=== PATIENT | female | born 1955 | race Caucasian/White ===

== ENCOUNTER → 2022-12-07 23:59 | Outpatient (BNV) | payer OTHER, SELFPAY | PROVIDERS: PCP Physician Assistant Medical; Visit Provider Internal Medicine Cardiovascular Disease | DX: I21.11 ST elevation (STEMI) myocardial infarction involving right coronary artery (principal) | CPT/HCPCS: 92941; 92978; 93458; 99152 ==

== ENCOUNTER 2023-01-03 14:46 | Outpatient (AMB) | payer OTHER, SELFPAY ==
--- NOTE | 2023-01-03 14:58 | A.OFFVIS_ITS ---
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 12/07 Intake Note: New patient post cardiac cath feeling ok fatigued and having heart burn Respiratory Care Practitioner Required: No Emergency Medical Technician: Emergency Medical Technician Present Accompanied by: Daughter Allergies acetaminophen [From Percocet] Allergy (Mild, Verified 01/03/23 15:09) Nausea nitrofurantoin [From Macrobid] Allergy (Mild, Verified 01/03/23 15:09) fever oxycodone [From Percocet] Allergy (Mild, Verified 01/03/23 15:09) Nausea sulfamethoxazole [From Bactrim] Allergy (Mild, Verified 01/03/23 15:09) face swelling trimethoprim [From Bactrim] Allergy (Mild, Verified 01/03/23 15:09) face swelling penicillin G Allergy (Verified 01/03/23 15:09) hives Medication List - Last Reconciled 01/03/23 by Ruddy Sams MD aspirin (Adult Aspirin Regimen) 81 mg PO DAILY atorvastatin 80 mg PO BEDTIME carvedilol 6.25 mg PO BID lisinopril 40 mg PO DAILY omeprazole magnesium (Prilosec OTC) 20 mg PO DAILY ticagrelor (Brilinta) 90 mg PO BID HPI HPI Comments History of Present Illness Details 67 female with who had inferior STEMi in 11/2022 and underwent ostial RCA stent. She is here for f/u. Clinically stable. No throat discomfort or indigestion (anginal symptoms). Residual disease in proximal LCx 70-75%. No bleeding. some skin bruising. Review of Systems Const Denies chills, Denies daytime sleepiness, Denies fatigue, Denies fever(s), Denies frequent falls, Denies poor appetite, Denies snoring, Denies stops breathing during sleep, Denies weakness, Denies weight gain and Denies weight loss Eyes Denies loss of vision ENT Denies dizziness and Denies hearing loss Card Denies chest pain, Denies claudication, Denies leg edema, Denies lightheadedness, Denies palpitations, Denies dyspnea, Denies dyspnea on exertion and Denies orthopnea Resp Denies cough, Denies excessive phlegm production, Denies dyspnea, Denies dyspnea on exertion, Denies snoring and Denies wheezing GI Denies abdominal pain, Denies hematochezia, Denies change in bowel habits, Denies nausea and Denies vomiting Denies urinary frequency and Denies dysuria Musc Denies arthralgias, Denies muscle weakness, Denies numbness and Denies other (frequent falls) Skin/Breast Denies nail changes and Denies rash Neuro Denies Abnormal speech present, Denies dizziness, Denies frequent falls, Denies loss of vision, Denies memory loss, Denies numbness and Denies weakness Psych Denies depression and Denies memory loss Endo Denies fatigue and Denies palpitations Gulshan/Lymph Reports easy bruising and Reports other (anemia) Aller/Immun Denies wheezing Physical Exam Vital Signs: Last Vital Signs Pulse 78 01/03/23 15:04 BP 128/74 01/03/23 15:04 BMI result Body Mass Index 30.2 GENERAL APPEARANCE: in no acute distress, pleasant. NECK: no carotid bruit, no jugular venous distention. SKIN: no suspicious lesions, warm and dry. HEART: no murmurs, regular rate and rhythm. LUNGS: clear to auscultation bilaterally. ABDOMEN: soft, nontender. EXTREMITIES: no edema. PERIPHERAL PULSES: equal. NEUROLOGIC: No gross deficits, AAO X 3 Neuro Speech: No Abnormal speech present Assessment & Plan Assessment & Plan (1) ST elevation myocardial infarction (STEMI) of inferior wall: Code(s): I21.19 - ST elevation (STEMI) myocardial infarction involving other coronary artery of inferior wall (2) Stable angina: Code(s): I20.89 - Other forms of angina pectoris Plan [age] year female who is here for follow-up. She had inferior ST-elevation [place] and underwent ostial RCA PCI in November 2022. She has residual proximal circumflex stenosis of 75%. She has no symptoms currently. She will be starting cardiac rehabilitation next week. We discussed about treatment of her circumflex artery and after discussion we have decided to do cardiac rehab ilitation and see if she has any symptoms. Obviously if she starts having any symptoms the future we will repeat reassess her and consider PCI to circumflex. Continue aspirin and Brilinta. Brilinta will be for at least 1 year. Follow-up in 3 months. Thank you for allowing me to participate in the care of your patient. Please feel free to contact me if you have any questions. Coding Level of Care Code Est Pt Level 4 (77794) Diagnoses ST elevation myocardial infarction (STEMI) of inferior wall I21.19 Stable angina I20.89
[2023-01-03 15:04] VITALS: BP 128/74; PULSE 78; BMI 30.2
== END 2023-01-03 15:33 | disposition home or self-care (01) ==
PROVIDERS: PCP Physician Assistant Medical; Visit Provider Internal Medicine Cardiovascular Disease
DX: I21.19 ST elevation (STEMI) myocardial infarction involving other coronary artery of inferior wall (principal); I20.89 Other forms of angina pectoris
CPT/HCPCS: 99214

== ENCOUNTER → 2023-01-03 14:46 | Outpatient (BNVA) | payer OTHER, SELFPAY | PROVIDERS: PCP Physician Assistant Medical; Visit Provider Internal Medicine Cardiovascular Disease ==

== ENCOUNTER 2023-01-25 10:17 | Outpatient (AMB) | payer OTHER, SELFPAY ==
--- NOTE | 2023-01-25 10:37 | AM.OFFWIN_ITS ---
Intake Vital Signs 01/25/23 10:40 Height 4 ft 11.5 in Weight 150 lb BMI 29.8 BP 126/72 Blood Pressure Location Rt brachial Position Sitting Respiration 13 Pulse 78 Pulse Source Pulse Oximeter Temp 97.6 F Temp Source Temporal Artery Scan Pulse Oximetry (%) 99 Oxygen Delivery Method Room Air Intake Visit Reasons: ? UTI Patient Tobacco Use Status: Former Tobacco user Legal Document Assistant Required: No Accompanied by: Self / Same As Patient Allergies acetaminophen [From Percocet] Allergy (Mild, Verified 01/25/23 11:40) Nausea nitrofurantoin [From Macrobid] Allergy (Mild, Verified 01/25/23 11:40) fever oxycodone [From Percocet] Allergy (Mild, Verified 01/25/23 11:40) Nausea sulfamethoxazole [From Bactrim] Allergy (Mild, Verified 01/25/23 11:40) face swelling trimethoprim [From Bactrim] Allergy (Mild, Verified 01/25/23 11:40) face swelling penicillin G Allergy (Verified 01/25/23 11:40) hives Medication List - Last Reconciled 01/25/23 by Alvin Connor CNP ascorbic acid (vitamin C) 250 mg PO DAILY aspirin (Adult Aspirin Regimen) 81 mg PO DAILY atorvastatin 80 mg PO BEDTIME carvedilol 6.25 mg PO BID cranberry 2,000 mg PO DAILY insulin degludec (Tresiba FlexTouch U-100 insulin) 28 units subcut DAILY lisinopril 40 mg PO DAILY loperamide 2 mg PO Q4H PRN metformin ER 1,000 mg PO BID methenamine hippurate 1 g PO DAILY multivitamin (One Daily Multivitamin tablet) 1 tab PO DAILY omeprazole magnesium (Prilosec OTC) 20 mg PO DAILY oxybutynin chloride ER 10 mg PO DAILY ticagrelor (Brilinta) 90 mg PO BID Do you need a note to return to daycare/school/sports/work: No HPI HPI Comments History of Present Illness Details 67-year-old female presents with complai nts pressure in her suprapupic region and urinary urgency/frequency. She reports associated chills. She notes that her symptoms have been on and off for the past 4-5 days. She reports h/o c hronic UTI. She notes she has not had UTI in the past 1 year. No pain with urination. No blood in the urine. No fever, chills, body aches, fatigue or weakness. PFSH Social History Patient Tobacco Use Status: Former Tobacco user Review of Systems Const Details: Const Denies chills, Denies fatigue, Denies fever(s), Denies headache(s) and Denies weakness ENT Denies change in vision, Denies dizziness, Denies headache(s), Denies hearing loss, Denies nasal congestion, Denies sinus pain, Denies sinus pressure and Denies sore throat Resp Denies cough, Denies dyspnea, Denies wheezing and Denies other (shortness of breath) Cardio Denies chest pain, Denies lightheadedness, Denies dyspnea and Denies other (palpitations) GI Reports as per HPI Reports as per HPI Neuro Denies dizziness, Denies headache(s), Denies numbness, Denies tingling and Denies weakness Psych Denies anxiety, Denies depression, Denies memory?loss Endo Denies fatigue Aller/Immun Denies wheezing Physical Exam Vital Signs: Last Vital Signs Temp 97.6 F 01/25/23 10:40 Pulse 78 01/25/23 10:40 Resp 13 01/25/23 10:40 BP 126/72 01/25/23 10:40 Pulse Ox 99 01/25/23 10:40 Oxygen Delivery Method Room Air 01/25/23 10:40 BMI result Body Mass Index 29.8 Const Other: Const General: well developed; No acute distress Nutritional Appearance: well nourished Orientation/consciousness: patient oriented x3 HEENT Head: Yes normocephalic and Yes atraumatic Eyes General: appearance normal, both eyes and all related structures Pupils: Equal, round and reactive pupils present EOM: EOMs intact bilaterally Resp Effort & Inspection: normal respiratory effort Auscultation: clear to auscultation bilaterally Cardio Rate: regular rate Rhythm: regular rhythm Heart sounds: S1 normal heart sound present, S2 normal heart sound present, no gallops, no murmurs and no rubs Bruits: no abdominal aortic bruits and no carotid bruits GI Abdomen is soft, nontender, nondistended, active bowel sounds x4 No CVA tenderness Neuro General: patient oriented x3 and gait normal, no focal neuro deficit Cranial nerves: Yes Equal, round and reactive pupils present Psych Affect: normal affect Results AMB Urinalysis Dipstick UR Leukocytes Moderate Last Edit by Gabi Patterson MA on 01/25/23 10:36 UR Nitrite Negative Last Edit by Gabi Patterson MA on 01/25/23 10:36 UR Urobilinogen Normal Last Edit by Gabi Patterson MA on 01/25/23 10:36 UR Protein Negative Last Edit by Gabi Patterson MA on 01/25/23 10:36 UR Ph 6.0 Last Edit by Gabi Patterson MA on 01/25/23 10:36 UR Blood Trace Last Edit by Gabi Patterson MA on 01/25/23 10:36 UR Specific [place] 1.015 Last Edit by Gabi Patterson MA on 01/25/23 10:3 6 UR Ketone Negative Last Edit by Gabi Patterson MA on 01/25/23 10:36 UR Bilirubin Negative Last Edit by Gabi Patterson MA on 01/25/23 10:36 UR Glucose Negative Last Edit by Gabi Patterson MA on 01/25/23 10:36 Results Reviewed Results Reviewed: Laboratory Last Values Urine pH (Clinic) 6.0 01/25/23 10:30 Specific [place] (Clinic) 1.015 01/25/23 10:30 Ur Protein (Clinic) Negative 01/25/23 10:30 Ur Ketones (Clinic) Negative 01/25/23 10:30 Urine Blood (Clinic) Trace 01/25/23 10:30 Urine Nitrite Negative 01/25/23 10:30 Urine Bilirubin (Clinic) Negative 01/25/23 10:30 Urobilinogen (Clinic) Normal 01/25/23 10:30 Leukocyte Esterase (Clinic) Moderate 01/25/23 10:30 Urine Glucose (Clinic) Negative 01/25/23 10:30 Assessment & Plan Assessment & Plan (1) Lower urinary tract symptoms (LUTS): Code(s): R39.9 - Unspecified symptoms and signs involving the genitourinary system Plan: Reports on and off suprapubic tenderness, urinary frequency/urgency, and chills for the past for 5 days Suprapubic region nontender to palpation Urine dip is positive for leukocytes and red blood cells Likely UTI Will send urine for culture and sensitivity and will treat based on results, given the patient's allergy list to antibiotics Adequate hydration and rest encouraged May take Tylenol ibuprofen for pain, fever, or discomfort Return with worsening or new symptoms Verbalized understanding and agreed with the treatment plan. Orders: Orders AMB Urinalysis Dipstick Today Z13.9 - Encounter for screening, unspecified UA CC w/rflx Micro + Cult Today R39.9 - Unspecified symptoms and signs involving the genitourinary system Coding Level of Care Code New Pt Level 2 (11907) Diagnoses Lower urinary tract symptoms (LUTS) R39.9
[2023-01-25 10:40] VITALS: BP 126/72; PULSE 78; RESP 13; TEMP 36.4; O2SAT 99; BMI 29.8
== END 2023-01-25 11:51 | disposition home or self-care (01) ==
PROVIDERS: PCP Physician Assistant Medical; Visit Provider Nurse Practitioner Family
DX: R39.9 Unspecified symptoms and signs involving the genitourinary system (principal)
CPT/HCPCS: 99202

== ENCOUNTER 2023-01-25 11:54 | Outpatient (REF) | payer OTHER, SELFPAY ==
[2023-01-25 14:22] LABS: Appearance Urine Cloudy; Color Urine Yellow; Glucose Urine UA Negative (Negative); Leukocyte Esterase Urine Moderate (2+) (Negative); Nitrite Urine Negative (Negative); PH 5.5 (5.0-9.0); UMIC TRIGGER UACC YES; Urine Blood Trace (Negative); Urine Ketones Negative (Negative); Urine Protein Negative (Neg-Trace)
[2023-01-25 14:25] LABS: Bacteria Urine 4+ (None Seen); Hyaline Casts Urine 0-2 /LPF (0-2); RBC Urine 0-2 /HPF (0-2); UACC Culture Trigger YES; WBC Urine >50 /HPF (0-5)
== END 2023-01-25 11:55 | disposition home or self-care (01) ==
LOC: HO.LAB 11:54
PROVIDERS: Visit Provider Nurse Practitioner Family
DX: R39.9 Unspecified symptoms and signs involving the genitourinary system (principal)
CPT/HCPCS: 81001; 87086; 87088; 87186

== ENCOUNTER 2023-04-19 09:00 | Outpatient (AMB) | payer OTHER, SELFPAY ==
[2023-04-19 09:14] VITALS: BP 120/62; PULSE 80; BMI 28.5
--- NOTE | 2023-04-19 09:14 | MHC.OFFVIS ---
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: Yes Allergies acetaminophen [From Percocet] Allergy (Mild, Verified 04/19/23 09:18) Nausea nitrofurantoin [From Macrobid] Allergy (Mild, Verified 04/19/23 09:18) fever oxycodone [From Percocet] Allergy (Mild, Verified 04/19/23 09:18) Nausea sulfamethoxazole [From Bactrim] Allergy (Mild, Verified 04/19/23 09:18) face swelling trimethoprim [From Bactrim] Allergy (Mild, Verified 04/19/23 09:18) face swelling penicillin G Allergy (Verified 04/19/23 09:18) hives Medication List - Last Reconciled 04/19/23 by RICKEY Hurst ascorbic acid (vitamin C) 250 mg PO DAILY aspirin (Adult Aspirin Regimen) 81 mg PO DAILY atorvastatin 80 mg PO BEDTIME carvedilol 6.25 mg PO BID cranberry 2,000 mg PO DAILY insulin degludec (Tresiba FlexTouch U-100 insulin) 28 units subcut DAILY lisinopril 40 mg PO DAILY loperamide 2 mg PO Q4H PRN metformin ER 1,000 mg PO BID methenamine hippurate 1 g PO DAILY multivitamin (One Daily Multivitamin tablet) 1 tab PO DAILY omeprazole magnesium (Prilosec OTC) 20 mg PO DAILY oxybutynin chloride ER 10 mg PO DAILY ticagrelor (Brilinta) 90 mg PO BID HPI 3 mth f/up HPI Details Georgia is a 67-year-old female with past medical history of hyperlipidemia who presented to [facility] 11/2022 with chest discomfort determined to be inferior STEMI who was taken to cardiac laboratory mechanic helper and underwent stenting of the ostial RCA. Today she reports she is been doing well since her hospital discharge. She has not had any recurrent chest or throat discomfort. No shortness of breath, palpitation, presyncope, syncope, PND, orthopnea or edema. Reports only light physical activity. Taking all meds as directed. No bleeding issues reported. Daughter is present. [facility] Medical History (Updated 04/19/23 @ 11:24 by KITTY HurstC) Hyperlipidemia CAD (coronary artery disease) ST elevation myocardial infarction (STEMI) of inferior wall Surgical History (Updated 04/19/23 @ 15:39 by RICKEY Hurst) S/P cardiac catheterization Social History (Updated 04/19/23 @ 09:21 by Mica Crane) Patient Tobacco Use Status: Former Tobacco user Quit Date: 20 years ago Review of Systems Const All systems reviewed & are unremarkable except as noted in HPI and below ENT Denies dizziness Card Denies chest pain, Denies chest pain at rest, Denies chest pain with activity, Denies rapid heart rate, Denies pedal edema, Denies edema, Denies leg edema, Denies lightheadedness, Denies palpitations, Denies dyspnea, Reports dyspnea on exertion and Denies orthopnea Resp Denies cough, Denies dyspnea and Reports dyspnea on exertion GI Denies hematochezia and Denies change in stool character Musc Denies abnormal gait, Denies limited range of motion, Denies muscle cramps, Denies muscle weakness, Denies numbness, Denies radiating pain into limb, Denies stiffness and Denies tingling Neuro Denies abnormal gait, Denies dizziness, Denies numbness and Denies tingling Endo Denies palpitations Physical Exam Vital Signs: Last Vital Signs Pulse 80 04/19/23 09:14 BP 120/62 04/19/23 09:14 BMI result Body Mass Index 28.5 Const General: cooperative, healthy appearing, comfortable and no acute distress Orientation/consciousness: patient oriented x3 Neck Neck: Yes normal visual inspection and Yes no JVD Resp Effort & Inspection: normal respiratory effort Auscultation: clear to auscultation bilaterally, no crackles, no rales, no rhonchi and no wheezes Cardio Jugular venous distension: no JVD Rate: regular rate Rhythm: regular rhythm Heart sounds: S1 normal heart sound present, S2 normal heart sound present, no murmurs and no rubs Neuro General: patient oriented x3 Extrem General: Yes normal to inspection and No no pedal edema Psych Appearance: grossly normal Mental Status: mental status grossly normal Speech and movement: Normal speech and movement present Assessment & Plan Assessment & Plan (1) ST elevation myocardial infarction (STEMI) of inferior wall: Code(s): I21.19 - ST elevation (STEMI) myocardial infarction involving other coronary artery of inferior wall Plan: Presented to [facility] 12/07/2022 with chest and throat discomfort, EKG confirmed inferior STEMI. She underwent cardiac catheterization with Dr. Sams showing proximal RCA ostial 99% stenosis, culprit lesion. CANDELARIA was placed. She had residual left circumflex stenosis. Echocardiogram done on 12/08/2022 showed EF 55-60%, can not exclude hypokinesis of the inferior lateral wall, RV normal size and function, no significant valve abnormalities. She has been attending cardiac rehab. She has been on aspirin and will continue indefinitely. She is on Brilinta uninterrupted for at least 1 year. She is on high-dose atorvastatin with ideal LDL goal less than 70. No recent labs for review. She is also on carvedilol and lisinopril. Today she reports doing well with no concerning symptoms. She has only mild shortness of breath with exertion. She does have known residual left circumflex stenosis. Signs and symptoms of angina reviewed with her in detail. Instructed to notify us if her shortness of breath increases. Continue current medications without change. Will enter orders for fasting lipid profile. Continue cardiac rehab. Cardiology follow-up in 3 months, sooner if needed. Emergency care if ever needed for symptoms (2) CAD (coronary artery disease): Code(s): I25.10 - Atherosclerotic heart disease of [place] coronary artery without angina pectoris Plan: As above (3) S/P cardiac catheterization: Comment: 12/08/2022, left main normal, lad minimal luminal irregularities, left circumflex proximal 75% stenosis, RCA ostial proximal 99% stenosis, culprit lesion, CANDELARIA placed Code(s): Z98.890 - Other specified postprocedural states Plan: Right radial catheterization site well healed (4) Hyperlipidemia: Code(s): E78.5 - Hyperlipidemia, unspecified Plan: [place] LDL goal less than 70. Lab orders for fasting lipid entered, patient informed. Continue high-dose atorvastatin Plan Time spent on chart review, documentation, interview and assessment Orders: Orders Lipid Panel Today I21.19 - ST elevation (STEMI) myocardial infarction involving other coronary artery of inferior wall Coding Level of Care Code Est Pt Level 4 (34262) Diagnoses ST elevation myocardial infarction (STEMI) of inferior wall I21.19 CAD (coronary artery disease) I25.10 S/P cardiac catheterization Z98.890 Hyperlipidemia E78.5 Time Spent (min) 28
== END 2023-04-19 09:52 | disposition home or self-care (01) ==
PROVIDERS: PCP Physician Assistant Medical; Visit Provider Nurse Practitioner Family
DX: I21.19 ST elevation (STEMI) myocardial infarction involving other coronary artery of inferior wall (principal); I25.10 Atherosclerotic heart disease of native coronary artery without angina pectoris; Z98.890 Other specified postprocedural states; E78.5 Hyperlipidemia, unspecified
CPT/HCPCS: 99214

== ENCOUNTER → 2023-04-19 09:00 | Outpatient (BNVA) | payer OTHER, SELFPAY | PROVIDERS: PCP Physician Assistant Medical; Visit Provider Nurse Practitioner Family ==

== ENCOUNTER 2023-07-18 09:06 | Outpatient (AMB) | payer OTHER, SELFPAY ==
[2023-07-18 09:12] VITALS: BP 130/60; PULSE 62; BMI 29.2
--- NOTE | 2023-07-18 09:12 | A.OFFVIS_ITS ---
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: No Accompanied by: Self / Same As Patient Allergies acetaminophen [From Percocet] Allergy (Mild, Verified 04/19/23 09:18) Nausea nitrofurantoin [From Macrobid] Allergy (Mild, Verified 04/19/23 09:18) fever oxycodone [From Percocet] Allergy (Mild, Verified 04/19/23 09:18) Nausea sulfamethoxazole [From Bactrim] Allergy (Mild, Verified 04/19/23 09:18) face swelling trimethoprim [From Bactrim] Allergy (Mild, Verified 04/19/23 09:18) face swelling penicillin G Allergy (Verified 04/19/23 09:18) hives Medication List - Last Reconciled 07/18/23 by Ruddy Sams MD ascorbic acid (vitamin C) 250 mg PO DAILY aspirin (Adult Aspirin Regimen) 81 mg PO DAILY atorvastatin 80 mg PO BEDTIME carvedilol 6.25 mg PO BID cranberry 2,000 mg PO DAILY insulin degludec (Tresiba FlexTouch U-100 insulin) 28 units subcut DAILY lisinopril 40 mg PO DAILY loperamide 2 mg PO Q4H PRN metformin ER 1,000 mg PO BID methenamine hippurate 1 g PO DAILY multivitamin (One Daily Multivitamin tablet) 1 tab PO DAILY omeprazole magnesium (Prilosec OTC) 20 mg PO DAILY oxybutynin chloride ER 10 mg PO DAILY ticagrelor (Brilinta) 90 mg PO BID HPI Comments Details: 67 female with who had inferior STEMi in 11/2022 and underwent ostial RCA stent. She is here for f/u. Clinically stable. She had indigestion like feeling when she presented with inferior ST-elevation [place]. She has been experiencing indigestion off and on. She is saying that she is taking omeprazole. The symptoms are random but quite similar to her presentation with STEMI. She is doing cardiac rehabilitation. [facility] Medical History (Updated 04/19/23 @ 11:24 by Dora Hayes NP-C) Hyperlipidemia CAD (coronary artery disease) ST elevation myocardial infarction (STEMI) of inferior wall Surgical History S/P cardiac catheterization Social History Patient Tobacco Use Status: Former Tobacco user Quit Date: 20 years ago Review of Systems Const Denies chills, Denies fatigue, Denies fever(s), Denies frequent falls, Denies weakness, Denies weight gain and Denies weight loss ENT Denies dizziness Card Denies chest pain, Denies leg edema, Denies lightheadedness, Denies palpitations, Denies dyspnea and Denies dyspnea on exertion Resp Denies cough, Denies dyspnea and Denies dyspnea on exertion GI Denies hematochezia Musc Denies abnormal gait, Denies muscle weakness, Denies numbness, Denies radiating pain into limb and Denies tingling Neuro Denies abnormal gait, Denies dizziness, Denies frequent falls, Denies numbness, Denies tingling and Denies weakness Endo Denies fatigue and Denies palpitations Physical Exam Vital Signs: Last Vital Signs Pulse 62 07/18/23 09:12 BP 130/60 07/18/23 09:12 BMI result Body Mass Index 29.2 GENERAL APPEARANCE: in no acute distress, pleasant. NECK: no carotid bruit, no jugular venous distention. SKIN: no suspicious lesions, warm and dry. HEART: no murmurs, regular rate and rhythm. LUNGS: clear to auscultation bilaterally. ABDOMEN: soft, nontender. EXTREMITIES: no edema. PERIPHERAL PULSES: equal. NEUROLOGIC: No gross deficits, AAO X 3 Office Procedures EKG Details: Rhythm 62 beats per minute, normal axis, normal ECG, QTC 381 milliseconds. [id number], Complete Assessment & Plan Assessment & Plan (1) Stable angina: Code(s): I20.89 - Other forms of angina pectoris Category: Medical Plan Pleasant 67-year-old female who is presenting for follow-up. She had previous inferior ST-elevation [place] underwent ostial right coronary artery stent. She had 75% circumflex stenosis which was medically treated. On follow-up she is complaining of indigestion like feeling off and on. These symptoms are not clearly exertional but are similar to her presentation with STEMI. Hard to know whether this is truly indigestion or related to the 75% stenosis of the left circumflex artery. I have discussed with her in detail and we have decided do an exercise stress test. Same medications for now. Follow-up in 3 months. Thank you for allowing me to participate in the care of your patient. Please feel free to contact me if you have any questions. Orders: Orders CA stress test Today I20.89 - Other forms of angina pectoris Coding Level of Care Code Est Pt Level 4 (37132) Diagnoses Stable angina I20.89 CPT Codes EKG - CPT: [id number], Complete ([id number])
== END 2023-07-18 09:49 | disposition home or self-care (01) ==
PROVIDERS: PCP Physician Assistant Medical; Visit Provider Internal Medicine Cardiovascular Disease
DX: I20.89 Other forms of angina pectoris (principal)
CPT/HCPCS: 93010; 99214

== ENCOUNTER → 2023-07-18 09:06 | Outpatient (BNVA) | payer OTHER, SELFPAY | PROVIDERS: PCP Physician Assistant Medical; Visit Provider Internal Medicine Cardiovascular Disease | DX: I20.89 Other forms of angina pectoris (principal); I25.2 Old myocardial infarction | CPT/HCPCS: 93005 ==

== ENCOUNTER → 2023-07-31 09:05 | Outpatient (REF) | payer OTHER, SELFPAY ==
--- NOTE | 2023-07-31 09:09 | CA_ITS ---
Acquisition Time: 2023-07-31 09:13:31 Total Exercise Time: 00:05:15 Test Indications: Chest Pain Medications: SEE H Protocol: SEBAS Max HR: 153 BPM 99% of Pred: 154 BPM Max BP: 160/060 mmHG Max Work Load: 7.0 METS Exercise stress test exercise 5 min 15 sec of Sebas protocll achieivng 99% MPHR, with 1-2/10 left sided pressure, mild SOB, without arrhythmias, with normotensive response to exercise, without EKG changes. Chest pain resolved with rest. Test reviewed with Dr. Sams. Referred By: Ruddy Sams Overread By: Clare Wallace
== END ==
LOC: HO.CARD 09:05
PROVIDERS: Visit Provider Internal Medicine Cardiovascular Disease
DX: I20.89 Other forms of angina pectoris (principal)
CPT/HCPCS: 93017

== ENCOUNTER → 2023-07-31 09:09 | Outpatient (BNV) | payer OTHER, SELFPAY | PROVIDERS: Visit Provider Nurse Practitioner | DX: R07.9 Chest pain, unspecified (principal) | CPT/HCPCS: 93016; 93018 ==

== ENCOUNTER 2023-08-31 09:25 | Outpatient (AMB) | payer OTHER, SELFPAY ==
--- NOTE | 2023-08-31 09:33 | A.OFFPC_ITS ---
Vital Signs 08/31/23 09:39 Height 4 ft 11.06 in Weight 150 lb BMI 30.2 BP 132/64 Blood Pressure Location Lt brachial Position Sitting Respiration 16 Pulse 66 Pulse Source Pulse Oximeter Temp 98 F Temp Source Oral Pulse Oximetry (%) 99 Oxygen Delivery Method Room Air Intake Visit Reasons: Back pain Intake Note: New patient visit. Back pain and hip pain on left side. Allergies acetaminophen [From Percocet] Allergy (Mild, Verified 04/19/23 09:18) Nausea nitrofurantoin [From Macrobid] Allergy (Mild, Verified 04/19/23 09:18) fever oxycodone [From Percocet] Allergy (Mild, Verified 04/19/23 09:18) Nausea sulfamethoxazole [From Bactrim] Allergy (Mild, Verified 04/19/23 09:18) face swelling trimethoprim [From Bactrim] Allergy (Mild, Verified 04/19/23 09:18) face swelling penicillin G Allergy (Verified 04/19/23 09:18) hives Tobacco use date assessed: 08/31/23 Fall risk assessment: No Falls in past year Last assessed Fall Risk: 08/31/23 Dental Screening Dental Screen Date: 08/31/23 Did you have a dental visit in the last 12 months?: Yes Did you have a dental problem in the last 6 months where you did not have access to dental care?: No Was dental information given to patient?: Patient has dentist HPI HPI Comments History of Present Illness Details 67 yo with pmh diabetes, kidney cancer C AD presenting to [facility] Concerned about low back pain. Fell recently with increase in severity of chronic back pain, new left sciatica. OTC tylenol not helping. CAD precluding advil etc PFSH Medical History (Updated 08/31/23 @ 10:07 by Beverley Tello MD) Bone spur Vertigo Urinary incontinence Recurrent UTI Osteoarthritis Obesity, Class I, BMI 30-34.9 Migraine Left hand pain Hypertensive disorder Hypercholesteremia Diarrhea COVID-19 Clear cell renal cell carcinoma Chronic headache Hyperlipidemia CAD (coronary artery disease) ST elevation myocardial infarction (STEMI) of inferior wall Surgical History (Updated 08/31/23 @ 10:06 by Catalina Langford CMA) H/O partial nephrectomy H/O removal of cyst Finger joint replacement of right hand S/P cardiac catheterization Social History Patient Tobacco Use Status: Former Tobacco user Cigarettes Per Day: 0.25 Years Smoked: Unknown e-Cigarette/Vaping Use: Never Used Second Hand Smoke Exposure: Yes service: No Current occupational status: employed and retired Current occupation: [employer] at [employer] Current occupational exposures/hazards: No Questionnaire PHQ-9 Over the last 2 weeks, how often have you been bothered by any of the following problems? 1. Little interest or pleasure in doing things: not at all 2. Feeling down, depressed, or hopeless: not at all 3. Trouble falling or staying asleep, or sleeping too much: more than half the days 4. Feeling tired or having little energy: not at all 5. Poor appetite or overeating: not at all 6. Feeling bad about yourself - or that you are a failure or have let yourself or your family down: not at all 7. Trouble concentrating on things, such as reading the newspaper or watching television: not at all 8. Moving or speaking so slowly that other people could have noticed. Or the opposite - being so fidgety or restless that you have been moving around a lot more than usual: not at all 9. Thoughts that you would be better off or of hurting yourself in some way: not at all Total score: 2 36055 - PHQ-9 Billing: Yes Source: Developed by Drs. Maury Smith, Samantha Ray, Parmjit Martinez and colleagues, with an educational kristen from [employer]. Thrive Questionnaire Date Thrive assessed: 08/31/23 I am a: Patient What is your living situation today?: I have a steady place to live Within the past 12 months, did the food you bought not last and you didn't have the money to get more?: Never true Within the past 12 months, did you worry whether your food would run out before you got money to buy more?: Never true Do you have trouble paying for medicines?: No Do you have trouble getting transportation to medical appointments?: No Do you have trouble paying your heating and electricity bill?: No Do you have trouble taking care of your child, family member or friend?: No Do you have trouble with day-to-day activities such as bathing, preparing meals, shopping, managing finances, etc.?: No Are you currently unemployed and looking for a job?: No Are you interested in more education?: No Please select the resources that you would like help with: None THRIVE Score: 0 AUDIT C Alcohol Use Questionnaire (AUDIT-C) 1. How often do you have a drink containing alcohol?: Never 3. How often do you have six or more drinks on one occasion?: Never Total Score: 0 PIYUSH-7 AMB Questionnaire PIYUSH-7 Feeling nervous, anxious, or on edge: 0 = Not at all Not being able to stop or control worryin = Not at all Worrying too much about different things: 0 = Not at all Trouble relaxin = Not at all Being so restless that it is hard to sit still: 0 = Not at all Becoming easily annoyed or irritable: 1 = Several days Feeling afraid as if something awful might happen: 1 = Several days Total PIYUSH-7 score (0-4 normal; 5-9 mild; 10-14 moderate; 15-21 severe): 2 Source: Developed by Drs. Maury Smith, Samantha Ray, Parmjit Martinez and colleagues, with an educational kristen from [employer]. PIYUSH-7 Assessment Billing PIYUSH-7 Assessment Tool: PIYUSH-7 Assessment 97811 Review of Systems Const Details: se hpi Unobtainable due to mental condition Physical exam (Primary Care) Vital Signs: Last Vital Signs Temp 98 F 08/31/23 09:39 Pulse 66 08/31/23 09:39 Resp 16 08/31/23 09:39 BP 132/64 08/31/23 09:39 Pulse Ox 99 08/31/23 09:39 Oxygen Delivery Method Room Air 08/31/23 09:39 PHYSICAL EXAM: GENERAL: Alert and oriented x 3. NAD EYES: EOMI. Anicteric. HENT: Moist mucous membranes. No scleral icterus. No cervical lymphadenopathy. LUNGS: Clear to auscultation bilaterally. CARDIOVASCULAR: Regular rate and rhythm. No murmur. No JVD. ABDOMEN: Soft, non-tender +bs EXTREMITIES: No edema. Non-tender. SKIN: No rashes or lesions. Warm. NEUROLOGIC: No focal neurological deficits. CN II-XII grossly intact PSYCHIATRIC: Cooperative. Appropriate mood and affect BMI result Body Mass Index 30.2 Tobacco/Smoking Status: Tobacco use Status Tobacco use date assessed 08/31/23 08/31/23 09:41 Patient Tobacco Use Status Former Tobacco user 08/31/23 09:41 e-Cigarette/Vaping Use Never Used 08/31/23 09:41 PHQ-9: PHQ-9 Score PHQ-9: Total score 2 08/31/23 09:42 Thrive Assessment: Date of Thrive Assessment Date Thrive assessed 08/31/23 08/31/23 09:42 Assessment and Plan Assessment & Plan (1) ST elevation myocardial infarction (STEMI) of inferior wall: Code(s): I21.19 - ST elevation (STEMI) myocardial infarction involving other coronary artery of inferior wall (2) Hyperlipidemia: Code(s): E78.5 - Hyperlipidemia, unspecified (3) CAD (coronary artery disease): Code(s): I25.10 - Atherosclerotic heart disease of [place] coronary artery without angina pectoris (4) History of kidney cancer: Code(s): Z85.528 - Personal history of other malignant neoplasm of kidney Orders: Orders Comprehensive [place]. Panel Fast 08/31/23 E11.59 - Type 2 diabetes mellitus with other circulatory complications Hemoglobin A1c 08/31/23 E11.59 - Type 2 diabetes mellitus with other circulatory complications Microalbumin, Random (w Creat) 08/31/23 E11.59 - Type 2 diabetes mellitus with other circulatory complications Lipid Panel 08/31/23 E11.59 - Type 2 diabetes mellitus with other circulatory complications Complete Blood Count Man Dif 08/31/23 E11.59 - Type 2 diabetes mellitus with other circulatory complications, Z13.0 - Encounter for screening for diseases of the blood and blood-forming organs and certain disorders involving the immune mechanism XR lumbar spine 2-3V 08/31/23 M54.16 - Radiculopathy, lumbar region Referrals Physiatry Referral M54.16 - Radiculopathy, lumbar region Medications: New gabapentin 300 mg PO BID 90 days 180 caps 3RF tramadol 50 mg PO DAILY 7 days 21 tabs 0RF Coding Level of Care Code Est Pt Level 4 (67264) Diagnoses ST elevation myocardial infarction (STEMI) of inferior wall I21.19 Hyperlipidemia E78.5 CAD (coronary artery disease) I25.10 History of kidney cancer Z85.528 Additional Codes PIYUSH-7 Assessment Billing - PIYUSH-7 Assessment Tool: PIYUSH-7 Assessment 56458 ([id number])
[2023-08-31 09:39] VITALS: BP 132/64; PULSE 66; RESP 16; TEMP 36.6; O2SAT 99; BMI 30.2
== END 2023-08-31 10:11 | disposition home or self-care (01) ==
LOC: HO.HMGFM 09:25
PROVIDERS: PCP Internal Medicine; Visit Provider Internal Medicine
DX: E78.5 Hyperlipidemia, unspecified (principal); I25.10 Atherosclerotic heart disease of native coronary artery without angina pectoris; I25.2 Old myocardial infarction; Z85.528 Personal history of other malignant neoplasm of kidney
CPT/HCPCS: 99214

== ENCOUNTER 2023-08-31 10:41 | Outpatient (REF) | payer OTHER, SELFPAY ==
--- NOTE | ~2023-08-31 | XR_ITS ---
EXAMINATION: XR LUMBOSACRAL SPINE CLINICAL INFORMATION: Radiculopathy lumbar region left. COMPARISON: None available. TECHNIQUE: Three views of the lumbosacral spine. FINDINGS: Mild rightward curvature of the lumbar spine. Degenerative changes on limited views of the bilateral hips and sacroiliac joints. Facet arthritis in the lower lumbar spine. Atherosclerotic aortic calcifications. Moderate multilevel lumbar spondylosis with loss of disc space height and degenerative changes most notable at L5-S1. Minimal grade 1 anterolisthesis of L4 on L5 with loss of disc space height. XR/XR lumbar spine 2-3V IMPRESSION: Moderate multilevel lumbar spondylosis most notable at L5-S1.
== END 2023-08-31 10:42 | disposition home or self-care (01) ==
LOC: HO.XRAY 10:41
PROVIDERS: PCP Physician Assistant Medical; Visit Provider Internal Medicine
DX: M54.16 Radiculopathy, lumbar region (principal)
CPT/HCPCS: 72100

== ENCOUNTER 2023-09-18 08:57 | Outpatient (AMB) | payer OTHER, SELFPAY ==
--- NOTE | 2023-09-18 08:58 | MHC.PC.OV ---
Vital Signs 09/18/23 09:07 Weight 142 lb 8 oz BP 130/68 Blood Pressure Location Lt brachial Position Sitting Respiration 12 Pulse 68 Pulse Source Pulse Oximeter Temp 98.3 F Temp Source Oral Pulse Oximetry (%) 99 Oxygen Delivery Method Room Air Intake Visit Reasons: Severe back pIn Intake Note: patient c/o radiating pain on back and hip and its getting worse. Accompanied by: Daughter Is last menstrual period known: No Allergies acetaminophen [From Percocet] Allergy (Mild, Verified 09/18/23 09:05) Nausea nitrofurantoin [From Macrobid] Allergy (Mild, Verified 09/18/23 09:05) fever oxycodone [From Percocet] Allergy (Mild, Verified 09/18/23 09:05) Nausea sulfamethoxazole [From Bactrim] Allergy (Mild, Verified 09/18/23 09:05) face swelling trimethoprim [From Bactrim] Allergy (Mild, Verified 09/18/23 09:05) face swelling penicillin G Allergy (Verified 09/18/23 09:05) hives Tobacco use date assessed: 08/31/23 Dental Screening Dental Screen Date: 08/31/23 HPI HPI Comments History of Present Illness Details This is a 66-year-old female with a past medical history of type 2 diabetes, clear cell renal carcinoma of the right kidney, obesity, recurrent UTI, vertigo, chronic headaches, hypertension and hyperlipidemia presenting for evaluation of back pain. She is accompanied by her daughter, Pam. She has a long history of lower back pain x years with radiation down the right leg. She has been treated in the past with muscle relaxants and analgesics. She has done physical therapy. Approximately two months ago she developed worsening symptoms and increased pain now on both sides of the lower back and new pain which radiates down the left buttock, to the left hip and the left groin and upper thigh. The pain is 8/10 constantly. Exacerbating activities include sitting, trying to sleep in any position, standing and lifting her left leg. She was prescribed Tramadol by Dr. Tello, and results from her lumbar x-ray are pending from 08/31/23. She is only able to take the Tramadol at night mostly because it makes her groggy, and she needs to work. States she can't afford to take time off work. She has the same problem with Gabapentin. She can't take NSAIDs due to cardiac dz/med interactions. Tylenol has been ineffective. Heat worsened pain. Cold compresses offer a little bit of short-term relief. There was no inciting event or injury. Denies loss of bowel/bladder control, numbness or tingling except for chronic paresthesias radiating down the right leg. Type 2 diabetes-taking metformin and Tresiba. Last Hga1c was around 7.5% per patient after cortisone injections at the end of June. She has pending lab orders. Cardiovascular-She had an ST elevation [place] 12/08/2022. Status post cardiac catheterization with CANDELARIA placed to the RCA. There was 75% stenosis of the left circumflex. There were minimal luminal irregularities in the LAD. Medications include amlodipine, baby aspirin, atorvastatin, carvedilol, lisinopril and Brilinta. She has a follow up with cardiology on October 07. States residual angina improved after resuming Amlodipine. Right renal clear cell carcinoma-followed by Dr. Sutherland. Surgeon is Dr. Baldwin at [facility]. She underwent partial nephrectomy 12/16/2021. No known recurrence. [facility] Medical History (Updated 09/18/23 @ 13:53 by KELSIE Lundy) Colon polyp Pure hypercholesterolemia Essential hypertension History of kidney cancer Clear cell carcinoma of right kidney Abnormal mammogram Osteopenia Bone spur Vertigo Urinary incontinence Recurrent UTI Osteoarthritis Obesity, Class I, BMI 30-34.9 Migraine Left hand pain Hypertensive disorder Hypercholesteremia Diarrhea COVID-19 Clear cell renal cell carcinoma Chronic headache Hyperlipidemia CAD (coronary artery disease) ST elevation myocardial infarction (STEMI) of inferior wall Surgical History (Updated 09/18/23 @ 08:47 by KELSIE Lundy) History of shoulder surgery History of carpal tunnel surgery of right wrist S/P foot surgery, right H/O partial nephrectomy H/O removal of cyst Finger joint replacement of right hand S/P cardiac catheterization Family History (Updated 09/18/23 @ 08:50 by KELSIE Lundy) Brother Heart disease Alcohol abuse Cancer Mother Heart disease Hypercholesterolemia Hypertension Daughter Hypercholesterolemia Social History Patient Tobacco Use Status: Former Tobacco user Cigarettes Per Day: 0.25 Years Smoked: Unknown e-Cigarette/Vaping Use: Never Used Second Hand Smoke Exposure: Yes service: No Current occupational status: employed and retired 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 +fatigue (not sleeping due to pain) Gastrointestinal: No anorexia, nausea, vomiting or diarrhea. No abdominal pain or blood in stool. Genitourinary: No dysuria, hematuria, urinary frequency. Skin: No rash Physical exam (Primary Care) Vital Signs: Last Vital Signs Temp 98.3 F 09/18/23 09:07 Pulse 68 09/18/23 09:07 Resp 12 09/18/23 09:07 BP 130/68 09/18/23 09:07 Pulse Ox 99 09/18/23 09:07 Oxygen Delivery Method Room Air 09/18/23 09:07 Tobacco/Smoking Status: Tobacco use Status Tobacco use date assessed 08/31/23 09/18/23 08:58 Patient Tobacco Use Status Former Tobacco user 09/18/23 08:58 e-Cigarette/Vaping Use Never Used 09/18/23 08:58 Thrive Assessment: Date of Thrive Assessment Date Thrive assessed 08/31/23 09/18/23 08:58 Const Other: Constitutional: Alert, in no distress. Respiratory: Clear to auscultation. Cardiovascular: S1 S2 regular. No murmurs. Gastrointestinal: Abdomen soft, non-tender, non-distended. Musculoskeletal: Decreased lumbar extension, lateral bending and rotation due to severe pain. Patient winces and moves tentatively during the exam. No foot drop. Lower extremity reflexes intact bilaterally. Left leg strength 3/5, right leg strength 4/5. She has severe left hip and left back pain when she attempts left straight leg raise. The right straight leg raise is negative. The is no midline spinal tenderness. Extremities: Warm and well perfused. Assessment and Plan Assessment & Plan (1) Severe low back pain: Code(s): M54.50 - Low back pain, unspecified (2) Lumbar back pain with radiculopathy affecting left lower extremity: Code(s): M54.16 - Radiculopathy, lumbar region (3) Type 2 diabetes mellitus with cardiac complication: Code(s): E11.59 - Type 2 diabetes mellitus with other circulatory complications (4) CAD (coronary artery disease): Code(s): I25.10 - Atherosclerotic heart disease of [place] coronary artery without angina pectoris Qualifiers: Associated angina: with stable angina Coronary Disease-Associated Artery/Lesion type: [place]all artery [place] vs. transplanted heart: marshall heart Qualified Code(s): I25.118 - Atherosclerotic heart disease of [place] coronary artery with other forms of angina pectoris (5) Hyperlipidemia: Code(s): E78.5 - Hyperlipidemia, unspecified Qualifiers: Hyperlipidemia type: pure hypercholesterolemia Qualified Code(s): E78.00 - Pure hypercholesterolemia, unspecified (6) Essential hypertension: Code(s): I10 - Essential (primary) hypertension Plan Given the patient's continued symptoms for over 6 weeks , lack of inciting injury and history of cancer she needs an MRI of the lumbar spine to rule out Mets. Order placed. She had an x-ray completed of the lumbar spine, and results are pending. We will also obtain x-rays of her hips to evaluate for possible osteoarthritis. She can not take time off of work. Continue to apply cold compresses which offer some relief. Heat made her symptoms worse. Refilled tramadol. She can take it every 8 hours as needed, but she can not take it if she is going to work or drive. She has an upcoming appointment with [facility] in September. She will continue her current medications for cardiovascular disease and keep the follow up appointment scheduled with Cardiology. Orders: Orders MR lumbar spine wo con Today M54.16 - Radiculopathy, lumbar region, M54.50 - Low back pain, unspecified XR hip BI w PEL1V Today M25.551 - Pain in right hip, M25.552 - Pain in left hip Medications: New lorazepam 1 mg orally once 30-60 minutes prior to MRI.; 1 tab 0RF Changed From tramadol 50 mg PO DAILY 7 days 21 tabs 0RF To tramadol 50 mg PO Q8H 14 days PRN 42 tabs 0RF pain Coding Level of Care Code Est Pt Level 4 (98697) Complex EM visit Add On G2211 Diagnoses Severe low back pain M54.50 Lumbar back pain with radiculopathy affecting left lower extremity M54.16 Type 2 diabetes mellitus with cardiac complication E11.59 Coronary artery disease of [place] artery of [place]all heart with stable angina pectoris I25.118 Associated angina: with stable angina Coronary Disease-Associated Artery/Lesion type: [place] artery [place] vs. transplanted heart: [place]all heart Pure hypercholesterolemia E78.00 Hyperlipidemia type: pure hypercholesterolemia Essential hypertension I10
[2023-09-18 09:07] VITALS: BP 130/68; PULSE 68; RESP 12; TEMP 36.8; O2SAT 99
== END 2023-09-18 09:39 | disposition home or self-care (01) ==
PROVIDERS: PCP Physician Assistant Medical; Visit Provider Physician Assistant Medical
DX: M54.50 Low back pain, unspecified (principal); E11.59 Type 2 diabetes mellitus with other circulatory complications; I25.118 Atherosclerotic heart disease of native coronary artery with other forms of angina pectoris; M54.16 Radiculopathy, lumbar region; E78.00 Pure hypercholesterolemia, unspecified; I10 Essential (primary) hypertension
CPT/HCPCS: 99214

== ENCOUNTER 2023-09-18 10:32 | Outpatient (REF) | payer OTHER, SELFPAY ==
--- NOTE | ~2023-09-18 | XR_ITS ---
EXAMINATION: XR BILATERAL HIPS WITH AP PELVIS CLINICAL INFORMATION: Bilateral hip pain, left greater than right. COMPARISON: None available. TECHNIQUE: AP view of the pelvis as well as AP and frog-leg lateral views of the right and left hip. FINDINGS: No acute fracture or dislocation. Mild bilateral hip joint space narrowing with [id number] marginal osteophytes. No concerning lytic or blastic osseous lesion. No evidence of avascular necrosis. Degenerative spurring at the bilateral greater trochanters. Partially visualized facet arthropathy in the lower lumbar spine. Mild degenerative arthritis at the symphysis pubis. Phleboliths within the pelvis. XR/XR hip BI w PEL1V IMPRESSION: 1. Sxwn-[id number] bilateral hip osteoarthritis. 2. Partially visualized facet arthropathy in the lower lumbar spine.
== END 2023-09-18 10:33 | disposition home or self-care (01) ==
LOC: HO.XRAY 10:32
PROVIDERS: PCP Physician Assistant Medical; Visit Provider Physician Assistant Medical
DX: M25.551 Pain in right hip (principal); M25.552 Pain in left hip
CPT/HCPCS: 73521

== ENCOUNTER 2023-10-04 14:24 | Outpatient (AMB) | payer OTHER, SELFPAY ==
[2023-10-04 14:28] VITALS: BP 142/52; PULSE 58; BMI 28.9
--- NOTE | 2023-10-04 14:28 | MHC.OFFVIS ---
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 Accompanied by: Daughter Allergies acetaminophen [From Percocet] Allergy (Mild, Verified 09/18/23 09:05) Nausea nitrofurantoin [From Macrobid] Allergy (Mild, Verified 09/18/23 09:05) fever oxycodone [From Percocet] Allergy (Mild, Verified 09/18/23 09:05) Nausea sulfamethoxazole [From Bactrim] Allergy (Mild, Verified 09/18/23 09:05) face swelling trimethoprim [From Bactrim] Allergy (Mild, Verified 09/18/23 09:05) face swelling penicillin G Allergy (Verified 09/18/23 09:05) hives Medication List - Last Reconciled 10/04/23 by Ruddy Sams MD amlodipine 2.5 mg PO DAILY ascorbic acid (vitamin C) 250 mg PO DAILY aspirin (Adult Aspirin Regimen) 81 mg PO DAILY atorvastatin 80 mg PO BEDTIME carvedilol 6.25 mg PO BID cranberry 2,000 mg PO DAILY gabapentin 300 mg PO BID 90 days insulin degludec (Tresiba FlexTouch U-100 insulin) 26 units subcut DAILY lisinopril 40 mg PO DAILY loperamide 2 mg PO Q4H PRN metformin ER 1,000 mg PO BID methenamine hippurate 1 g PO DAILY multivitamin (One Daily Multivitamin tablet) 1 tab PO DAILY oxybutynin chloride ER 10 mg PO DAILY ticagrelor (Brilinta) 90 mg PO BID tramadol 50 mg PO Q8H PRN 14 days HPI Comments Details: 67 female with who had inferior STEMi in 11/2022 and underwent ostial RCA stent. She is here for f/u. Clinically stable. She had indigestion like feeling when she presented with inferior ST-elevation NM. She has been experiencing indigestion off and on. She is saying that she is taking omeprazole. The symptoms are random but quite similar to her presentation with STEMI. She is doing cardiac rehabilitation. 10/04/2023: On last visit she was complaining of chest discomfort with activities. She underwent stress testing where after exercising for 5 minutes 30 seconds on treadmill she developed chest discomfort. No dynamic EKG changes were noted but symptoms improved after she stopped exercising. She has been taking amlodipine 2.5 mg daily since then and her symptoms are somewhat better. She still gets some anginal episodes off and on and feels distressed by the symptoms. [facility] Medical History (Updated 09/18/23 @ 13:53 by KELSIE Lundy) Colon polyp Pure hypercholesterolemia Essential hypertension History of kidney cancer Clear cell carcinoma of right kidney Abnormal mammogram Osteopenia Bone spur Vertigo Urinary incontinence Recurrent UTI Osteoarthritis Obesity, Class I, BMI 30-34.9 Migraine Left hand pain Hypertensive disorder Hypercholesteremia Diarrhea COVID-19 Clear cell renal cell carcinoma Chronic headache Hyperlipidemia CAD (coronary artery disease) ST elevation myocardial infarction (STEMI) of inferior wall Surgical History History of shoulder surgery History of carpal tunnel surgery of right wrist S/P foot surgery, right H/O partial nephrectomy H/O removal of cyst Finger joint replacement of right hand S/P cardiac catheterization Family History Brother Heart disease Alcohol abuse Cancer Mother Heart disease Hypercholesterolemia Hypertension Daughter Hypercholesterolemia Social History Patient Tobacco Use Status: Former Tobacco user Cigarettes Per Day: 0.25 Years Smoked: Unknown e-Cigarette/Vaping Use: Never Used Second Hand Smoke Exposure: Yes service: No Current occupational status: employed and retired 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 [employer] Current occupational exposures/hazards: No Review of Systems Const Denies chills, Denies fatigue, Denies fever(s), Denies frequent falls, Denies weakness, Denies weight gain and Denies weight loss ENT Denies dizziness Card Denies chest pain, Denies leg edema, Denies lightheadedness, Denies palpitations, Denies dyspnea and Denies dyspnea on exertion Resp Denies cough, Denies dyspnea and Denies dyspnea on exertion GI Denies hematochezia Musc Denies abnormal gait, Denies muscle weakness, Denies numbness, Denies radiating pain into limb and Denies tingling Neuro Denies abnormal gait, Denies dizziness, Denies frequent falls, Denies numbness, Denies tingling and Denies weakness Endo Denies fatigue and Denies palpitations Physical Exam Vital Signs: Last Vital Signs Pulse 58 10/04/23 14:28 BP 142/52 H 10/04/23 14:28 BMI result Body Mass Index 28.9 GENERAL APPEARANCE: in no acute distress, pleasant. NECK: no carotid bruit, no jugular venous distention. SKIN: no suspicious lesions, warm and dry. HEART: no murmurs, regular rate and rhythm. LUNGS: clear to auscultation bilaterally. ABDOMEN: soft, nontender. EXTREMITIES: no edema. PERIPHERAL PULSES: equal. NEUROLOGIC: No gross deficits, AAO X 3 Assessment & Plan Assessment & Plan (1) Stable angina: Code(s): I20.89 - Other forms of angina pectoris Category: Medical (2) Hyperlipidemia: Code(s): E78.5 - Hyperlipidemia, unspecified Category: Medical Qualifiers: Hyperlipidemia type: pure hypercholesterolemia Qualified Code(s): E78.00 - Pure hypercholesterolemia, unspecified Plan Pleasant 67 year female who is here for follow-up. She has known history of coronary disease with previous RCA PCI in the setting of inferior ST-elevation NM. She had residual left circumflex stenosis which was medically treated in the past. Recently she has been experiencing chest discomfort with activities and during stress testing she also had chest discomfort while exercising. She did not have any dynamic EKG changes but only exercise for 5 minutes 30 seconds. She has been on amlodipine with some improvement in symptoms. Her blood pressure is elevated and I have advised her to increase the amlodipine to 5 mg daily. We discussed about treatment of coronary disease and that we have options of medical treatment versus PCI. Her symptoms are less frequent but quite distressing to her and she wishes to pursue PCI to left circumflex artery. We are going to arrange that for her. She is already on aspirin Brilinta and will continue both. Follow-up 2 weeks after cardiac catheterization. Thank you for allowing me to participate in the care of your patient. Please feel free to contact me if you have any questions. Medications: New amlodipine 5 mg PO DAILY 90 tabs 3RF Discontinued amlodipine Discontinued Reason: Doctor's Order 2.5 mg PO DAILY 60 tabs 3RF Coding Level of Care Code Est Pt Level 4 (62400) Diagnoses Stable angina I20.89 Pure hypercholesterolemia E78.00 Hyperlipidemia type: pure hypercholesterolemia
== END 2023-10-04 14:51 | disposition home or self-care (01) ==
PROVIDERS: PCP Physician Assistant Medical; Visit Provider Internal Medicine Cardiovascular Disease
DX: I20.89 Other forms of angina pectoris (principal); E78.00 Pure hypercholesterolemia, unspecified
CPT/HCPCS: 99214

== ENCOUNTER → 2023-10-04 14:24 | Outpatient (BNVA) | payer OTHER, SELFPAY | PROVIDERS: PCP Physician Assistant Medical; Visit Provider Internal Medicine Cardiovascular Disease ==

== ENCOUNTER 2023-10-05 08:13 | Outpatient (AMB) | payer OTHER, SELFPAY ==
--- NOTE | 2023-10-05 08:17 | MHC.OFFVIS ---
Intake Visit Reasons: New Pt - lower back pain Intake Note: Georgia is a 67 year old female who presents to the office today for a new patient visit referred by Beverley Tello for lower back pain radiating into her left hip and across her thigh. Lumbar spine x-ray done 08/31/23. Pt also had an MRI done 10/02/23 at [facility]. Pt denies any previous surgeries or injections in her back/hip. Accompanied by: Daughter Allergies acetaminophen [From Percocet] Allergy (Mild, Verified 10/05/23 08:18) Nausea nitrofurantoin [From Macrobid] Allergy (Mild, Verified 10/05/23 08:18) fever oxycodone [From Percocet] Allergy (Mild, Verified 10/05/23 08:18) Nausea sulfamethoxazole [From Bactrim] Allergy (Mild, Verified 10/05/23 08:18) face swelling trimethoprim [From Bactrim] Allergy (Mild, Verified 10/05/23 08:18) face swelling penicillin G Allergy (Verified 10/05/23 08:18) hives Medication List - Last Reconciled 10/05/23 by Gina Cook MD amlodipine 5 mg PO DAILY ascorbic acid (vitamin C) 250 mg PO DAILY aspirin (Adult Aspirin Regimen) 81 mg PO DAILY atorvastatin 80 mg PO BEDTIME carvedilol 6.25 mg PO BID cranberry 2,000 mg PO DAILY gabapentin 300 mg PO BID 90 days insulin degludec (Tresiba FlexTouch U-100 insulin) 26 units subcut DAILY lisinopril 40 mg PO DAILY loperamide 2 mg PO Q4H PRN metformin ER 1,000 mg PO BID methenamine hippurate 1 g PO DAILY multivitamin (One Daily Multivitamin tablet) 1 tab PO DAILY oxybutynin chloride ER 10 mg PO DAILY ticagrelor (Brilinta) 90 mg PO BID tramadol 50 mg PO Q8H PRN 14 days HPI Comments Details: Last June, patient started having left-sided lower back pain. Started as an ache. Progressively worse. It radiates down to area of SI joint, wraps around the hip, into anterior medial thigh. Denies inciting injuries. Denies radiation past the knee. Denies associated numbness in the feet. Around the same time, she has noted bilateral lateral hip pain rating down to lateral thighs. X-rays done at PCP office, showed arthritis. Chronic itchiness on right ankle, etiology unknown. History of diabetes, on insulin, H A1c 7 per patient. History of renal cancer. Unable to take NSAIDs. History of left knee replacement. History of finger joint replacements for arthritis. Has not had any PT. [facility] Medical History (Updated 10/05/23 @ 09:12 by Gina Cook MD) Colon polyp Pure hypercholesterolemia Essential hypertension History of kidney cancer Clear cell carcinoma of right kidney Abnormal mammogram Osteopenia Bone spur Vertigo Urinary incontinence Recurrent UTI Osteoarthritis Obesity, Class I, BMI 30-34.9 Migraine Left hand pain Hypertensive disorder Hypercholesteremia Diarrhea COVID-19 Clear cell renal cell carcinoma Chronic headache Hyperlipidemia CAD (coronary artery disease) ST elevation myocardial infarction (STEMI) of inferior wall Surgical History History of shoulder surgery History of carpal tunnel surgery of right wrist S/P foot surgery, right H/O partial nephrectomy H/O removal of cyst Finger joint replacement of right hand S/P cardiac catheterization Family History Brother Heart disease Alcohol abuse Cancer Mother Heart disease Hypercholesterolemia Hypertension Daughter Hypercholesterolemia Social History Patient Tobacco Use Status: Former Tobacco user Cigarettes Per Day: 0.25 Years Smoked: Unknown e-Cigarette/Vaping Use: Never Used Second Hand Smoke Exposure: Yes service: No Current occupational status: employed and retired 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 Current occupational exposures/hazards: No Review of Systems Const All systems reviewed & are unremarkable except as noted in HPI and below Physical Exam Constitutional: Patient appears to be in no acute distress, well nourished and well developed. Patient was appropriately conversant and oriented. Good historian. MSK: No specific abnormalities found on inspection of the spine and all extremities. Difficult for her to get up, pain forward or lay down the bed, due to this left-sided hip/groin pain. No tenderness in lumbar paraspinals, spinous processes or facets. She does have tenderness on and around left SI joint. She has tenderness on bilateral GT joint and down to the ITB. Bilateral hip, knee and ankle ROM WNL. No ligamentous laxity or crepitance. No increased effusion. Straight-leg raising test negative. FABERE test positive left. Strength is 5/5 in all muscle groups tested. No increased tone noted. Neurological: Neurologic examination of the upper and lower extremities was nonfocal with intact sensation, muscle stretch reflexes and without focal motor deficits . Meredith?s negative bilaterally. Babinski was down going bilaterally. Clonus was negative. Gait is antalgic without loss of balance. Results Reviewed Results Reviewed: I independently reviewed the results of the following: Lumbar MRI done at [facility] reviewed, no significant spinal stenosis or disc herniation seen. No nerve compression. Ordering Physician: Beverley Tello MD Date of Service: 08/31/23 Procedure(s): XR lumbar spine 2-3V Accession Number(s): [id number] cc: Gali Rodríguez; Beverley Tello MD~ EXAMINATION: XR LUMBOSACRAL SPINE CLINICAL INFORMATION: Radiculopathy lumbar region left. COMPARISON: None available. TECHNIQUE: Three views of the lumbosacral spine. FINDINGS: Mild rightward curvature of the lumbar spine. Degenerative changes on limited views of the bilateral hips and sacroiliac joints. Facet arthritis in the lower lumbar spine. Atherosclerotic aortic calcifications. Moderate multilevel lumbar spondylosis with loss of disc space height and degenerative changes most notable at L5-S1. Minimal grade 1 anterolisthesis of L4 on L5 with loss of disc space height. XR/XR lumbar spine 2-3V IMPRESSION: Moderate multilevel lumbar spondylosis most notable at L5-S1. EXAM: MR LUMBAR SPINE WITHOUT CONTRAST INDICATION: [Pain, lumbar radiculopathy TECHNIQUE: Standard protocol without contrast COMPARISON: None. FINDINGS: Vertebral bodies demonstrate normal height and signal intensity. There is mild dextroscoliosis of the upper lumbar curvature. Conus demonstrates normal contour and signal and terminates at L1 level. L1-L2 level shows right paracentral disc bulge. The canal and foramina are patent. L2-L3 level is unremarkable. At L3-L4 level, there is shallow central disc bulge and facet arthrosis. The canal and foramina are patent. At L4-L5 level, there is central disc bulge and moderate facet arthropathy with small facet effusions. The canal and recesses are patent. Mild foraminal narrowing is present. Disc height is preserved. L5-S1 level shows mild disc degeneration and facet arthropathy. The canal, recesses are patent. There is mild left-sided osseous foraminal stenosis, without neural impingement seen. No MRI evidence for spondylolysis is seen. Visualized upper SI joints are preserved. Small left-sided renal cyst is present, partially evaluated on this exam. IMPRESSION: Mild changes of multilevel lumbar spondylosis, pronounced at L4-L5 and L5-S1 levels, as detailed at individual levels above. No significant central canal or foraminal narrowing is present at any level. Note is made of mild scoliosis of the curvature. Electronically signed on 10/02/2023 11:13:00 AM by Wilina Staples M.D. I reviewed records from the following: PCP Assessment & Plan Assessment & Plan (1) Sacroiliac joint dysfunction of left side: Code(s): M53.3 - Sacrococcygeal disorders, not elsewhere classified Category: Medical (2) Greater trochanteric bursitis of both hips: Code(s): M70.61 - Trochanteric bursitis, right hip; M70.62 - Trochanteric bursitis, left hip Category: Medical (3) Hip arthritis: Code(s): M16.10 - Unilateral primary osteoarthritis, unspecified hip Category: Medical (4) Lumbar spondylosis: Code(s): M47.816 - Spondylosis without myelopathy or radiculopathy, lumbar region Category: Medical Plan Suspect her pain is mechanical, stemming from combination of left SI joint dysfunction, hip arthritis as the pain is radiating to the groin/medial thigh, and trochanteric bursitis. She has signs of trochanteric bursitis, actually bilateral, with tightness on ITB. MRI lumbar spine is not overly concerning. There is no nerve impingement on L3-4 level that would explain where her symptoms are. And she does not have signs of L5-S1 distribution pain/numbness. Discussed that we will try to treat this [id number]. Start with physical therapy, to work on SI joint symmetry and hip range of motion. We will plan on doing trochanteric bursitis injections 1st. If not improve with these 1st 2 steps, then I may have to refer her to pain management for SI joint injections or intra-articular hip injection. Since she has more diffuse history of arthritis, history finger joint replacement and knee replacement, we will rule out inflammatory etiology. We will check NADEEM and RF. She can use Lidoderm patches. Instructions given. Due to kidney history, she is unable to take NSAIDs. Assessment and plan discussed with patient, and patient was agreeable. All questions were answered thoroughly. Gina Cook MD, NIRU Board Certified, [place] Board [employer] and Rehabilitation (ABPMR) Board Certified, [place] Board of Electrodiagnostic Medicine (ABEM) Orders: Orders PT Evaluation and Treatment Today M16.10 - Unilateral primary osteoarthritis, unspecified hip, M47.816 - Spondylosis without myelopathy or radiculopathy, lumbar region, M53.3 - Sacrococcygeal disorders, not elsewhere classified, M70.61 - Trochanteric bursitis, right hip, M70.62 - Trochanteric bursitis, left hip NADEEM Reflex Titer and Pattern Today M16.10 - Unilateral primary osteoarthritis, unspecified hip, M47.816 - Spondylosis without myelopathy or radiculopathy, lumbar region, M53.3 - Sacrococcygeal disorders, not elsewhere classified, M70.61 - Trochanteric bursitis, right hip, M70.62 - Trochanteric bursitis, left hip Rheumatoid Factor Today M16.10 - Unilateral primary osteoarthritis, unspecified hip, M47.816 - Spondylosis without myelopathy or radiculopathy, lumbar region, M53.3 - Sacrococcygeal disorders, not elsewhere classified, M70.61 - Trochanteric bursitis, right hip, M70.62 - Trochanteric bursitis, left hip Medications: New lidocaine 5% (Lidoderm) Up to 3 patches at a time, 12 hours on 12 hours off 3 patches topical DAILY 90 ea 3RF Coding Level of Care Code New Pt Level 4 (43117) Diagnoses Sacroiliac joint dysfunction of left side M53.3 Greater trochanteric bursitis of both hips M70.61; M70.62 Hip arthritis M16.10 Lumbar spondylosis M47.816
== END 2023-10-05 09:22 | disposition home or self-care (01) ==
PROVIDERS: PCP Physician Assistant Medical; Visit Provider Physical Medicine & Rehabilitation
DX: M53.3 Sacrococcygeal disorders, not elsewhere classified (principal); M70.61 Trochanteric bursitis, right hip; M70.62 Trochanteric bursitis, left hip; M16.10 Unilateral primary osteoarthritis, unspecified hip; M47.816 Spondylosis without myelopathy or radiculopathy, lumbar region
CPT/HCPCS: 99203

== ENCOUNTER → 2023-10-05 08:13 | Outpatient (BNVA) | payer OTHER, SELFPAY | PROVIDERS: PCP Physician Assistant Medical; Visit Provider Physical Medicine & Rehabilitation ==

== ENCOUNTER 2023-10-05 09:28 | Outpatient (REF) | payer OTHER, SELFPAY ==
[2023-10-05 11:18] LABS: Rheumatoid Factor < 13.0 IU/mL (<15.0)
[2023-10-17 10:38] LABS: Anti Nuclear Antibody Pattern Nuclear, Homogeneous; Anti Nuclear Antibody Screen POSITIVE (NEGATIVE)
== END 2023-10-05 09:29 | disposition home or self-care (01) ==
LOC: HO.10HDL 09:28
PROVIDERS: Visit Provider Physical Medicine & Rehabilitation
DX: M53.3 Sacrococcygeal disorders, not elsewhere classified (principal); M70.61 Trochanteric bursitis, right hip; M70.62 Trochanteric bursitis, left hip; M47.816 Spondylosis without myelopathy or radiculopathy, lumbar region; M16.10 Unilateral primary osteoarthritis, unspecified hip
CPT/HCPCS: 36415; 86038; 86039; 86431

== ENCOUNTER 2023-10-11 11:37 | Outpatient (AMB) | payer OTHER, SELFPAY ==
--- NOTE | 2023-10-11 11:42 | A.OFFVIS_ITS ---
Intake Visit Reasons: Hip Injection Intake Note: Georgia is a 67 year old female who presnets today for Trochanteric Bursitis Hip injection, She is diabetic so we will only be injecting the left hip today. Allergies acetaminophen [From Percocet] Allergy (Mild, Verified 10/11/23 11:49) Nausea nitrofurantoin [From Macrobid] Allergy (Mild, Verified 10/11/23 11:49) fever oxycodone [From Percocet] Allergy (Mild, Verified 10/11/23 11:49) Nausea sulfamethoxazole [From Bactrim] Allergy (Mild, Verified 10/11/23 11:49) face swelling trimethoprim [From Bactrim] Allergy (Mild, Verified 10/11/23 11:49) face swelling penicillin G Allergy (Verified 10/11/23 11:49) hives HPI Comments Details: Here for left GT injection. [facility] Medical History (Updated 10/05/23 @ 09:12 by Gina Cook MD) Colon polyp Pure hypercholesterolemia Essential hypertension History of kidney cancer Clear cell carcinoma of right kidney Abnormal mammogram Osteopenia Bone spur Vertigo Urinary incontinence Recurrent UTI Osteoarthritis Obesity, Class I, BMI 30-34.9 Migraine Left hand pain Hypertensive disorder Hypercholesteremia Diarrhea COVID-19 Clear cell renal cell carcinoma Chronic headache Hyperlipidemia CAD (coronary artery disease) ST elevation myocardial infarction (STEMI) of inferior wall Surgical History History of shoulder surgery History of carpal tunnel surgery of right wrist S/P foot surgery, right H/O partial nephrectomy H/O removal of cyst Finger joint replacement of right hand S/P cardiac catheterization Family History Brother Heart disease Alcohol abuse Cancer Mother Heart disease Hypercholesterolemia Hypertension Daughter Hypercholesterolemia Social History Patient Tobacco Use Status: Former Tobacco user Cigarettes Per Day: 0.25 Years Smoked: Unknown e-Cigarette/Vaping Use: Never Used Second Hand Smoke Exposure: Yes service: No Current occupational status: employed and retired 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 Patient lies on unaffected right side with lower leg flexed and upper leg extended. Tender area over the left greater trochanter is identified and marked. Area is cleansed with betadine solution. Using a 27 gauge needle, [3 ml] of 2% lidocaine is injected, with the needle perpendicular to center of tender area. Then, using a gauge 22 spinal needle, [40 mg] Kenalog is injected perpendicularly at center of tender area and slightly touching bone of greater trochanter. Patient tolerated procedure well without complications. Post-injection instructions given. Injected: 40 mg of, Kenalog and with 3 mL of (2% lidocaine) Coding 35606 - Large joint Procedure code (CPT) selection complete Assessment & Plan Assessment & Plan (1) Greater trochanteric bursitis of both hips: Code(s): M70.61 - Trochanteric bursitis, right hip; M70.62 - Trochanteric bursitis, left hip Category: Medical Plan Tolerated procedure well. Post-injection instructions given. She will monitor her blood sugars. She will start physical therapy. Assessment and plan discussed with patient, and patient was agreeable. All questions were answered thoroughly. Follow up 4-6 weeks. Gina Cook MD, NIRU Board Certified, [place] Board of Physical Medicine and Rehabilitation (ABPMR) Board Certified, [place] Board of Electrodiagnostic Medicine (ABEM) Orders: Orders AMB Joint Injection/Aspiration Today M70.61 - Trochanteric bursitis, right hip, M70.62 - Trochanteric bursitis, left hip Coding Level of Care Code Procedure Only Diagnoses Greater trochanteric bursitis of both hips M70.61; M70.62 CPT Codes Coding - 95468 Large joint: 24849 - Large joint ([id number])
== END 2023-10-11 12:00 | disposition home or self-care (01) ==
PROVIDERS: PCP Physician Assistant Medical; Visit Provider Physical Medicine & Rehabilitation
DX: M70.61 Trochanteric bursitis, right hip (principal); M70.62 Trochanteric bursitis, left hip
CPT/HCPCS: 20610

== ENCOUNTER → 2023-10-11 11:37 | Outpatient (BNVA) | payer OTHER, SELFPAY | PROVIDERS: PCP Physician Assistant Medical; Visit Provider Physical Medicine & Rehabilitation | DX: M70.62 Trochanteric bursitis, left hip (principal); M70.61 Trochanteric bursitis, right hip | CPT/HCPCS: 20610; J3301 ==

== ENCOUNTER 2023-10-17 10:14 | Outpatient (REF) | payer OTHER, SELFPAY ==
[2023-10-17 12:03] LABS: Baso%MD 0.9 %; Eos%MD 0.9 %; Hematocrit 34.3 % (37.0-47.0); Hemoglobin 11.1 g/dl (12.0-16.0); IG%MD 0.4 %; Lymph%MD 18.6 %; Mean Corpuscular HGB Conc 32.4 g/dl (31.0-35.0); Mean Corpuscular Hemoglobin 29.5 pg (27.0-33.0); Mean Corpuscular Volume 91.2 fL (80.0-98.0); Mean Platelet Volume 10.8 fL (9.4-12.3); Mono%MD 8.4 %; Neut%MD 70.8 %; Platelet Count 329 X10*3/uL (160-400); Red Blood Count 3.76 X10*6/uL (4.20-5.50); Red Cell Distribution Width 14.6 % (11.0-16.0)
[2023-10-17 12:33] LABS: Estimated Average Glucose 140 mg/dL; Hemoglobin A1c % 6.5 % (<6.0)
[2023-10-17 13:18] LABS: Creatinine Urine 93.37 mg/dL; Microalbum/Creatinine Ratio Ur 7.4 ug/mg cr (<30)
[2023-10-17 13:20] LABS: Alanine Aminotransferase 19 U/L (0-31); Albumin Level 4.3 g/dL (3.5-5.0); Alkaline Phosphatase 73 U/L (39-117); Anion Gap 14 (12-20); Aspartate Amino Transferase 18 U/L (5-31); Bilirubin Total 0.4 mg/dL (0.0-1.0); Blood Urea Nitrogen 25 mg/dL (9-16); Calcium 9.6 mg/dL (8.4-10.2); Carbon Dioxide 25 mmol/L (22-29); Chloride 105 mmol/L (96-108); Cholesterol 119 mg/dL (<200); Estimated Glomerular Filt Rate > 60; Glucose Fasting 61 mg/dL (60-99); HDL Cholesterol 58 mg/dL (>40); LDL Cholesterol Calculated 52 mg/dL (<100); Potassium 4.4 mmol/L (3.3-5.1); Sodium 140 mmol/L (135-145); Total Protein 7.1 g/dL (6.5-8.0); Triglycerides 47 mg/dL (<150)
[2023-10-17 13:52] LABS: Band Neutrophils Percent 1 % (3-5); Basophils Abs Manual 0.1 X10*3/uL (0.0-0.2); Basophils Percent Manual 1 % (0-2); Eosinophils Absolute Manual 0.2 X10*3/uL (0.0-0.4); Eosinophils Percent Manual 2 % (0-4); Lymphocytes Absolute Manual 1.4 X10*3/uL (1.2-4.9); Lymphocytes Percent Manual 18 % (20-40); Monocytes Absolute Manual 0.4 X10*3/uL (0.1-1.2); Monocytes Percent Manual 5 % (2-11); Neutrophils Absolute Manual 5.9 X10*3/uL (2.0-8.3); Neutrophils Percent Manual 73 % (45-73); RBC Morphology NOTED
[2023-10-17 13:56] LABS: Acanthocytes 2+ (3-5) /OIF; Burr Cells 2+ (3-5) /OIF; Hypochromasia 1+ (5-14) /OIF; Platelet Estimate NORMAL (NORMAL); Platelet Morphology Comment NORMAL; Schistocytes 1+ (0-2) /OIF
== END 2023-10-17 10:15 | disposition home or self-care (01) ==
LOC: HO.WFDLDS 10:14
PROVIDERS: Nurse Practitioner Family; Visit Provider Internal Medicine
DX: E11.59 Type 2 diabetes mellitus with other circulatory complications (principal); I21.19 ST elevation (STEMI) myocardial infarction involving other coronary artery of inferior wall; Z13.0 Encounter for screening for diseases of the blood and blood-forming organs and certain disorders involving the immune mechanism
CPT/HCPCS: 36415; 80053; 80061; 82043; 82570; 83036; 85007; 85027

== ENCOUNTER 2023-10-18 09:19 | Outpatient (AMB) | payer OTHER, SELFPAY ==
[2023-10-18 09:24] VITALS: BP 110/58; PULSE 64; RESP 12; O2SAT 99; BMI 29.3
--- NOTE | 2023-10-18 09:24 | A.OFFPC_ITS ---
Vital Signs 10/18/23 09:24 Height 4 ft 11 in Weight 145 lb BMI 29.3 BP 110/58 L Blood Pressure Location Rt brachial Position Sitting Respiration 12 Pulse 64 Pulse Source Pulse Oximeter Pulse Oximetry (%) 99 Oxygen Delivery Method Room Air Intake Visit Reasons: Establish Care transfer from [facility] Intake Note: Patient is here for a transfer of care from [facility], although has been seen in the [facility] office twice prior to today. Patient reports she would like to discuss her concerns with her provider. Manager Advanced Required: No Accompanied by: Self / Same As Patient Allergies acetaminophen [From Percocet] Allergy (Mild, Verified 10/18/23 09:32) Nausea nitrofurantoin [From Macrobid] Allergy (Mild, Verified 10/18/23 09:32) fever oxycodone [From Percocet] Allergy (Mild, Verified 10/18/23 09:32) Nausea sulfamethoxazole [From Bactrim] Allergy (Mild, Verified 10/18/23 09:32) face swelling trimethoprim [From Bactrim] Allergy (Mild, Verified 10/18/23 09:32) face swelling penicillin G Allergy (Verified 10/18/23 09:32) hives Tobacco use date assessed: 08/31/23 Fall risk assessment: No Falls in past year Last assessed Fall Risk: 10/18/23 Dental Screening Dental Screen Date: 08/31/23 HPI HPI Comments History of Present Illness Details This is a 67-year-old female with a past medical history of type 2 diabetes, 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 Her pain is doing somewhat better. She had a cortisone injection for hip bursitis with physiatry. She is starting physical therapy for lumbar spondylosis. She is taking tramadol and gabapentin as needed. Rheumatoid factor negative, NADEEM mildly positive. Type 2 diabetes-taking metformin and Tresiba. Her hemoglobin A1c is 6.5%. Denies hypoglycemia within the last month. Cardiovascular-She had an ST elevation [place] 12/08/2022. Status post cardiac catheterization with CANDELARIA placed to the RCA. There was 75% stenosis of the left circumflex. There were minimal luminal irregularities in the LAD. Medications include amlodipine, baby aspirin, atorvastatin, carvedilol, lisinopril and Brilinta. States residual angina improved after resuming Amlodipine, but she is distressed by the symptoms so she is moving forward with PCI. Right renal clear cell carcinoma-followed by Dr. Sutherland. Surgeon is Dr. Baldwin at [facility]. She underwent partial nephrectomy 12/16/2021. No known recurrence. Mild anemia- Reviewed CBC 10/17/2023. RBC 3.76 Hemoglobin 11.1 Hematocrit 34.3 White blood cell count 8.0 Platelet count 329 09/23/2023: Red blood cell count 4.16 Hemoglobin 11.4 Hematocrit 37 MCV 88.9 White blood cell count 7.9 Platelet count 345 She does bruise easily, but she is on Brilinta and aspirin for cardiovascular disease. Denies increased fatigue, shortness of breath or dizziness. She had a colonoscopy 01/18/[address] Abelino cintron. There was 1 sessile polyp, diverticula and internal hemorrhoids. She was advised to repeat this in 5 years. She denies abdominal pain, change in stools, blood in stools. She has incorporating more iron rich foods in her diet. ROS: Constitutional: No unexplained weight loss, fever, chills, increased fatigue or night sweats. Eyes: No vision changes Gastrointestinal: No anorexia, nausea, vomiting or diarrhea. No abdominal pain or blood in stool. Genitourinary: No dysuria, hematuria, urinary frequency. Physical exam: Constitutional: Alert, in no distress. Head: Normocephalic. Eyes: Pupils are equal, round and reactive to light. Extraocular muscles intact. Neck: Supple, Full range of motion. No lymphadenopathy. Respiratory: Clear to auscultation. Cardiovascular: S1 S2 regular. No murmurs. Gastrointestinal: Abdomen soft, non-tender, non-distended. Normal bowel sounds. No palpable masses. Extremities: Warm and well perfused. No clubbing, cyanosis or edema. Psychiatric: Normal mood and affect [facility] Medical History (Updated 10/18/23 @ 10:20 by KELSIE Lundy) Positive NADEEM (antinuclear antibody) Mild anemia Colon polyp Pure hypercholesterolemia Essential hypertension History of kidney cancer Clear cell carcinoma of right kidney Abnormal mammogram Osteopenia Bone spur Vertigo Urinary incontinence Recurrent UTI Osteoarthritis Obesity, Class I, BMI 30-34.9 Migraine Left hand pain Hypertensive disorder Hypercholesteremia Diarrhea COVID-19 Clear cell renal cell carcinoma Chronic headache Hyperlipidemia CAD (coronary artery disease) ST elevation myocardial infarction (STEMI) of inferior wall Surgical History History of shoulder surgery History of carpal tunnel surgery of right wrist S/P foot surgery, right H/O partial nephrectomy H/O removal of cyst Finger joint replacement of right hand S/P cardiac catheterization Family History (Updated 10/18/23 @ 08:48 by Avelina Berry [facility]) Brother Heart disease Alcohol abuse Cancer Mother Heart disease Hypercholesterolemia Hypertension Daughter Hypercholesterolemia Social History Patient Tobacco Use Status: Former Tobacco user Cigarettes Per Day: 0.25 Years Smoked: Unknown e-Cigarette/Vaping Use: Never Used Second Hand Smoke Exposure: Yes service: No Current occupational status: employed and retired Current occupation: [employer] Current occupational exposures/hazards: No Questionnaire Thrive Questionnaire Date Thrive assessed: 08/31/23 Physical exam (Primary Care) Vital Signs: Last Vital Signs Pulse 64 10/18/23 09:24 Resp 12 10/18/23 09:24 BP 110/58 L 10/18/23 09:24 Pulse Ox 99 10/18/23 09:24 Oxygen Delivery Method Room Air 10/18/23 09:24 BMI result Body Mass Index 29.3 Tobacco/Smoking Status: Tobacco use Status Tobacco use date assessed 08/31/23 10/18/23 09:32 Patient Tobacco Use Status Former Tobacco user 10/18/23 09:32 e-Cigarette/Vaping Use Never Used 10/18/23 09:32 Thrive Assessment: Date of Thrive Assessment Date Thrive assessed 08/31/23 10/18/23 09:32 Assessment and Plan Assessment & Plan (1) Lumbar spondylosis: Code(s): M47.816 - Spondylosis without myelopathy or radiculopathy, lumbar region (2) Mild anemia: Code(s): D64.9 - Anemia, unspecified (3) Pure hypercholesterolemia: Code(s): E78.00 - Pure hypercholesterolemia, unspecified (4) Essential hypertension: Code(s): I10 - Essential (primary) hypertension (5) Clear cell carcinoma of right kidney: Code(s): C64.1 - Malignant neoplasm of right kidney, except renal pelvis (6) Positive NADEEM (antinuclear antibody): Code(s): R76.8 - Other specified abnormal immunological findings in serum (7) CAD (coronary artery disease): Code(s): I25.10 - Atherosclerotic heart disease of [place] coronary artery without angina pectoris Qualifiers: Coronary Disease-Associated Artery/Lesion type: [place] artery [place] vs. transplanted heart: [place] heart Associated angina: with stable angina Qualified Code(s): I25.118 - Atherosclerotic heart disease of [place] coronary artery with other forms of angina pectoris (8) Colon polyp: Comment: 01/18/21 colonoscopy w/ Dr. Ceballos. Single sessile polyps, diverticula, internal hemorrhoids. Repeat colonoscopy recommended in 5 years. Code(s): K63.5 - Polyp of colon (9) Type 2 diabetes mellitus with cardiac complication: Code(s): E11.59 - Type 2 diabetes mellitus with other circulatory complications Plan Lumbar spondylosis She is starting physical therapy. Reviewed MRI. Continue tramadol 50 mg every 8 hours as needed. Do not drive or operate heavy machinery with this medication. Mild anemia Normocytic. Possibly anemia of chronic disease. Patient has cardiovascular disease, history of renal cell cancer, type 2 diabetes. She is up-to-date with colonoscopy. If anemia progresses I will refer her back to GI. Check B12, folate, ferritin and iron studies with next labs. Repeat CBC. If she develops changes to other cell lines we will refer to Heme-Onc. Discussed signs and symptoms of worsening anemia. She will contact the office if she has any difficulty with this. Hyperlipidemia LDL at goal of less than 70. Continue current regimen. She is also eating a very high protein, high fiber and low carbohydrate diet to lose weight. Hypertension Well-controlled. Continue current regimen. History of right kidney cancer No known recurrence. She is contacting Dr. Sutherland to schedule her next follow- up. Positive NADEEM We discussed that there are some members of the population who have a low NADEEM titer but no autoimmune disease. She has an extensive history of osteoarthritis. We will refer to Rheumatology for further evaluation. Coronary artery disease With stable angina. Pursuing PCI. She is contacting Cardiology to discuss this further because she did not hear about scheduling it. Continue current medications. Type 2 diabetes Well-controlled. Continue current regimen. Follow up in 3 months for diabetes. Orders: Orders Complete Blood Count Man Dif 3 Months D64.9 - Anemia, unspecified IRON PROFILE Today D64.9 - Anemia, unspecified Ferritin Today D64.9 - Anemia, unspecified Vitamin B12 and Folate Today D64.9 - Anemia, unspecified Hemoglobin A1c 3 Months E11.59 - Type 2 diabetes mellitus with other circulatory complications, I10 - Essential (primary) hypertension Basic Metabolic Panel 3 Months E11.59 - Type 2 diabetes mellitus with other circulatory complications, I10 - Essential (primary) hypertension Medications: Refilled tramadol 50 mg PO Q8H 14 days PRN 42 tabs 0RF pain Coding Level of Care Code Est Pt Level 4 (03817) Complex EM visit Add On G2211 Diagnoses Lumbar spondylosis M47.816 Mild anemia D64.9 Pure hypercholesterolemia E78.00 Essential hypertension I10 Clear cell carcinoma of right kidney C64.1 Positive NADEEM (antinuclear antibody) R76.8 Coronary artery disease of [place] artery of [place] heart with stable angina pectoris I25.118 Coronary Disease-Associated Artery/Lesion type: [place] artery [place] vs. transplanted heart: [place] heart Associated angina: with stable angina Colon polyp K63.5 Type 2 diabetes mellitus with cardiac complication E11.59
== END 2023-10-18 10:04 | disposition home or self-care (01) ==
PROVIDERS: PCP Physician Assistant Medical; Visit Provider Physician Assistant Medical
DX: E11.59 Type 2 diabetes mellitus with other circulatory complications (principal); I25.118 Atherosclerotic heart disease of native coronary artery with other forms of angina pectoris; C64.1 Malignant neoplasm of right kidney, except renal pelvis; D64.9 Anemia, unspecified; M47.816 Spondylosis without myelopathy or radiculopathy, lumbar region; E78.00 Pure hypercholesterolemia, unspecified; I10 Essential (primary) hypertension; R76.8 Other specified abnormal immunological findings in serum; K63.5 Polyp of colon
CPT/HCPCS: 99214

== ENCOUNTER 2023-11-01 09:53 | Outpatient (AMB) | payer OTHER, SELFPAY ==
--- NOTE | 2023-11-01 10:01 | MHC.OFFVIS ---
Intake Visit Reasons: OV- Left Hip Pain radiating to back Intake Note: [place] is a 67 year old female who presents today for a follow up s/p Trochanteric Bursitis Hip injection on 10/11/23. Patient expresses she is having pain now on the right hipjust as much as her left and is radiating across her lower back and SI joints. Her left hip has hurts with movement and sitting, she woke up very sore on Sunday that continued into Sunday. Her pains have eased up a bit but she had PT this morning she she's feeling more sore today. She was prescribed gabapetin and tramadol by her PCP, she takes them together and says these make her tired and unbalanced but don't relieve the pain. She expresses the cortisone shot did ease some of the bursitis but every now and then when she moves a certain way or lifts her leg she feels a muscle in the left thigh was pulled. Denies numbness and tingling. Allergies acetaminophen [From Percocet] Allergy (Mild, Verified 11/01/23 10:13) Nausea nitrofurantoin [From Macrobid] Allergy (Mild, Verified 11/01/23 10:13) fever oxycodone [From Percocet] Allergy (Mild, Verified 11/01/23 10:13) Nausea sulfamethoxazole [From Bactrim] Allergy (Mild, Verified 11/01/23 10:13) face swelling trimethoprim [From Bactrim] Allergy (Mild, Verified 11/01/23 10:13) face swelling penicillin G Allergy (Verified 11/01/23 10:13) hives Medication List - Last Reconciled 11/01/23 by Gina Cook MD amlodipine 5 mg PO DAILY ascorbic acid (vitamin C) 250 mg PO DAILY aspirin (Adult Aspirin Regimen) 81 mg PO DAILY atorvastatin 80 mg PO BEDTIME carvedilol 6.25 mg PO BID cranberry 2,000 mg PO DAILY gabapentin 300 mg PO BID 90 days insulin degludec (Tresiba FlexTouch U-100 insulin) 26 units subcut DAILY lidocaine 5% (Lidoderm) 3 patches topical DAILY lisinopril 40 mg PO DAILY loperamide 2 mg PO Q4H PRN metformin ER 1,000 mg PO BID methenamine hippurate 1 g PO DAILY multivitamin (One Daily Multivitamin tablet) 1 tab PO DAILY oxybutynin chloride ER 10 mg PO DAILY ticagrelor (Brilinta) 90 mg PO BID tramadol 50 mg PO Q8H PRN 14 days HPI Comments Details: Started having pain last June, patient started having left-sided lower back pain. Started as an ache. Progressively worse. It radiates down to area of SI joint, wraps around the hip, into anterior medial thigh. Denies inciting injuries. Denies radiation past the knee. Denies associated numbness in the feet. Around the same time, she has noted bilateral lateral hip pain rating down to lateral thighs. X-rays done at PCP office, showed arthritis. Lumbar spine MRI did not show significant spinal stenosis or disc herniation. Working diagnosis was SI joint dysfunction and trochanteric bursitis. Chronic itchiness on right ankle, etiology unknown. History of diabetes, on insulin, H A1c 7 per patient. History of renal cancer. Unable to take NSAIDs. History of left knee replacement. History of finger joint replacements for arthritis. Trialed left GT injection 10/11/2023, with improvement of the left lateral hip pain. Two days ago, I received the portal message from patient that she was having severe lower back pain. She says she went to work and then to the mall. Woke up the next day with severe pain, across the back, going into the hips a little bit. With some tingling down his her legs. She has been on chronic gabapentin and tramadol, although probably not taking gabapentin consistently, she says these are not working for her. [facility] Medical History Positive NADEEM (antinuclear antibody) Mild anemia Colon polyp Pure hypercholesterolemia Essential hypertension History of kidney cancer Clear cell carcinoma of right kidney Abnormal mammogram Osteopenia Bone spur Vertigo Urinary incontinence Recurrent UTI Osteoarthritis Obesity, Class I, BMI 30-34.9 Migraine Left hand pain Hypertensive disorder Hypercholesteremia Diarrhea COVID-19 Clear cell renal cell carcinoma Chronic headache Hyperlipidemia CAD (coronary artery disease) ST elevation myocardial infarction (STEMI) of inferior wall Surgical History History of shoulder surgery History of carpal tunnel surgery of right wrist S/P foot surgery, right H/O partial nephrectomy H/O removal of cyst Finger joint replacement of right hand S/P cardiac catheterization Family History Brother Heart disease Alcohol abuse Cancer Mother Heart disease Hypercholesterolemia Hypertension Daughter Hypercholesterolemia Social History Patient Tobacco Use Status: Former Tobacco user Cigarettes Per Day: 0.25 Years Smoked: Unknown e-Cigarette/Vaping Use: Never Used Second Hand Smoke Exposure: Yes service: No Current occupational status: employed and retired Current occupation: [employer] at [employer] Current occupational exposures/hazards: No Physical Exam Constitutional: Patient appears to be in no acute distress, well nourished and well developed. Patient was appropriately conversant and oriented. Good historian. MSK: No specific abnormalities found on inspection of the spine and all extremities. Does not appear to be as comfortable as the 1st time I saw her. Tender right worse than left SI joint. No tenderness in lumbar paraspinals, spinous processes or facets. No significant tenderness over GT joints. Bilateral hip, knee and ankle ROM WNL. No ligamentous laxity or crepitance. No increased effusion. Straight-leg raising test negative. FABERE test positive left. Strength is 5/5 in all muscle groups tested. No increased tone noted. Neurological: Neurologic examination of the upper and lower extremities was nonfocal with intact sensation, muscle stretch reflexes and without focal motor deficits. Meredith?s negative bilaterally. Babinski was down going bilaterally. Clonus was negative. Gait is nonantalgic without loss of balance. Results Reviewed Results Reviewed: I independently reviewed the results of the following: Lumbar MRI done at [facility] reviewed, no significant spinal stenosis or disc herniation seen. No nerve compression. Ordering Physician: Beverley Tello MD Date of Service: 08/31/23 Procedure(s): XR lumbar spine 2-3V Accession Number(s): [id number] cc: Gali Rodríguez; Beverley Tello MD~ EXAMINATION: XR LUMBOSACRAL SPINE CLINICAL INFORMATION: Radiculopathy lumbar region left. COMPARISON: None available. TECHNIQUE: Three views of the lumbosacral spine. FINDINGS: Mild rightward curvature of the lumbar spine. Degenerative changes on limited views of the bilateral hips and sacroiliac joints. Facet arthritis in the lower lumbar spine. Atherosclerotic aortic calcifications. Moderate multilevel lumbar spondylosis with loss of disc space height and degenerative changes most notable at L5-S1. Minimal grade 1 anterolisthesis of L4 on L5 with loss of disc space height. XR/XR lumbar spine 2-3V IMPRESSION: Moderate multilevel lumbar spondylosis most notable at L5-S1. EXAM: MR LUMBAR SPINE WITHOUT CONTRAST INDICATION: [Pain, lumbar radiculopathy TECHNIQUE: Standard protocol without contrast COMPARISON: None. FINDINGS: Vertebral bodies demonstrate normal height and signal intensity. There is mild dextroscoliosis of the upper lumbar curvature. Conus demonstrates normal contour and signal and terminates at L1 level. L1-L2 level shows right paracentral disc bulge. The canal and foramina are patent. L2-L3 level is unremarkable. At L3-L4 level, there is shallow central disc bulge and facet arthrosis. The canal and foramina are patent. At L4-L5 level, there is central disc bulge and moderate facet arthropathy with small facet effusions. The canal and recesses are patent. Mild foraminal narrowing is present. Disc height is preserved. L5-S1 level shows mild disc degeneration and facet arthropathy. The canal, recesses are patent. There is mild left-sided osseous foraminal stenosis, without neural impingement seen. No MRI evidence for spondylolysis is seen. Visualized upper SI joints are preserved. Small left-sided renal cyst is present, partially evaluated on this exam. IMPRESSION: Mild changes of multilevel lumbar spondylosis, pronounced at L4-L5 and L5-S1 levels, as detailed at individual levels above. No significant central canal or foraminal narrowing is present at any level. Note is made of mild scoliosis of the curvature. Electronically signed on 10/02/2023 11:13:00 AM by Wilian Staples M.D. I reviewed records from the following: PCP Assessment & Plan Assessment & Plan (1) Sacroiliac joint dysfunction of both sides: Code(s): M53.3 - Sacrococcygeal disorders, not elsewhere classified Category: Medical (2) Arthritis of facet joint of lumbar spine: Code(s): M47.816 - Spondylosis without myelopathy or radiculopathy, lumbar region Category: Medical (3) Positive NADEEM (antinuclear antibody): Code(s): R76.8 - Other specified abnormal immunological findings in serum Category: Medical Plan Chronic recurrent axial back pain without signs of lumbar radiculitis. Suspect this is SI joint dysfunction. We discussed treatment options including referral to pain management for SI joint injections. Patient is eager to proceed and referral placed. MRI reviewed, did show some facet degenerative changes. May be we could consider MBB or facet joint injections in the future. I advised to take gabapentin more consistently but only at night as this makes her very drowsy. Just stick with dose of 300 mg q.h.s. and see if she will tolerate that better and if it will have better relief if taken more consistently. Positive NADEEM. Waiting to see Rheumatology, scheduled in January. Assessment and plan discussed with patient, and patient was agreeable. All questions were answered thoroughly. Gina Cook MD, NIRU Board Certified, [place] Board of Physical Medicine and Rehabilitation (ABPMR) Board Certified, [place] Board of Electrodiagnostic Medicine (ABEM) Orders: Referrals Pain Management Referral M53.3 - Sacrococcygeal disorders, not elsewhere classified Coding Level of Care Code Est Pt Level 4 (43135) Diagnoses Sacroiliac joint dysfunction of both sides M53.3 Arthritis of facet joint of lumbar spine M47.816 Positive NADEEM (antinuclear antibody) R76.8
== END 2023-11-01 11:19 | disposition home or self-care (01) ==
PROVIDERS: PCP Physician Assistant Medical; Visit Provider Physical Medicine & Rehabilitation
DX: M53.3 Sacrococcygeal disorders, not elsewhere classified (principal); M47.816 Spondylosis without myelopathy or radiculopathy, lumbar region; R76.0 Raised antibody titer
CPT/HCPCS: 99214

== ENCOUNTER → 2023-11-01 09:53 | Outpatient (BNVA) | payer OTHER, SELFPAY | PROVIDERS: PCP Physician Assistant Medical; Visit Provider Physical Medicine & Rehabilitation ==

== ENCOUNTER 2023-11-15 07:00 | Outpatient (RCR) | payer OTHER, SELFPAY ==
[2023-10-23 09:56] VITALS: BP 122/68; PULSE 72; O2SAT 98
--- NOTE | 2023-10-23 15:49 | MHC.PT.EP ---
[facility] [place] Office [place] [facility] [place] [facility] [address] Natalia Jon [address] [phone] F: [phone] F: [phone] F: [phone] F: [phone] Physical Therapy Plan of Care Date of Evaluation: 10/23/23 Date of Surgery: Diagnosis: M16.10 Unilateral primary OA, unspecified hip M53.3 Sacrococygeal disorders, not elsewhere classified M70.611 Trochanteric bursitis, right hip M70.62 Trochatneric bursitisi, left hip M47.816 Spondylosis without myelopathy or radiculopathy, lumbar region signed by Gina Alves MD Assessment: Pt is a RHD 67 y/o female with history of DMII, OR, cardiac stent in 2022 (awaiting secondary PCI procedure due to ongoing stable angina sx. Pt with history of R renal cell CA 2021 with hx partial nephrectomy). Pt with other medical history history of colon polyp Pure hypercholesterolemia Essential hypertension History of kidney cancer 2021 Clear cell carcinoma of right kidney Abnormal mammogram Osteopenia Bone spur Vertigo Urinary incontinence Recurrent UTI Osteoarthritis Obesity, Class I, BMI 30-34.9 Migraine Left hand pain Hypertensive disorder Hypercholesteremia Diarrhea COVID-19 Clear cell renal cell carcinoma Chronic headache Hyperlipidemia CAD (coronary artery disease) ST elevation myocardial infarction (STEMI) of inferior wall, stent 2022 History of shoulder surgery History of carpal tunnel surgery of right wrist S/P foot surgery, right H/O partial nephrectomy H/O removal of cyst Finger joint replacement of right hand S/P cardiac catheterization 2022 bladder lift 2011, left ear mastoidectomy 1983, 1988, left knee TKA 2014, right knee 2016, right shoulder 2018, right finger joint 2018, carpal tunnel, left pointr finger joint replacement 2019 Pt expressing onset of worsening L sided SI sx for the past few months (expresses known favoring R lumbar due to history of L knee pain). Onset L SI worsened in June 2023. Pt expressing L lateral hip>R lateral hip pain, with radiating sx L>R lateral hip radiating sx prn. Pt does not perform any form of regular consistent exercise, stating I go into work at 3:30 in the AM and I cant do anything until my is out of bed in the morning. Pt exhibits weakness of hip abductors, hip extensors, and core. Pt c/o multiple areas of irritation, some relief post L hip injection which was given a few weeks ago. Pt tentatively booked for R hip injection in a few months (hopes to not need per pt). Pt expressing intolerance for vacuuming, bending, sitting, and lifting tasks. Pt expressing sx worse with prolonged sitting. Pt reports sleep disturbance with intolerance for lying on L>R side. Pt mildly relief with ice/heat/tramadol/gabapentin but states does not like to use medication. Pt should benefit from PT 1-2x/weekly to address goals however some barriers to recovery may be compliance with HEP. 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 Attempt made to educated patient on body mechanics/functional hip hinge squat vs bending at waist, avoidance of shear twisting forces post initial evaluation. Pt offered icing post intiial evaluation however pt deferred, stated L lateral hip sx radiating to height of knee post session. Frequency and Duration: The patient will be seen 2x/week x 4 weeks Short Term Goals: 1. Centralize L hip pain to height of lumbar region. 2. Reduce back pain by 25%. 3. Demonstrate good eccentric control with functional transfers. 4. Strength L hip abd 4-/5. Domain Architect Goals: 1. Pt will complete functional squat with good mechanics 3:3 trials. 2. Pt will demonstrate strength hip abd L>R >4/5 B. 3. Pt will demonstrate hip strength ext L>R >4/5 B. 4. Pt will increase L hip ER ROM by five degrees. Treatment Plan: Modalities to reduce pain, spasms and effusion. Manual therapy to restore motion and function. Therapeutic exercise to improve strength and flexibility. Neuromuscular re-education for posture and balance. Therapeutic activities to return to functional activities of daily living. Electronically signed by: Micki Herrera, PT, DPT Please sign and return to therapist. Thank you for your referral.
== END 2024-04-18 09:31 | disposition home or self-care (01) ==
LOC: HO.PTWFD 07:00
PROVIDERS: PCP Physician Assistant Medical; Visit Provider Physical Medicine & Rehabilitation
DX: M16.10 Unilateral primary osteoarthritis, unspecified hip (principal); M53.3 Sacrococcygeal disorders, not elsewhere classified; M70.61 Trochanteric bursitis, right hip
CPT/HCPCS: 97110; 97140; 97162

== ENCOUNTER 2023-11-19 09:47 | Outpatient (AMB) | payer OTHER, SELFPAY ==
--- NOTE | 2023-11-19 10:20 | A.OFFPC_ITS ---
Vital Signs 11/19/23 10:21 Height 4 ft 11 in Weight 140 lb 4 oz BMI 28.3 BP 122/64 Blood Pressure Location Lt brachial Position Sitting Respiration 14 Pulse 79 Pulse Source Pulse Oximeter Pulse Oximetry (%) 98 Oxygen Delivery Method Room Air Intake Visit Reasons: back pain Intake Note: Back pain Scientific Research Associate Required: No Allergies acetaminophen [From Percocet] Allergy (Mild, Verified 11/19/23 10:21) Nausea nitrofurantoin [From Macrobid] Allergy (Mild, Verified 11/19/23 10:21) fever oxycodone [From Percocet] Allergy (Mild, Verified 11/19/23 10:21) Nausea sulfamethoxazole [From Bactrim] Allergy (Mild, Verified 11/19/23 10:21) face swelling trimethoprim [From Bactrim] Allergy (Mild, Verified 11/19/23 10:21) face swelling penicillin G Allergy (Verified 11/19/23 10:21) hives Tobacco use date assessed: 08/31/23 Dental Screening Dental Screen Date: 08/31/23 HPI HPI Comments History of Present Illness Details This is a 67-year-old female with a past medical history of type 2 diabetes, 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 She continues with back and hip pain. Patient says her insurance denied the SI joint injections.. She had a cortisone injection for hip bursitis with physiatry. She is completing physical therapy for lumbar spondylosis. She is taking tramadol and gabapentin as needed. Rheumatoid factor negative, ANDEEM mildly positive. She has an appointment with Rheumatology, Dr. Krause, in January. She has trouble sleeping at night due to her pain. Type 2 diabetes-taking metformin and Tresiba. Her hemoglobin A1c is 6.5%. Cardiovascular-She had an ST elevation [place] 12/08/2022. Status post cardiac catheterization with CANDELARIA placed to the RCA. There was 75% stenosis of the left circumflex. There were minimal luminal irregularities in the LAD. Medications include amlodipine, baby aspirin, atorvastatin, carvedilol, lisinopril and Brilinta. States residual angina improved after resuming Amlodipine, but she is distressed by the symptoms so she is having PCI this . Right renal clear cell carcinoma-followed by Dr. Sutherland. Surgeon is Dr. Baldwin at [facility]. She underwent partial nephrectomy 12/16/2021. No known recurrence. She had a colonoscopy 01/18/[address] Ceballos. There was 1 sessile polyp, diverticula and internal hemorrhoids. She was advised to repeat this in 5 years. She denies abdominal pain, change in stools, blood in stools. ROS: Constitutional: No unexplained weight loss, fever, chills, increased fatigue or night sweats. Eyes: No vision changes Gastrointestinal: No anorexia, nausea, vomiting or diarrhea. No abdominal pain or blood in stool. Genitourinary: No dysuria, hematuria, urinary frequency. Physical exam: Constitutional: Alert, in no distress. Head: Normocephalic. Eyes: Pupils are equal, round and reactive to light. Extraocular muscles intact. Neck: Supple, Full range of motion. No lymphadenopathy. Respiratory: Clear to auscultation. Cardiovascular: S1 S2 regular. No murmurs. Musculoskeletal: Pain with lateral flexion in both directions, changes positions frequently during the visit Extremities: Warm and well perfused. No clubbing, cyanosis or edema. Psychiatric: Normal mood and affect [facility] Medical History Positive NADEEM (antinuclear antibody) Mild anemia Colon polyp Pure hypercholesterolemia Essential hypertension History of kidney cancer Clear cell carcinoma of right kidney Abnormal mammogram Osteopenia Bone spur Vertigo Urinary incontinence Recurrent UTI Osteoarthritis Obesity, Class I, BMI 30-34.9 Migraine Left hand pain Hypertensive disorder Hypercholesteremia Diarrhea COVID-19 Clear cell renal cell carcinoma Chronic headache Hyperlipidemia CAD (coronary artery disease) ST elevation myocardial infarction (STEMI) of inferior wall Surgical History History of shoulder surgery History of carpal tunnel surgery of right wrist S/P foot surgery, right H/O partial nephrectomy H/O removal of cyst Finger joint replacement of right hand S/P cardiac catheterization Family History Brother Heart disease Alcohol abuse Cancer Mother Heart disease Hypercholesterolemia Hypertension Daughter Hypercholesterolemia Social History Patient Tobacco Use Status: Former Tobacco user Cigarettes Per Day: 0.25 Years Smoked: Unknown e-Cigarette/Vaping Use: Never Used Second Hand Smoke Exposure: Yes service: No Current occupational status: employed and retired 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 [employer] Current occupational exposures/hazards: No Questionnaire Thrive Questionnaire Date Thrive assessed: 08/31/23 Physical exam (Primary Care) Vital Signs: Last Vital Signs Pulse 79 11/19/23 10:21 Resp 14 11/19/23 10:21 BP 122/64 11/19/23 10:21 Pulse Ox 98 11/19/23 10:21 Oxygen Delivery Method Room Air 11/19/23 10:21 BMI result Body Mass Index 28.3 Tobacco/Smoking Status: Tobacco use Status Tobacco use date assessed 08/31/23 11/19/23 10:24 Patient Tobacco Use Status Former Tobacco user 11/19/23 10:24 e-Cigarette/Vaping Use Never Used 11/19/23 10:24 Thrive Assessment: Date of Thrive Assessment Date Thrive assessed 08/31/23 11/19/23 10:24 Assessment and Plan Assessment & Plan (1) Lumbar spondylosis: Code(s): M47.816 - Spondylosis without myelopathy or radiculopathy, lumbar region (2) Mild anemia: Code(s): D64.9 - Anemia, unspecified (3) Pure hypercholesterolemia: Code(s): E78.00 - Pure hypercholesterolemia, unspecified (4) Essential hypertension: Code(s): I10 - Essential (primary) hypertension (5) Clear cell carcinoma of right kidney: Code(s): C64.1 - Malignant neoplasm of right kidney, except renal pelvis (6) Positive NADEEM (antinuclear antibody): Code(s): R76.8 - Other specified abnormal immunological findings in serum (7) CAD (coronary artery disease): Code(s): I25.10 - Atherosclerotic heart disease of [place] coronary artery without angina pectoris Qualifiers: Coronary Disease-Associated Artery/Lesion type: [place] artery Three Affiliated vs. transplanted heart: [place] heart Associated angina: with stable angina Qualified Code(s): I25.118 - Atherosclerotic heart disease of [place] coronary artery with other forms of angina pectoris (8) Colon polyp: Comment: 01/18/21 colonoscopy w/ Dr. Ceballos. Single sessile polyps, diverticula, internal hemorrhoids. Repeat colonoscopy recommended in 5 years. Code(s): K63.5 - Polyp of colon (9) Type 2 diabetes mellitus with cardiac complication: Code(s): E11.59 - Type 2 diabetes mellitus with other circulatory complications Plan Lumbar spondylosis She is completing physical therapy. Continue tramadol 50 mg every 8 hours as needed. Do not drive or operate heavy machinery with this medication. SI joint injections were denied by insurance. She has an appointment scheduled with pain management. Patient not taking gabapentin consistently. She has taken 300 mg at night but still has trouble sleeping. Increase to 600 mg at night. Side effects reviewed. Do not drive or operate heavy machinery. Hyperlipidemia LDL at goal of less than 70. Continue current regimen. She is also eating a very high protein, high fiber and low carbohydrate diet to lose weight. Hypertension Well-controlled. Continue current regimen. History of right kidney cancer No known recurrence. She is contacting Dr. Sutherland to schedule her next follow- up. Positive NADEEM We discussed that there are some members of the population who have a low NADEEM titer but no autoimmune disease. She has an extensive history of osteoarthritis. She has an appointment scheduled with Rheumatology for a consult. Coronary artery disease With stable angina. PCI scheduled this . Type 2 diabetes Well-controlled. Continue current regimen. Medications: New ticagrelor (Brilinta) 90 mg PO BID 180 tabs 0RF flash glucose sensor (FreeStyle Alcides 2 Sensor kit) As directed 2 ea 11RF insulin degludec (Tresiba FlexTouch U-100 insulin) 26 units (0.26 mL) subcut DAILY 15 mL 5RF Coding Level of Care Code Est Pt Level 4 (92371) Complex EM visit Add On G2211 Diagnoses Lumbar spondylosis M47.816 Mild anemia D64.9 Pure hypercholesterolemia E78.00 Essential hypertension I10 Clear cell carcinoma of right kidney C64.1 Positive NADEEM (antinuclear antibody) R76.8 Coronary artery disease of [place] artery of [place] heart with stable angina pectoris I25.118 Coronary Disease-Associated Artery/Lesion type: [place] artery Three [place] vs. transplanted heart: [place] heart Associated angina: with stable angina Colon polyp K63.5 Type 2 diabetes mellitus with cardiac complication E11.59
[2023-11-19 10:21] VITALS: BP 122/64; PULSE 79; RESP 14; O2SAT 98; BMI 28.3
== END 2023-11-19 11:17 | disposition home or self-care (01) ==
PROVIDERS: PCP Physician Assistant Medical; Visit Provider Physician Assistant Medical
DX: E11.59 Type 2 diabetes mellitus with other circulatory complications (principal); C64.1 Malignant neoplasm of right kidney, except renal pelvis; I25.118 Atherosclerotic heart disease of native coronary artery with other forms of angina pectoris; D64.9 Anemia, unspecified; M47.816 Spondylosis without myelopathy or radiculopathy, lumbar region; E78.00 Pure hypercholesterolemia, unspecified; I10 Essential (primary) hypertension; R76.8 Other specified abnormal immunological findings in serum; K63.5 Polyp of colon
CPT/HCPCS: 99214

== ENCOUNTER 2023-11-19 09:57 | Outpatient (REF) | payer OTHER, SELFPAY ==
[2023-11-19 11:50] LABS: MANUAL DIFF FLAG NO
[2023-11-19 12:08] LABS: Basophils Absolute Auto 0.1 X10*3/uL (0.0-0.2); Basophils Percent Auto 0.8 % (0-2); Eosinophils Absolute Auto 0.1 X10*3/uL (0.0-0.4); Hematocrit 35.4 % (37.0-47.0); Hemoglobin 11.5 g/dl (12.0-16.0); Imm Gran Abs Auto 0.02 X10*3/uL (0.00-0.03); Imm Gran Pct Auto 0.3 % (0.0-0.4); Lymphocytes Absolute Auto 1.4 X10*3/uL (1.2-4.9); Lymphocytes Percent Auto 17.5 % (20-40); Mean Corpuscular HGB Conc 32.5 g/dl (31.0-35.0); Mean Corpuscular Hemoglobin 29.6 pg (27.0-33.0); Mean Platelet Volume 10.5 fL (9.4-12.3); Monocytes Absolute Auto 0.6 X10*3/uL (0.1-1.2); Monocytes Percent Auto 7.4 % (2-11); Neutrophils Absolute Auto 5.6 x10*3/uL (2.0-8.3); Platelet Count 346 X10*3/uL (160-400); Red Blood Count 3.89 X10*6/uL (4.20-5.50); Red Cell Distribution Width 13.9 % (11.0-16.0); White Blood Count 7.7 X10*3/uL (4.8-10.8)
[2023-11-19 12:21] LABS: Anion Gap 14 (12-20); Blood Urea Nitrogen 18 mg/dL (9-16); Calcium 9.5 mg/dL (8.4-10.2); Carbon Dioxide 26 mmol/L (22-29); Chloride 103 mmol/L (96-108); Estimated Glomerular Filt Rate > 60; Glucose Random 97 mg/dL (60-115); Potassium 4.1 mmol/L (3.3-5.1); Sodium 139 mmol/L (135-145)
[2023-11-19 13:23] LABS: INTERNATIONAL NORM RATIO 0.9 (0.9-1.1); Prothrombin Time 11.5 SEC (11.1-13.3)
== END 2023-11-19 09:58 | disposition home or self-care (01) ==
LOC: HO.WFDLDS 09:57
PROVIDERS: Visit Provider Nurse Practitioner
DX: I25.118 Atherosclerotic heart disease of native coronary artery with other forms of angina pectoris (principal)
CPT/HCPCS: 36415; 80048; 85025; 85610

== ENCOUNTER → 2023-11-22 23:59 | Outpatient (BNV) | payer OTHER, SELFPAY | PROVIDERS: PCP Physician Assistant Medical; Visit Provider Internal Medicine Cardiovascular Disease | DX: I20.89 Other forms of angina pectoris (principal) | CPT/HCPCS: 92920; 92978; 93458; 99152 ==

== ENCOUNTER 2023-12-10 11:07 | Outpatient (AMB) | payer OTHER, SELFPAY ==
[2023-12-10 11:27] VITALS: BP 110/68; PULSE 63; BMI 28.5
--- NOTE | 2023-12-10 11:27 | A.OFFVIS_ITS ---
Vital Signs 12/10/23 11:27 Height 4 ft 11 in Weight 141 lb 1.533 oz BMI 28.5 BP 110/68 Blood Pressure Location Lt brachial Position Sitting Pulse 63 Pulse Source Pulse Oximeter Intake Visit Reasons: Follow up Cardiac Cath Intake Note: f/up cath Building Architect Required: No Accompanied by: Self / Same As Patient Allergies acetaminophen [From Percocet] Allergy (Mild, Verified 11/19/23 10:21) Nausea nitrofurantoin [From Macrobid] Allergy (Mild, Verified 11/19/23 10:21) fever oxycodone [From Percocet] Allergy (Mild, Verified 11/19/23 10:21) Nausea sulfamethoxazole [From Bactrim] Allergy (Mild, Verified 11/19/23 10:21) face swelling trimethoprim [From Bactrim] Allergy (Mild, Verified 11/19/23 10:21) face swelling penicillin G Allergy (Verified 11/19/23 10:21) hives Medication List - Last Reconciled 12/10/23 by Ruddy Sams MD amlodipine 5 mg PO DAILY ascorbic acid (vitamin C) 250 mg PO DAILY aspirin (Adult Aspirin Regimen) 81 mg PO DAILY atorvastatin 80 mg PO BEDTIME carvedilol 6.25 mg PO BID cranberry 2,000 mg PO DAILY flash glucose sensor (FreeStyle Alcides 2 Sensor kit) As directed gabapentin 300 mg PO BID 90 days insulin degludec (Tresiba FlexTouch U-100 insulin) 26 units (0.26 mL) subcut DAILY lidocaine 5% (Lidoderm) 3 patches topical DAILY lisinopril 40 mg PO DAILY loperamide 2 mg PO Q4H PRN metformin ER 1,000 mg PO BID methenamine hippurate 1 g PO DAILY multivitamin (One Daily Multivitamin tablet) 1 tab PO DAILY oxybutynin chloride ER 10 mg PO DAILY ticagrelor (Brilinta) 90 mg PO BID tramadol 50 mg PO Q8H PRN 14 days HPI Comments Details: 68 female with who had inferior STEMi in 11/2022 and underwent ostial RCA stent. She is here for f/u. Clinically stable. She had indigestion like feeling when she presented with inferior ST-elevation [place]. She has been experiencing indigestion off and on. She is saying that she is taking omeprazole. The symptoms are random but quite similar to her presentation with STEMI. She is doing cardiac rehabilitation. 10/04/2023: On last visit she was complaining of chest discomfort with activities. She underwent stress testing where after exercising for 5 minutes 30 seconds on treadmill she developed chest discomfort. No dynamic EKG changes were noted but symptoms improved after she stopped exercising. She has been taking amlodipine 2.5 mg daily since then and her symptoms are somewhat better. She still gets some anginal episodes off and on and feels distressed by the symptoms. 12/10/23: She returns for follow-up. She was taken for cardiac catheterization because she was getting chest discomfort underwent stress testing during which she had exertional symptoms. One day before she presented to irrigation laborer for diagnostic angiography she had rest discomfort and throat discomfort. Her angiography interestingly showed severe InStent restenosis in the ostial right coronary artery stent. Circumflex stenosis was in the 70% range and was stable. We treated the RCA with balloon angioplasty only. Intravascular ultrasound before angioplasty showed that the stent was somewhat oval in shape in the ostium and we felt maybe it was somewhat underexpanded. We did high-pressure inflation with 4 mm noncompliant balloon with good result. She is back in clinic and has no symptoms. She is walking and doing activities without any complaints. [facility] Medical History (Updated 11/01/23 @ 10:31 by Gina Cook MD) Positive NADEEM (antinuclear antibody) Mild anemia Colon polyp Pure hypercholesterolemia Essential hypertension History of kidney cancer Clear cell carcinoma of right kidney Abnormal mammogram Osteopenia Bone spur Vertigo Urinary incontinence Recurrent UTI Osteoarthritis Obesity, Class I, BMI 30-34.9 Migraine Left hand pain Hypertensive disorder Hypercholesteremia Diarrhea COVID-19 Clear cell renal cell carcinoma Chronic headache Hyperlipidemia CAD (coronary artery disease) ST elevation myocardial infarction (STEMI) of inferior wall Surgical History Hx of cardiac cath History of shoulder surgery History of carpal tunnel surgery of right wrist S/P foot surgery, right H/O partial nephrectomy H/O removal of cyst Finger joint replacement of right hand S/P cardiac catheterization Family History Brother Heart disease Alcohol abuse Cancer Mother Heart disease Hypercholesterolemia Hypertension Daughter Hypercholesterolemia Social History Patient Tobacco Use Status: Former Tobacco user Cigarettes Per Day: 0.25 Years Smoked: Unknown e-Cigarette/Vaping Use: Never Used Second Hand Smoke Exposure: Yes service: No Current occupational status: employed and retired 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 [employer] Current occupational exposures/hazards: No Review of Systems Const Denies chills, Denies fatigue, Denies fever(s), Denies frequent falls, Denies weakness, Denies weight gain and Denies weight loss ENT Denies dizziness Card Denies chest pain, Denies leg edema, Denies lightheadedness, Denies palpitations, Denies dyspnea and Denies dyspnea on exertion Resp Denies cough, Denies dyspnea and Denies dyspnea on exertion GI Denies hematochezia Musc Denies abnormal gait, Denies muscle weakness, Denies numbness, Denies radiating pain into limb and Denies tingling Neuro Denies abnormal gait, Denies dizziness, Denies frequent falls, Denies numbness, Denies tingling and Denies weakness Endo Denies fatigue and Denies palpitations Physical Exam Vital Signs: Last Vital Signs Pulse 63 12/10/23 11:27 BP 110/68 12/10/23 11:27 BMI result Body Mass Index 28.5 GENERAL APPEARANCE: in no acute distress, pleasant. NECK: no carotid bruit, no jugular venous distention. SKIN: no suspicious lesions, warm and dry. HEART: no murmurs, regular rate and rhythm. LUNGS: clear to auscultation bilaterally. ABDOMEN: soft, nontender. EXTREMITIES: no edema. PERIPHERAL PULSES: equal. NEUROLOGIC: No gross deficits, AAO X 3 Assessment & Plan Assessment & Plan (1) Stable angina: Code(s): I20.89 - Other forms of angina pectoris Category: Medical (2) Essential hypertension: Code(s): I10 - Essential (primary) hypertension Category: Medical Plan Pleasant 68 year female who is here for follow-up. She has known history of coronary artery disease with previous inferior wall [place] and ostial right coronary artery PCI. She had residual disease in the circumflex artery which was in the 70% range. She was getting exertional symptoms and was taken back for cardiac catheterization and interestingly he noticed severe ISR in the right coronary artery ostial stent. This was treated with intravascular ultrasound-guided high-pressure noncompliant balloon angioplasty. She has no symptoms on follow-up. I have explained to her that in stent stenosis a challenging problem and next few months will be critical and we need to monitor closely. If she has any exertional symptoms again then we may have to repeat angiogram and if there is progressive ISR then consider putting a 2nd layer of drug-eluting stent. We used an on extent last time and we will use synergy in case we had to take her back for angiography. Left circumflex artery has 70% stenosis and is stable and is not giving any symptoms currently. Last LDL cholesterol was 52, total cholesterol 119, triglycerides 47 and HDL 58. She will see us back in 3 months. Thank you for allowing me to participate in the care of your patient. Please feel free to contact me if you have any questions. Coding Level of Care Code Est Pt Level 4 (20328) Diagnoses Stable angina I20.89 Essential hypertension I10
== END 2023-12-10 11:47 | disposition home or self-care (01) ==
PROVIDERS: PCP Physician Assistant Medical; Visit Provider Internal Medicine Cardiovascular Disease
DX: I20.89 Other forms of angina pectoris (principal); I10 Essential (primary) hypertension
CPT/HCPCS: 99214

== ENCOUNTER → 2023-12-10 11:07 | Outpatient (BNVA) | payer OTHER, SELFPAY | PROVIDERS: PCP Physician Assistant Medical; Visit Provider Internal Medicine Cardiovascular Disease ==

== ENCOUNTER 2023-12-20 08:44 | Outpatient (AMB) | payer OTHER, SELFPAY ==
[2023-12-20 08:49] VITALS: BMI 28.5
--- NOTE | 2023-12-20 08:49 | A.OFFVIS_ITS ---
Vital Signs 12/20/23 08:49 Height 4 ft 11 in Weight 141 lb 1 oz BMI 28.5 Intake Visit Reasons: OV - Hip injection Follow up Intake Note: Georgia is a 68 year old female who presents to the office today for a hip injection follow up, last injection done 10/11/23. Patient reports the injection provided relief but she does continue to have lumbar pain. Allergies acetaminophen [From Percocet] Allergy (Mild, Verified 12/20/23 08:50) Nausea nitrofurantoin [From Macrobid] Allergy (Mild, Verified 12/20/23 08:50) fever oxycodone [From Percocet] Allergy (Mild, Verified 12/20/23 08:50) Nausea sulfamethoxazole [From Bactrim] Allergy (Mild, Verified 12/20/23 08:50) face swelling trimethoprim [From Bactrim] Allergy (Mild, Verified 12/20/23 08:50) face swelling penicillin G Allergy (Verified 12/20/23 08:50) hives Medication List - Last Reconciled 12/20/23 by Gina Cook MD amlodipine 5 mg PO DAILY ascorbic acid (vitamin C) 250 mg PO DAILY aspirin (Adult Aspirin Regimen) 81 mg PO DAILY atorvastatin 80 mg PO BEDTIME carvedilol 6.25 mg PO BID cranberry 2,000 mg PO DAILY flash glucose sensor (FreeStyle Alcides 2 Sensor kit) As directed gabapentin 300 mg PO BID 90 days insulin degludec (Tresiba FlexTouch U-100 insulin) 26 units (0.26 mL) subcut DAILY lidocaine 5% (Lidoderm) 3 patches topical DAILY lisinopril 40 mg PO DAILY loperamide 2 mg PO Q4H PRN metformin ER 1,000 mg PO BID methenamine hippurate 1 g PO DAILY multivitamin (One Daily Multivitamin tablet) 1 tab PO DAILY oxybutynin chloride ER 10 mg PO DAILY ticagrelor (Brilinta) 90 mg PO BID tramadol 50 mg PO Q8H PRN 14 days HPI Comments Details: Started having pain last June, patient started having left-sided lower back pain. Started as an ache. Progressively worse. It radiates down to area of SI joint, wraps around the hip, into anterior medial thigh. Denies inciting injuries. Denies radiation past the knee. Denies associated numbness in the feet. Around the same time, she has noted bilateral lateral hip pain rating down to lateral thighs. X-rays done at PCP office, showed arthritis. Lumbar spine MRI did not show significant spinal stenosis or disc herniation. Working diagnosis was SI joint dysfunction and trochanteric bursitis. Chronic itchiness on right ankle, etiology unknown. History of diabetes, on insulin, H A1c 7 per patient. Denies history of neuropathy. History of renal cancer. Unable to take NSAIDs. History of left knee replacement. History of finger joint replacements for arthritis. Trialed left GT injection 10/11/2023, with improvement of the left lateral hip pain. Placed back on gabapentin 300mg qhs. Says that pain is only left SI region, not horrible, goes to buttocks, but not to legs, no new numbness. No bladder/bowel changes. Tolerating gabapentin. Seeing Pain Management for consult 12/28/23. Seeing Rheumatology Dr. Krause for January. [facility] Medical History (Updated 11/01/23 @ 10:31 by Gina Cook MD) Positive NADEEM (antinuclear antibody) Mild anemia Colon polyp Pure hypercholesterolemia Essential hypertension History of kidney cancer Clear cell carcinoma of right kidney Abnormal mammogram Osteopenia Bone spur Vertigo Urinary incontinence Recurrent UTI Osteoarthritis Obesity, Class I, BMI 30-34.9 Migraine Left hand pain Hypertensive disorder Hypercholesteremia Diarrhea COVID-19 Clear cell renal cell carcinoma Chronic headache Hyperlipidemia CAD (coronary artery disease) ST elevation myocardial infarction (STEMI) of inferior wall Surgical History Hx of cardiac cath History of shoulder surgery History of carpal tunnel surgery of right wrist S/P foot surgery, right H/O partial nephrectomy H/O removal of cyst Finger joint replacement of right hand S/P cardiac catheterization Family History Brother Heart disease Alcohol abuse Cancer Mother Heart disease Hypercholesterolemia Hypertension Daughter Hypercholesterolemia Social History Patient Tobacco Use Status: Former Tobacco user Cigarettes Per Day: 0.25 Years Smoked: Unknown e-Cigarette/Vaping Use: Never Used Second Hand Smoke Exposure: Yes service: No Current occupational status: employed and retired Current occupation: [employer] at [employer] Current occupational exposures/hazards: No Physical Exam Vital Signs: BMI result Body Mass Index 28.5 Constitutional: Patient appears to be in no acute distress, well nourished and well developed. Patient was appropriately conversant and oriented. Good historian. MSK: No specific abnormalities found on inspection of the spine and all extremities. Tenderness in left SI joint area. No tenderness in lumbar paraspinals, spinous processes or facets. No tenderness over GT joints. Bilateral hip, knee and ankle ROM WNL. No ligamentous laxity or crepitance. No increased effusion. Straight-leg raising test negative. FABERE test positive right causing left SI joint pain. Gillet test negative for stiffness. Strength is 5/5 in all muscle groups tested. No increased tone noted. Neurological: Neurologic examination of the upper and lower extremities was nonfocal with intact sensation, muscle stretch reflexes and without focal motor deficits. Meredith?s negative bilaterally. Babinski was down going bilaterally. Clonus was negative. Gait is nonantalgic without loss of balance. Results Reviewed Results Reviewed: I independently reviewed the results of the following: Lumbar MRI done at [facility] reviewed, no significant spinal stenosis or disc herniation seen. No nerve compression. Ordering Physician: Beverley Tello MD Date of Service: 08/31/23 Procedure(s): XR lumbar spine 2-3V Accession Number(s): [id number] cc: Gali Rodríguez; Beverley Tello MD~ EXAMINATION: XR LUMBOSACRAL SPINE CLINICAL INFORMATION: Radiculopathy lumbar region left. COMPARISON: None available. TECHNIQUE: Three views of the lumbosacral spine. FINDINGS: Mild rightward curvature of the lumbar spine. Degenerative changes on limited views of the bilateral hips and sacroiliac joints. Facet arthritis in the lower lumbar spine. Atherosclerotic aortic calcifications. Moderate multilevel lumbar spondylosis with loss of disc space height and degenerative changes most notable at L5-S1. Minimal grade 1 anterolisthesis of L4 on L5 with loss of disc space height. XR/XR lumbar spine 2-3V IMPRESSION: Moderate multilevel lumbar spondylosis most notable at L5-S1. EXAM: MR LUMBAR SPINE WITHOUT CONTRAST INDICATION: [Pain, lumbar radiculopathy TECHNIQUE: Standard protocol without contrast COMPARISON: None. FINDINGS: Vertebral bodies demonstrate normal height and signal intensity. There is mild dextroscoliosis of the upper lumbar curvature. Conus demonstrates normal contour and signal and terminates at L1 level. L1-L2 level shows right paracentral disc bulge. The canal and foramina are patent. L2-L3 level is unremarkable. At L3-L4 level, there is shallow central disc bulge and facet arthrosis. The canal and foramina are patent. At L4-L5 level, there is central disc bulge and moderate facet arthropathy with small facet effusions. The canal and recesses are patent. Mild foraminal narrowing is present. Disc height is preserved. L5-S1 level shows mild disc degeneration and facet arthropathy. The canal, recesses are patent. There is mild left-sided osseous foraminal stenosis, without neural impingement seen. No MRI evidence for spondylolysis is seen. Visualized upper SI joints are preserved. Small left-sided renal cyst is present, partially evaluated on this exam. IMPRESSION: Mild changes of multilevel lumbar spondylosis, pronounced at L4-L5 and L5-S1 levels, as detailed at individual levels above. No significant central canal or foraminal narrowing is present at any level. Note is made of mild scoliosis of the curvature. Electronically signed on 10/02/2023 11:13:00 AM by iWlian Staples M.D. I reviewed records from the following: PCP Assessment & Plan Assessment & Plan (1) Sacroiliac joint dysfunction of both sides: Code(s): M53.3 - Sacrococcygeal disorders, not elsewhere classified Category: Medical (2) Arthritis of facet joint of lumbar spine: Code(s): M47.816 - Spondylosis without myelopathy or radiculopathy, lumbar region Category: Medical (3) Positive NADEEM (antinuclear antibody): Code(s): R76.8 - Other specified abnormal immunological findings in serum Category: Medical Plan A few months of pain particularly on SI region, today more left side. Left GT bursitis improved with injection. MRI lumbar reviewed, did show some facet degenerative changes. She will see pain management for consult next week. Consideration of SI joint injection. Seeing plasticator in January, positive NADEEM. Taking gabapentin 300 mg q.h.s. without side effects. Wonder if she can transfer this prescription to PCP so that she does not have to return to this office just for prescription refills. Assessment and plan discussed with patient, and patient was agreeable. All questions were answered thoroughly. Gina Cook MD, NIRU Board Certified, [place] Board [employer] and Rehabilitation (ABPMR) Board Certified, [place] Board of Electrodiagnostic Medicine (ABEM) Coding Level of Care Code Est Pt Level 3 (23000) Diagnoses Sacroiliac joint dysfunction of both sides M53.3 Arthritis of facet joint of lumbar spine M47.816 Positive NADEEM (antinuclear antibody) R76.8
== END 2023-12-20 09:07 | disposition home or self-care (01) ==
PROVIDERS: PCP Physician Assistant Medical; Visit Provider Physical Medicine & Rehabilitation
DX: M53.3 Sacrococcygeal disorders, not elsewhere classified (principal); M47.816 Spondylosis without myelopathy or radiculopathy, lumbar region; R76.8 Other specified abnormal immunological findings in serum
CPT/HCPCS: 99213

== ENCOUNTER → 2023-12-20 08:44 | Outpatient (BNVA) | payer OTHER, SELFPAY | PROVIDERS: PCP Physician Assistant Medical; Visit Provider Physical Medicine & Rehabilitation ==

== ENCOUNTER 2023-12-28 08:57 | Outpatient (AMB) | payer OTHER, SELFPAY ==
--- NOTE | 2023-12-28 09:03 | MHC.OFFVIS ---
Vital Signs 12/28/23 09:04 Height 4 ft 11 in Weight 140 lb BMI 28.3 BP 153/65 H Blood Pressure Location Rt brachial Position Sitting Respiration 14 Pulse 75 Pulse Source Pulse Oximeter Pulse Oximetry (%) 99 Oxygen Delivery Method Room Air Intake Visit Reasons: Sacrococcygeal Disorders Allergies nitrofurantoin [From Macrobid] Allergy (Mild, Verified 12/28/23 09:06) fever oxycodone [From Percocet] Allergy (Mild, Verified 12/28/23 09:06) Nausea sulfamethoxazole [From Bactrim] Allergy (Mild, Verified 12/28/23 09:06) face swelling trimethoprim [From Bactrim] Allergy (Mild, Verified 12/28/23 09:06) face swelling penicillin G Allergy (Verified 12/28/23 09:06) hives Medication List - Last Reconciled 12/28/23 by Andria Quiroga LPN amlodipine 5 mg PO DAILY aspirin (Adult Aspirin Regimen) 81 mg PO DAILY atorvastatin 80 mg PO BEDTIME carvedilol 6.25 mg PO BID cranberry 2,000 mg PO DAILY flash glucose sensor (FreeStyle Alcides 2 Sensor kit) As directed gabapentin 300 mg PO BID 90 days insulin degludec (Tresiba FlexTouch U-100 insulin) 26 units (0.26 mL) subcut DAILY lidocaine 5% (Lidoderm) 3 patches topical DAILY lisinopril 40 mg PO DAILY loperamide 2 mg PO Q4H PRN metformin ER 1,000 mg PO BID methenamine hippurate 1 g PO DAILY multivitamin (One Daily Multivitamin tablet) 1 tab PO DAILY oxybutynin chloride ER 10 mg PO DAILY ticagrelor (Brilinta) 90 mg PO BID tramadol 50 mg PO Q8H PRN 14 days HPI HPI Sacrococcygeal Disorders: Details: 68-year-old female who presents today to the office for evaluation of sacrococcygeal disorder. She started experiencing pain since June 2023. She reports low back and hip pain. The pain is described in the axial lower back radiating towards your buttocks and bilateral lateral hips. The pain is rated at 4-5/10 in intensity. It started as spasms a few months ago and in a few weeks progresses to severe pain associated with inability to lift left leg. The pain is described as an ache. Weather changes and movements make it worse. She had an MRI at [facility]. Lumbar spine MRI did not show significant spinal stenosis or disc herniation. She has done physical therapy at [facility]. 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 She trialed left GT injection 10/11/[address] Roberts, with improvement of the left lateral hip pain. She was placed back on gabapentin 300 mg qhs. History of left knee replacement. History of finger joint replacements for arthritis. She is currently taking Tramadol 50 milligrams Q8H as needed. She is also taking gabapentin at night. She uses lidocaine patches as needed. She has children and had natural delivery. [facility] Medical History (Updated 11/01/23 @ 10:31 by Gina Cook MD) Positive NADEEM (antinuclear antibody) Mild anemia Colon polyp Pure hypercholesterolemia Essential hypertension History of kidney cancer Clear cell carcinoma of right kidney Abnormal mammogram Osteopenia Bone spur Vertigo Urinary incontinence Recurrent UTI Osteoarthritis Obesity, Class I, BMI 30-34.9 Migraine Left hand pain Hypertensive disorder Hypercholesteremia Diarrhea COVID-19 Clear cell renal cell carcinoma Chronic headache Hyperlipidemia CAD (coronary artery disease) ST elevation myocardial infarction (STEMI) of inferior wall Surgical History Hx of cardiac cath History of shoulder surgery History of carpal tunnel surgery of right wrist S/P foot surgery, right H/O partial nephrectomy H/O removal of cyst Finger joint replacement of right hand S/P cardiac catheterization Family History Brother Heart disease Alcohol abuse Cancer Mother Heart disease Hypercholesterolemia Hypertension Daughter Hypercholesterolemia Social History Patient Tobacco Use Status: Former Tobacco user Cigarettes Per Day: 0.25 Years Smoked: Unknown e-Cigarette/Vaping Use: Never Used Second Hand Smoke Exposure: Yes service: No Current occupational status: employed and retired Current occupation: [employer] at [employer] Current occupational exposures/hazards: No Review of Systems Const All systems reviewed & are unremarkable except as noted in HPI and below Physical Exam Vital Signs: Last Vital Signs Pulse 75 12/28/23 09:04 Resp 14 12/28/23 09:04 BP 153/65 H 12/28/23 09:04 Pulse Ox 99 10/04/24 09:04 Oxygen Delivery Method Room Air 12/28/23 09:04 BMI result Body Mass Index 28.3 General: Appears afebrile. Alert and oriented. Mood and affect appropriate. Follows and participates in conversation appropriately. Respiratory effort is unlabored. Able to transition from sit to stand unassisted. Ambulates with bilaterally normal heel strike and toe off. Lumbar?extension?reproduces?pain?on right side. Sacroiliac joint compression,?thrust,?and?abhinav is positive. Results Reviewed Results Reviewed: No imaging is available for review. Assessment & Plan Assessment & Plan (1) Sacroiliac joint dysfunction of both sides: Code(s): M53.3 - Sacrococcygeal disorders, not elsewhere classified Category: Medical Plan Discussed starting with diagnostic injections prior to proceeding with therapeutic injections. We will schedule her for a left diagnostic sacroiliac joint injection. If it is not positive, we will consider bilateral diagnostic lumbar medial branch blocks. There is no evidence of infection, tumor, fracture on her MRI to indicate a different source of her pain. Discussed the risks and benefits of the procedure with the patient in detail. All questions were answered. The patient is on board with the plan. Informed the patient that insurance approval is required. We will file a PA for approval and keep her updated. Justification for interventional therapy: ? Patient with average pain > 6/10 ? Patient has exhausted conservative therapy ? Patient trialed formal physical therapy; continuing HEP . Patient has a good understanding of their pain condition and has appropriate mental and social support Scribed for Dr. Wei by Angel Arcos, senior medical technologist, on 12/28/2023. I, Dr. Wei, have personally reviewed and agree with the information entered by the scribe. Coding Level of Care Code New Pt Level 4 (16478) Procedure Only Diagnoses Sacroiliac joint dysfunction of both sides M53.3
[2023-12-28 09:04] VITALS: BP 153/65; PULSE 75; RESP 14; O2SAT 99; BMI 28.3
== END 2023-12-28 09:36 | disposition home or self-care (01) ==
PROVIDERS: PCP Physician Assistant Medical; Visit Provider Internal Medicine
DX: M53.3 Sacrococcygeal disorders, not elsewhere classified (principal)
CPT/HCPCS: 99204

== ENCOUNTER → 2023-12-28 08:57 | Outpatient (BNVA) | payer OTHER, SELFPAY | PROVIDERS: PCP Physician Assistant Medical; Visit Provider Internal Medicine ==

== ENCOUNTER 2024-01-17 15:36 | Outpatient (REF) | payer OTHER, SELFPAY ==
[2024-01-17 17:52] LABS: Estimated Average Glucose 131 mg/dL; Hemoglobin A1c % 6.2 % (<6.0); Total Hemoglobin (HGBA1C) 2987.2536 umol/L
[2024-01-17 17:57] LABS: Anion Gap 12 (12-20); Blood Urea Nitrogen 18 mg/dL (9-16); Calcium 9.5 mg/dL (8.4-10.2); Carbon Dioxide 28 mmol/L (22-29); Chloride 102 mmol/L (96-108); Estimated Glomerular Filt Rate > 60; Glucose Random 200 mg/dL (60-115); Potassium 4.3 mmol/L (3.3-5.1); Sodium 138 mmol/L (135-145)
[2024-01-17 18:03] LABS: Baso%MD 0.7 %; Eos%MD 1.8 %; Hematocrit 35.1 % (37.0-47.0); Hemoglobin 11.6 g/dl (12.0-16.0); IG%MD 0.6 %; Lymph%MD 21.4 %; Mean Corpuscular Hemoglobin 29.1 pg (27.0-33.0); Mono%MD 7.2 %; Neut%MD 68.3 %; Platelet Count 339 X10*3/uL (160-400); Red Blood Count 3.99 X10*6/uL (4.20-5.50); Red Cell Distribution Width 14.4 % (11.0-16.0); White Blood Count 8.5 X10*3/uL (4.8-10.8)
[2024-01-17 18:55] LABS: Band Neutrophils Percent 2 % (3-5); Basophils Abs Manual 0.1 X10*3/uL (0.0-0.2); Basophils Percent Manual 1 % (0-2); Eosinophils Absolute Manual 0.1 X10*3/uL (0.0-0.4); Eosinophils Percent Manual 1 % (0-4); Lymphocytes Percent Manual 23 % (20-40); Metamyelocytes Absolute 0.1 X10*3/uL; Metamyelocytes Percent 1 %; Monocytes Absolute Manual 0.3 X10*3/uL (0.1-1.2); Monocytes Percent Manual 3 % (2-11); Neutrophils Percent Manual 69 % (45-73); RBC Morphology NOTED
[2024-01-17 18:58] LABS: Burr Cells 3+ (>5) /OIF
[2024-01-17 18:59] LABS: Platelet Estimate NORMAL (NORMAL)
[2024-01-17 19:00] LABS: Platelet Morphology Comment NORMAL
== END 2024-01-17 15:37 | disposition home or self-care (01) ==
LOC: HO.WFDLDS 15:36
PROVIDERS: Visit Provider Physician Assistant Medical
DX: D64.9 Anemia, unspecified (principal); E11.59 Type 2 diabetes mellitus with other circulatory complications; I10 Essential (primary) hypertension
CPT/HCPCS: 36415; 80048; 83036; 85007; 85027

== ENCOUNTER 2024-01-22 10:49 | Outpatient (AMB) | payer OTHER, SELFPAY ==
[2024-01-22 10:57] VITALS: BP 122/60; PULSE 68; O2SAT 98; BMI 28.7
--- NOTE | 2024-01-22 10:57 | A.OFFVIS_ITS ---
Vital Signs 01/22/24 10:57 Height 4 ft 11 in Weight 142 lb 3.17 oz BMI 28.7 BP 122/60 Blood Pressure Location Lt brachial Position Sitting Pulse 68 Pulse Source Pulse Oximeter Pulse Oximetry (%) 98 Oxygen Delivery Method Room Air Intake Visit Reasons: Abnormal Lab/cm Intake Note: Patient presents as a new patient internally referred by promotional representative for +NADEEM. Allergies nitrofurantoin [From Macrobid] Allergy (Mild, Verified 01/22/24 10:59) fever oxycodone [From Percocet] Allergy (Mild, Verified 01/22/24 10:59) Nausea sulfamethoxazole [From Bactrim] Allergy (Mild, Verified 01/22/24 10:59) face swelling trimethoprim [From Bactrim] Allergy (Mild, Verified 01/22/24 10:59) face swelling penicillin G Allergy (Verified 01/22/24 10:59) hives HPI Comments Details: Patient is a 68-year-old female with history of renal cell carcinoma status partial nephrectomy, hypertension, hyperlipidemia and diabetes who presents for evaluation of positive NADEEM. Patient was diagnosed with osteoarthritis several years ago after presenting with joint pain involving the DIPs of bilateral hands. Since then she has continued to have joint pain involving several joints including her shoulders, elbows, hips and knees. She has had several surgeries including shoulder surgery for bone spurs, foot surgery for bone spurs, finger joint replacement. Denies rashes, photosensitivity, alopecia, oral/nasal ulcers, sicca symptoms, lymphadenopathy, chest pain/shortness of breath, foamy urine, lower extremity edema, muscle weakness, Raynaud's Also denies history of seizure, CVA, psychosis, history of kidney problems, history of cytopenias, history of VTE with no history of miscarriages. No history of preeclampsia. No known family history of autoimmune disease. Of note she was recently hospitalized and treated for cellulitis involving the right hand. [facility] Medical History (Updated 01/22/24 @ 13:24 by Melissa Limon MD) Osteoarthritis involving multiple joints on both sides of body Positive NADEEM (antinuclear antibody) Mild anemia Colon polyp Pure hypercholesterolemia Essential hypertension History of kidney cancer Clear cell carcinoma of right kidney Abnormal mammogram Osteopenia Bone spur Vertigo Urinary incontinence Recurrent UTI Osteoarthritis Obesity, Class I, BMI 30-34.9 Migraine Left hand pain Hypertensive disorder Hypercholesteremia Diarrhea COVID-19 Clear cell renal cell carcinoma Chronic headache Hyperlipidemia CAD (coronary artery disease) ST elevation myocardial infarction (STEMI) of inferior wall Surgical History Hx of cardiac cath History of shoulder surgery History of carpal tunnel surgery of right wrist S/P foot surgery, right H/O partial nephrectomy H/O removal of cyst Finger joint replacement of right hand S/P cardiac catheterization Family History Brother Heart disease Alcohol abuse Cancer Mother Heart disease Hypercholesterolemia Hypertension Daughter Hypercholesterolemia Social History Patient Tobacco Use Status: Former Tobacco user Cigarettes Per Day: 0.25 Years Smoked: Unknown e-Cigarette/Vaping Use: Never Used Second Hand Smoke Exposure: Yes service: No Current occupational status: employed and retired 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 [employer] Current occupational exposures/hazards: No Review of Systems Const Details: Review of Systems Constitutional: Denies fever, chills, weight loss ENT: Denies vision changes, eye pain or eye redness, dental caries, dry mouth GI: Denies nausea, vomiting, diarrhea, abdominal pain, change in BM Pulm: Denies SOB, RIVER, hemoptysis, wheezing Cards: Denies chest pain, palpitations Skin: Denies Raynaud's, rash, nail changes, photosensitivity, [employer]: Denies headaches, weakness, paresthesias, recurrent falls MSK: as per HPI All other systems reviewed and are unremarkable except noted above Physical Exam Vital Signs: Last Vital Signs Pulse 68 01/22/24 10:57 BP 122/60 01/22/24 10:57 Pulse Ox 98 01/22/24 10:57 Oxygen Delivery Method Room Air 01/22/24 10:57 BMI result Body Mass Index 28.7 Physical Examination Patient well appearing and in no apparent painful distress Constitutional Mucous membranes pink and moist patient alert and cooperative HEENT Conjunctiva and sclera clear. ?Pupils equal round and reactive to light. ?No lymphadenopathy. ?Normal dentition. Normal Sam's test Respiratory System Normal respiratory effort and able to speak in complete sentences. ?Clear to auscultation bilaterally. ?No crackles, rales, rhonchi, wheezes heard. Cardiac System Regular rate and rhythm. ?S1 and S2 heard no murmurs. ?Radial pulses intact bilaterally MSK Hands:.??Heberden's nodes noted to bilateral 2nd to 5th DIPs. Squaring of the 1st CMC bilaterally. There is mild swelling of the left hand consistent with her current diagnosis and treatment of cellulitis. Wrists: Full range of motion at the wrists. No obvious swelling. No tenderness to palpation of the wrist joint. Elbows: Full range of motion without pain. No tenderness, weakness, swelling, increased warmth or erythema. Shoulders: Full range of motion without pain. No tenderness, weakness, swelling, increased warmth or erythema. Knees:.???Normal pain-free range of motion without tenderness, swelling, increased warmth or erythema.?No effusion or crepitations Ankles:.??Normal pain-free range of motion without tenderness, swelling, increased warmth or erythema. Feet:.??Normal pain-free range of motion without tenderness, swelling, increased warmth or erythema. Tender points:??No tenderness to digital palpation at the occiput, trapezius, second rib, lateral epicondyle, knees, greater trochanter bilaterally, and left gluteal. Results Reviewed Results Reviewed: Laboratory Tests 01/17/24 15:37 WBC 8.5 RBC 3.99 L Hgb 11.6 L Hct 35.1 L Plt Count 339 Sodium 138 Potassium 4.3 Chloride 102 Carbon Dioxide 28 BUN 18 H Creatinine 0.84 X-ray of the hand and wrist reviewed documents brought by patient Severe joint space narrowing involving the DIPs throughout bilateral hands. There was also joint space narrowing noted to the PIPs and MCPs. Carpal bones were intact without erosions and no joint space narrowing. Assessment & Plan Assessment & Plan (1) Osteoarthritis involving multiple joints on both sides of body: Code(s): M15.9 - Polyosteoarthritis, unspecified Category: Medical Plan: #Osteoarthritis Patient with osteoarthritis involving multiple joints. Patient has a long history of osteoarthritis and has trialed physical therapy, topical diclofenac and other nonsteroidal anti-inflammatory medications. At this time I have a low suspicion for an autoimmune disease. Discussed case with patient and daughter. All questions answered. No further workup (2) Positive NADEEM (antinuclear antibody): Code(s): R76.8 - Other specified abnormal immunological findings in serum Category: Medical Plan: #Positive NADEEM The presence of antinuclear antibodies (NADEEM) is mainly associated with connective tissue diseases (CTD). ?However, their presence is found in healthy people especially in women and patients >65. ?In healthy individuals, the frequency of NADEEM has been shown to be 31.7% of individuals at 1:40 serum dilution, 13.3% at 1:80, 5.0% at 1:160, and 3.3% at 1:320 (2). Some drugs and xenobiotics are also important for the development of NADEEM (hydralazine, hydrochlorothiazide, minocycline, terbinafine, ciprofloxacin, furosemide, omeprazole). Moreover, the deficiency of vitamin D in the body of patients correlates with occurrence of these antibodies (1). At this time there is low suspicion for a connective tissue disease. ? 1. Randi?gómez Yung, Valerio Keenan, Gio Newell. Antinuclear antibodies in healthy people and non-rheumatic diseases - diagnostic and clinical implications. Reumatologia. 2018;56(4):243-248. doi: 10.5114/reum.[email or web address]. Epub 2017Nov 23. PMID: 76741376; PMCID: [id number]. 2. Noe EM, Joaquin TE, Mary Jo JS, Janeen B, José R, Zain MJ, Alexis T, Eber JA, Sarah JR, Maximus RG, Mitul RN, Brennen JS, Isabel NF, Macarena RJ, Wally Y, Judy A, Julian SHAH, James OSORIO. Range of antinuclear antibodies in healthy individuals. Arthritis Rheum. 1996;40(9):1601-11. doi: 10.1002/art.3055979530. PMID: 8705882. Plan I spent 30 minutes reviewing the record and labs, seeing the patient, discussing the treatment plan and documenting in the medical record Coding Level of Care Code New Pt Level 3 (99810) Diagnoses Osteoarthritis involving multiple joints on both sides of body M15.9 Positive NADEEM (antinuclear antibody) R76.8
== END 2024-01-22 11:39 | disposition home or self-care (01) ==
LOC: HO.RHE 10:50
PROVIDERS: PCP Physician Assistant Medical; Visit Provider Student in an Organized Health Care Education/Training Program
DX: M15.9 Polyosteoarthritis, unspecified (principal); R76.8 Other specified abnormal immunological findings in serum
CPT/HCPCS: 99203

== ENCOUNTER → 2024-01-22 10:49 | Outpatient (BNVA) | payer OTHER, SELFPAY | PROVIDERS: PCP Physician Assistant Medical; Visit Provider Student in an Organized Health Care Education/Training Program ==

== ENCOUNTER 2024-01-24 08:50 | Outpatient (AMB) | payer OTHER, SELFPAY ==
--- NOTE | 2024-01-24 09:05 | A.OFFPC_ITS ---
Vital Signs 01/24/24 09:08 Height 4 ft 11 in Weight 140 lb 2 oz BMI 28.3 BP 126/60 Blood Pressure Location Rt brachial Position Sitting Pulse 74 Pulse Source Pulse Oximeter Temp 98.4 F Temp Source Oral Pulse Oximetry (%) 98 Oxygen Delivery Method Room Air Intake Visit Reasons: 3 month follow up a1c Intake Note: Three month follow up. Was at [facility] Sunday for cellulits in the left hand and arm. Allergies nitrofurantoin [From Macrobid] Allergy (Mild, Verified 01/24/24 09:06) fever oxycodone [From Percocet] Allergy (Mild, Verified 01/24/24 09:06) Nausea sulfamethoxazole [From Bactrim] Allergy (Mild, Verified 01/24/24 09:06) face swelling trimethoprim [From Bactrim] Allergy (Mild, Verified 01/24/24 09:06) face swelling penicillin G Allergy (Verified 01/24/24 09:06) hives Tobacco use date assessed: 08/31/23 Dental Screening Dental Screen Date: 08/31/23 HPI HPI Comments History of Present Illness Details This is a 67-year-old female with a past medical history of type 2 diabetes, 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 She went to the ER on 01/20/24 for left hand cellulitis and admitted [facility] IV anibiotics. She is on Doxycycline 100 mg twice daily for 7 days. This is improving. It's only tender today. Erythema and swelling are better. No fevers or chills. She continues with back and hip pain. She's had injections and PT. She is taking tramadol and gabapentin as needed. Rheumatoid factor negative, NADEEM mildly positive, and she saw Rheumatology, and no further workup was indicated as they did not suspect she has underlying autoimmune process. Type 2 diabetes-taking metformin ER 1000 mg twice daily and Tresiba 26 units. Her hemoglobin A1c is 6.2%. Target 60%, 4% hypoglycemia. Usually has low BG events mid morning. Cardiovascular-She had an ST elevation MS 12/08/2022. Status post cardiac catheterization with CANDELARIA placed to the RCA. There was 75% stenosis of the left circumflex. There were minimal luminal irregularities in the LAD. Medications include amlodipine, baby aspirin, atorvastatin, carvedilol, lisinopril and Brilinta. She had residual anginal symptoms. She had a cath on 11/19/23 which showed RCA stent wasn't working properly, and patient says it was fixed. Denies shortness of breath or chest pain. Right renal clear cell carcinoma-followed by Dr. Sutherland. Surgeon is Dr. Baldwni at [facility]. She underwent partial nephrectomy 12/16/2021. No known recurrence. She had a colonoscopy 01/18/[address] Ceballos. There was 1 sessile polyp, diverticula and internal hemorrhoids. She was advised to repeat this in 5 years. She denies abdominal pain, change in stools, blood in stools. ROS: Constitutional: No unexplained weight loss, fever, chills, increased fatigue or night sweats. Eyes: No vision changes Gastrointestinal: No anorexia, nausea, vomiting or diarrhea. No abdominal pain or blood in stool. Genitourinary: No dysuria, hematuria, urinary frequency. Physical exam: Constitutional: Alert, in no distress. Head: Normocephalic. Eyes: Pupils are equal, round and reactive to light. Extraocular muscles intact. Neck: Supple, Full range of motion. No lymphadenopathy. Respiratory: Clear to auscultation. Cardiovascular: S1 S2 regular. No murmurs. Hand: Mild erthema on the center of the left palm and slight streak on the ante rior left wrist. There is mild swelling of the thenar eminence, palm and 1st digit. Hands are neurovascularly intact. Extremities: Warm and well perfused. No clubbing, cyanosis or edema. Psychiatric: Normal mood and affect [facility] Medical History (Updated 01/22/24 @ 13:24 by Melissa Limon MD) Osteoarthritis involving multiple joints on both sides of body Positive NADEEM (antinuclear antibody) Mild anemia Colon polyp Pure hypercholesterolemia Essential hypertension History of kidney cancer Clear cell carcinoma of right kidney Abnormal mammogram Osteopenia Bone spur Vertigo Urinary incontinence Recurrent UTI Osteoarthritis Obesity, Class I, BMI 30-34.9 Migraine Left hand pain Hypertensive disorder Hypercholesteremia Diarrhea COVID-19 Clear cell renal cell carcinoma Chronic headache Hyperlipidemia CAD (coronary artery disease) ST elevation myocardial infarction (STEMI) of inferior wall Surgical History Hx of cardiac cath History of shoulder surgery History of carpal tunnel surgery of right wrist S/P foot surgery, right H/O partial nephrectomy H/O removal of cyst Finger joint replacement of right hand S/P cardiac catheterization Family History Brother Heart disease Alcohol abuse Cancer Mother Heart disease Hypercholesterolemia Hypertension Daughter Hypercholesterolemia Social History Patient Tobacco Use Status: Former Tobacco user Cigarettes Per Day: 0.25 Years Smoked: Unknown e-Cigarette/Vaping Use: Never Used Second Hand Smoke Exposure: Yes service: No Current occupational status: employed and retired Current occupation: [employer] Current occupational exposures/hazards: No Questionnaire PHQ-9 Over the last 2 weeks, how often have you been bothered by any of the following problems? 1. Little interest or pleasure in doing things: not at all 2. Feeling down, depressed, or hopeless: not at all 3. Trouble falling or staying asleep, or sleeping too much: several days 4. Feeling tired or having little energy: several days 5. Poor appetite or overeating: not at all 6. Feeling bad about yourself - or that you are a failure or have let yourself or your family down: not at all 7. Trouble concentrating on things, such as reading the newspaper or watching television: not at all 8. Moving or speaking so slowly that other people could have noticed. Or the opposite - being so fidgety or restless that you have been moving around a lot m ore than usual: not at all 9. Thoughts that you would be better off or of hurting yourself in some way: not at all Total score: 2 Source: Developed by Drs. Maury Smith, Smaantha Ray, Parmjit Martinez and colleagues, with an educational kristen from [employer]. Thrive Questionnaire Date Thrive assessed: 08/31/23 I am a: Patient What is your living situation today?: I have a steady place to live Within the past 12 months, did the food you bought not last and you didn't have the money to get more?: Never true Within the past 12 months, did you worry whether your food would run out before you got money to buy more?: Never true Do you have trouble paying for medicines?: No Do you have trouble getting transportation to medical appointments?: No Do you have trouble paying your heating and electricity bill?: No Do you have trouble taking care of your child, family member or friend?: No Do you have trouble with day-to-day activities such as bathing, preparing meals, shopping, managing finances, etc.?: No Are you currently unemployed and looking for a job?: No Are you interested in more education?: No Please select the resources that you would like help with: None Currently or been in a relationship where the following occur: No concerns reported THRIVE Score: 0 AUDIT C Alcohol Use Questionnaire (AUDIT-C) 1. How often do you have a drink containing alcohol?: Never Total Score: 0 PIYUSH-7 AMB Questionnaire PIYUSH-7 Feeling nervous, anxious, or on edge: 0 = Not at all Not being able to stop or control worryin = Not at all Worrying too much about different things: 0 = Not at all Trouble relaxin = Not at all Being so restless that it is hard to sit still: 0 = Not at all Becoming easily annoyed or irritable: 0 = Not at all Feeling afraid as if something awful might happen: 0 = Not at all Total PIYUSH-7 score (0-4 normal; 5-9 mild; 10-14 moderate; 15-21 severe): 0 Source: Developed by Drs. Maury Smith, Samantha Ray, Parmjit Martinez and colleagues, with an educational kristen from [employer]. Physical exam (Primary Care) Vital Signs: Last Vital Signs Temp 98.4 F 01/24/24 09:08 Pulse 74 01/24/24 09:08 BP 126/60 01/24/24 09:08 Pulse Ox 98 01/24/24 09:08 Oxygen Delivery Method Room Air 01/24/24 09:08 BMI result Body Mass Index 28.3 Tobacco/Smoking Status: Tobacco use Status Tobacco use date assessed 08/31/23 01/24/24 09:11 Patient Tobacco Use Status Former Tobacco user 01/24/24 09:11 e-Cigarette/Vaping Use Never Used 01/24/24 09:11 PHQ-9: PHQ-9 Score PHQ-9: Total score 2 01/24/24 13:36 Thrive Assessment: Date of Thrive Assessment Date Thrive assessed 08/31/23 01/24/24 09:11 Currently or been in a relationship where the following occur: No concerns reported Office Procedures Flu Questionnaire Does the patient have a severe egg allergy?: No Does the patient have severe life threatening allergies?: No Does the patient have a fever or illness today?: No Immunizations Fluarix Triv (PF) 45 mcg (15 mcg x 3)/0.5 mL IM syringe Performing Provider: KELSIE Lundy Performing Location: [facility] Administered by: Catalina Langford CMA on 01/24/24 13:43 Dose Route Admin Location Dispensed Lot Number Expiration Date NDC Hot Plate [employer] Press Feeder 0.5 mL IM Left Deltoid 0.5 mL [id number] 12/21/24 [id number] [employer] VIS Given Date VIS Provided VIS Publication Date 01/24/24 Single Vaccine 20 Eligibility Eligibility Date Funding Source Not [facility] Eligible 01/24/24 Private Coding Level of Care Code Est Pt Level 4 (16462) Complex EM visit Add On G2211 Diagnoses Osteoarthritis involving multiple joints on both sides of body M15.9 Sacroiliac joint dysfunction of both sides M53.3 Colon polyp K63.5 Pure hypercholesterolemia E78.00 Clear cell carcinoma of right kidney C64.1 Essential hypertension I10 Type 2 diabetes mellitus with cardiac complication E11.59 Coronary artery disease of [place] artery of [place] heart with stable angina pectoris I25.118 Associated angina: with stable angina Coronary Disease-Associated Artery/Lesion type: [place] artery [place] vs. transplanted heart: [place] heart Cellulitis of left hand L03.114 Assessment & Plan Assessment & Plan (1) Osteoarthritis involving multiple joints on both sides of body: Code(s): M15.9 - Polyosteoarthritis, unspecified Category: Medical (2) Sacroiliac joint dysfunction of both sides: Code(s): M53.3 - Sacrococcygeal disorders, not elsewhere classified Category: Medical (3) Colon polyp: Comment: 01/18/21 colonoscopy w/ Dr. Ceballos. Single sessile polyps, diverticula, internal hemorrhoids. Repeat colonoscopy recommended in 5 years. Code(s): K63.5 - Polyp of colon Category: Medical (4) Pure hypercholesterolemia: Code(s): E78.00 - Pure hypercholesterolemia, unspecified Category: Medical (5) Clear cell carcinoma of right kidney: Code(s): C64.1 - Malignant neoplasm of right kidney, except renal pelvis Category: Medical (6) Essential hypertension: Code(s): I10 - Essential (primary) hypertension Category: Medical (7) Type 2 diabetes mellitus with cardiac complication: Code(s): E11.59 - Type 2 diabetes mellitus with other circulatory complications Category: Medical (8) CAD (coronary artery disease): Code(s): I25.10 - Atherosclerotic heart disease of [place] coronary artery without angina pectoris Category: Medical Qualifiers: Associated angina: with stable angina Coronary Disease-Associated Artery/Lesion type: [place] artery [place] vs. transplanted heart: [place] heart Qualified Code(s): I25.118 - Atherosclerotic heart disease of [place] coronary artery with other forms of angina pectoris (9) Cellulitis of left hand: Code(s): L03.114 - Cellulitis of left upper limb Plan Left hand cellulitis Finish entire course of antibiotics. Warning signs warranting re-evaluation at ED reviewed. Lumbar spondylosis Patient seen by physiatry and Orthopedics. Continue gabapentin and tramadol as needed. Hyperlipidemia LDL at goal of less than 70. Continue current regimen. She is also eating a very high protein, high fiber and low carbohydrate diet to lose weight. Hypertension Well-controlled. Continue current regimen. History of right kidney cancer No known recurrence. She is contacting Dr. Sutherland to schedule her next follow- up. Positive NADEEM No need for further evaluation per Rheumatology. Coronary artery disease Continue current management per Cardiology. Type 2 diabetes Continue metformin extended release 1000 mg twice daily. Reduce Tresiba from 26-20 units nightly due to hypoglycemia. We discussed GLP 1 for cardiovascular risk reduction. She denies contraindications to this medication. Reviewed potential side effects. Submitted Ozempic 0.25 mg once weekly to the pharmacy. Discussed need for titration based on patient's response and tolerability. Follow up in 6 weeks for diabetes med check. Orders: Orders Influenza [id number] Immunization 01/24/24 Z23 - Encounter for immunization Medications: New semaglutide (Ozempic) for 4 weeks 0.25 mg (0.368 mL) subcut QWEEK 3 mL 0RF glucose (Dex4 Glucose Quick Dissolve) until symptoms of low blood sugar are controlled 16 grams (4 x 4 gram) PO Q15M PRN 30 tabs 3RF hypoglycemia loperamide 2 mg PO Q4H PRN 90 caps 3RF loose stool aspirin (Adult Aspirin Regimen) 81 mg PO DAILY 90 tabs 3RF methenamine hippurate 1 g PO DAILY 90 tabs 3RF oxybutynin chloride ER 10 mg PO DAILY 90 tabs 3RF atorvastatin 80 mg PO BEDTIME 90 tabs 3RF Changed From insulin degludec (Tresiba FlexTouch U-100 insulin) 26 units (0.26 mL) subcut DAILY 15 mL 5RF To insulin degludec (Tresiba FlexTouch U-100 insulin) 20 units (0.2 mL) subcut DAILY 15 mL 5RF
[2024-01-24 09:08] VITALS: BP 126/60; PULSE 74; TEMP 36.9; O2SAT 98; BMI 28.3
== END 2024-01-24 09:44 | disposition home or self-care (01) ==
LOC: HO.HMCFM 08:51
PROVIDERS: PCP Physician Assistant Medical; Visit Provider Physician Assistant Medical
DX: M15.9 Polyosteoarthritis, unspecified (principal); C64.1 Malignant neoplasm of right kidney, except renal pelvis; E11.59 Type 2 diabetes mellitus with other circulatory complications; I25.118 Atherosclerotic heart disease of native coronary artery with other forms of angina pectoris; M53.3 Sacrococcygeal disorders, not elsewhere classified; K63.5 Polyp of colon; E78.00 Pure hypercholesterolemia, unspecified; I10 Essential (primary) hypertension; L03.114 Cellulitis of left upper limb

== ENCOUNTER → 2024-01-24 08:50 | Outpatient (BNVA) | payer OTHER, SELFPAY | PROVIDERS: PCP Physician Assistant Medical; Visit Provider Physician Assistant Medical | DX: M15.9 Polyosteoarthritis, unspecified (principal); M53.3 Sacrococcygeal disorders, not elsewhere classified; K63.5 Polyp of colon; Z23 Encounter for immunization; E78.00 Pure hypercholesterolemia, unspecified; C64.1 Malignant neoplasm of right kidney, except renal pelvis; I10 Essential (primary) hypertension; E11.59 Type 2 diabetes mellitus with other circulatory complications; I25.118 Atherosclerotic heart disease of native coronary artery with other forms of angina pectoris; L03.114 Cellulitis of left upper limb | CPT/HCPCS: 90471; 90656; 96127 ==

== ENCOUNTER 2024-03-06 09:49 | Outpatient (AMB) | payer OTHER, SELFPAY ==
--- NOTE | 2024-03-06 09:58 | A.OFFPC_ITS ---
Vital Signs 03/06/24 10:01 Height 4 ft 11 in Weight 135 lb 8 oz BMI 27.4 BP 126/62 Blood Pressure Location Rt brachial Position Sitting Pulse 84 Pulse Source Pulse Oximeter Pulse Oximetry (%) 99 Oxygen Delivery Method Room Air Intake Visit Reasons: diabetes med check Intake Note: Diabetes follow up Service Assistant Required: No Allergies nitrofurantoin [From Macrobid] Allergy (Mild, Verified 03/06/24 09:58) fever oxycodone [From Percocet] Allergy (Mild, Verified 03/06/24 09:58) Nausea sulfamethoxazole [From Bactrim] Allergy (Mild, Verified 03/06/24 09:58) face swelling trimethoprim [From Bactrim] Allergy (Mild, Verified 03/06/24 09:58) face swelling penicillin G Allergy (Verified 03/06/24 09:58) hives Tobacco use date assessed: 08/31/23 Dental Screening Dental Screen Date: 08/31/23 HPI HPI Comments History of Present Illness Details This is a 68-year-old female with a past medical history of type 2 diabetes, 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 She continues with back and hip pain. She's had injections and PT. She is taking tramadol and gabapentin as needed. Rheumatoid factor negative, NADEEM mildly positive, and she saw Rheumatology, and no further workup was indicated as they did not suspect she has underlying autoimmune process. Left 3rd and 4th digits were injected yesterday. She reports she will need surgery in 3 months. Type 2 diabetes-taking metformin ER 1000 mg twice daily and Tresiba 20 units daily and Ozempic 0.25 mg weekly. Her recent hemoglobin A1c was 6.2%. CGM shows 12 day ranges with target 74% and 3% hypoglycemia. Her diabetes management was adjusted six weeks ago with the addition of Ozempic 0.25 mg weekly. Initially, the patient experienced significant nausea for the first four weeks but it resolved. She reported a weight loss of approximately 5 pounds since starting the medication. Despite improvements, blood glucose levels occasionally drop, notably mid-morning before lunch. Cardiovascular-She had an ST elevation DC 12/08/2022. Status post cardiac catheterization with CANDELARIA placed to the RCA. There was 75% stenosis of the left circumflex. There were minimal luminal irregularities in the LAD. Medications include amlodipine, baby aspirin, atorvastatin, carvedilol, lisinopril and Brilinta. She had residual anginal symptoms. She had a cath on 11/19/23 which showed RCA stent wasn't working properly. She denies CP and SOB since it was fixed. Right renal clear cell carcinoma-followed by Dr. Suthelrand. Surgeon is Dr. Baldwin at [facility]. She underwent partial nephrectomy 12/16/2021. No known recurrence. Patient has been under the weather for the past week. She developed a sore throat last which resolved. She initially had a productive cough which is now dry and keeps her awake at night. She is taking [id number] Robitussin and using Vicks. No fevers or chills. She had a colonoscopy 01/18/[address] Ceballos. There was 1 sessile polyp, diverticula and internal hemorrhoids. She was advised to repeat this in 5 years. She denies abdominal pain, change in stools, blood in stools. ROS: Constitutional: No fevers, chills, night sweats or unexplained weight loss. ENT: No sore throat currently, ear pain, nasal congestion or sinus pain. Respiratory: No shortness of breath, wheezing, sputum production or hemoptysis. See HPI. Cardiovascular: No chest pain, chest pressure or chest discomfort. No palpitations. Gastrointestinal: No anorexia, nausea, vomiting or diarrhea. No abdominal pain Neurologic: No headache, dizziness, syncope Physical exam: Constitutional: Alert, in no distress. Ear, Nose and Throat: Canals clear. TMs normal. Normal nasal mucosa. No nasal discharge. No oral lesions. Neck: Supple, Full range of motion. No lymphadenopathy. No palpable thyroid masses. Respiratory: Clear to auscultation. Dry cough observed. Cardiovascular: S1 S2 regular. No murmurs. Extremities: Warm and well perfused. No clubbing, cyanosis or edema. Psychiatric: Normal mood and affect [facility] Medical History (Updated 01/22/24 @ 13:24 by Melissa Limon MD) Osteoarthritis involving multiple joints on both sides of body Positive NADEEM (antinuclear antibody) Mild anemia Colon polyp Pure hypercholesterolemia Essential hypertension History of kidney cancer Clear cell carcinoma of right kidney Abnormal mammogram Osteopenia Bone spur Vertigo Urinary incontinence Recurrent UTI Osteoarthritis Obesity, Class I, BMI 30-34.9 Migraine Left hand pain Hypertensive disorder Hypercholesteremia Diarrhea COVID-19 Clear cell renal cell carcinoma Chronic headache Hyperlipidemia CAD (coronary artery disease) ST elevation myocardial infarction (STEMI) of inferior wall Surgical History Hx of cardiac cath History of shoulder surgery History of carpal tunnel surgery of right wrist S/P foot surgery, right H/O partial nephrectomy H/O removal of cyst Finger joint replacement of right hand S/P cardiac catheterization Family History Brother Heart disease Alcohol abuse Cancer Mother Heart disease Hypercholesterolemia Hypertension Daughter Hypercholesterolemia Social History (Updated 03/06/24 @ 10:04 by Catalina Langford CMA) Patient Tobacco Use Status: Former Tobacco user Cigarettes Per Day: 0.25 Years Smoked: Unknown e-Cigarette/Vaping Use: Never Used Second Hand Smoke Exposure: Yes service: No Current occupational status: employed and retired 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 [employer] Current occupational exposures/hazards: No Questionnaire Thrive Questionnaire Date Thrive assessed: 01/17/24 I am a: Patient What is your living situation today?: I have a steady place to live Within the past 12 months, did the food you bought not last and you didn't have the money to get more?: Never true Within the past 12 months, did you worry whether your food would run out before you got money to buy more?: Never true Do you have trouble paying for medicines?: No Do you have trouble getting transportation to medical appointments?: No Do you have trouble paying your heating and electricity bill?: No Do you have trouble taking care of your child, family member or friend?: No Do you have trouble with day-to-day activities such as bathing, preparing meals, shopping, managing finances, etc.?: No Are you currently unemployed and looking for a job?: No Are you interested in more education?: No Please select the resources that you would like help with: None Currently or been in a relationship where the following occur: No concerns reported THRIVE Score: 0 AUDIT C Alcohol Use Questionnaire (AUDIT-C) 3. How often do you have six or more drinks on one occasion?: Never Total Score: 0 Physical exam (Primary Care) Vital Signs: Last Vital Signs Pulse 84 03/06/24 10:01 BP 126/62 03/06/24 10:01 Pulse Ox 99 03/06/24 10:01 Oxygen Delivery Method Room Air 03/06/24 10:01 BMI result Body Mass Index 27.4 Tobacco/Smoking Status: Tobacco use Status Tobacco use date assessed 08/31/23 03/06/24 10:04 Patient Tobacco Use Status Former Tobacco user 03/06/24 10:04 e-Cigarette/Vaping Use Never Used 03/06/24 10:04 Thrive Assessment: Date of Thrive Assessment Date Thrive assessed 01/17/24 03/06/24 10:04 Currently or been in a relationship where the following occur: No concerns reported Coding Level of Care Code Est Pt Level 4 (65132) Complex EM visit Add On G2211 Diagnoses Osteoarthritis involving multiple joints on both sides of body M15.9 Sacroiliac joint dysfunction of both sides M53.3 Colon polyp K63.5 Pure hypercholesterolemia E78.00 Clear cell carcinoma of right kidney C64.1 Essential hypertension I10 Type 2 diabetes mellitus with cardiac complication E11.59 Coronary artery disease of [place] artery of [place] heart with stable angina pectoris I25.118 Coronary Disease-Associated Artery/Lesion type: [place] artery [place] vs. transplanted heart: [place] heart Associated angina: with stable angina Acute cough R05.1 Cough type: acute Assessment & Plan Assessment & Plan (1) Osteoarthritis involving multiple joints on both sides of body: Code(s): M15.9 - Polyosteoarthritis, unspecified Category: Medical (2) Sacroiliac joint dysfunction of both sides: Code(s): M53.3 - Sacrococcygeal disorders, not elsewhere classified Category: Medical (3) Colon polyp: Comment: 01/18/21 colonoscopy w/ Dr. Ceballos. Single sessile polyps, diverticula, internal hemorrhoids. Repeat colonoscopy recommended in 5 years. Code(s): K63.5 - Polyp of colon Category: Medical (4) Pure hypercholesterolemia: Code(s): E78.00 - Pure hypercholesterolemia, unspecified Category: Medical (5) Clear cell carcinoma of right kidney: Code(s): C64.1 - Malignant neoplasm of right kidney, except renal pelvis Category: Medical (6) Essential hypertension: Code(s): I10 - Essential (primary) hypertension Category: Medical (7) Type 2 diabetes mellitus with cardiac complication: Code(s): E11.59 - Type 2 diabetes mellitus with other circulatory complications Category: Medical (8) CAD (coronary artery disease): Code(s): I25.10 - Atherosclerotic heart disease of [place] coronary artery without angina pectoris Category: Medical Qualifiers: Coronary Disease-Associated Artery/Lesion type: [place] artery [place] vs. transplanted heart: [place] heart Associated angina: with stable angina Qualified Code(s): I25.118 - Atherosclerotic heart disease of [place] coronary artery with other forms of angina pectoris (9) Cough: Code(s): R05.9 - Cough, unspecified Qualifiers: Cough type: acute Qualified Code(s): R05.1 - Acute cough Plan Cough Likely viral. She declined swab for flu/COVID/RSV as it would not ticket dispenser changer at this time. Send prescription for cough medication with codeine. Advised it could cause drowsiness and not to drive or operate heavy machinery when she takes it. Continue supportive measures at home. Warning signs for follow up reviewed with the patient. Lumbar spondylosis Patient seen by physiatry and Orthopedics. Continue gabapentin and tramadol as needed. Hyperlipidemia LDL at goal of less than 70. Continue current regimen. She is also eating a very high protein, high fiber and low carbohydrate diet to lose weight. Hypertension Well-controlled. Continue current regimen. History of right kidney cancer No known recurrence. She is contacting Dr. Sutherland to schedule her next follow- up. Positive NADEEM No need for further evaluation per Rheumatology. Coronary artery disease Continue current management per Cardiology. Type 2 diabetes Continue metformin extended release 1000 mg twice daily. Reduce Tresiba from 20 to 15 units nightly due to hypoglycemia. Discuss trial increase dose of Ozempic 0.5 mg weekly, but she would like to stay on 0.25 mg and re-evaluate at her next appointment. Follow up in 3 months for diabetes and med check. Medications: New codeine-guaifenesin 10-100 mg/5 mL 5 mL PO Q4-6H PRN 118 mL 1RF cough Refilled semaglutide (Ozempic) for 4 weeks 0.25 mg (0.368 mL) subcut QWEEK 3 mL 2RF
[2024-03-06 10:01] VITALS: BP 126/62; PULSE 84; O2SAT 99; BMI 27.4
== END 2024-03-06 10:37 | disposition home or self-care (01) ==
PROVIDERS: PCP Physician Assistant Medical; Visit Provider Physician Assistant Medical
DX: M15.9 Polyosteoarthritis, unspecified (principal); C64.1 Malignant neoplasm of right kidney, except renal pelvis; E11.59 Type 2 diabetes mellitus with other circulatory complications; I25.118 Atherosclerotic heart disease of native coronary artery with other forms of angina pectoris; M53.3 Sacrococcygeal disorders, not elsewhere classified; K63.5 Polyp of colon; E78.00 Pure hypercholesterolemia, unspecified; I10 Essential (primary) hypertension; R05.1 Acute cough

== ENCOUNTER → 2024-03-06 09:49 | Outpatient (BNVA) | payer OTHER, SELFPAY | PROVIDERS: PCP Physician Assistant Medical; Visit Provider Physician Assistant Medical ==

== ENCOUNTER 2024-03-12 15:39 | Outpatient (AMB) | payer OTHER, SELFPAY ==
[2024-03-12 15:46] VITALS: BP 130/60; PULSE 75; BMI 27.5
--- NOTE | 2024-03-12 15:46 | MHC.OFFVIS ---
Vital Signs 03/12/24 15:46 Height 4 ft 11 in Weight 136 lb 3.931 oz BMI 27.5 BP 130/60 Blood Pressure Location Rt brachial Position Sitting Pulse 75 Pulse Source Pulse Oximeter Intake Visit Reasons: 3 mth f/up Intake Note: 3 mth f/up Clinical Biostatistics Director Required: No Accompanied by: Daughter Allergies nitrofurantoin [From Macrobid] Allergy (Mild, Verified 03/06/24 09:58) fever oxycodone [From Percocet] Allergy (Mild, Verified 03/06/24 09:58) Nausea sulfamethoxazole [From Bactrim] Allergy (Mild, Verified 03/06/24 09:58) face swelling trimethoprim [From Bactrim] Allergy (Mild, Verified 03/06/24 09:58) face swelling penicillin G Allergy (Verified 03/06/24 09:58) hives Medication List - Last Reconciled 03/12/24 by Ruddy Sams MD amlodipine 5 mg PO DAILY aspirin (Adult Aspirin Regimen) 81 mg PO DAILY atorvastatin 80 mg PO BEDTIME azithromycin For 250 mg dose pack: take 500 mg today (day 1), then 250 mg for 4 days (days 2-5) PO carvedilol 6.25 mg PO BID codeine-guaifenesin 10-100 mg/5 mL 5 mL PO Q4-6H PRN cranberry 2,000 mg PO DAILY flash glucose sensor (FreeStyle Alcides 2 Sensor kit) As directed gabapentin 300 mg PO BID 90 days glucose (Dex4 Glucose Quick Dissolve) 16 grams (4 x 4 gram) PO Q15M PRN insulin degludec (Tresiba FlexTouch U-100 insulin) 15 units subcut DAILY lidocaine 5% (Lidoderm) 3 patches topical DAILY lisinopril 40 mg PO DAILY loperamide 2 mg PO Q4H PRN metformin ER 1,000 mg PO BID methenamine hippurate 1 g PO DAILY oxybutynin chloride ER 10 mg PO DAILY semaglutide (Ozempic) 0.25 mg (0.368 mL) subcut QWEEK ticagrelor (Brilinta) 90 mg PO BID tramadol 50 mg PO Q8H PRN 14 days vitamins A,C,F-naep-mdhzbb 4,296 mcg-226 mg-90 mg (PreserVision AREDS) 1 cap PO BID HPI Comments Details: 68 female with who had inferior STEMi in 11/2022 and underwent ostial RCA stent. She is here for f/u. Clinically stable. She had indigestion like feeling when she presented with inferior ST-elevation MD. She has been experiencing indigestion off and on. She is saying that she is taking omeprazole. The symptoms are random but quite similar to her presentation with STEMI. She is doing cardiac rehabilitation. 10/04/2023: On last visit she was complaining of chest discomfort with activities. She underwent stress testing where after exercising for 5 minutes 30 seconds on treadmill she developed chest discomfort. No dynamic EKG changes were noted but symptoms improved after she stopped exercising. She has been taking amlodipine 2.5 mg daily since then and her symptoms are somewhat better. She still gets some anginal episodes off and on and feels distressed by the symptoms. 12/10/23: She returns for follow-up. She was taken for cardiac catheterization because she was getting chest discomfort underwent stress testing during which she had exertional symptoms. One day before she presented to director geophysical laboratory for diagnostic angiography she had rest discomfort and throat discomfort. Her angiography interestingly showed severe InStent restenosis in the ostial right coronary artery stent. Circumflex stenosis was in the 70% range and was stable. We treated the RCA with balloon angioplasty only. Intravascular ultrasound before angioplasty showed that the stent was somewhat oval in shape in the ostium and we felt maybe it was somewhat underexpanded. We did high-pressure inflation with 4 mm noncompliant balloon with good result. She is back in clinic and has no symptoms. She is walking and doing activities without any complaints. 03/12/2024: She is here for follow-up. She has no anginal symptoms. She is recovering from a viral illness currently. Taking medications regularly. She is on aspirin and Brilinta and has some bruising on her arms and legs. We discussed about change Plavix but she feels that she is okay continuing Brilinta. [facility] Medical History (Updated 01/22/24 @ 13:24 by Melissa Limon MD) Osteoarthritis involving multiple joints on both sides of body Positive NADEEM (antinuclear antibody) Mild anemia Colon polyp Pure hypercholesterolemia Essential hypertension History of kidney cancer Clear cell carcinoma of right kidney Abnormal mammogram Osteopenia Bone spur Vertigo Urinary incontinence Recurrent UTI Osteoarthritis Obesity, Class I, BMI 30-34.9 Migraine Left hand pain Hypertensive disorder Hypercholesteremia Diarrhea COVID-19 Clear cell renal cell carcinoma Chronic headache Hyperlipidemia CAD (coronary artery disease) ST elevation myocardial infarction (STEMI) of inferior wall Surgical History (Reviewed 03/12/24 @ 15:49 by Cynthia Avelar [facility]) Hx of cardiac cath History of shoulder surgery History of carpal tunnel surgery of right wrist S/P foot surgery, right H/O partial nephrectomy H/O removal of cyst Finger joint replacement of right hand S/P cardiac catheterization Family History (Reviewed 03/12/24 @ 15:49 by Cynthia Avelar [facility]) Brother Heart disease Alcohol abuse Cancer Mother Heart disease Hypercholesterolemia Hypertension Daughter Hypercholesterolemia Social History (Reviewed 03/12/24 @ 15:50 by Cynthia Avelar [facility]) Patient Tobacco Use Status: Former Tobacco user Cigarettes Per Day: 0.25 Years Smoked: Unknown e-Cigarette/Vaping Use: Never Used Second Hand Smoke Exposure: Yes service: No Current occupational status: employed and retired 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 [employer] Current occupational exposures/hazards: No Review of Systems Const Denies chills, Denies fatigue, Denies fever(s), Denies frequent falls, Denies weakness, Denies weight gain and Denies weight loss ENT Denies dizziness Card Denies chest pain, Denies leg edema, Denies lightheadedness, Denies palpitations, Denies dyspnea and Denies dyspnea on exertion Resp Denies cough, Denies dyspnea and Denies dyspnea on exertion GI Denies hematochezia Musc Denies abnormal gait, Denies muscle weakness, Denies numbness, Denies radiating pain into limb and Denies tingling Neuro Denies abnormal gait, Denies dizziness, Denies frequent falls, Denies numbness, Denies tingling and Denies weakness Endo Denies fatigue and Denies palpitations Physical Exam Vital Signs: Last Vital Signs Pulse 75 03/12/24 15:46 BP 130/60 03/12/24 15:46 BMI result Body Mass Index 27.5 GENERAL APPEARANCE: in no acute distress, pleasant. NECK: no carotid bruit, no jugular venous distention. SKIN: no suspicious lesions, warm and dry. HEART: no murmurs, regular rate and rhythm. LUNGS: clear to auscultation bilaterally. ABDOMEN: soft, nontender. EXTREMITIES: no edema. PERIPHERAL PULSES: equal. NEUROLOGIC: No gross deficits, AAO X 3 Assessment & Plan Assessment & Plan (1) Essential hypertension: Code(s): I10 - Essential (primary) hypertension Category: Medical (2) Stable angina: Code(s): I20.89 - Other forms of angina pectoris Category: Medical Plan Pleasant 68 year female who is here for follow-up. She has known history of coronary artery disease with previous inferior wall MD and ostial right coronary artery PCI. She had residual disease in the circumflex artery which was in the 70% range. She was getting exertional symptoms and was taken back for cardiac catheterization and interestingly he noticed severe ISR in the right coronary artery ostial stent. This was treated with intravascular ultrasound-guided high-pressure noncompliant balloon angioplasty. She is approximately 4 months out from balloon angioplasty of the ostial right coronary artery stent. She is been doing well without any anginal symptoms. I have explained to her that if she has any recurrent symptoms she should report to us and in that situation she will need repeat angiography to reassess the ostium of the right coronary artery stent. If there is recurrence then she will need 2nd layer of drug-eluting stent. Last LDL cholesterol was 52, total cholesterol 119, triglycerides 47 and HDL 58. She will see us back in 3 months. Thank you for allowing me to participate in the care of your patient. Please feel free to contact me if you have any questions. Medications: Changed From insulin degludec (Tresiba FlexTouch U-100 insulin) 20 units (0.2 mL) subcut DAILY 15 mL 5RF To insulin degludec (Tresiba FlexTouch U-100 insulin) 15 units subcut DAILY Coding Level of Care Code Est Pt Level 4 (41863) Diagnoses Essential hypertension I10 Stable angina I20.89
== END 2024-03-12 16:12 | disposition home or self-care (01) ==
PROVIDERS: PCP Physician Assistant Medical; Visit Provider Internal Medicine Cardiovascular Disease
DX: I10 Essential (primary) hypertension (principal); I20.89 Other forms of angina pectoris
CPT/HCPCS: 99214

== ENCOUNTER → 2024-03-12 15:39 | Outpatient (BNVA) | payer OTHER, SELFPAY | PROVIDERS: PCP Physician Assistant Medical; Visit Provider Internal Medicine Cardiovascular Disease ==

== ENCOUNTER 2024-04-28 08:50 | Outpatient (AMB) | payer OTHER, SELFPAY ==
--- NOTE | 2024-04-28 08:56 | A.OFFPC_ITS ---
Vital Signs 04/28/24 08:59 Height 4 ft 11 in Weight 129 lb 6 oz BMI 26.1 BP 128/52 L Blood Pressure Location Lt brachial Position Sitting Pulse 77 Pulse Source Pulse Oximeter Pulse Oximetry (%) 99 Oxygen Delivery Method Room Air Intake Visit Reasons: 3 month follow up a1c Intake Note: Three month follow up diabetes Shearer Operator Required: No Allergies nitrofurantoin [From Macrobid] Allergy (Mild, Verified 04/28/24 08:56) fever oxycodone [From Percocet] Allergy (Mild, Verified 04/28/24 08:56) Nausea sulfamethoxazole [From Bactrim] Allergy (Mild, Verified 04/28/24 08:56) face swelling trimethoprim [From Bactrim] Allergy (Mild, Verified 04/28/24 08:56) face swelling penicillin G Allergy (Verified 04/28/24 08:56) hives Tobacco use date assessed: 08/31/23 Dental Screening Dental Screen Date: 08/31/23 HPI HPI Comments History of Present Illness Details This is a 68-year-old female with a past medical history of type 2 diabetes, 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 Chronic hip pain, back pain and osteoarthritis of the hands- She's had injections and PT. She is taking tramadol and gabapentin as needed. Rheumatoid factor negative, NADEEM mildly positive, and she saw Rheumatology, and no further workup was indicated as they did not suspect she has underlying autoimmune process. Left 3rd and 4th digits were injected couple of months ago, and she is going to need surgery on these fingers. Type 2 diabetes-taking metformin ER 1000 mg twice daily and Tresiba 15 units daily and Ozempic 0.25 mg weekly. Her hemoglobin A1c is 5.9%. She is having less episodes of hypoglycemia, but she is still having episodes overnight and had 1 during the day in the last couple of weeks. She denies further side effects on Ozempic. Cardiovascular-She had an ST elevation GA 12/08/2022. Status post cardiac catheterization with CANDELARIA placed to the RCA. There was 75% stenosis of the left circumflex. There were minimal luminal irregularities in the LAD. Medications include amlodipine, baby aspirin, atorvastatin, carvedilol, lisinopril and Brilinta. She had residual anginal symptoms. She had a cath on 11/19/23 which showed RCA stent wasn't working properly. She denies CP and SOB since it was revised. Right renal clear cell carcinoma-followed by Dr. Sutherland. Surgeon is Dr. Baldwin at [facility]. She underwent partial nephrectomy 12/16/2021. No known recurrence. She had a colonoscopy 01/18/[address] Ceballos. There was 1 sessile polyp, diverticula and internal hemorrhoids. She was advised to repeat this in 5 years. She denies abdominal pain, change in stools, blood in stools. Patient says that her medical editor recommended the influenza vaccine, and I have also recommended high-dose influenza vaccine to her. We do not carry at the office so she will get it at the pharmacy today. ROS: Constitutional: No fevers, chills, night sweats or unexplained weight loss. Respiratory: No shortness of breath, cough, wheezing or sputum production. Cardiovascular: No chest pain, chest pressure or chest discomfort. No palpitations. Gastrointestinal: No anorexia, nausea, vomiting or diarrhea. No abdominal pain Neurologic: No headache, dizziness, syncope Physical exam: Constitutional: Alert, in no distress. Neck: Supple, Full range of motion. No lymphadenopathy. No palpable thyroid masses. Respiratory: Clear to auscultation. Cardiovascular: S1 S2 regular. No murmurs. Extremities: Warm and well perfused. No clubbing, cyanosis or edema. Psychiatric: Normal mood and affect [facility] Medical History (Updated 01/22/24 @ 13:24 by Melissa Limon MD) Osteoarthritis involving multiple joints on both sides of body Positive NADEEM (antinuclear antibody) Mild anemia Colon polyp Pure hypercholesterolemia Essential hypertension History of kidney cancer Clear cell carcinoma of right kidney Abnormal mammogram Osteopenia Bone spur Vertigo Urinary incontinence Recurrent UTI Osteoarthritis Obesity, Class I, BMI 30-34.9 Migraine Left hand pain Hypertensive disorder Hypercholesteremia Diarrhea COVID-19 Clear cell renal cell carcinoma Chronic headache Hyperlipidemia CAD (coronary artery disease) ST elevation myocardial infarction (STEMI) of inferior wall Surgical History (Reviewed 03/12/24 @ 15:49 by Cynthia [facility]) Hx of cardiac cath History of shoulder surgery History of carpal tunnel surgery of right wrist S/P foot surgery, right H/O partial nephrectomy H/O removal of cyst Finger joint replacement of right hand S/P cardiac catheterization Family History (Reviewed 03/12/24 @ 15:49 by Cynthia [facility]) Brother Heart disease Alcohol abuse Cancer Mother Heart disease Hypercholesterolemia Hypertension Daughter Hypercholesterolemia Social History (Reviewed 03/12/24 @ 15:50 by Cynthia [facility]) Patient Tobacco Use Status: Former Tobacco user Cigarettes Per Day: 0.25 Years Smoked: Unknown e-Cigarette/Vaping Use: Never Used Second Hand Smoke Exposure: Yes service: No Current occupational status: employed and retired Current occupation: [employer] Current occupational exposures/hazards: No Questionnaire PHQ-9 Over the last 2 weeks, how often have you been bothered by any of the following problems? 1. Little interest or pleasure in doing things: not at all 2. Feeling down, depressed, or hopeless: not at all 3. Trouble falling or staying asleep, or sleeping too much: several days 4. Feeling tired or having little energy: several days 5. Poor appetite or overeating: not at all 6. Feeling bad about yourself - or that you are a failure or have let yourself or your family down: not at all 7. Trouble concentrating on things, such as reading the newspaper or watching television: not at all 8. Moving or speaking so slowly that other people could have noticed. Or the opposite - being so fidgety or restless that you have been moving around a lot more than usual: not at all 9. Thoughts that you would be better off or of hurting yourself in some way: not at all Total score: 2 Depression Screening Interpretation: Negative Depression Screening Done: Yes 74592 - PHQ-9 Billing: Yes Source: Developed by Drs. Maury Smith, Samantha Ray, Parmjit Martinez and colleagues, with an educational kristen from [email or web address]. Thrive Questionnaire Date Thrive assessed: 04/28/24 I am a: Patient What is your living situation today?: I have a steady place to live Within the past 12 months, did the food you bought not last and you didn't have the money to get more?: Never true Within the past 12 months, did you worry whether your food would run out before you got money to buy more?: Never true Do you have trouble paying for medicines?: No Do you have trouble getting transportation to medical appointments?: No Do you have trouble paying your heating and electricity bill?: No Do you have trouble taking care of your child, family member or friend?: No Do you have trouble with day-to-day activities such as bathing, preparing meals, shopping, managing finances, etc.?: No Are you currently unemployed and looking for a job?: No Are you interested in more education?: No Please select the resources that you would like help with: None Currently or been in a relationship where the following occur: No concerns reported THRIVE Score: 0 AUDIT C Alcohol Use Questionnaire (AUDIT-C) 1. How often do you have a drink containing alcohol?: Never Total Score: 0 PIYUSH-7 AMB Questionnaire PIYUSH-7 Date PIYUSH - 7 assessed: 04/28/24 Feeling nervous, anxious, or on edge: 0 = Not at all Not being able to stop or control worryin = Not at all Worrying too much about different things: 0 = Not at all Trouble relaxin = Not at all Being so restless that it is hard to sit still: 0 = Not at all Becoming easily annoyed or irritable: 0 = Not at all Feeling afraid as if something awful might happen: 0 = Not at all Total PIYUSH-7 score (0-4 normal; 5-9 mild; 10-14 moderate; 15-21 severe): 0 Source: Developed by Drs. Maury Smith, Samantha Ray, Parmjit Martinez and colleagues, with an educational kristen from [email or web address]. PIYUSH-7 Assessment Billing PIYUSH-7 Assessment Tool: PIYUSH-7 Assessment 31225 Physical exam (Primary Care) Vital Signs: Last Vital Signs Pulse 77 04/28/24 08:59 BP 128/52 L 04/28/24 08:59 Pulse Ox 99 04/28/24 08:59 Oxygen Delivery Method Room Air 04/28/24 08:59 BMI result Body Mass Index 26.1 Tobacco/Smoking Status: Tobacco use Status Tobacco use date assessed 08/31/23 04/28/24 09:02 Patient Tobacco Use Status Former Tobacco user 04/28/24 09:02 e-Cigarette/Vaping Use Never Used 04/28/24 09:02 PHQ-9: PHQ-9 Score PHQ-9: Total score 2 04/28/24 09:17 Depression Screening Interpretation: Negative Thrive Assessment: Date of Thrive Assessment Date Thrive assessed 04/28/24 04/28/24 09:15 Currently or been in a relationship where the following occur: No concerns reported Results AMB Hemoglobin A1c AMB Hemoglobin A1c 5.9 % Last Edit by Catalina Langford CMA on 04/28/24 09:17 Results Reviewed Results Reviewed: Laboratory Last Values Hgb A1c (Clinic) 5.9 % (4.0-6.0) 04/28/24 09:16 Coding Level of Care Code Est Pt Level 4 (56105) Complex EM visit Add On G2211 Diagnoses Osteoarthritis involving multiple joints on both sides of body M15.9 Sacroiliac joint dysfunction of both sides M53.3 Colon polyp K63.5 Pure hypercholesterolemia E78.00 Clear cell carcinoma of right kidney C64.1 Essential hypertension I10 Type 2 diabetes mellitus with cardiac complication E11.59 Coronary artery disease of [place] artery of [place] heart with stable angina pectoris I25.118 Associated angina: with stable angina Coronary Disease-Associated Artery/Lesion type: [place] artery [place] vs. transplanted heart: [place] heart Additional Codes PIYUSH-7 Assessment Billing - PIYUSH-7 Assessment Tool: PIYUSH-7 Assessment 91788 ([id number]) PHQ-9 - 34293 - PHQ-9 Billing: Yes ([id number]) Assessment & Plan Assessment & Plan (1) Osteoarthritis involving multiple joints on both sides of body: Code(s): M15.9 - Polyosteoarthritis, unspecified Category: Medical (2) Sacroiliac joint dysfunction of both sides: Code(s): M53.3 - Sacrococcygeal disorders, not elsewhere classified Category: Medical (3) Colon polyp: Comment: 01/18/21 colonoscopy w/ Dr. Ceballos. Single sessile polyps, diverticula, internal hemorrhoids. Repeat colonoscopy recommended in 5 years. Code(s): K63.5 - Polyp of colon Category: Medical (4) Pure hypercholesterolemia: Code(s): E78.00 - Pure hypercholesterolemia, unspecified Category: Medical (5) Clear cell carcinoma of right kidney: Code(s): C64.1 - Malignant neoplasm of right kidney, except renal pelvis Category: Medical (6) Essential hypertension: Code(s): I10 - Essential (primary) hypertension Category: Medical (7) Type 2 diabetes mellitus with cardiac complication: Code(s): E11.59 - Type 2 diabetes mellitus with other circulatory complications Category: Medical (8) CAD (coronary artery disease): Code(s): I25.10 - Atherosclerotic heart disease of [place] coronary artery without angina pectoris Category: Medical Qualifiers: Associated angina: with stable angina Coronary Disease-Associated Artery/Lesion type: [place] artery [place] vs. transplanted heart: [place] heart Qualified Code(s): I25.118 - Atherosclerotic heart disease of [place] coronary artery with other forms of angina pectoris Plan Lumbar spondylosis Patient seen by physiatry and Orthopedics. Continue gabapentin and tramadol as needed. Reminded not to drive, operate heavy machinery or drink alcohol with these medications. Reminded they can cause sedation and dizziness. Hyperlipidemia LDL at goal of less than 70. Continue current regimen. She is also eating a very high protein, high fiber and low carbohydrate diet to lose weight. Hypertension Diastolic reading today is a little low, but she denies dizziness or fatigue. Monitor. Continue current regimen. History of right kidney cancer No known recurrence. Followed by Dr. Sutherland. Positive NADEEM No need for further evaluation per Rheumatology. Coronary artery disease Continue current management per Cardiology. Type 2 diabetes Continue metformin extended release 1000 mg twice daily. Reduce Tresiba from 15 to 10 units daily due to hypoglycemia. Continue 0.25 mg. She will send me a screen shot of her CGM data after 2 weeks for further recommendations. Follow up in 3 months for diabetes and med check. Orders: Orders AMB Hemoglobin A1c Today E11.59 - Type 2 diabetes mellitus with other circulatory complications Complete Blood Count Auto Diff Today E11.59 - Type 2 diabetes mellitus with other circulatory complications Basic Metabolic Panel Today E11.59 - Type 2 diabetes mellitus with other circulatory complications
[2024-04-28 08:59] VITALS: BP 128/52; PULSE 77; O2SAT 99; BMI 26.1
--- OUTSIDE RECORDS SUMMARY | 2024-04-28 09:08 | XMS_ITS | Encounter Summary ---
[facility] Address [address] [place] [address] Care Team Providers Care Secondary Special Education Teacher Name Role Phone Teena Stevens MD Primary Care Provider [phone] [facility], Pcp Primary Care Provider Unavailabl e Reason for Visit * Reason Comments E-prescribe Rx Request Encounter Details Date Type Department Care Team Description 10/29/2020 Refill Medicine/Pediatrics - [address] [phone] Dory Rosado PA-C E-prescribe Rx Request Social History Tobacco Use Types Packs/Day Years Used Date Smoking Tobacco: Former Cigarettes Q uit: 04/23/2000 Smokeless Tobacco: Never Alcohol Use Standard Drinks/Week Comments No 0 (1 standard drink = 0.6 oz pur e alcohol) Sex Assigned at Date Recorded Not on file Job Start Date Occupation Industry Not on file Not on file Not on file COVID-19 Exposure Response Date Recorded In the last month, have you been in contact with someone who was confirmed or suspected to have Coronavirus / COVID-19? No / Unsure 10/05/2020 8:21 AM EDT documented as of this encounter Miscellaneous Notes * Telephone Encounter - Jaycee Ryees M.A. - 11/02/2020 1:22 PM EDT Lab Results Component Value Date NA 135 08/06/2020 K 4.3 08/06/2020 CO2 26 08/06/2020 CL 100 08/06/2020 BUN 16 08/06/2020 CREAT 0.78 08/06/2020 GLU 116 10/05/2020 CA 9.7 08/06/2020 GFR > 60 08/06/2020 Last appt with pcp 10/05/20 Pending appt with JC Montes 02/07/21 * Telephone Encounter - Dory Francis - 11/01/2020 11:29 AM EDT Patient would like script to be: E-PRESCRIBED/FAXED TO PHARMACY WHEN WAS THE PATIENT'S LAST APPOINTMENT IN ADULT MEDICINE? 10/05/20 WHEN WAS THE LAST TIME THE PATIENT SAW THEIR PCP? Same as above Does patient have an upcoming appointment? Yes 01/05/21 (THE MEDICATION REQUESTED IS ON THE MED LIST ABOVE) All of the medications requested were on the CURRENT MEDS list Did you check the Pharmacy information above?: YES Patient wants: 90 -day supply Is this a mail order prescription request ? NO If the refill is from a FAXED refill request what is the RX # listed on the fax? N/A Patients current insurance carrier is: Payor: [employer] / Plan: PPO $0 ELDER [id number] / Product Type: PPO [id number] documented in this encounter Plan of Treatment Not on file documented as of this encounter Visit Diagnoses Not on filedocumented in this encounter Care Teams Secondary Special Education Teacher Relationship Specialty Start Date End Date Teena Stevens MD [address] [place] [id number] PCP - General Internal Medicine 05/28/20 09/06/[address] [place] [address] PCP - General Internal Medicine 09/07/22 documented as of this encounter
--- OUTSIDE RECORDS SUMMARY | 2024-04-28 09:08 | XMS_ITS | Encounter Summary ---
[facility] Address [address] [place] [address] Care Team Providers Care Public Health Social Worker Name Role Phone Beverley Dillard MD Primary Care Provider Teena Dumont MD Primary Care Provider [phone] [facility], Pcp Primary Care Provider Unavailmulticare health e Encounter Details Date Type Department Care Team Description 10/29/2018 Gm Video Report Medical Records [address] [place] [address] Malena Sutherland MD Social History Tobacco Use Types Packs/Day Years Used Date Smoking Tobacco: Former Cigarettes Q uit: 04/23/2000 Smokeless Tobacco: Never Alcohol Use Standard Drinks/Week Comments No 0 (1 standard drink = 0.6 oz pur e alcohol) Sex Assigned at Date Recorded Not on file Job Start Date Occupation Industry Not on file Not on file Not on file documented as of this encounter Plan of Treatment Not on file documented as of this encounter Visit Diagnoses Not on filedocumented in this encounter Care Teams Public Health Social Worker Relationship Specialty Start Date End Date Beverley Dillard MD PCP - General Internal Medicine 04/16/15 05/27/20 Teena Stevens MD [address] [place], [place] [id number] PCP - General Internal Medicine 05/28/20 09/06/22 [facility], Pcp [address] [place] [address] PCP - General Internal Medicine 09/07/22 documented as of this encounter
--- OUTSIDE RECORDS SUMMARY | 2024-04-28 09:08 | XMS_ITS | Encounter Summary ---
[facility] Address [address] [place] [address] Care Team Providers Care Stitcher Set Up Operator Automatic Name Role Phone Beverley Dillard MD Primary Care Provider Teena Dumont MD Primary Care Provider [phone] [facility], Pcp Primary Care Provider Unavailabl e Encounter Details Date Type Department Care Team Description 08/19/2015 Advertising Inserter Report Medical Records [address] [place] [address] Rehab, [facility] [address] [place] [address] Social History Tobacco Use Types Packs/Day Years [...] on filedocumented in this encounter Care Teams Stitcher Set Up Operator Automatic Relationship Specialty Start Date End Date Beverley Dillard MD PCP - General Internal Medicine 04/16/15 05/27/20 Teena Stevens MD [address] [place] [address] PCP - General Internal Medicine 05/28/20 09/06/22 [facility], Pcp [address] [place] [phone] PCP - General Internal Medicine 09/07/22 documented as of this encounter
--- OUTSIDE RECORDS SUMMARY | 2024-04-28 09:08 | XMS_ITS | Encounter Summary ---
Author Organization [facility] Address [address] [place] [address] Care Team Providers Care Abstract Checker Name Role Phone Beverley Dillard MD Primary Care Provider Teena Dumont MD Primary Care Provider [phone] [facility], Pcp Primary Care Provider Unavailabl e Reason for Visit * Reason Onset Date Comments medication problems 04/18/2019 Encounter Details Date Type Department Care Team Description 04/18/2019 Telephone Medicine/Pediatrics - [address] [phone] Beverley Dillard MD medication problems Social History Tobacco Use Types Packs/Day Years Used Date Smoking Tobacco: Former Cigarettes Q uit: 04/23/2000 Smokeless Tobacco: Never Alcohol Use Standard Drinks/Week Comments No 0 (1 standard drink = 0.6 oz pur e alcohol) Sex Assigned at Date Recorded Not on file Job Start Date Occupation Industry Not on file Not on file Not on file documented as of this encounter Miscellaneous Notes * Telephone Encounter - Beverley Dillard MD - 04/18/2019 4:23 PM EST Yes that is fine, signed * Telephone Encounter - Micki Kowalski M.A. - 04/18/2019 4:05 PM EST See below rx pended if change appropriate * Telephone Encounter - Nini Adorno - 04/18/2019 3:54 PM EST Who is calling? A pharmacist: Pharmacy: [facility] Pharmacist Name: Pharmacy Phone # Name of the medication Insulin Glargine (LANTUS SOLOSTAR) 100 UNIT/ML Solution Pen-injector What is the specific problem or interaction? Insulin Glargine (LANTUS SOLOSTAR) 100 UNIT/ML Solution Pen-injector not covered. Looking for basaglar If the patient is having a problem with taking the med - how long has the problem been going on? N/A documented in this encounter Plan of Treatment Not on file documented as of this encounter Visit Diagnoses Not on filedocumented in this encounter Care Teams Abstract Checker Relationship Specialty Start Date End Date Beverley Dillard MD PCP - General Internal Medicine 04/16/15 05/27/20 Teena Stevens MD [address] [place] [phone] PCP - General Internal Medicine 05/28/20 09/06/22 [facility], [address] [address] PCP - General Internal Medicine 09/07/22 documented as of this encounter
--- OUTSIDE RECORDS SUMMARY | 2024-04-28 09:08 | XMS_ITS | Encounter Summary ---
Author Organization [facility] Address [address] [place] [address] Care Team Providers Care Caddie Name Role Phone Teena Stevens MD Primary Care Provider [phone] [facility], Pcp Primary Care Provider Unavailabl e Reason for Visit * Reason Onset Date Comments Faxed Order 08/29/2021 select physical therapy plan of care Encounter Details Date Type Department Care Team Description 08/29/2021 Telephone Adult Medicine [address] [address] Teena Stevens MD [address] [place] [address] [phone] Faxed Order (select physical therapy plan of care ) Social History Tobacco Use Types Packs/Day Years [...] on filedocumented in this encounter Care Teams Caddie Relationship Specialty Start Date End Date Teena Stevens MD [address] [place] [phone] PCP - General Internal Medicine 05/28/20 09/06/22 [facility], [address] [address] PCP - General Internal Medicine 09/07/22 documented as of this encounter
--- OUTSIDE RECORDS SUMMARY | 2024-04-28 09:08 | XMS_ITS | Encounter Summary ---
[facility] Address [address] [place] [address] Care Team Providers Care Pharmacy Informaticist Name Role Phone Beverley Dillard MD Primary Care Provider Teena Dumont MD Primary Care Provider [phone] [facility], Pcp Primary Care Provider Unavailabl e Encounter Details Date Type Department Care Team Description 07/19/2015 Gas Turbine Powerplant Mechanic Report Medical Records [address] [place] [address] Rehab, [facility] [address] [place] [address] Social History Tobacco Use Types Packs/Day Years [...] on filedocumented in this encounter Care Teams Pharmacy Informaticist Relationship Specialty Start Date End Date Beverley Dillard MD PCP - General Internal Medicine 04/16/15 05/27/20 Teena Stevens MD [address] [place] [address] PCP - General Internal Medicine 05/28/20 09/06/22 [facility], Pcp [address] [place] [address] PCP - General Internal Medicine 09/07/22 documented as of this encounter
--- OUTSIDE RECORDS SUMMARY | 2024-04-28 09:08 | XMS_ITS | Encounter Summary ---
Author Organization [facility] Address [address] [place] [address] Care Team Providers Care Blending Machine Feeder Name Role Phone Beverley Dillard MD Primary Care Provider Teena Dumont MD Primary Care Provider [phone] [facility], Pcp Primary Care Provider Unavailabl e Reason for Visit * Reason Onset Date Comments Prior Authorization 12/01/2017 Encounter Details Date Type Department Care Team Description 12/01/2017 Telephone Radiology - [address] [address] Beverley Dillard MD Prior Authorization Social History Tobacco Use Types Packs/Day Years [...] encounter Miscellaneous Notes * Telephone Encounter - Marty Raymundo - 12/01/2017 10:12 AM EDT BC/BS - No auth required * Telephone Encounter - Maki Reed - 12/01/2017 9:26 AM EDT Requesting prior auth for echocardiogram. Thank you documented in this encounter Plan of Treatment Not on file documented as of this encounter Visit Diagnoses Not on filedocumented in this encounter Care Teams Blending Machine Feeder Relationship Specialty Start Date End Date Beverley Dillard MD PCP - General Internal Medicine 04/16/15 05/27/20 Teena Stevens MD [address] [place] [address] PCP - General Internal Medicine 05/28/20 09/06/22 [facility], [address] [address] PCP - General Internal Medicine 09/07/22 documented as of this encounter
--- OUTSIDE RECORDS SUMMARY | 2024-04-28 09:08 | XMS_ITS | Encounter Summary ---
Author Organization [facility] Address [address] [place] [address] Care Team Providers Care Welding Machine Operator Electro Gas Name Role Phone Beverley Dillard MD Primary Care Provider Teena Dumont MD Primary Care Provider [phone] [facility], Pcp Primary Care Provider [facility]ail[facility] e Encounter Details Date Type Department Care Team Description 05/30/2017 Window Shade Cloth Sewer Report Medical Records [address] [place] [address] Yvon Kowalski MD Social History Tobacco Use Types Packs/Day [...] on filedocumented in this encounter Care Teams Welding Machine Operator Electro Gas Relationship Specialty Start Date End Date Beverley Dillard MD PCP - General Internal Medicine 04/16/15 05/27/20 Teena Stevens MD [address] [place], [place] [phone] PCP - General Internal Medicine 05/28/20 09/06/22 [facility], Pcp [address] [place] [address] PCP - General Internal Medicine 09/07/22 documented as of this encounter
--- OUTSIDE RECORDS SUMMARY | 2024-04-28 09:08 | XMS_ITS | Encounter Summary ---
Author Organization [facility] Address [address] [place] [address] Care Team Providers Care Masseur/Masseuse Name Role Phone Teena Stevens MD Primary Care Provider [phone] [facility], Pcp Primary Care Provider Unavailabl e Reason for Visit * Reason Comments E-prescribe Rx Request Encounter Details Date Type Department Care Team Description 12/30/2021 Refill Adult Medicine [facility] [address] [place] [address] Mary Urban PA-C [address] [place] [address] E-prescribe Rx Request Social History Tobacco Use [...] Miscellaneous Notes * Telephone Encounter - Jaycee Reyes M.A. - 01/10/2022 4:25 PM EDT Lab Results Component Value Date HGBA1C 7.0 12/24/2020 MALBUR 7.4 08/06/2020 MALBCR < 17.6 08/06/2020 CHOL 174 12/24/2020 LDL 89 12/24/2020 HDL 64 12/24/2020 TRIG 106 12/24/2020 GLU 116 10/05/2020 CREAT 0.78 08/06/2020 Refused pt needs appt, message to schedulers * Telephone Encounter - Abby Che Fiore - 01/10/2022 3:45 PM EDT Patient would like script to be: E-PRESCRIBED/FAXED TO PHARMACY WHEN WAS THE PATIENT'S LAST APPOINTMENT IN ADULT MEDICINE? 03/17/21 WHEN WAS THE LAST TIME THE PATIENT SAW THEIR PCP? 10/05/20 Does patient have an upcoming appointment? (THE MEDICATION REQUESTED IS ON THE MED [...] Payor: DARWIN / Plan: PPO $0 ELDER [id number] / Product Type: PPO [id number] documented in this encounter Plan of Treatment Not on file documented as of this encounter Visit Diagnoses Diagnosis Type 2 diabetes mellitus without complication, without long-term current use of insulin (HCC)- Primary documented in this encounter Care Teams Masseur/Masseuse Relationship Specialty Start Date End Date Teena Stevens MD [address] [place] [address] PCP - General Internal Medicine 05/28/20 09/06/[address] [address] PCP - General Internal Medicine 09/07/22 documented as of this encounter
--- OUTSIDE RECORDS SUMMARY | 2024-04-28 09:08 | XMS_ITS | Encounter Summary ---
Author Organization [facility] Address [address] [place] [address] Care Team Providers Care Traveling Plant Operator Name Role Phone Teena Stevens MD Primary Care Provider [phone] [facility], Pcp Primary Care Provider Unavailabl e Encounter Details Date Type Department Care Team Description 10/06/2020 Customer Assistance Associate Report Medical Records [address] [place] [address] Suzi Stone MD Social History Tobacco Use Types Packs/Day [...] AM EDT documented as of this encounter Plan of Treatment Not on file documented as of this encounter Visit Diagnoses Not on filedocumented in this encounter Care Teams Traveling Plant Operator Relationship Specialty Start Date End Date Teena Stevens MD [address] [place] [phone] PCP - General Internal Medicine 05/28/20 09/06/22 [facility], Pcp [address] [place] [address] PCP - General Internal Medicine 09/07/22 documented as of this encounter
--- OUTSIDE RECORDS SUMMARY | 2024-04-28 09:08 | XMS_ITS | Encounter Summary ---
Author Organization [facility] Address [address] [place] [address] Care Team Providers Care Sack Sorter Name Role Phone Teena Stevens MD Primary Care Provider [phone] [facility], Pcp Primary Care Provider Unavailabl e Reason for Visit * Reason Onset Date Comments APPOINTMENT 01/10/2022 Pt needs med rev iew appt to refill [facility] Encounter Details Date Type Department Care Team Description 01/10/2022 Telephone Adult Medicine [address] [address] Teena Stevens MD [address] [place] [phone] APPOINTMENT (Pt needs med review appt to refill [facility]) Social History Tobacco Use Types Packs/Day Years [...] on filedocumented in this encounter Care Teams Sack Sorter Relationship Specialty Start Date End Date Teena Stevens MD [address] [place] [address] PCP - General Internal Medicine 05/28/20 09/06/22 [facility], Pcp [address] [place] [address] PCP - General Internal Medicine 09/07/22 documented as of this encounter
--- OUTSIDE RECORDS SUMMARY | 2024-04-28 09:08 | XMS_ITS | Encounter Summary ---
Author Organization [facility] Address [address] [place] [address] Care Team Providers Care County Commissioner Name Role Phone Beverley Dillard MD Primary Care Provider Teena Dumotn MD Primary Care Provider [phone] [facility], Pcp Primary Care Provider Unavailabl e Encounter Details Date Type Department Care Team Description 2018 Orders Only Medical Records [address] [place] [address] Beverley Dillard MD Social History Tobacco Use Types Packs/Day [...] on file documented as of this encounter Procedures Procedure Name Priority Date/Time Associated Diagnosis Comments OUTSIDE STRESS ECHO Routine 11/26/2018 documented in this encounter Results * OUTSIDE STRESS ECHO (11/26/2018) Beverley Dillard MD CARDIOLOGY documented in this encounter Visit Diagnoses Not on filedocumented in this encounter Care Teams County Commissioner Relationship Specialty Start Date End Date Beverley Dillard MD PCP - General Internal Medicine 04/16/15 05/27/20 Teena Stevens MD [address] [place] [address] PCP - General Internal Medicine 05/28/20 09/06/22 [facility], Pcp [address] [place] [address] PCP - General Internal Medicine 09/07/22 documented as of this encounter
--- OUTSIDE RECORDS SUMMARY | 2024-04-28 09:08 | XMS_ITS | Encounter Summary ---
Author Organization [facility] Address [address] [place] [address] Care Team Providers Care Community Associate Name Role Phone Beverley Dillard MD Primary Care Provider Teena Dumont MD Primary Care Provider [phone] [facility], Pcp Primary Care Provider Unavailabl e Encounter Details Date Type Department Care Team Description 09/11/2017 Application Systems Engineer Report Medical Records [address] [place] [address] [facility], [facility] [address] [place] [address] Social History Tobacco Use Types Packs/Day Years [...] on filedocumented in this encounter Care Teams Community Associate Relationship Specialty Start Date End Date Beverley Dillard MD PCP - General Internal Medicine 04/16/15 05/27/20 Teena Stevens MD [address] [place] [address] PCP - General Internal Medicine 05/28/20 09/06/22 [facility], Pcp [address] [place] [address] PCP - General Internal Medicine 09/07/22 documented as of this encounter
--- OUTSIDE RECORDS SUMMARY | 2024-04-28 09:08 | XMS_ITS | Encounter Summary ---
Author Organization [facility] Address [address] [place] [address] Care Team Providers Care Re Examiner Name Role Phone Teena Stevens MD Primary Care Provider [phone] [facility], Pcp Primary Care Provider Unavailabl e Encounter Details Date Type Department Care Team Description 01/20/2021 Orders Only Medical Records [address] [place] [address] Cyndi Ceballos MD [address] [place] [address] Social History Tobacco Use Types Packs/Day Years [...] have Coronavirus / COVID-19? No / Unsure 01/05/2021 8:50 AM EDT documented as of this encounter Progress Notes * Nati Ceballos MD - 01/31/2021 8:45 AM EST Dear Shanice Josep,The polyp(s) that were removed during your colonoscopy were precancerous, but benign. Fortunately, we removed them and therefore, they will not cause any more problems in the future. Based on the number, the size, and the features of the polyp(s) removed, I recommend a follow-up colonoscopy in 5 years. Before, the 5 years are due, we will send you a reminder in the mail asking you to contact our office to have the colonoscopy scheduled. I would like to personally thank you forallowing us to take care of you. Please don't hesitate to call us for any questions or concerns. Regards, Magan Ceballos MD Board Certified Gastroenterology and Internal Medicine Transplant Hepatology [facility] documented in this encounter Plan of Treatment Not on file documented as of this encounter Procedures Procedure Name Priority Date/Time Associated Diagnosis Comments OUTSIDE PATHOLOGY Routine 01/18/2021 documented in this encounter Results * OUTSIDE PATHOLOGY (01/18/2021) Cyndi Ceballos MD OUTSIDE LAB documented in this encounter Visit Diagnoses Not on filedocumented in this encounter Care Teams Re Examiner Relationship Specialty Start Date End Date Teena Stevens MD [address] [place] [address] PCP - General Internal Medicine 05/28/20 09/06/22 [facility], [address] [address] PCP - General Internal Medicine 09/07/22 documented as of this encounter
--- OUTSIDE RECORDS SUMMARY | 2024-04-28 09:08 | XMS_ITS | Encounter Summary ---
Author Organization [facility] Address [address] [place] [address] Care Team Providers Care Worm Grower Name Role Phone Teena Stevens MD Primary Care Provider [phone] [facility], Pcp Primary Care Provider Unavailabl e Reason for Visit * Reason Onset Date Comments Medication 01/04/2021 Encounter Details Date Type Department Care Team Description 01/04/2021 Refill Gastroenterology [facility] [address] [facility] [address] [place] [address] Cyndi Ceballos MD [address] [place] [phone] Medication Social History Tobacco Use Types Packs/Day Years [...] on filedocumented in this encounter Care Teams Worm Grower Relationship Specialty Start Date End Date Teena Stevens MD [address] [place] [address] PCP - General Internal Medicine 05/28/20 09/06/22 [facility], Pcp [address] [place] [address] PCP - General Internal Medicine 09/07/22 documented as of this encounter
--- OUTSIDE RECORDS SUMMARY | 2024-04-28 09:08 | XMS_ITS | Encounter Summary ---
Author Organization [facility] Address [address] [place] [address] Care Team Providers Care Claims Support Specialist Name Role Phone [facility], Pcp Primary Care Provider Unavailabl e Encounter Details Date Type Department Care Team Description 01/03/2023 Ripsaw Matcher Report Medical Records [address] [place] [address] Ruddy Sams Social History Tobacco Use Types Packs/Day Years [...] on filedocumented in this encounter Care Teams Claims Support Specialist Relationship Specialty Start Date End Date [facility], Pcp PCP - General Internal Medicine 09/07/22 documented as of this encounter
--- OUTSIDE RECORDS SUMMARY | 2024-04-28 09:08 | XMS_ITS | Encounter Summary ---
Author Organization [facility] Address [address] [place] [address] Care Team Providers Care Storage Architect Name Role Phone Beverley Dillard MD Primary Care Provider Teena Dumont MD Primary Care Provider [phone] [facility], Pcp Primary Care Provider Unavailabl e Encounter Details Date Type Department Care Team Description 04/26/2017 [place] Biometrics Professor Report Medical Records [address] [place] [address] Jane Haro PA-C Social History Tobacco Use Types Packs/Day Years [...] on filedocumented in this encounter Care Teams Storage Architect Relationship Specialty Start Date End Date Beverley Dillard MD PCP - General Internal Medicine 04/16/15 05/27/20 Teena Stevens MD [address] [place] [phone] PCP - General Internal Medicine 05/28/20 09/06/22 [facility], Pcp [address] [place] [address] PCP - General Internal Medicine 09/07/22 documented as of this encounter
--- OUTSIDE RECORDS SUMMARY | 2024-04-28 09:08 | XMS_ITS | Encounter Summary ---
Author Organization [facility] Address [address] [place] [address] Care Team Providers Care Deck Engine Operator Name Role Phone Teena Stevens MD Primary Care Provider [phone] [facility], Pcp Primary Care Provider Unavailabl e Encounter Details Date Type Department Care Team Description 01/17/2021 Orders Only Medical Records [address] [place] [address] Cyndi Ceballos MD [address] [place] [address] Social History Tobacco Use Types Packs/Day Years [...] Name Priority Date/Time Associated Diagnosis Comments OUTSIDE LAB Routine 01/15/2021 documented in this encounter Results * OUTSIDE LAB (01/15/2021) Cyndi Ceballos MD LAB documented in this encounter Visit Diagnoses Not on filedocumented in this encounter Care Teams Deck Engine Operator Relationship Specialty Start Date End Date Teena Stevens MD [address] [place] [address] PCP - General Internal Medicine 05/28/20 09/06/22 [facility], Pcp [address] [place] [address] PCP - General Internal Medicine 09/07/22 documented as of this encounter
--- OUTSIDE RECORDS SUMMARY | 2024-04-28 09:08 | XMS_ITS | Encounter Summary ---
Author Organization [facility] Address [address] [place] [address] Care Team Providers Care Tensioning Machine Operator Name Role Phone Beverley Dillard MD Primary Care Provider Teena Dumont MD Primary Care Provider [phone] [facility], Pcp Primary Care Provider Unavailabl e Encounter Details Date Type Department Care Team Description 08/12/2019 Diversity Specialist Report Medical Records [address] [place] [address] Suzi Stone MD Social History Tobacco Use [...] on filedocumented in this encounter Care Teams Tensioning Machine Operator Relationship Specialty Start Date End Date Beverley Dillard MD PCP - General Internal Medicine 04/16/15 05/27/20 Teena Stevens MD [address] [place], [place] [phone] PCP - General Internal Medicine 05/28/20 09/06/22 [facility], Pcp [address] [place] [address] PCP - General Internal Medicine 09/07/22 documented as of this encounter
--- OUTSIDE RECORDS SUMMARY | 2024-04-28 09:08 | XMS_ITS | Encounter Summary ---
Author Organization [facility] Address [address] [place] [address] Care Team Providers Care Civil Estimator Name Role Phone Teena Stevens MD Primary Care Provider [phone] [facility], Pcp Primary Care Provider Unavailabl e Encounter Details Date Type Department Care Team Description 09/16/2021 Worker'S Compensation Claims Examiner Report Medical Records [address] [place] [address] [address] Social History Tobacco Use Types Packs/Day Years [...] on filedocumented in this encounter Care Teams Civil Estimator Relationship Specialty Start Date End Date Teena Stevens MD [address] [place] [address] PCP - General Internal Medicine 05/28/20 09/06/22 [address], Pcp [address] [place] [address] PCP - General Internal Medicine 09/07/22 documented as of this encounter
--- OUTSIDE RECORDS SUMMARY | 2024-04-28 09:08 | XMS_ITS | Encounter Summary ---
Author Organization [facility] Address [address] [place] [address] Care Team Providers Care Sales Support Associate Name Role Phone Beverley Dillard MD Primary Care Provider Teena Dumont MD Primary Care Provider [facility], Pcp Primary Care Provider [facility] e Encounter Details Date Type Department Care Team Description 02/08/2016 Transfer Records Medical Records [address] [place], [place] [phone] [facility] Social History Tobacco Use Types Packs/Day Years [...] on filedocumented in this encounter Care Teams Sales Support Associate Relationship Specialty Start Date End Date Beverley Dillard MD PCP - General Internal Medicine 04/16/15 05/27/20 Teena Stevens MD [address] [place] [address] PCP - General Internal Medicine 05/28/20 09/06/22 [facility], [address] [address] PCP - General Internal Medicine 09/07/22 documented as of this encounter
--- OUTSIDE RECORDS SUMMARY | 2024-04-28 09:09 | XMS_ITS | Encounter Summary ---
Author Organization [email or web address] Address [address] [place] [address] Care Team Providers Care Eap Consultant Name Role Phone Beverley Dillard MD Primary Care Provider Teena Dumont MD Primary Care Provider [phone] [facility], Pcp Primary Care Provider [facility] e Encounter Details Date Type Department Care Team Description 01/03/2018 Release of Information Medical Records [address] [place] [address] Abstract, Provider Social History Tobacco Use Types Packs/Day Years [...] on filedocumented in this encounter Care Teams Eap Consultant Relationship Specialty Start Date End Date Beverley Dillard MD PCP - General Internal Medicine 04/16/15 05/27/20 Teena Stevens MD [address] [place] [address] PCP - General Internal Medicine 05/28/20 09/06/22 [facility], Pcp [address] [place] [address] PCP - General Internal Medicine 09/07/22 documented as of this encounter
--- OUTSIDE RECORDS SUMMARY | 2024-04-28 09:09 | XMS_ITS | Encounter Summary ---
Author [facility] Address [address] [place] [address] Care Team Providers Care Child Daycare Worker Name Role Phone Beverley Dillard MD Primary Care Provider Teena Dumont MD Primary Care Provider [phone] [facility], Pcp Primary Care Provider Unavailabl e Encounter Details Date Type Department Care Team Description 11/02/2016 Dyslexia Teacher Report Medical Records [address] [place] [address] Re[facility], [facility] [address] [place] [address] Social History Tobacco Use Types Packs/Day Years [...] on filedocumented in this encounter Care Teams Child Daycare Worker Relationship Specialty Start Date End Date Beverley Dillard MD PCP - General Internal Medicine 04/16/15 05/27/20 Teena Stevens MD [address] [place] [address] PCP - General Internal Medicine 05/28/20 09/06/22 [facility], Pcp [address] [place] [address] PCP - General Internal Medicine 09/07/22 documented as of this encounter
--- OUTSIDE RECORDS SUMMARY | 2024-04-28 09:09 | XMS_ITS | Encounter Summary ---
Author Organization [facility] Address [address] [place] [address] Care Team Providers Care Hospital Manager Name Role Phone Beverley Dillard MD Primary Care Provider Teena Dumont MD Primary Care Provider [phone] [facility], Pcp Primary Care Provider [facility] e Encounter Details Date Type Department Care Team Description 10/16/2016 Family Assistant Report Medical Records [address] [place] [address] Betzy Redmond Social History Tobacco Use Types Packs/Day Years [...] on filedocumented in this encounter Care Teams Hospital Manager Relationship Specialty Start Date End Date Beverley Dillard MD PCP - General Internal Medicine 04/16/15 05/27/20 Teena Stevens MD [address] [place] [address] PCP - General Internal Medicine 05/28/20 09/06/22 [facility], Pcp [address] [place] [address] PCP - General Internal Medicine 09/07/22 documented as of this encounter
--- OUTSIDE RECORDS SUMMARY | 2024-04-28 09:09 | XMS_ITS | Encounter Summary ---
Author Organization [facility] Address [address] [place] [address] Care Team Providers Care Intermediate Card Tender Name Role Phone Beverley Dillard MD Primary Care Provider Teena Dumont MD Primary Care Provider [phone] [facility], Pcp Primary Care Provider Unavailabl e Reason for Visit * Reason Onset Date Comments Note, Other 03/04/2018 Encounter Details Date Type Department Care Team Description 03/04/2018 Telephone [employer] [facility] [address] [address] Delvin Hernandez MD Note, Other Social History Tobacco Use Types Packs/Day Years [...] encounter Miscellaneous Notes * Telephone Encounter - Argenis Murphy M.A. - 03/04/2018 10:40 AM EST Viviane from surgical booking call in reference to patient Georgia Car (Notes) to be faxed to surgical booking. On 03/04/2018 note was faxed to Viviane/lisa. documented in this encounter Plan of Treatment Not on file documented as of this encounter Visit Diagnoses Not on filedocumented in this encounter Care Teams Intermediate Card Tender Relationship Specialty Start Date End Date Beverley Dillard MD PCP - General Internal Medicine 04/16/15 05/27/20 Teena Stevens MD [address] [place] [address] PCP - General Internal Medicine 05/28/20 09/06/22 [facility], Pcp [address] [place] [address] PCP - General Internal Medicine 09/07/22 documented as of this encounter
--- OUTSIDE RECORDS SUMMARY | 2024-04-28 09:09 | XMS_ITS | Encounter Summary ---
Author Organization [facility] Address [address] [place] [address] Care Team Providers Care Buckle Assembler Name Role Phone Beverley Dillard MD Primary Care Provider Teena Dumont MD Primary Care Provider [phone] [facility]ly [facility], Pcp Primary Care Provider Unavailmult[facility]are health e Encounter Details Date Type Department Care Team Description 01/11/2017 Pt. Non Urgent Medical Question Medicine/Pediatrics - [address] [phone] Beverley Dillard MD Social History Tobacco Use [...] on file documented as of this encounter Progress Notes * Niya Cash L.P.N. - 01/11/2017 11:18 AM EDTFrom: [place] Car To: Beverley Dillard MD Sent: 01/11/2017 11:16 AM EDT Subject: Bentyl Morning Dr. Dillard Was wondering if you had called in a perscription for the Bentyl medication you had mentioned. I haven't received a call back from [facility] about having a prescription ready for pickup. Thanks, Ania documented in this encounter Plan of Treatment Not on file documented as of this encounter Visit Diagnoses Not on filedocumented in this encounter Care Teams Buckle Assembler Relationship Specialty Start Date End Date Beverley Dillard MD PCP - General Internal Medicine 04/16/15 05/27/20 Teena Stevens MD [address] [place] [id number] PCP - General Internal Medicine 05/28/20 09/06/[address] [id number] PCP - General Internal Medicine 09/07/22 documented as of this encounter
--- OUTSIDE RECORDS SUMMARY | 2024-04-28 09:09 | XMS_ITS | Clinical Summary ---
Author Organization [facility] Address [address] [place] [address] Care Team Providers Care Toe Sewer Name Role Phone Community, Pcp Primary Care Provider Unavailabl e Allergies Active Allergy Reactions Severity Noted Date Comments Macrobid 04/23/2015 High fever, chills, flu like symptoms on both exposures. The first exposure - symptoms in 2 days The second exposure - was within 2 doses. Oxycodone 04/23/2015 Persistent vomiting Penicillin G Hives/Urticaria 04/23/2015 Positive IgE mediated challenge in allergy office 01/01/18. Medications Medication Sig Dispensed Refills Start Date End Date Status CRANBERRY OR Take by mouth daily. 500mg 0 Active Ascorbic Acid (VITAMIN C OR) Take 250 mg by mouth. 0 Active CINNAMON OR Take 1,000 mg by mouth. 0 Active ONETOUCH VERIO stripIndications: Type 2 diabetes mellitus without complication, with long-term current use of insulin (HCC) CHECK BLOOD SUGAR TWICE A DAY 200 Each 3 08/25/2019 Active conjugated estrogens (PREMARIN) vaginal cream Place 0.5 g vaginally at bedtime. Use nightly for 2 weeks for loading phase then move to maintenance phase which is two nights a wekk. 1 Tube 3 03/04/2020 Active methenamine (HIPREX) 1 g tablet Take 1 tablet by mouth daily. 0 06/22/2020 Active Continuous Blood Gluc Sensor (FreeStyle Alcides 2 Sensor) Misc 1 Each by Does not apply route every 14 days. 2 Each 11 01/05/2021 Active oxybutynin (DITROPAN-XL) 10 MG 24 hr tablet Take 10 mg by mouth daily. 0 01/20/2021 Active Insulin Glargine 100 UNIT/ML Solution Pen-injector INJECT 35 UNITS SUBCUTANEOUSLY IN THE EVENING 30 mL 5 03/04/2021 Active Cholecalciferol (Vitamin D3) 25 MCG (1000 UT) Cap Take 1 capsule by mouth daily. 0 Active Calcium Carbonate (CALCIUM 600 OR) Take by mouth. 0 Acti ve lisinopril (PRINIVIL,ZESTRIL ) 20 MG tablet Take 1 tablet by mouth daily. 90 tablet 1 03/17/2021 Active metformin (GLUCOPHAGE) 1000 MG tablet Take 1 tablet by mouth 2 times daily (with meals). 180 tablet 1 03/17/2021 Active atorvastatin (LIPITOR) 40 MG tablet Take 1 tablet by mouth daily. 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/14 right clear cell carcinoma Urgency incontinence 10/15/2018 Vertigo 06/29/2015 Diabetes mellitus type 2, uncomplicated Hypertension Hypercholesteremia Osteoarthritis Overview: severe left knee Recurrent UTI Migraine Diarrhea Fecal urgency Resolved Problems Problem Noted Date Resolved Date Drug allergy 01/01/2018 08/09/2020 Other adverse food reactions , not elsewhere classified, initial encounter 01/01/2018 08/09/2020 Heart murmur 01/01/2018 08/09/2020 Immunizations Name Administration Dates Next Due COVID-19 (Pfizer) Pt Reported 07/13/2020, 021 Influenza (> 6 Months) 01/07/2016 Influenza Vaccine-preservati ve Free-quadrivalent 4 Years 01/05/2021 Pneumoccoccal(Adult) Polysaccharide PPSV23 12/23 Shingrix (Patient reported) 10/14/2019, 0 TD (STATE SUPPLIED FOR ADULTS AND CHILDREN) 10/26 Tdap 08/23/2011 Family History Medical History Relation Name Comments COPD Brother 1 CHF, alcohol ab use CT Brother 2 kawasakis disea se Alcohol and Other Drug Abuse Brother 3 CABG Brother 4 Cholesterol Level Brother 5 Glaucoma Brother 6 MVA Father CABG Mother cholesterol, gl aucoma, CHF Arthritis Paternal Grandmother CA Breast Negative Hx CA Colon Negative Hx CA Ovarian Negative Hx Uterine Cancer Negative Hx Relation Name Status Comments Brother 1 Brother 2 (Age 63) Brother 3 Brother 4 Brother 5 Brother 6 Father (Age 42) Maternal Grandfather Maternal Grandmother Mother (Age 70) Paternal Grandfather Paternal Grandmother Social History Tobacco Use Types Packs/Day Years Used Date Smoking Tobacco: Former Cigarettes Q uit: 04/23/2000 Smokeless Tobacco: Never Alcohol Use Standard Drinks/Week Comments No 0 (1 standard drink = 0.6 oz pur e alcohol) Sex Assigned at Date Recorded Not on file Job Start Date Occupation Industry Not on file Not on file Not on file Last Filed Vital Signs Vital Sign Reading Time Taken Comments Blood Pressure 118/60 03/17/2021 2:17 PM EST C Pulse 86 03/17/2021 2:17 PM EST Temperature 37.1 ??C (98.7 ??F) 03/17/2021 2:17 PM ES T Respiratory Rate 18 01/05/2021 9:07 AM EDT Oxygen Saturation 97% 09/18/2019 1:12 PM EDT Inhaled Oxygen Concentration - - Weight 67.1 kg (148 lb) 03/17/2021 2:17 PM EST Height 149.9 cm (4' 11 ) 03/17/2021 2:17 PM EST Body Mass Index 29.89 03/17/2021 2:17 PM EST Plan of Treatment Health Maintenance Due Date Last Done Comments DIABETES: BLOOD SUGAR CONTRO L TEST (HGBA1C) 03/26/2021 12/24/2020, 08/06/2020, 11/13/2019, Additional history exists DIABETES: ANNUAL EYE EXAM 05/28/20212020, 09/22/2019 (External Completion of test per patient (Patient reports normal results)), 05/27/2018, Additional history exists DIABETES: ANNUAL FOOT EXAM 08/06/202108/06, 03/06/2019, 11/19/2017, Additional history exists DIABETES: ANNUAL URINE PROTE IN TEST (MICROALBUMIN) 08/06/2021 08/06/2020, 11/13/2019, 05/21/2018, Additional history exists BONE DENSITY SCREENING 2021 PNEUMOCOCCAL VACCINE (2 - PCV) 2021 12/23/2012 DIABETES/HEART DISEASE: GABY RAVI CHOLESTEROL (LDL) 12/24/2021 12/24/2020, 01/30/2019, 05/21/2018, Additional history exists MAMMOGRAM 03/21/2022 03/21/2021, 10/25, 07/17/2018, Additional history exists Covid-19 Vaccine (3 - 2022-2 4 season) 2023 07/13/2020, 06/21/2020 INFLUENZA (#1) 2023 01/05/2021, 01/07/2016 BMI CHECK/ADVISE 03/26/2024 03/17/2021, , 01/05/2021, Additional history exists COLON CANCER SCREENING 01/18/2026 01/18/2021, 2007 DTAP/TDAP/TD (3 - Td or Tdap) 11/23/2026 11/23/2016, 08/23/2011 HEPATITIS C SCREENING Completed 06/28/2016 SHINGLES VACCINE Completed 10/14/2019, 05/20/2019 Care Teams Toe Sewer Relationship Specialty Start Date End Date Community, Pcp PCP - General Internal Medicine 09/07/22
--- OUTSIDE RECORDS SUMMARY | 2024-04-28 09:09 | XMS_ITS | Encounter Summary ---
Author Organization [facility] Address [address] [place] [address] Care Team Providers Care Title Supervisor Name Role Phone Beverley Dillard MD Primary Care Provider Teena Dumont MD Primary Care Provider [facility], Pcp Primary Care Provider [facility] Encounter Details Date Type Department Care Team Description 07/12/2015 Transfer Records Medical Records [address] [place] [id number] Abstract, Provider Social History Tobacco Use Types [...] on filedocumented in this encounter Care Teams Title Supervisor Relationship Specialty Start Date End Date Beverley Dillard MD PCP - General Internal Medicine 04/16/15 05/27/20 Teena Stevens MD [address] [place] [id number] PCP - General Internal Medicine 05/28/20 09/06/22 [facility], Pcp [address] [place] [id number] PCP - General Internal Medicine 09/07/22 documented as of this encounter
--- OUTSIDE RECORDS SUMMARY | 2024-04-28 09:09 | XMS_ITS | Encounter Summary ---
[facility] Address [address] [place] [address] Care Team Providers Care Supervisor Net Making Name Role Phone Beverley Dillard MD Primary Care Provider Teena Dumont MD Primary Care Provider [facility], Pcp [facility] Encounter Details Date Type Department Care Team Description 12/13/2017 Events Manager Report Medical Records [address] [place] [id number] Dennis Garcia Social History Tobacco Use Types Packs/Day Years [...] on filedocumented in this encounter Care Teams Supervisor Net Making Relationship Specialty Start Date End Date Beverley Dillard MD PCP - General Internal Medicine 04/16/15 05/27/20 Teena Stevens MD [address] [place] [id number] PCP - General Internal Medicine 05/28/20 09/06/22 [facility], Pcp [address] [place] [id number] PCP - General Internal Medicine 09/07/22 documented as of this encounter
--- OUTSIDE RECORDS SUMMARY | 2024-04-28 09:09 | XMS_ITS | Encounter Summary ---
Author Organization [facility] Address [address] [place] [address] Care Team Providers Care Activities Volunteer Name Role Phone Beverley Dillard MD Primary Care Provider Teena Dumont MD Primary Care Provider [phone] [facility], Pcp [facility] Encounter Details Date Type Department Care Team Description 01/02/2018 Professional Driver Report Medical Records [address] [place] [id number] Dennis Garcia Social History Tobacco Use Types [...] on filedocumented in this encounter Care Teams Activities Volunteer Relationship Specialty Start Date End Date Beverley Dillard MD PCP - General Internal Medicine 04/16/15 05/27/20 Teena Stevens MD [address] [place] [id number] PCP - General Internal Medicine 05/28/20 09/06/22 [facility], Pcp [address] [place] [id number] PCP - General Internal Medicine 09/07/22 documented as of this encounter
== END 2024-04-28 09:34 | disposition home or self-care (01) ==
PROVIDERS: PCP Physician Assistant Medical; Visit Provider Physician Assistant Medical
DX: M15.9 Polyosteoarthritis, unspecified (principal); C64.1 Malignant neoplasm of right kidney, except renal pelvis; E11.59 Type 2 diabetes mellitus with other circulatory complications; I25.118 Atherosclerotic heart disease of native coronary artery with other forms of angina pectoris; M53.3 Sacrococcygeal disorders, not elsewhere classified; K63.5 Polyp of colon; E78.00 Pure hypercholesterolemia, unspecified; I10 Essential (primary) hypertension

== ENCOUNTER → 2024-04-28 08:50 | Outpatient (BNVA) | payer OTHER, SELFPAY | PROVIDERS: PCP Physician Assistant Medical; Visit Provider Physician Assistant Medical | DX: I10 Essential (primary) hypertension (principal); M15.9 Polyosteoarthritis, unspecified; E78.5 Hyperlipidemia, unspecified; M53.3 Sacrococcygeal disorders, not elsewhere classified; K63.5 Polyp of colon; E78.00 Pure hypercholesterolemia, unspecified; C64.1 Malignant neoplasm of right kidney, except renal pelvis; E11.59 Type 2 diabetes mellitus with other circulatory complications; I25.118 Atherosclerotic heart disease of native coronary artery with other forms of angina pectoris | CPT/HCPCS: 83036; 96127 ==

== ENCOUNTER 2024-04-28 09:41 | Outpatient (REF) | payer OTHER, SELFPAY ==
--- OUTSIDE RECORDS SUMMARY | 2024-04-28 10:05 | XMS_ITS | Data Portability ---
Author Organization [place] - [facility], Allergy Address [address] [address] Care Team Providers Care Superintendent Of Schools Name Role Phone HOMA MARTINEZ Primary Care Provider [phone] Assessment No assessment recorded. Plan of Treatment Reminders Order Date Submit Date Provider Last Modified By Organization Details Last Modified Time Details Appointments Establish ed 15 2024 08:45A M RICHARDSON SAAB MD Not available Not available Not available Lab None recorded. Referral None recorded. Procedures None recorded. Surgeries None recorded. Imaging None recorded. Medication Orders None recorded. Patient TargetsNo targets recorded. Patient InstructionsNo instructions recorded. Reason for Referral None Reported. Problems Name Problem SNOMED Code Status Onset Date Resolution Date Notes Provider Name and Address Organization Details Recorded Time Postmast oidectom y complica tion 64747498 Active 2017 Other disorder s followin g mastoide ctomy, left ear; Note: Date Diagnose d: 8 4:59 PM (H95.192 ) Not Available [facility] 4 03:16:23 Conducti ve hearing loss 08235018 Active 2017 Conducti ve hearing loss, unilater al, left ear, with unrestri cted hearing on the contrala teral side; Note: Changed from H90.A12 to H90.12 ( 018 12:09 PM) , Date Diagnose d: 01/11/20 18 11:57 AM (H90.42) Not Available [facility] 4 03:16:24 Benign paroxysm al position al vertigo 671888318 Active 2022 Benign paroxysm al vertigo, left ear; Note: Date Diagnose d: 1/24/202 3 9:55 AM (H81.12) Not Available [facility] 4 03:16:23 Otorrhea of left ear [id number] 68373 Completed 201710/26/2023 Otorrhea , left ear; Note: Date Diagnose d: 8 5:00 PM (H92.12) Not Available [facility] 4 03:16:24 Bleeding from nose 702379357 Active 2021 Epistaxi s; Note: Date Diagnose d: 05/04/2021 10:53 AM (R04.0) Not Available [facility] 4 03:16:23 Bilatera l disorder of Eustachi an tubes [id number] 48847 Active 2021 Other specifie d disorder s of Eustachi an tube, bilatera l; Note: Date Diagnose d: 05/04/2021 10:53 AM (H69.83) Not Available [facility] 4 03:16:23 Problem Notes None recorded. Procedures Surgical History Date Name Laterality Status Provider Name and Address Organization Details Recorded Time 4 Debridement of Mastoid Cavity left completed RICHARDSON SAAB MD [address] [place] [address], [phone], [facility] 01/06/2024 20:17:46 Imaging Results None recorded. Procedure Notes None recorded. Medical Equipment None Reported. Allergies Allergen ID Allergen Name Allergen Category Reaction Reaction Severity Criticality Documentation Date Start Date Code Code System Note Provider Name and Address Organization Details Recorded Time 796615 erythromy elizabeth ethylsucc inate medicatio n nausea Not available Not available 08/07/2023 4056 RxNorm React ion: nause a;; Not Available [facility] 4 01:08:21 825715 oxycodone medicatio n nausea Not available Not available 08/07/2023 7804 RxNorm React ion: nause a;; Not Available [facility] 4 01:08:21 848510 penicilli n V potassium medicatio n other Not available Not available 08/07/202349144 5 RxNorm React ion: unkno wn, unspe cifie d;; Not Available [facility] 4 01:08:22 924778 egg yolk (chicken) allergeni c extract food,medi cation diarrhea Not available Not available 08/07/2023 72863 0 RxNorm React ion: other react ion, Diarr hea; Not Available [facility] 4 01:08:23 780505 Macrobid medicatio n Not available Not available Not available 08/07/2023 92144 1 RxNorm React ion: other react ion, fluli ke sympt oms; Not Available [facility] 4 01:08:24 Medications Name Sig Start Date Stop Date Status Note LastModified by Organization Details LastModified Time atorvasta tin 40 mg tablet 01/07 completed Medicati on ID: [id number] B rand Name: atorvast atin Sen d Method: E-Prescr ibed Sub s Allowed: subs OK Speci al Instruct ion: TAKE 1 TABLET BY MOUTH ONCE DAILY Me dication GenericN summer: atorvast atin Not Available Not Available Not Available atorvasta tin 80 mg tablet TAKE 1 TABLET BY MOUTH ONCE DAILY AT BEDTIME active Not Available Not Available No t Available carvedilo l 6.25 mg tablet TAKE 1 TABLET BY MOUTH TWICE DAILY active Not Available Not Available No t Available tizanidin e 2 mg tablet TAKE 1 TO 2 TABLETS BY MOUTH EVERY 8 HOURS NEEDED FOR PAIN/MUS FIDEL SPASM. MAY CAUSE DROWSINE SS. DO NOT DRIVE 01/07 completed Not Available Not Available Not Available clindamyc in HCl 300 mg capsule TAKE 2 CAPSULES BY MOUTH 30 MINUTES BEFORE DENTIST APPOINTM ENT 01/07 completed Not Available Not Available Not Available loperamid e 2 mg capsule 2023 active Medicati on ID: [id number] B rand Name: loperami de Send Method: E-Prescr ibed Sub s Allowed: subs OK Speci al Instruct ion: TAKE 1 CAPSULE BY MOUTH 4 TIMES DAILY NEEDED FOR DIARRHEA Medicat ionGener icName: loperami de Not Available Not Available Not Available cefpodoxi me 200 mg tablet TAKE 1 TABLET BY MOUTH EVERY 12 HOURS FOR 10 DAYS 01/07 completed Not Available Not Available Not Available oxybutyni n chloride ER 10 mg tablet,ex tended release 24 hr TAKE 1 TABLET BY MOUTH ONCE DAILY active Not Available Not Available No t Available cefpodoxi me 100 mg tablet TAKE 1 TABLET BY MOUTH EVERY 12 HOURS FOR 7 DAYS 01/07 completed Not Available Not Available Not Available prednison e 20 mg tablet TAKE 2 TABLETS BY MOUTH ONCE DAILY FOR 5 DAYS 01/07 completed Not Available Not Available Not Available amlodipin e 2.5 mg tablet TAKE 1 TABLET BY MOUTH ONCE DAILY 01/07 completed Not Available Not Available Not Available amlodipin e 5 mg tablet TAKE 1 TABLET BY MOUTH ONCE DAILY active Not Available Not Available No t Available ciproflox acin 500 mg tablet TAKE 1 TABLET BY MOUTH EVERY 12 HOURS FOR 7 DAYS 01/07 completed Not Available Not Available Not Available sulfameth oxazole 800 mg-trimet hoprim 160 mg tablet 05/14 completed Medicati on ID: [id number] D uration Value: 3 Reason: () Brand Name: sulfamet hoxazole -trimeth oprim Se nd Method: E-Prescr ibed Sub s Allowed: subs OK Medic ationGen ericName : sulfamet hoxazole -trimeth oprim Not Available Not Available Not Available aspirin 81 mg tablet,de layed release TAKE 1 TABLET BY MOUTH ONCE DAILY active Not Available Not Available No t Available tramadol 50 mg tablet TAKE 1 TABLET BY MOUTH EVERY 8 HOURS NEEDED FOR PAIN FOR 14 DAYS active Not Available Not Available No t Available butalbita l-acetami nophen-ca ffeine 50 mg-325 mg-40 mg tablet TAKE 1 TABLET BY MOUTH EVERY 4 HOURS NEEDED FOR HEADACHE 01/07 completed Not Available Not Available Not Available ofloxacin 0.3 % ear drops 5 drop into left ear 01/07 completed Medicati on ID: [id number] D uration Value: 10 Prescri bed By Name: GABRIEL Conn nd Name: ofloxaci n Send Method: E-Prescr ibed Sub s Allowed: subs OK Medic ationGen ericName : ofloxaci n Not Available Not Available Not Available methenami ne hippurate 1 gram tablet TAKE 1 TABLET BY MOUTH TWICE DAILY active Not Available Not Available No t Available dicyclomi ne 20 mg tablet 01/24 /2023 completed Medicati on ID: [id number] B rand Name: dicyclom ine Send Method: E-Prescr ibed Sub s Allowed: subs OK Speci al Instruct ion: TAKE 1 TABLET BY MOUTH EVERY 6 HOURS Me dication GenericN summer: dicyclom ine Not Available Not Available Not Available metformin 1,000 mg tablet 04/18 completed Medicati on ID: [id number] B rand Name: metformi n Send Method: E-Prescr ibed Sub s Allowed: subs OK Speci al Instruct ion: TAKE 1 TABLET BY MOUTH TWICE DAILY WITH MEALS Me dication GenericN summer: metformi n Not Available Not Available Not Available lisinopri l 10 mg tablet 04/18 completed Medicati on ID: [id number] B rand Name: lisinopr il Send Method: E-Prescr ibed Sub s Allowed: subs OK Speci al Instruct ion: TAKE 1 TABLET BY MOUTH ONCE DAILY Me dication GenericN summer: lisinopr il Not Available Not Available Not Available lidocaine 5 % topical patch APPLY UP TO THREE PATCHES TOPICALL Y TO CLEAN, DRY SKIN. LEAVE ON FOR 12 HOURS THEN REMOVE. MUST WAIT AT LEAST 12 HOURS BEFORE APPLYING PATCH(ES ) AGAIN. active Not Available Not Available No t Available oxybutyni n chloride ER 5 mg tablet,ex tended release 24 hr 09/15 completed Medicati on ID: [id number] D uration Value: 30 Brand Name: oxybutyn in chloride Send Method: E-Prescr ibed Sub s Allowed: subs OK Medic ationGen ericName : oxybutyn in chloride Not Available Not Available Not Available gabapenti n 300 mg capsule TAKE 1 CAPSULE BY MOUTH TWICE DAILY active Not Available Not Available No t Available lisinopri l 5 mg tablet 09/15 completed Medicati on ID: [id number] D uration Value: 90 Brand Name: lisinopr il Send Method: E-Prescr ibed Sub s Allowed: subs OK Medic ationGen ericName : lisinopr il Not Available Not Available Not Available lorazepam 1 mg tablet TAKE ONE TABLET BY MOUTH ONCE 30 TO 60 MINUTES PRIOR TO MRI active Not Available Not Available No t Available levofloxa elizabeth 500 mg tablet 05/14 completed Medicati on ID: [id number] D uration Value: 6 Reason: () Brand Name: levoflox acin Sen d Method: E-Prescr ibed Sub s Allowed: subs OK Medic ationGen ericName : levoflox acin Not Available Not Available Not Available levofloxa elizabeth 750 mg tablet TAKE 1 TABLET BY MOUTH ONCE DAILY FOR 5 DAYS 01/07 completed Not Available Not Available Not Available ketoconaz ole 2 % topical cream APPLY CREAM TOPICALL Y TWICE DAILY FOR 14 DAYS 01/07 completed Not Available Not Available Not Available lisinopri l 40 mg tablet TAKE 1 TABLET BY MOUTH ONCE DAILY active Not Available Not Available No t Available ondansetr on 4 mg disintegr ating tablet 09/15 completed Medicati on ID: [id number] D uration Value: 7 Brand Name: dalton neves Send Method: E-Prescr ibed Sub s Allowed: subs OK Medic ationGen ericName : ondakatheryn neves Not Available Not Available Not Available metformin ER 500 mg tablet,ex tended release 24 hr TAKE 2 TABLETS BY MOUTH TWICE DAILY active Not Available Not Available No t Available TobraDex 0.3 %-0.1 % eye drops,kan pension 4 drop 01/07 completed Medicati on ID: [id number] D uration Value: 14 Prescri bed By Name: Darby Irizarry nd Name: TobraDex Send Method: E-Prescr ibed Sub s Allowed: subs OK Specshauna al Instruct ion: apply to affected ear(s) Osiris Anderson Name: TobraDex Not Available Not Available Not Available Premarin 0.625 mg/gram vaginal cream 09/15 completed Medicati on ID: [id number] D uration Value: 30 Brand Name: Premarin Send Method: E-Prescr ibed Sub s Allowed: subs OK Medic ationGen ericName : Premarin Not Available Not Available Not Available BD Ultra-Fin e Mini Pen Needle 31 gauge x 3/16 04/18 completed Medicati on ID: [id number] B rand Name: BD Ultra-Fi ne Mini Pen Needle S end Method: E-Prescr ibed Sub s Allowed: subs OK Speci al Instruct ion: USE 1 PEN NEEDLE TO ADMINIST ER LANTUS TWICE DAILY Me dication GenericN summer: BD Ultra-Fi ne Mini Pen Needle Not Available Not Available Not Available BD Ultra-Fin e Short Pen Needle 31 gauge x 5/16 USE 1 PEN NEEDLE SUBCUTAN EOUSLY TWICE DAILY DIRECTED active Not Available Not Available No t Available Brilinta 90 mg tablet TAKE 1 TABLET BY MOUTH TWICE DAILY active Not Available Not Available No t Available OneTouch Verio test strips USE 1 STRIP TO CHECK GLUCOSE UP TO SIX TIMES DAILY DIRECTED 01/07 completed Not Available Not Available Not Available Tresiba FlexTouch U-100 insulin 100 unit/mL (3 mL) subcutane ous pen INJECT 26 UNITS SUBCUTAN EOUSLY ONCE DAILY active Not Available Not Available No t Available Basaglar KwikPen U-100 Insulin 100 unit/mL (3 mL) subcutane ous 04/18 completed Medicati on ID: [id number] B rand Name: Basaglar KwikPen U-100 Insulin Send Method: E-Prescr ibed Sub s Allowed: subs OK Speci al Instruct ion: INJECT 35 UNITS SUBCUTAN EOUSLY IN THE EVENING Medicati onGeneri cName: Basaglar KwikPen U-100 Insulin Not Available Not Available Not Available FreeStyle Alcides 2 Sensor kit USE DIRECTED TO CHECK GLUCOSE DAILY CHANGE EVERY 14 DAYS active Not Available Not Available No t Available Vitals Date Recorded Body height Body weight Provider Name and Address Organization Details Last Updated DateTime 01/08/2024 151.13 cm 63864.75 g Desiree Loredo [place] - [facility] 01/08/2024 08:36:15 Social History None recorded. Functional Status None recorded. Mental Status None recorded. Family History Nothing Reported. Medical History Condition Response Migraines Y Diabetes Y High Cholesterol Y Hypertension Y Gynecological HistoryNo gynecological history recorded. Obstetrics History GPAL:G 0 P 0 0 0 0 Past Encounters Encounter ID Performer Location Encounter Start Date Encounter Closed Date Diagnosis/Indication Diagnosis SNOMED-CT Code Diagnosis ICD10 Code Diagnosis Note [id number] RICHARDSON SAAB MD [facility] [address] [address] 01/08/2024 08:23:43 01/08/2024 08:45:28 Postmastoidectomy complication 35510500 H95.192 The left canal wall down mastoidect karen cavity was cleaned of accumulate d squamous debris. No signs of acute or chronic inflammati on. Recommend continuing yearly debridemen t. Conductive hearing loss 60413656 H90.12 Patient will continue to follow-up with the audiology group for hearing aid maintenanc e. Benign par oxysmal positional vertigo 848567155 H81.12 Currently asymptomat ic with regards to BPPV. We discussed that this can be a recurrent issue and that if she does have significan t recurrence , she can contact the office to get referral to [facility] for Guillermo maneuvers. Health Concerns Section Related Observation LastModified by Organization Detai ls LastModified Time None Recorded Concern Status LastModified by Organization Details LastModified Time None Recorded Advance Directives Directive None Recorded Payers Encounter Date Sequence Insurance Name Policy Number Policy Chilel Covered Member ID Chilel Member ID Guarantor Name 01/08/2024 1 [facility] [id number] D Guillermo Car [id number] 2 Cody Car Notes Date Note Type Note Provider Name and Address Organization Details Recorded Time 01/08/2024 text/html Patient who underwent left-sided canal wall down mastoidectomy with Dr. Rosa in 1988. She comes in for routine mastoid debridement. No recent pain or discharge.She is using a left-sided hearing aid which is adjusted through our office. Positionally induced vertigo.She has history of BPPV and have given her referrals to [facility] in the past. Currently asymptomatic with regards to positionally induced vertigo. RICHARDSON SAAB MD [address] [place] [address], [phone], [facility] - [facility] 01/08/2024 08:45:14 OBGyn Episode No OBEpisode recorded.
[2024-04-28 11:30] LABS: MANUAL DIFF FLAG NO
[2024-04-28 11:41] LABS: Basophils Absolute Auto 0.1 X10*3/uL (0.0-0.2); Eosinophils Absolute Auto 0.1 X10*3/uL (0.0-0.4); Eosinophils Percent Auto 1.2 % (0-4); Hematocrit 36.2 % (37.0-47.0); Hemoglobin 11.6 g/dl (12.0-16.0); Imm Gran Abs Auto 0.02 X10*3/uL (0.00-0.03); Imm Gran Pct Auto 0.3 % (0.0-0.4); Lymphocytes Absolute Auto 1.5 X10*3/uL (1.2-4.9); Lymphocytes Percent Auto 18.9 % (20-40); Mean Corpuscular Hemoglobin 28.4 pg (27.0-33.0); Mean Corpuscular Volume 88.5 fL (80.0-98.0); Mean Platelet Volume 10.6 fL (9.4-12.3); Monocytes Absolute Auto 0.5 X10*3/uL (0.1-1.2); Monocytes Percent Auto 6.7 % (2-11); Neutrophils Absolute Auto 5.6 x10*3/uL (2.0-8.3); Neutrophils Percent Auto 71.9 % (45-73); Platelet Count 339 X10*3/uL (160-400); Red Blood Count 4.09 X10*6/uL (4.20-5.50); Red Cell Distribution Width 14.7 % (11.0-16.0); White Blood Count 7.8 X10*3/uL (4.8-10.8)
[2024-04-28 12:09] LABS: Anion Gap 14 (12-20); Blood Urea Nitrogen 18 mg/dL (9-16); Calcium 9.7 mg/dL (8.4-10.2); Carbon Dioxide 24 mmol/L (22-29); Chloride 104 mmol/L (96-108); Estimated Glomerular Filt Rate > 60; Glucose Random 105 mg/dL (60-115); Sodium 138 mmol/L (135-145)
== END 2024-04-28 09:42 | disposition home or self-care (01) ==
LOC: HO.WFDLDS 09:41
PROVIDERS: Visit Provider Physician Assistant Medical
DX: E11.59 Type 2 diabetes mellitus with other circulatory complications (principal)
CPT/HCPCS: 36415; 80048; 85025

== ENCOUNTER 2024-06-13 08:51 | Outpatient (AMB) | payer OTHER, SELFPAY ==
--- NOTE | 2024-06-13 09:03 | MHC.OFFVIS ---
Vital Signs 06/13/24 09:04 Height 4 ft 11 in Weight 129 lb BMI 26.1 Intake Visit Reasons: OV f/u LT hip pain Intake Note: Georgia is a 68 year old female who presents to the office today for her follow up visit for her Sacroiliac joint dysfunction of both sides. States she was seen with pain management who wanted to move forward with injections, however it was denied by her insurance. Currently states as of 2-3 weeks ago her pain has increase. Allergies nitrofurantoin [From Macrobid] Allergy (Mild, Verified 06/13/24 09:07) fever oxycodone [From Percocet] Allergy (Mild, Verified 06/13/24 09:07) Nausea sulfamethoxazole [From Bactrim] Allergy (Mild, Verified 06/13/24 09:07) face swelling trimethoprim [From Bactrim] Allergy (Mild, Verified 06/13/24 09:07) face swelling penicillin G Allergy (Verified 06/13/24 09:07) hives Medication List - Last Reconciled 06/13/24 by Gina Cook MD amlodipine 5 mg PO DAILY aspirin (Adult Aspirin Regimen) 81 mg PO DAILY atorvastatin 80 mg PO BEDTIME yxbsoulcbp-mezqseenfmqbk-mhfv 50-325-40 mg 1 tab PO Q4H PRN carvedilol 6.25 mg PO BID cranberry fruit 2,000 mg PO DAILY flash glucose sensor (FreeStyle Alcides 2 Sensor kit) As directed gabapentin 300 mg PO BID 90 days glucose (Dex4 Glucose Quick Dissolve) 16 grams (4 x 4 gram) PO Q15M PRN insulin degludec (Tresiba FlexTouch U-100 insulin) 15 units subcut DAILY lidocaine 5% (Lidoderm) 3 patches topical DAILY lisinopril 40 mg PO DAILY loperamide 2 mg PO Q4H PRN metformin ER 1,000 mg PO BID methenamine hippurate 1 g PO DAILY oxybutynin chloride ER 10 mg PO DAILY semaglutide (Ozempic) 0.5 mg (0.736 mL) subcut QWEEK ticagrelor (Brilinta) 90 mg PO BID tramadol 50 mg PO Q8H PRN 14 days vitamins A,C,V-npqq-spuywi 4,296 mcg-226 mg-90 mg (PreserVision AREDS) 1 cap PO BID HPI Comments Details: Started having pain last June 2023, patient started having left-sided lower back pain. Started as an ache. Progressively worse. It radiates down to area of SI joint, wraps around the hip, into anterior medial thigh. Denies inciting injuries. Denies radiation past the knee. Denies associated numbness in the feet. Around the same time, she has noted bilateral lateral hip pain rating down to lateral thighs. X-rays done at PCP office, showed arthritis. Lumbar spine MRI did not show significant spinal stenosis or disc herniation. Working diagnosis was SI joint dysfunction and trochanteric bursitis. Chronic itchiness on right ankle, etiology unknown. History of diabetes, on insulin, HbA1c 7 per patient. Denies history of neuropathy. History of renal cancer. Unable to take NSAIDs. History of left knee replacement. History of finger joint replacements for arthritis. Trialed left GT injection 10/11/2023, with improvement of the left lateral hip pain. This has not returned since. Placed back on gabapentin 300mg qhs. She saw Dr. Wei last January, however SI joint diagnostic injection was denied by insurance. She also saw Dr. Limon who thought she has mostly OA, NADEEM positive non specific only. Not inflammatory arthritis. [facility] Medical History (Updated 01/22/24 @ 13:24 by Melissa Limon MD) Osteoarthritis involving multiple joints on both sides of body Positive NADEEM (antinuclear antibody) Mild anemia Colon polyp Pure hypercholesterolemia Essential hypertension History of kidney cancer Clear cell carcinoma of right kidney Abnormal mammogram Osteopenia Bone spur Vertigo Urinary incontinence Recurrent UTI Osteoarthritis Obesity, Class I, BMI 30-34.9 Migraine Left hand pain Hypertensive disorder Hypercholesteremia Diarrhea COVID-19 Clear cell renal cell carcinoma Chronic headache Hyperlipidemia CAD (coronary artery disease) ST elevation myocardial infarction (STEMI) of inferior wall Surgical History Hx of cardiac cath History of shoulder surgery History of carpal tunnel surgery of right wrist S/P foot surgery, right H/O partial nephrectomy H/O removal of cyst Finger joint replacement of right hand S/P cardiac catheterization Family History Brother Heart disease Alcohol abuse Cancer Mother Heart disease Hypercholesterolemia Hypertension Daughter Hypercholesterolemia Social History Patient Tobacco Use Status: Former Tobacco user Cigarettes Per Day: 0.25 Years Smoked: Unknown e-Cigarette/Vaping Use: Never Used Second Hand Smoke Exposure: Yes service: No Current occupational status: employed and retired 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 Patient was appropriately conversant and oriented. Good historian. MSK: No specific abnormalities found on inspection of the spine and all extremities. Tenderness in left SI joint area. No tenderness in lumbar paraspinals, spinous processes or facets. No tenderness over GT joints. Neurological: Nonfocal. Meredith?s negative bilaterally. Babinski was down going bilaterally. Clonus was negative. Gait is nonantalgic without loss of balance. Results Reviewed Results Reviewed: I independently reviewed the results of the following: Lumbar MRI done at [facility] reviewed, no significant spinal stenosis or disc herniation seen. No nerve compression. Ordering Physician: Beverley Tello MD Date of Service: 08/31/23 Procedure(s): XR lumbar spine 2-3V Accession Number(s): [id number] cc: Gali Rodríguez; Beverley Tello MD~ EXAMINATION: XR LUMBOSACRAL SPINE CLINICAL INFORMATION: Radiculopathy lumbar region left. COMPARISON: None available. TECHNIQUE: Three views of the lumbosacral spine. FINDINGS: Mild rightward curvature of the lumbar spine. Degenerative changes on limited views of the bilateral hips and sacroiliac joints. Facet arthritis in the lower lumbar spine. Atherosclerotic aortic calcifications. Moderate multilevel lumbar spondylosis with loss of disc space height and degenerative changes most notable at L5-S1. Minimal grade 1 anterolisthesis of L4 on L5 with loss of disc space height. XR/XR lumbar spine 2-3V IMPRESSION: Moderate multilevel lumbar spondylosis most notable at L5-S1. EXAM: MR LUMBAR SPINE WITHOUT CONTRAST INDICATION: [Pain, lumbar radiculopathy TECHNIQUE: Standard protocol without contrast COMPARISON: None. FINDINGS: Vertebral bodies demonstrate normal height and signal intensity. There is mild dextroscoliosis of the upper lumbar curvature. Conus demonstrates normal contour and signal and terminates at L1 level. L1-L2 level shows right paracentral disc bulge. The canal and foramina are patent. L2-L3 level is unremarkable. At L3-L4 level, there is shallow central disc bulge and facet arthrosis. The canal and foramina are patent. At L4-L5 level, there is central disc bulge and moderate facet arthropathy with small facet effusions. The canal and recesses are patent. Mild foraminal narrowing is present. Disc height is preserved. L5-S1 level shows mild disc degeneration and facet arthropathy. The canal, recesses are patent. There is mild left-sided osseous foraminal stenosis, without neural impingement seen. No MRI evidence for spondylolysis is seen. Visualized upper SI joints are preserved. Small left-sided renal cyst is present, partially evaluated on this exam. IMPRESSION: Mild changes of multilevel lumbar spondylosis, pronounced at L4-L5 and L5-S1 levels, as detailed at individual levels above. No significant central canal or foraminal narrowing is present at any level. Note is made of mild scoliosis of the curvature. Electronically signed on 10/02/2023 11:13:00 AM by Wilian Staples M.D. I reviewed records from the following: PCP Assessment & Plan Assessment & Plan (1) Sacroiliac joint dysfunction of both sides: Code(s): M53.3 - Sacrococcygeal disorders, not elsewhere classified Category: Medical (2) Arthritis of facet joint of lumbar spine: Code(s): M47.816 - Spondylosis without myelopathy or radiculopathy, lumbar region Category: Medical Plan Left SI joint pain has returned for the last month at least. It did improve for awhile after PT. MRI lumbar reviewed, did show some facet degenerative changes. We will see if SI joint injection can be approved this time. Message sent to Pain Management to inquire. If not SI joint injection, could facet injections help her? Taking gabapentin 300 mg q.h.s. without side effects. Higher doses make her sleepy. Assessment and plan discussed with patient, and patient was agreeable. All questions were answered thoroughly. Gina Cook MD, NIRU Board Certified, [place] [employer] and Rehabilitation (ABPMR) Board Certified, [place] Board [employer] Electrodiagn[employer] (ABEM) Coding Level of Care Code Est Pt Level 4 (50006) Diagnoses Sacroiliac joint dysfunction of both sides M53.3 Arthritis of facet joint of lumbar spine M47.816
[2024-06-13 09:04] VITALS: BMI 26.1
== END 2024-06-13 09:20 | disposition home or self-care (01) ==
LOC: HO.HOS 08:52
PROVIDERS: PCP Physician Assistant Medical; Visit Provider Physical Medicine & Rehabilitation
DX: M53.3 Sacrococcygeal disorders, not elsewhere classified (principal); M47.816 Spondylosis without myelopathy or radiculopathy, lumbar region
CPT/HCPCS: 99214

== ENCOUNTER → 2024-06-13 08:51 | Outpatient (BNVA) | payer OTHER, SELFPAY | PROVIDERS: PCP Physician Assistant Medical; Visit Provider Physical Medicine & Rehabilitation ==

== ENCOUNTER 2024-06-19 10:06 | Outpatient (AMB) | payer OTHER, SELFPAY ==
--- NOTE | 2024-06-19 10:15 | MHC.PC.OV ---
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 Allergies nitrofurantoin [From Macrobid] Allergy (Mild, Verified 06/19/24 10:15) fever oxycodone [From Percocet] Allergy (Mild, Verified 06/19/24 10:15) Nausea sulfamethoxazole [From Bactrim] Allergy (Mild, Verified 06/19/24 10:15) face swelling trimethoprim [From Bactrim] Allergy (Mild, Verified 06/19/24 10:15) face swelling penicillin G Allergy (Verified 06/19/24 10:15) hives Medication List - Last Reconciled 06/19/24 by KELSIE Lundy amlodipine 5 mg PO DAILY aspirin (Adult Aspirin Regimen) 81 mg PO DAILY atorvastatin 80 mg PO BEDTIME pveeorlaxl-cfhlwrkjmekbg-eugx 50-325-40 mg 1 tab PO Q4H PRN carvedilol 6.25 mg PO BID cranberry fruit 2,000 mg PO DAILY flash glucose sensor (FreeStyle Alcides 2 Sensor kit) As directed gabapentin 300 mg PO BID 90 days glucose (Dex4 Glucose Quick Dissolve) 16 grams (4 x 4 gram) PO Q15M PRN insulin degludec (Tresiba FlexTouch U-100 insulin) 8 units subcut DAILY lidocaine 5% (Lidoderm) 3 patches topical DAILY lisinopril 40 mg PO DAILY loperamide 2 mg PO Q4H PRN metformin ER 1,000 mg PO BID methenamine hippurate 1 g PO DAILY oxybutynin chloride ER 10 mg PO DAILY ticagrelor (Brilinta) 90 mg PO BID tirzepatide (Mounjaro) 2.5 mg (0.5 mL) subcut QWEEK tramadol 50 mg PO Q8H PRN 14 days vitamins A,C,H-lkjo-pnacys 4,296 mcg-226 mg-90 mg (PreserVision AREDS) 1 cap PO BID Tobacco use date assessed: 06/19/24 Fall risk assessment: 1 Fall in past year (March in driveway) Last assessed Fall Risk: 06/19/24 Dental Screening Dental Screen Date: 06/19/24 Did you have a dental visit in the last 12 months?: Yes Did you have a dental problem in the last 6 months where you did not have access to dental care?: No Was dental information given to patient?: Patient has dentist HPI HPI Comments History of Present Illness Details This is a 68-year-old female with a past medical history of type 2 diabetes, 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 Her daughter is undergoing a hysterectomy on June 30. She has a large cyst and a mass. Chronic hip pain, back pain and osteoarthritis of the hands- She's had injections and PT. She is taking tramadol and gabapentin as needed. Rheumatoid factor negative, NADEEM mildly positive, and she saw Rheumatology, and no further workup was indicated as they did not suspect she has underlying autoimmune process. Left 3rd and 4th digits were injected couple of months ago, and she is going to need surgery on these fingers. Type 2 diabetes-taking metformin ER 1000 mg twice daily and Tresiba 8 units daily and Ozempic 0.5 mg weekly. Her hemoglobin last A1c is 5.9%. Hypoglycemia resolved since last visit. Endorses nausea, fatigue and occasional vomiting since increasing dose of Ozempic. She had some nausea on the lower dosage as well. Trulicity caused acid reflux. Reviewed sensor data on phone: 54% target, no hypoglycemia, 46% 180-239. Cardiovascular-She had an ST elevation NM 12/08/2022. Status post cardiac catheterization with CANDELRAIA placed to the RCA. There was 75% stenosis of the left circumflex. There were minimal luminal irregularities in the LAD. Medications include amlodipine, baby aspirin, atorvastatin, carvedilol, lisinopril and Brilinta. She had residual anginal symptoms. She had a cath on 11/19/23 which showed RCA stent wasn't working properly. She denies CP and SOB since it was revised. Right renal clear cell carcinoma-followed by Dr. Sutherland. Surgeon is Dr. Baldwin at [facility]. She underwent partial nephrectomy 12/16/2021. No known recurrence. She had a colonoscopy 01/18/[address] Ceballos. There was 1 sessile polyp, diverticula and internal hemorrhoids. She was advised to repeat this in 5 years. She denies abdominal pain, change in stools, blood in stools. She would also like me to check her left ear today. She scratched it and thinks there is a small cut, but she wants to make sure it is not infected. ROS: Constitutional: No fevers, chills, night sweats or unexplained weight loss. Respiratory: No shortness of breath, cough, wheezing or sputum production. Cardiovascular: No chest pain, chest pressure or chest discomfort. No palpitations. Gastrointestinal: No hematemesis, no blood in stools, see HPI Neurologic: No headache, dizziness, syncope Physical exam: Constitutional: Alert, in no distress. Neck: Supple, Full range of motion. No lymphadenopathy. No palpable thyroid masses. Ears: TMs normal without erythema or effusion. Right canal clear. There is a small hemorrhagic scab in the external auditory canal. No surrounding erythema, discharge or swelling. Abdomen: Soft, nontender, no rebound or guarding, no masses. Respiratory: Clear to auscultation. Cardiovascular: S1 S2 regular. No murmurs. Extremities: Warm and well perfused. No clubbing, cyanosis or edema. Psychiatric: Normal mood and affect [facility] Medical History (Updated 01/22/24 @ 13:24 by Melissa Limon MD) Osteoarthritis involving multiple joints on both sides of body Positive NADEEM (antinuclear antibody) Mild anemia Colon polyp Pure hypercholesterolemia Essential hypertension History of kidney cancer Clear cell carcinoma of right kidney Abnormal mammogram Osteopenia Bone spur Vertigo Urinary incontinence Recurrent UTI Osteoarthritis Obesity, Class I, BMI 30-34.9 Migraine Left hand pain Hypertensive disorder Hypercholesteremia Diarrhea COVID-19 Clear cell renal cell carcinoma Chronic headache Hyperlipidemia CAD (coronary artery disease) ST elevation myocardial infarction (STEMI) of inferior wall Surgical History Hx of cardiac cath History of shoulder surgery History of carpal tunnel surgery of right wrist S/P foot surgery, right H/O partial nephrectomy H/O removal of cyst Finger joint replacement of right hand S/P cardiac catheterization Family History Brother Heart disease Alcohol abuse Cancer Mother Heart disease Hypercholesterolemia Hypertension Daughter Hypercholesterolemia Social History Patient Tobacco Use Status: Former Tobacco user Cigarettes Per Day: 0.25 Years Smoked: Unknown e-Cigarette/Vaping Use: Never Used Second Hand Smoke Exposure: Yes service: No Current occupational status: employed and retired Current occupation: [employer] at [employer] Current occupational exposures/hazards: No Questionnaire Thrive Questionnaire Date Thrive assessed: 06/19/24 I am a: Patient What is your living situation today?: I have a steady place to live Within the past 12 months, did the food you bought not last and you didn't have the money to get more?: Never true Within the past 12 months, did you worry whether your food would run out before you got money to buy more?: Never true Do you have trouble paying for medicines?: No Do you have trouble getting transportation to medical appointments?: No Do you have trouble paying your heating and electricity bill?: No Do you have trouble taking care of your child, family member or friend?: No Do you have trouble with day-to-day activities such as bathing, preparing meals, shopping, managing finances, etc.?: No Are you currently unemployed and looking for a job?: No Are you interested in more education?: No Please select the resources that you would like help with: None Currently or been in a relationship where the following occur: No concerns reported THRIVE Score: 0 AUDIT C Alcohol Use Questionnaire (AUDIT-C) 3. How often do you have six or more drinks on one occasion?: Never Total Score: 0 PIYUSH-7 AMB Questionnaire PIYUSH-7 Date PIYUSH - 7 assessed: 04/28/24 Source: Developed by Drs. Maury Smith, Samantha Ray, Parmjit Martinez and colleagues, with an educational kristen from [employer]. Physical exam (Primary Care) Vital Signs: Last Vital Signs Temp 97.1 F 06/19/24 10:19 Pulse 85 06/19/24 10:19 Resp 12 06/19/24 10:19 BP 132/66 06/19/24 10:19 Pulse Ox 98 06/19/24 10:19 Oxygen Delivery Method Room Air 06/19/24 10:19 BMI result Body Mass Index 23.9 Tobacco/Smoking Status: Tobacco use Status Tobacco use date assessed 06/19/24 06/19/24 10:18 Patient Tobacco Use Status Former Tobacco user 06/19/24 10:18 e-Cigarette/Vaping Use Never Used 06/19/24 10:18 Thrive Assessment: Date of Thrive Assessment Date Thrive assessed 06/19/24 06/19/24 10:18 Currently or been in a relationship where the following occur: No concerns reported Coding Level of Care Code Est Pt Level 4 (78543) Complex EM visit Add On G2211 Diagnoses Osteoarthritis involving multiple joints on both sides of body M15.9 Sacroiliac joint dysfunction of both sides M53.3 Colon polyp K63.5 Pure hypercholesterolemia E78.00 Clear cell carcinoma of right kidney C64.1 Essential hypertension I10 Type 2 diabetes mellitus with cardiac complication E11.59 Coronary artery disease of [place] artery of [place] heart with stable angina pectoris I25.118 Coronary Disease-Associated Artery/Lesion type: [place] artery [place] vs. transplanted heart: [place] and sioux heart Associated angina: with stable angina Assessment & Plan Assessment & Plan (1) Osteoarthritis involving multiple joints on both sides of body: Code(s): M15.9 - Polyosteoarthritis, unspecified Category: Medical (2) Sacroiliac joint dysfunction of both sides: Code(s): M53.3 - Sacrococcygeal disorders, not elsewhere classified Category: Medical (3) Colon polyp: Comment: 01/18/21 colonoscopy w/ Dr. Ceballos. Single sessile polyps, diverticula, internal hemorrhoids. Repeat colonoscopy recommended in 5 years. Code(s): K63.5 - Polyp of colon Category: Medical (4) Pure hypercholesterolemia: Code(s): E78.00 - Pure hypercholesterolemia, unspecified Category: Medical (5) Clear cell carcinoma of right kidney: Code(s): C64.1 - Malignant neoplasm of right kidney, except renal pelvis Category: Medical (6) Essential hypertension: Code(s): I10 - Essential (primary) hypertension Category: Medical (7) Type 2 diabetes mellitus with cardiac complication: Code(s): E11.59 - Type 2 diabetes mellitus with other circulatory complications Category: Medical (8) CAD (coronary artery disease): Code(s): I25.10 - Atherosclerotic heart disease of [place] coronary artery without angina pectoris Category: Medical Qualifiers: Coronary Disease-Associated Artery/Lesion type: [place] artery [place] vs. transplanted heart: [place] and si[place] heart Associated angina: with stable angina Qualified Code(s): I25.118 - Atherosclerotic heart disease of [place] coronary artery with other forms of angina pectoris Plan Lumbar spondylosis Patient seen by physiatry and Orthopedics. Continue gabapentin and tramadol as needed. Reminded not to drive, operate heavy machinery or drink alcohol with these medications. Reminded they can cause sedation and dizziness. Hyperlipidemia LDL at goal of less than 70. Continue current regimen. She is also eating a very high protein, high fiber and low carbohydrate diet and lost weight. Hypertension Controlled. Continue current regimen. History of right kidney cancer No known recurrence. Followed by Dr. Sutherland. Positive NADEEM No need for further evaluation per Rheumatology. Coronary artery disease Continue current management per Cardiology. Type 2 diabetes Continue metformin extended release 1000 mg twice daily. Continue Tresiba 8 units daily. Stop Ozempic. Trial of Mounjaro 2.5 mg daily. She wants to stay on a GLP 1 if she can tolerate it due to the cardiovascular benefit. Follow up in four weeks for diabetes med check. Medications: New tizanidine 2 mg PO Q8H PRN 60 caps 0RF muscle spasticity tirzepatide (Mounjaro) for 4 weeks 2.5 mg (0.5 mL) subcut QWEEK 2 mL 0RF Refilled tramadol 50 mg PO Q8H PRN 42 tabs 0RF pain 14 days Discontinued semaglutide (Ozempic) Discontinued Reason: Doctor's Order 0.5 mg (0.736 mL) subcut QWEEK 3 mL 3RF
[2024-06-19 10:19] VITALS: BP 132/66; PULSE 85; RESP 12; TEMP 36.2; O2SAT 98; BMI 23.9
== END 2024-06-19 10:52 | disposition home or self-care (01) ==
LOC: HO.HMCFM 10:07
PROVIDERS: PCP Physician Assistant Medical; Visit Provider Physician Assistant Medical
DX: M15.9 Polyosteoarthritis, unspecified (principal); C64.1 Malignant neoplasm of right kidney, except renal pelvis; E11.59 Type 2 diabetes mellitus with other circulatory complications; I25.118 Atherosclerotic heart disease of native coronary artery with other forms of angina pectoris; M53.3 Sacrococcygeal disorders, not elsewhere classified; K63.5 Polyp of colon; E78.00 Pure hypercholesterolemia, unspecified; I10 Essential (primary) hypertension

== ENCOUNTER 2024-06-23 09:34 | Outpatient (AMB) | payer OTHER, SELFPAY ==
--- NOTE | 2024-06-23 09:38 | MHC.OFFVIS ---
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 Required: No Allergies nitrofurantoin [From Macrobid] Allergy (Mild, Verified 06/23/24 09:41) fever oxycodone [From Percocet] Allergy (Mild, Verified 06/23/24 09:41) Nausea sulfamethoxazole [From Bactrim] Allergy (Mild, Verified 06/23/24 09:41) face swelling trimethoprim [From Bactrim] Allergy (Mild, Verified 06/23/24 09:41) face swelling penicillin G Allergy (Verified 06/23/24 09:41) hives Medication List - Last Reconciled 06/23/24 by Dora Hayes, PAPER CUP MACHINE TENDER-C amlodipine 5 mg PO DAILY aspirin (Adult Aspirin Regimen) 81 mg PO DAILY atorvastatin 80 mg PO BEDTIME xyviqldetz-fijbnjgbzsuqs-utup 50-325-40 mg 1 tab PO Q4H PRN carvedilol 6.25 mg PO BID cranberry fruit 2,000 mg PO DAILY flash glucose sensor (FreeStyle Alcides 2 Sensor kit) As directed gabapentin 300 mg PO BID 90 days glucose (Dex4 Glucose Quick Dissolve) 16 grams (4 x 4 gram) PO Q15M PRN insulin degludec (Tresiba FlexTouch U-100 insulin) 8 units subcut DAILY lidocaine 5% (Lidoderm) 3 patches topical DAILY lisinopril 40 mg PO DAILY loperamide 2 mg PO Q4H PRN metformin ER 1,000 mg PO BID methenamine hippurate 1 g PO DAILY oxybutynin chloride ER 10 mg PO DAILY ticagrelor (Brilinta) 90 mg PO BID tirzepatide (Mounjaro) 2.5 mg (0.5 mL) subcut QWEEK tizanidine 2 mg PO Q8H PRN tramadol 50 mg PO Q8H PRN 14 days vitamins A,C,V-okck-zijrfs 4,296 mcg-226 mg-90 mg (PreserVision AREDS) 1 cap PO BID HPI HPI 3 mth f/up (KM): Details: [place] is a 68-year-old female with past medical history of hypertension, hyperlipidemia, diabetes, STEMI 11/2022 with stent placed to the ostial RCA. She had recurrent angina and underwent cardiac catheterization 11/22/2023 which showed severe in stent restenosis and angioplasty was done. She now presents for follow-up. Today she reports that she has been doing well since her last visit in February. She has not had any chest discomfort at rest or with activity. She has no shortness of breath, PND, orthopnea or edema. No lightheadedness, presyncope, syncope. She works part-time at [employer] in the [place] department. She is compliant with her meds. She has issues with significant bruising on her antiplatelet agents. No blood in the urine or stool. [facility] Medical History Osteoarthritis involving multiple joints on both sides of body Positive NADEEM (antinuclear antibody) Mild anemia Colon polyp Pure hypercholesterolemia Essential hypertension History of kidney cancer Clear cell carcinoma of right kidney Abnormal mammogram Osteopenia Bone spur Vertigo Urinary incontinence Recurrent UTI Osteoarthritis Obesity, Class I, BMI 30-34.9 Migraine Left hand pain Hypertensive disorder Hypercholesteremia Diarrhea COVID-19 Clear cell renal cell carcinoma Chronic headache Hyperlipidemia CAD (coronary artery disease) ST elevation myocardial infarction (STEMI) of inferior wall Surgical History Hx of cardiac cath History of shoulder surgery History of carpal tunnel surgery of right wrist S/P foot surgery, right H/O partial nephrectomy H/O removal of cyst Finger joint replacement of right hand S/P cardiac catheterization Family History Brother Heart disease Alcohol abuse Cancer Mother Heart disease Hypercholesterolemia Hypertension Daughter Hypercholesterolemia Social History Patient Tobacco Use Status: Former Tobacco user Cigarettes Per Day: 0.25 Years Smoked: Unknown e-Cigarette/Vaping Use: Never Used Second Hand Smoke Exposure: Yes service: No Current occupational status: employed and retired Current occupation: [employer] at [employer] Current occupational exposures/hazards: No Review of Systems Const All systems reviewed & are unremarkable except as noted in HPI and below ENT Denies dizziness Card Denies chest pain, Denies chest pain at rest, Denies chest pain with activity, Denies rapid heart rate, Denies pedal edema, Denies edema, Denies leg edema, Denies lightheadedness, Denies palpitations, Denies dyspnea, Denies dyspnea on exertion and Denies orthopnea Resp Denies cough, Denies dyspnea and Denies dyspnea on exertion GI Denies hematochezia and Denies change in stool character Musc Denies abnormal gait, Denies limited range of motion, Denies muscle cramps, Denies muscle weakness, Denies numbness, Denies radiating pain into limb, Denies stiffness and Denies tingling Skin/Breast Details: Very easy bruising - she shows me several large bruises on legs Neuro Denies abnormal gait, Denies dizziness, Denies numbness and Denies tingling Endo Denies palpitations Physical Exam Vital Signs: Last Vital Signs Pulse 78 06/23/24 09:39 BP 122/52 L 06/23/24 09:39 BMI result Body Mass Index 23.9 Const General: cooperative, healthy appearing, comfortable and no acute distress Orientation/consciousness: patient oriented x3 Neck Neck: Yes normal visual inspection Resp Effort & Inspection: normal respiratory effort Auscultation: clear to auscultation bilaterally, no rales, no rhonchi and no wheezes Cardio Rate: regular rate Rhythm: regular rhythm Heart sounds: S1 normal heart sound present, S2 normal heart sound present, no gallops, no murmurs and no rubs Skin Other: ecchimotic areas, some large on legs, also abdomen ( site of injections) and arms/ hands Neuro General: patient oriented x3 Extrem General: No no pedal edema Psych Appearance: grossly normal Mental Status: mental status grossly normal Speech and movement: Normal speech and movement present Office Procedures EKG Details: Today, read by me, normal sinus rhythm, rate 78, QTC 419 millisecond [id number], Complete Assessment & Plan Assessment & Plan (1) CAD (coronary artery disease): Code(s): I25.10 - Atherosclerotic heart disease of [place] coronary artery without angina pectoris Category: Medical Qualifiers: Associated angina: with stable angina Coronary Disease-Associated Artery/Lesion type: [place] artery [place] vs. transplanted heart: [place] heart Qualified Code(s): I25.118 - Atherosclerotic heart disease of [place] coronary artery with other forms of angina pectoris Plan: History of CAD with STEMI 11/2022, stent placed to the ostial RCA. Current angina and catheterization showed severe ISR and angioplasty performed. She also had residual left circumflex stenosis, 70%. Doing well with no anginal symptoms. EKG done today showing normal sinus rhythm, rate 78. Continue aspirin indefinitely. Continue Brilinta however I will recheck with her primary animal ride manager regarding Brilinta dose. Continue high-dose atorvastatin with ideal LDL goal less than 70. Continue carvedilol, amlodipine and lisinopril. Signs and symptoms of angina reviewed with her. Cardiology follow-up 6 months, sooner if needed. (2) S/P cardiac catheterization: Comment: 12/08/2022, left main normal, lad minimal luminal irregularities, left circumflex proximal 75% stenosis, RCA ostial proximal 99% stenosis, culprit lesion, CANDELARIA placed 11/22/23, LM normal, LAD minimal irregularities, left circumflex ostial 70% stenosis, RCA proximal ostial 95% stenosis treated with angioplasty for InStent stenosis. Code(s): Z98.890 - Other specified postprocedural states Category: Surgical (3) Essential hypertension: Code(s): I10 - Essential (primary) hypertension Category: Medical Plan: Well controlled at this time. No medication changes made (4) Pure hypercholesterolemia: Code(s): E78.00 - Pure hypercholesterolemia, unspecified Category: Medical Plan: ideal LDL goal less than 70. Labs done 10/17/2023 showed LDL 52. Continue atorvastatin 80 mg daily. Plan Time spent on chart review, documentation, interview and assessment Coding Level of Care Code Est Pt Level 4 (86225) Complex EM visit Add On G2211 Diagnoses Coronary artery disease of [place] artery of [place] heart with stable angina pectoris I25.118 Associated angina: with stable angina Coronary Disease-Associated Artery/Lesion type: [place] artery [place] vs. transplanted heart: [place] heart S/P cardiac catheterization Z98.890 Essential hypertension I10 Pure hypercholesterolemia E78.00 CPT Codes EKG - CPT: 05174-[id number], Complete ([id number]) Time Spent (min) 28
[2024-06-23 09:39] VITALS: BP 122/52; PULSE 78; BMI 23.9
== END 2024-06-23 10:18 | disposition home or self-care (01) ==
PROVIDERS: PCP Physician Assistant Medical; Visit Provider Nurse Practitioner Family
DX: I25.118 Atherosclerotic heart disease of native coronary artery with other forms of angina pectoris (principal); Z98.890 Other specified postprocedural states; I10 Essential (primary) hypertension; E78.00 Pure hypercholesterolemia, unspecified
CPT/HCPCS: 93010; 99214

== ENCOUNTER → 2024-06-23 09:34 | Outpatient (BNVA) | payer OTHER, SELFPAY | PROVIDERS: PCP Physician Assistant Medical; Visit Provider Nurse Practitioner Family | DX: I10 Essential (primary) hypertension (principal); I25.2 Old myocardial infarction; I25.118 Atherosclerotic heart disease of native coronary artery with other forms of angina pectoris; E78.00 Pure hypercholesterolemia, unspecified; E11.9 Type 2 diabetes mellitus without complications; Z87.891 Personal history of nicotine dependence; Z98.890 Other specified postprocedural states | CPT/HCPCS: 93005 ==

== ENCOUNTER 2024-07-29 10:10 | Outpatient (REF) | payer OTHER, SELFPAY ==
--- OUTSIDE RECORDS SUMMARY | 2024-07-29 11:38 | XMS_ITS | Encounter Summary ---
Author Organization [facility] Address [address] [place] [address] Care Team Providers Care Physician Credentialing Specialist Name Role Phone Teena Stevens MD Primary Care Provider [phone] [facility], Pcp Primary Care Provider Unavailabl e Reason for Visit * Reason Comments E-prescribe Rx Request Encounter Details Date Type Department Care Team Description 04/04/2022 Refill Gastroenterology - [place] [address] [id number] Sathish Pierce PA-C [address] [address] E-prescribe Rx Request Social History Tobacco Use [...] Miscellaneous Notes * Telephone Encounter - Jaycee Matos - 04/04/2022 1:55 PM EST Pt. Seen once 03/09/21 no f/u scheduled documented in this encounter Plan of Treatment Not on file documented as of this encounter Visit Diagnoses Not on filedocumented in this encounter Care Teams Physician Credentialing Specialist Relationship Specialty Start Date End Date Teena Stevens MD [address] [place] [address], [place] [address] PCP - General Internal Medicine 05/28/20 09/06/22 [facility], Pcp [address] [place] [id number] PCP - General Internal Medicine 09/07/22 documented as of this encounter
--- OUTSIDE RECORDS SUMMARY | 2024-07-29 11:38 | XMS_ITS | Encounter Summary ---
Author Organization [facility] Address [address] [place] [address] Care Team Providers Care Health Data Analyst Name Role Phone Beverley Dillard MD Primary Care Provider Teena Dumont MD Primary Care Provider [phone] [facility], Pcp Primary Care Provider Unavailabl e Encounter Details Date Type Department Care Team Description 09/03/2015 Floating Labor Gang Supervisor Report Medical Records [address] [place] [id number] Suzi Stone MD Social History Tobacco Use [...] on filedocumented in this encounter Care Teams Health Data Analyst Relationship Specialty Start Date End Date Beverley Dillard MD PCP - General Internal Medicine 04/16/15 05/27/20 Teena Stevens MD [address] [place], [place] [id number] PCP - General Internal Medicine 05/28/20 09/06/22 [facility], Pcp [address] [place] [id number] PCP - General Internal Medicine 09/07/22 documented as of this encounter
--- OUTSIDE RECORDS SUMMARY | 2024-07-29 11:38 | XMS_ITS | Encounter Summary ---
Author Organization [employer] [facility] Address [address] [place] [address] Care Team Providers Care Specialty Cook Name Role Phone Teena Stevens MD Primary Care Provider [phone] [facility], Pcp Primary Care Provider Unavailabl e Encounter Details Date Type Department Care Team Description 01/17/2021 Orders Only Medical Records [address] [place] [id number] Cyndi Ceballos MD [address] [place] [id number] Social History Tobacco Use Types Packs/Day Years [...] on filedocumented in this encounter Care Teams Specialty Cook Relationship Specialty Start Date End Date Teena Stevens MD [address] [place] [address] PCP - General Internal Medicine 05/28/20 09/06/22 [facility], Pcp [address] [place] [id number] PCP - General Internal Medicine 09/07/22 documented as of this encounter
--- OUTSIDE RECORDS SUMMARY | 2024-07-29 11:38 | XMS_ITS | Encounter Summary ---
Author Organization [employer] [facility] Address [address] [place] [address] Care Team Providers Care Self Pay Specialist Name Role Phone Beverley Dillard MD Primary Care Provider Kan Teena Naik MD Primary Care Provider [phone] Pending Sale To [facility], Pcp Primary Care Provider Unavailabl e Encounter Details Date Type Department Care Team Description 12/06/2017 Orders Only Medicine/Pediatrics - [address] [address] Beverley Dillard MD Social History Tobacco Use [...] on filedocumented in this encounter Care Teams Self Pay Specialist Relationship Specialty Start Date End Date Beverley Dillard MD PCP - General Internal Medicine 04/16/15 05/27/20 Teena Stevens MD [address] [place] [address] PCP - General Internal Medicine 05/28/20 09/06/22 Pending Sale To [facility], Pcp [address] [place] [address] PCP - General Internal Medicine 09/07/22 documented as of this encounter
--- OUTSIDE RECORDS SUMMARY | 2024-07-29 11:38 | XMS_ITS | Encounter Summary ---
Author Organization [facility] Address [address] [place] [address] Care Team Providers Care Lever Operator Name Role Phone Beverley Dillard MD Primary Care Provider Teena Dumont MD Primary Care Provider [phone] Formerly [facility], [facility], Pcp Primary Care Provider Unavailabl e Encounter Details Date Type Department Care Team Description 04/26/2017 Plumbing And Heating Contractor Report Medical Records [address] [place] [address] Jane Haro PA-C Social History Tobacco Use [...] on filedocumented in this encounter Care Teams Lever Operator Relationship Specialty Start Date End Date Beverley Dillard MD PCP - General Internal Medicine 04/16/15 05/27/20 Teena Stevens MD [address] [address] [phone] PCP - General Internal Medicine 05/28/20 09/06/22 [facility], [facility], Pcp [address] [place] [address] PCP - General Internal Medicine 09/07/22 documented as of this encounter
--- OUTSIDE RECORDS SUMMARY | 2024-07-29 11:38 | XMS_ITS | Encounter Summary ---
Author Organization [facility] Address [address] [place] [address] Care Team Providers Care White Lead Grinder Name Role Phone Beverley Dillard MD Primary Care Provider Teena Dumont MD Primary Care Provider [phone] [facility], Pcp Primary Care Provider Unavailabl e Reason for Visit * Reason Onset Date Comments medication problems 04/18/2019 Encounter Details Date Type Department Care Team Description 04/18/2019 Telephone Medicine/Pediatrics - [address] [address] Beverley Dillard MD medication problems Social History [...] on filedocumented in this encounter Care Teams White Lead Grinder Relationship Specialty Start Date End Date Beverley Dillard MD PCP - General Internal Medicine 04/16/15 05/27/20 Teena Stevens MD [address] [place] [address] PCP - General Internal Medicine 05/28/20 09/06/22 [facility], [address] [address] PCP - General Internal Medicine 09/07/22 documented as of this encounter
--- OUTSIDE RECORDS SUMMARY | 2024-07-29 11:38 | XMS_ITS | Encounter Summary ---
Author Organization [employer] [facility] Address [address] [place] [address] Care Team Providers Care Police Matron Name Role Phone Teena Stevens MD Primary Care Provider [phone] [facility], Pcp Primary Care Provider Unavailabl e Encounter Details Date Type Department Care Team Description 09/16/2021 Data Governance Consultant Report Medical Records [address] [place] [address] [address] Social History Tobacco Use Types Packs/Day Years [...] on filedocumented in this encounter Care Teams Police Matron Relationship Specialty Start Date End Date Teena Stevens MD [address] [place] [address] PCP - General Internal Medicine 05/28/20 09/06/22 [address], Pcp [address] [place] [address] PCP - General Internal Medicine 09/07/22 documented as of this encounter
--- OUTSIDE RECORDS SUMMARY | 2024-07-29 11:38 | XMS_ITS | Encounter Summary ---
Author Organization [employer] [facility] Address [address] [place] [address] Care Team Providers Care Batch Heat Treat Operator Name Role Phone Teena Stevens MD Primary Care Provider [phone] [facility], Pcp Primary Care Provider Unavailabl e Reason for Visit * Reason Onset Date Comments Faxed Order 08/29/2021 [facility] plan of care Encounter Details Date Type Department Care Team Description 08/29/2021 Telephone Adult Medicine [address] [address] Teena Stevens MD [address] [place] [address] [phone] Faxed Order ([facility] of [...] on filedocumented in this encounter Care Teams Batch Heat Treat Operator Relationship Specialty Start Date End Date Teena Stevens MD [address] [place] [address] [phone] PCP - General Internal Medicine 05/28/20 09/06/22 [facility], [address] [address] PCP - General Internal Medicine 09/07/22 documented as of this encounter
--- OUTSIDE RECORDS SUMMARY | 2024-07-29 11:38 | XMS_ITS | Encounter Summary ---
Author Organization [employer] [facility] Address [address] [place] [address] Care Team Providers Care Prison Classification Counselor Name Role Phone Teena Stevens MD Primary Care Provider [phone] [facility], Pcp Primary Care Provider Unavailabl e Encounter Details Date Type Department Care Team Description 10/06/2020 Seasoner Report Medical Records [address] [place] [address] Suzi Stone MD Social History Tobacco Use [...] on filedocumented in this encounter Care Teams Prison Classification Counselor Relationship Specialty Start Date End Date Teena Stevens MD [address] [place] [address] [phone] PCP - General Internal Medicine 05/28/20 09/06/22 [facility], Pcp [address] [place] [address] PCP - General Internal Medicine 09/07/22 documented as of this encounter
--- OUTSIDE RECORDS SUMMARY | 2024-07-29 11:38 | XMS_ITS | Encounter Summary ---
Author Organization [employer] [facility] Address [address] [place] [address] Care Team Providers Care Administrative Assistant Name Role Phone Teena Stevens MD Primary Care Provider [phone] Formerly [facility], Pcp Primary Care Provider Unavailabl e Encounter Details Date Type Department Care Team Description 10/22/2020 Life Sciences Teacher Report Medical Records [address] [place] [address] Princess Rincon PA-C Social History Tobacco Use Types Packs/Day [...] on filedocumented in this encounter Care Teams Administrative Assistant Relationship Specialty Start Date End Date Teena Stevens MD [address] [place] [address] [phone] PCP - General Internal Medicine 05/28/20 09/06/22 [facility], Pcp [address] [place] [address] PCP - General Internal Medicine 09/07/22 documented as of this encounter
--- OUTSIDE RECORDS SUMMARY | 2024-07-29 11:38 | XMS_ITS | Encounter Summary ---
Author Organization [facility] Address [address] [place] [address] Care Team Providers Care Retirement Manager Name Role Phone Beverley Dillard MD Primary Care Provider Teena Dumont MD Primary Care Provider [phone] [facility], Pcp Primary Care Provider [facility] e Encounter Details Date Type Department Care Team Description 09/22/2015 Autocad Designer Report Medical Records [address] [place] [address] Joyce Anderson Social History Tobacco Use Types Packs/Day Years [...] on filedocumented in this encounter Care Teams Retirement Manager Relationship Specialty Start Date End Date Beverley Dillard MD PCP - General Internal Medicine 04/16/15 05/27/20 Teena Stevens MD [address] [place] [address] PCP - General Internal Medicine 05/28/20 09/06/22 [facility], Pcp [address] [place] [address] PCP - General Internal Medicine 09/07/22 documented as of this encounter
--- OUTSIDE RECORDS SUMMARY | 2024-07-29 11:38 | XMS_ITS | Encounter Summary ---
Author Organization [facility] Address [address] [place] [address] Care Team Providers Care Surveillance Investigator Name Role Phone Beverley Dillard MD Primary Care Provider Teena Dumont MD Primary Care Provider [phone] [facility], Pcp Primary Care Provider [facility] e Encounter Details Date Type Department Care Team Description 02/08/2016 Transfer Records Medical Records [address] [place], [place] [phone] [facility] Social History Tobacco Use Types [...] on filedocumented in this encounter Care Teams Surveillance Investigator Relationship Specialty Start Date End Date Beverley Dillard MD PCP - General Internal Medicine 04/16/15 05/27/20 Teena Stevens MD [address] [place] [address] PCP - General Internal Medicine 05/28/20 09/06/22 [facility], [address] [address] PCP - General Internal Medicine 09/07/22 documented as of this encounter
--- OUTSIDE RECORDS SUMMARY | 2024-07-29 11:38 | XMS_ITS | Encounter Summary ---
Author Organization [employer] [employer] [facility] Address [address] [place] [address] Care Team Providers Care Acquisition Marketing Coordinator Name Role Phone Beverley Dillard MD Primary Care Provider Teena Dumont MD Primary Care Provider [phone] [facility], Pcp Primary Care Provider Unavailabl e Encounter Details Date Type Department Care Team Description 08/12/2019 Hooker On Report Medical Records [address] [place] [address] Suzi Stone MD Social History Tobacco Use [...] on filedocumented in this encounter Care Teams Acquisition Marketing Coordinator Relationship Specialty Start Date End Date Beverley Dillard MD PCP - General Internal Medicine 04/16/15 05/27/20 Teena Stevens MD [address] [place], [place] [phone] PCP - General Internal Medicine 05/28/20 09/06/22 [facility], Pcp [address] [place] [address] PCP - General Internal Medicine 09/07/22 documented as of this encounter
--- OUTSIDE RECORDS SUMMARY | 2024-07-29 11:38 | XMS_ITS | Encounter Summary ---
Author Organization [facility] Address [address] [place] [address] Care Team Providers Care Splitter Hand Name Role Phone Teena Stevens MD Primary Care Provider [phone] [facility], Pcp Primary Care Provider Unavailabl e Reason for Visit * Reason Onset Date Comments Faxed Refill 11/01/2020 Encounter Details Date Type Department Care Team Description 11/01/2020 Refill Adult Medicine [address] [phone] Teena Stevens MD [address] [place] [address] [phone] Faxed Refill Social History Tobacco Use Types Packs/Day Years [...] encounter Miscellaneous Notes * Telephone Encounter - Marly Cooper M.A. - 11/02/2020 3:13 PM EDT Date of last office visit was 10/05/20. Pended appt for 01/05/21 Lab Results Component Value Date NA 135 08/06/2020 K 4.3 08/06/2020 CO2 26 08/06/2020 CL 100 08/06/2020 BUN 16 08/06/2020 CREAT 0.78 08/06/2020 GLU 116 10/05/2020 CA 9.7 08/06/2020 GFR > 60 08/06/2020 * Telephone Encounter - Melody Vani - 11/01/2020 10:00 AM EDT Patient would like script to [...] Payor: DARWIN / Plan: PPO $0 [id number] / Product Type: PPO [id number] documented in this encounter Plan of Treatment Not on file documented as of this encounter Visit Diagnoses Not on filedocumented in this encounter Care Teams Splitter Hand Relationship Specialty Start Date End Date Teena Stevens MD [address] [place] [address] PCP - General Internal Medicine 05/28/20 09/06/22 [facility], Pcp [address] [place] [address] PCP - General Internal Medicine 09/07/22 documented as of this encounter
--- OUTSIDE RECORDS SUMMARY | 2024-07-29 11:38 | XMS_ITS | Encounter Summary ---
Author Organization [employer] [facility] Address [address] [place] [address] Care Team Providers Care Ropeman Name Role Phone Teena Stevens MD Primary Care Provider [phone] [facility], Pcp Primary Care Provider Unavailabl e Encounter Details Date Type Department Care Team Description 09/21/2021 Research Environmental Scientist Report Medical Records [address] [place] [address] [address] Social History Tobacco Use Types Packs/Day Years [...] on filedocumented in this encounter Care Teams Ropeman Relationship Specialty Start Date End Date Teena Stevens MD [address] [place] [address] PCP - General Internal Medicine 05/28/20 09/06/22 [address], Pcp [address] [place] [address] PCP - General Internal Medicine 09/07/22 documented as of this encounter
--- OUTSIDE RECORDS SUMMARY | 2024-07-29 11:39 | XMS_ITS | Encounter Summary ---
Author [facility] Address [address] [place] [address] Care Team Providers Care Technical Delivery Manager Name Role Phone Beverley Dillard MD Primary Care Provider Teena Dumont MD Primary Care Provider [phone] [facility], Pcp Primary Care Provider [facility] e Encounter Details Date Type Department Care Team Description 08/29/2017 Desk Pen Set Assembler Report Medical Records [address] [place] [address] Angella Bush Social History Tobacco Use Types Packs/Day Years [...] on filedocumented in this encounter Care Teams Technical Delivery Manager Relationship Specialty Start Date End Date Beverley Dillard MD PCP - General Internal Medicine 04/16/15 05/27/20 Teena Stevens MD [address] [place] [address] PCP - General Internal Medicine 05/28/20 09/06/22 [facility], Pcp [address] [place] [address] PCP - General Internal Medicine 09/07/22 documented as of this encounter
--- OUTSIDE RECORDS SUMMARY | 2024-07-29 11:39 | XMS_ITS | Encounter Summary ---
Author [facility] Address [address] [place] [address] Care Team Providers Care Ophthalmic Assistant Name Role Phone Beverley Dillard MD Primary Care Provider Teena Dumont MD Primary Care Provider [phone] [facility], Pcp Primary Care Provider [facility] e Encounter Details Date Type Department Care Team Description 10/16/2016 Dean Of Men Report Medical Records [address] [place] [address] Betzy Redmond Social History Tobacco Use Types [...] on filedocumented in this encounter Care Teams Ophthalmic Assistant Relationship Specialty Start Date End Date Beverley Dillard MD PCP - General Internal Medicine 04/16/15 05/27/20 Teena Stevens MD [address] [place] [address] PCP - General Internal Medicine 05/28/20 09/06/22 [facility], Pcp [address] [place] [address] PCP - General Internal Medicine 09/07/22 documented as of this encounter
--- OUTSIDE RECORDS SUMMARY | 2024-07-29 11:39 | XMS_ITS | Encounter Summary ---
Author Organization [facility] Address [address] [place] [address] Care Team Providers Care Acetylene Cylinder Packing Mixer Name Role Phone Beverley Dillard MD Primary Care Provider Teena Dumont MD Primary Care Provider [phone] [facility], Pcp Primary Care Provider [facility] e Encounter Details Date Type Department Care Team Description 10/29/2018 Registered Nurse Cardiac Telemetry Report Medical Records [address] [place] [address] Malena Sutherland MD Social History Tobacco Use [...] on filedocumented in this encounter Care Teams Acetylene Cylinder Packing Mixer Relationship Specialty Start Date End Date Beverley Dillard MD PCP - General Internal Medicine 04/16/15 05/27/20 Teena Stevens MD [address] [place], [place] [phone] PCP - General Internal Medicine 05/28/20 09/06/22 [facility], Pcp [address] [place] [address] PCP - General Internal Medicine 09/07/22 documented as of this encounter
--- OUTSIDE RECORDS SUMMARY | 2024-07-29 11:39 | XMS_ITS | Encounter Summary ---
Author Organization [facility] Address [address] [place] [address] Care Team Providers Care Demolitionist Name Role Phone Beverley Dillard MD Primary Care Provider Teena Dumont MD Primary Care Provider [phone] [facility], Pcp Primary Care Provider Unavailabl e Reason for Referral * EXTERNAL (Urgent) - Authorized/Booked Specialty Diagnoses / Procedures Referred By Marcia gonzalez Referred To Contact Physical Therapy Procedures REFERRAL TO PHYSICAL THERAPY Beverley Dillard MD [address] [place] [address] External Phys Thrpy Referral ID Status Reason Start Date Expiration Date V isits Requested Visits Authorized SEE NOTE Authorized/B ooked 09/11/2017 12/12/2017 1 1 Reason for Visit * Reason Onset Date Comments Advertising Sales Executive Feedback 09/11/2017 [facility]- [id number] Encounter Details Date Type Department Care Team Description 09/11/2017 Telephone Medicine/Pediatrics - [address] [address] Beverley Dillard MD Advertising Sales Executive Feedback ([facility]- [id number]) Social History Tobacco Use Types Packs/Day Years [...] encounter Miscellaneous Notes * Telephone Encounter - Kamilah Calvert - 09/11/2017 12:06 PM EDT [facility] Outpatient Status [ Save Response to Batch ] Request: [id number] [facility] Trace #: [id number] Patient: TRAVON EPSTEIN Subscriber Submitter : BEVERLEY DILLARD Submitter Type: Provider Provider Role: Primary Care Physician : [id number] Provider Specialty: [id number] Health Care Event (#[id number]) Health Services Review Type: Initial Certification Status : Certified in total Emde Trace # : [id number] Service Type : Physical Medicine [facility] Visits : 16 Service Date : 09/11/2017-09/11/2018 Service Providers Provider Name ID Provider Type Specialty [facility] NPI : [id number] Performing Physical Therapist Diagnosis Code Description M79.671 PAIN IN RIGHT FOOT * Telephone Encounter - Anusha Geiger - 09/11/2017 10:58 AM EDT What insurance does the patient have today? Payor: [facility]/O FFS / Plan: HMO $25 [id number] / Product Type: HMO [id number] Effective 12/24/08: [facility] will not retro referral requests over 90 days. If request is for this please instruct patient to call the 800# on their insurance card to appeal. Do not submit a request. Referrals cannot be processed if the insurance is not accurate. If the insurance listed above in red is NO BILLING INFORMATION FOUND FOR THIS ENCOUTNER The patients correct insurance must be obtained and registered in [facility] or their referral can not be processed. Is this a retro request? NO. If yes for what date of service do you need the retro referral? N/A Who is calling to request this referral? Office If the caller is not the patient, what is their name? deann Ask the patient WHO referred them to this specialty: Patient self referred FIRST and LAST NAME of SPECIALIST PATIENT is seeing: [facility]- [id number] What specialty is this? PT DIAGNOSIS Patient is being seen for (Not a body part or a procedure): rt foot Have you seen this SPECIALIST for this PROBLEM/DX before?NO If YES, when: Have you checked REVIEW or the APPT DESK to see if this referral has already been done or has visits left? YES Is this visit:Initial Visit Address of Specialist: [address] [place] [address] Phone # of Specialist:[phone] Fax #: (if applicable):[phone] Does patient have an appointment scheduled?: YES Date of appointment- (including a retro-request): [id number] requesting 16 visits Is this appointment related to: Not MVA, WC or Surgery related documented in this encounter Plan of Treatment Not on file documented as of this encounter Visit Diagnoses Not on filedocumented in this encounter Care Teams Demolitionist Relationship Specialty Start Date End Date Beverley Dillard MD PCP - General Internal Medicine 04/16/15 05/27/20 Teena Stevens MD [address] [place] [address] PCP - General Internal Medicine 05/28/20 09/06/[address] [address] PCP - General Internal Medicine 09/07/22 documented as of this encounter
--- OUTSIDE RECORDS SUMMARY | 2024-07-29 11:39 | XMS_ITS | Encounter Summary ---
Author Organization [employer] [facility] Address [address] [place] [address] Care Team Providers Care Dental Intern Name Role Phone Beverley Dillard MD Primary Care Provider Teena Dumont MD Primary Care Provider [phone] [facility], Pcp Primary Care Provider Unavailpeacehealth [facility] e Encounter Details Date Type Department Care Team Description 01/03/2018 Release of Information Medical Records [address] [place] [address] Abstract, Provider Social History Tobacco Use Types [...] on filedocumented in this encounter Care Teams Dental Intern Relationship Specialty Start Date End Date Beverley Dillard MD PCP - General Internal Medicine 04/16/15 05/27/20 Teena Stevens MD [address] [place] [address] PCP - General Internal Medicine 05/28/20 09/06/22 [facility], Pcp [address] [place] [address] PCP - General Internal Medicine 09/07/22 documented as of this encounter
--- OUTSIDE RECORDS SUMMARY | 2024-07-29 11:39 | XMS_ITS | Encounter Summary ---
Author Organization [facility] Address [address] [place] [address] Care Team Providers Care Per Diem Rn Name Role Phone Beverley Dillard MD Primary Care Provider Teena Dumont MD Primary Care Provider [phone] [facility], Pcp Primary Care Provider Unavailabl e Encounter Details Date Type Department Care Team Description 2018 Orders Only Medical Records [address] [place] [address] Beverley Dillard MD Social History Tobacco Use [...] on filedocumented in this encounter Care Teams Per Diem Rn Relationship Specialty Start Date End Date Beverley Dillard MD PCP - General Internal Medicine 04/16/15 05/27/20 Teena Stevens MD [address] [place] [address] PCP - General Internal Medicine 05/28/20 09/06/22 [facility], Pcp [address] [place] [address] PCP - General Internal Medicine 09/07/22 documented as of this encounter
--- OUTSIDE RECORDS SUMMARY | 2024-07-29 11:39 | XMS_ITS | Encounter Summary ---
Author Organization [facility] Address [address] [place] [address] Care Team Providers Care Return Clerk Name Role Phone Beverley Dillard MD Primary Care Provider Teena Dumont MD Primary Care Provider [phone] [facility], Pcp Primary Care Provider Unavailabl e Encounter Details Date Type Department Care Team Description 07/19/2015 Stable Attendant Report Medical Records [address] [place] [address] Rehab, [facility] [address] [place] [address] Social History Tobacco Use Types Packs/Day Years [...] on filedocumented in this encounter Care Teams Return Clerk Relationship Specialty Start Date End Date Beverley Dillard MD PCP - General Internal Medicine 04/16/15 05/27/20 Teena Stevens MD [address] [place] [address] PCP - General Internal Medicine 05/28/20 09/06/22 [facility], Pcp [address] [place] [address] PCP - General Internal Medicine 09/07/22 documented as of this encounter
--- OUTSIDE RECORDS SUMMARY | 2024-07-29 11:39 | XMS_ITS | Data Portability ---
Author Organization [place] - [facility], Allergy Address [address] [address] Care Team Providers Care Project Administrative Assistant Name Role Phone HOMA MARTINEZ Primary Care Provider Assessment No assessment recorded. 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 Other disorder s followin g mastoide ctomy, left ear; Note: Date Diagnose d: 8 4:59 PM (H95.192 ) Not Available [facility] 4 03:16:23 Conducti ve hearing loss 33985563 Active 2017 Conducti ve hearing loss, unilater al, left ear, with unrestri cted hearing on the contrala teral side; Note: Changed from H90.A12 to H90.12 ( 018 12:09 PM) , Date Diagnose d: 01/11/20 18 11:57 AM (H90.42) Not Available [facility] 4 03:[facility]24 Benign paroxysm al position al vertigo 904655699 Active 2022 Benign paroxysm al vertigo, left ear; Note: Date Diagnose d: 1/24/202 3 9:55 AM (H81.12) Not Available [facility] 4 03:16:23 Otorrhea of left ear [id number] 97137 Completed 201710/26/2023 Otorrhea , left ear; Note: Date Diagnose d: 8 5:00 PM (H92.12) Not Available [facility] 4 03:16:24 Bleeding from nose 109919440 Active 2021 Epistaxi s; Note: Date Diagnose d: 05/04/2021 10:53 AM (R04.0) Not Available [facility] 4 03:16:23 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 Procedures Surgical History Date Name Laterality Status Provider Name and Address Organization Details Recorded Time 4 Debridement of Mastoid Cavity left completed RICHARDSON SAAB MD [address] [place] [address], [phone], [facility] 01/06/2024 20:17:46 Imaging Results None recorded. Procedure Notes None recorded. Medical Equipment None Reported. Allergies Allergen ID Allergen Name Allergen Category Reaction Reaction Severity Criticality Documentation Date Start Date Code Code System Note Provider Name and Address Organization Details Recorded Time 074221 erythromy elizabeth ethylsucc inate medicatio n nausea Not available Not available 08/07/2023 4056 RxNorm React ion: nause a;; Not Available [facility] 4 01:08:21 476453 oxycodone medicatio n nausea Not available Not available 08/07/2023 7804 RxNorm React ion: nause a;; Not Available [facility] 4 01:08:21 016961 penicilli n V potassium medicatio n other Not available Not available 08/07/202333022 5 RxNorm React ion: unkno wn, unspe cifie d;; Not Available [facility] 4 01:08:22 941504 egg yolk (chicken) allergeni c extract food,medi cation diarrhea Not available Not available 08/07/2023 29377 0 RxNorm React ion: other react ion, Diarr hea; Not Available [facility] 4 01:08:23 555032 Macrobid medicatio n Not available Not available Not available 08/07/2023 34872 1 RxNorm React ion: other react ion, fluli ke sympt oms; Not Available [facility] 4 01:08:24 Medications Name Sig Start Date Stop Date Status Note LastModified by Organization Details LastModified Time atorvasta tin 40 mg tablet 01/07 completed Medicati on ID: [id number] B rand Name: atorvast atin Sen d [...] mg capsule 2023 active Medicati on ID: [id number] B rand Name: loperami de Send Method: [...] mg tablet 05/14 completed Medicati on ID: [id number] D uration Value: 3 Reason: () Brand [...] left ear 01/07 completed Medicati on ID: [id number] D uration Value: 10 Prescri bed By [...] tablet 01/24 /2023 completed Medicati on ID: [id number] B rand Name: dicyclom ine Send Method: E-Prescr ibed Sub s Allowed: subs OK Speci al Instruct ion: TAKE 1 TABLET BY MOUTH EVERY 6 HOURS Me dication GenericN summer: dicyclom ine Not Available Not Available Not Available metformin 1,000 mg tablet 04/18 completed Medicati on ID: [id number] B rand Name: metformi n Send Method: E-Prescr ibed Sub s Allowed: subs OK Speci al Instruct ion: TAKE 1 TABLET BY MOUTH TWICE DAILY WITH MEALS Me dication GenericN usmmer: metformi n Not Available Not Available Not Available lisinopri l 10 mg tablet 04/18 completed Medicati on ID: [id number] B rand Name: lisinopr il Send Method: [...] 24 hr 09/15 completed Medicati on ID: [id number] D uration Value: 30 Brand Name: oxybutyn in chloride Send Method: E-Prescr ibed Sub s Allowed: subs OK Medic ationGen ericName : oxybutyn in chloride Not Available Not Available Not Available gabapenti n 300 mg capsule TAKE 1 CAPSULE BY MOUTH TWICE DAILY active Not Available Not Available No t Available lisinopri l 5 mg tablet 09/15 completed Medicati on ID: 408146 D uration Value: 90 Brand Name: lisinopr [...] mg tablet 05/14 completed Medicati on ID: [id number] D uration Value: 6 Reason: () Brand [...] ating tablet 09/15 completed Medicati on ID: [id number] D uration Value: 7 Brand Name: dalton [...] 4 drop 01/07 completed Medicati on ID: [id number] D uration Value: 14 Prescri bed By Name: Darby Irizarry nd Name: TobraDex Send Method: E-Prescr ibed Sub s Allowed: subs OK Specshauna al Instruct ion: apply to affected ear(s) Osiris Anderson Name: TobraDex Not Available Not Available Not Available Premarin 0.625 mg/gram vaginal cream 09/15 completed Medicati on ID: [id number] D uration Value: 30 Brand Name: Premarin Send Method: E-Prescr ibed Sub s Allowed: subs OK Medic ationGen ericName : Premarin Not Available Not Available Not Available BD Ultra-Fin e Mini Pen Needle 31 gauge x 3/16 04/18 completed Medicati on ID: [id number] B rand Name: BD Ultra-Fi ne Mini [...] subcutane ous 04/18 completed Medicati on ID: [id number] B rand Name: Basaglar KwikPen U-100 Insulin [...] Details Last Updated DateTime 01/08/2024 151.13 cm 35422.75 g Desiree Loredo [place] - [facility] 01/08/2024 08:36:15 Social History None recorded. Functional Status None recorded. Mental Status None recorded. Family History Nothing Reported. Medical History Condition Response Diabetes Y Migraines Y Hypertension Y High Cholesterol Y Gynecological HistoryNo gynecological history recorded. Obstetrics History GPAL:G 0 P 0 0 0 0 Past Encounters Encounter ID Performer Location Encounter Start Date Encounter Closed Date Diagnosis/Indication Diagnosis SNOMED-CT Code Diagnosis ICD10 Code Diagnosis Note [id number] RICHARDSON SAAB MD [facility] [address] [address] 01/08/2024 08:23:43 01/08/2024 08:45:28 Postmastoidectomy complication 92090593 H95.192 The left canal wall down mastoidect karen cavity was cleaned of accumulate d squamous debris. No signs of acute or chronic inflammati on. Recommend continuing yearly debridemen t. Conductive hearing loss 49704867 H90.12 Patient will continue to follow-up with the audiology group for hearing aid maintenanc e. Benign par oxysmal positional vertigo 921809075 H81.12 Currently asymptomat ic with regards to [...] Chilel Member ID Guarantor Name 01/08/2024 1 [facility] [id number] D Guillermo Car [id number] Cody Car Notes Date Note Type [...] to positionally induced vertigo. RICHARDSON SAAB MD [address] [place] [address], [phone], [facility] - [facility] 01/08/2024 08:45:14 OBGyn Episode No OBEpisode recorded.
--- OUTSIDE RECORDS SUMMARY | 2024-07-29 11:39 | XMS_ITS | Patient Health Record ---
Author Organization [facility] Address [address] [place] [address] Support Name Relationship Address Phone TRAVON EPSTEIN Guarantor Unknown [phone] Reason For Referral No Information Medications Medication SIG (Take, Route, Fr equency, Duration) Notes Start Date End Date Status Pravachol 20MG 1 ORAL daily for -3 [facility] 11/08/2011 Active Lisinopril 5MG 1 ORAL daily for 3 [facility] 11/08/2011 Active metFORMIN HCl 1GM 1 ORAL twice daily for -3 [facility] 2011 Active glyBURIDE 2.5MG 1 ORAL EVERY MORNING for -3 [facility] 2011 Active Immunizations Vaccine Route Administration Date Status Comme nts Influenza, live, intranasal Intramuscular 08/09/2011 Pendi ng Tdap Intramuscular 08/09/2011 Pending Tdap Unknown 08/23/2011 Pending Problems Problem Type SNOMED Code ICD Code Onset Dates Problem Status W/U Status Risk Notes Problem Type II diabetes mellitus without complication (482507174) Diabetes mellitus without mention of complication, type II or unspecified type, not stated as uncontrolled (250.00) Active confirmed Major Problem Hyperlipidemia (21888814) Other and unspecified hyperlipidemia (272.4) Active confirmed Major Problem Essential hypertension (64243140) Unspecified essential hypertension (401.9) Active confirmed Major Problem Postmenopausal bleeding (60126353) Postmenopausal bleeding (627.1) Active confirmed Diag Problem Menopausal symptom (45705788) Symptomatic menopausal or female climacteric states (627.2) Active confirmed Diag Problem Insomnia (967932662) Insomnia, unspecified (780.52) Active confirmed Diag Problem General examination of patient (216327648) Routine general medical examination at health care facility (V70.0) Active confirmed Diag Problem Gynecological examination normal (507987563784564) Routine gynecological examination (V72.31) Active confirmed Diag Problem Dietary management surveillance (562679191) Dietary surveillance and counseling (V65.3) Active confirmed Diag Problem Counseling (585836183) Counseling NOS (V65.40) Active confirmed Diag Problem Exercises teaching, guidance, and counseling (400728702) Exercise counseling (V65.41) Active confirmed Diag Plan Of Treatment No Information Insurance Providers Payer Name Payer Address Payer Phone Subscriber Number Group Number Insured Name Patient Relationship to Insured Coverage Start Date Coverage End Date [employer] [address] [place] [address] [id number] TRAVON EPSTEIN Self - patient is the insured
--- OUTSIDE RECORDS SUMMARY | 2024-07-29 11:39 | XMS_ITS | Encounter Summary ---
Author Organization [facility] Address [address] [place] [address] Care Team Providers Care Joint Supervisor Name Role Phone Beverley Dillard MD Primary Care Provider Teena [place]ont MD Primary Care Provider [phone] [facility], Pcp [facility] En[facility] Details Date Type Department Care Team Description 05/30/2017 Automation/Controls Manager Report Medical Records [address] [place] [id number] Yvon Kowalski MD Social History Tobacco Use [...] on filedocumented in this encounter Care Teams Joint Supervisor Relationship Specialty Start Date End Date Beverley Dillard MD PCP - General Internal Medicine 04/16/15 05/27/20 Teena Stevens MD [address] [place], [place] [id number] PCP - General Internal Medicine 05/28/20 09/06/22 [facility], Pcp [address] [place] [id number] PCP - General Internal Medicine 09/07/22 documented as of this encounter
[2024-07-29 12:00] LABS: Cholesterol 100 mg/dL (<200); HDL Cholesterol 42 mg/dL (>40); Iron 61 mcg/dL (30-160); LDL Cholesterol Calculated 43 mg/dL (<100); Percent Iron Saturation 24 % (15-50); Total Iron Binding Capacity 253 mcg/dL (228-428); Triglycerides 76 mg/dL (<150); Unsaturated Iron Binding 192 ug/dL
[2024-07-29 21:14] LABS: Ferritin 45 ng/mL (10-250)
== END 2024-07-29 10:11 | disposition home or self-care (01) ==
LOC: HO.WFDLDS 10:10
PROVIDERS: Referring Provider Physician Assistant Medical; Visit Provider Internal Medicine
DX: D64.9 Anemia, unspecified (principal); E11.59 Type 2 diabetes mellitus with other circulatory complications
CPT/HCPCS: 36415; 80061; 82728; 83540

== ENCOUNTER 2024-07-31 09:10 | Outpatient (AMB) | payer OTHER, SELFPAY ==
--- NOTE | 2024-07-31 09:16 | A.OFFPC_ITS ---
Vital Signs 07/31/24 09:23 Height 4 ft 11 in Weight 112 lb 4 oz BMI 22.7 BP 116/62 Blood Pressure Location Rt brachial Position Sitting Pulse 92 Pulse Source Pulse Oximeter Temp 98.1 F Temp Source Temporal Artery Scan Pulse Oximetry (%) 100 Oxygen Delivery Method Room Air Intake Visit Reasons: Type II diabetes Intake Note: Guillermo presents in the office today for a diabetes check in. Allergies nitrofurantoin [From Macrobid] Allergy (Mild, Verified 07/31/24 09:18) fever oxycodone [From Percocet] Allergy (Mild, Verified 07/31/24 09:18) Nausea sulfamethoxazole [From Bactrim] Allergy (Mild, Verified 07/31/24 09:18) face swelling trimethoprim [From Bactrim] Allergy (Mild, Verified 07/31/24 09:18) face swelling penicillin G Allergy (Verified 07/31/24 09:18) hives Tobacco use date assessed: 07/31/24 Fall risk assessment: No Falls in past year Last assessed Fall Risk: 07/31/24 Dental Screening Dental Screen Date: 07/31/24 Did you have a dental visit in the last 12 months?: Yes Did you have a dental problem in the last 6 months where you did not have access to dental care?: No Was dental information given to patient?: Patient has dentist HPI HPI Comments History of Present Illness Details This is a 68-year-old female with a past medical history of type 2 diabetes, 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 Chronic hip pain, back pain and osteoarthritis of the hands- She's had inject ions and PT. She is taking tramadol and gabapentin as needed. Rheumatoid factor negative, NADEEM mildly positive, and she saw Rheumatology, and no further workup was indicated as they did not suspect she has underlying autoimmune process. Left 3rd and 4th digits were injected couple of months ago, and she is going to need surgery on these fingers. Type 2 diabetes-taking metformin ER 1000 mg twice daily and Tresiba 8 units daily and Mounjaro 2.5 mg weekly. Her hemoglobin A1c is 6.3%. She lost 6 pounds which she attributes to recent stress. Her daughter had to have a hysterectomy due to a mass, but thankfully it came back benign. Past medications: Trulicity caused acid reflux and Ozempic cause fatigue and stomach upset. Fasting sugars are 109-128. Average glucose x 90 days 138. Denies hypoglycemia. Cardiovascular-She had an ST elevation LA 12/08/2022. Status post cardiac catheterization with CANDELARIA placed to the RCA. There was 75% stenosis of the left circumflex. There were minimal luminal irregularities in the LAD. Medications include amlodipine, baby aspirin, atorvastatin, carvedilol, lisinopril. Brilinta changed to Plavix at her recent cardiology follow up due to bruising. She does still bruise easily. She had residual anginal symptoms. She had a cath on 11/19/23 which showed RCA stent wasn't working properly. She denies CP and SOB since it was revised. Right renal clear cell carcinoma-followed by Dr. Sutherland. Surgeon is Dr. Baldwin at [facility]. She underwent partial nephrectomy 12/16/2021. No known recurrence. The patient has mild normocytic anemia. Iron studies and ferritin normal. Her B12 is on the low normal side at 369. Folate normal. No increased fatigue or blood in stools. She had a colonoscopy 01/18/[address] Ceballos. There was 1 sessile polyp, diverticula and internal hemorrhoids. She was advised to repeat this in 5 years. She denies abdominal pain, change in stools, blood in stools. For several weeks she has a dry, cracking rash on the tips of her fingers on the right hand. She tried tvuc-qro-dtypxyr products without success. ROS: Constitutional: No fevers, chills, night sweats or unexplained weight loss. Respiratory: No shortness of breath, cough, wheezing or sputum production. Cardiovascular: No chest pain, chest pressure or chest discomfort. No palpitations. Gastrointestinal: No hematemesis, no blood in stools, nausea, vomiting, abdominal pain or diarrhea. Neurologic: No headache, dizziness, syncope Physical exam: Constitutional: Alert, in no distress. Neck: Supple, Full range of motion. No lymphadenopathy. No palpable thyroid masses. Abdomen: Soft, nontender, no rebound or guarding, no masses. Respiratory: Clear to auscultation. Cardiovascular: S1 S2 regular. No murmurs. Extremities: Warm and well perfused. No clubbing, cyanosis or edema. Skin: Very small dry fissures on the tips of the fingers of the right hand with some scaly skin. [facility] Medical History (Updated 08/01/24 @ 16:58 by KELSIE Lundy) Skin rash Osteoarthritis involving multiple joints on both sides of body Positive NADEEM (antinuclear antibody) Mild anemia Colon polyp Pure hypercholesterolemia Essential hypertension History of kidney cancer Clear cell carcinoma of right kidney Abnormal mammogram Osteopenia Bone spur Vertigo Urinary incontinence Recurrent UTI Osteoarthritis Obesity, Class I, BMI 30-34.9 Migraine Left hand pain Hypertensive disorder Hypercholesteremia Diarrhea COVID-19 Clear cell renal cell carcinoma Chronic headache Hyperlipidemia CAD (coronary artery disease) ST elevation myocardial infarction (STEMI) of inferior wall Surgical History (Updated 06/23/24 @ 11:40 by RICKEY Hurst) Hx of cardiac cath History of shoulder surgery History of carpal tunnel surgery of right wrist S/P foot surgery, right H/O partial nephrectomy H/O removal of cyst Finger joint replacement of right hand S/P cardiac catheterization Family History Brother Heart disease Alcohol abuse Cancer Mother Heart disease Hypercholesterolemia Hypertension Daughter Hypercholesterolemia Social History (Updated 07/31/24 @ 09:22 by Nathalia Stone MA) Alcohol intake: never Patient Tobacco Use Status: Former Tobacco user Cigarettes Per Day: 0.25 Years Smoked: Unknown e-Cigarette/Vaping Use: Never Used Second Hand Smoke Exposure: Yes service: No Current occupational status: employed and retired Current occupation: [employer] at [employer] Current occupational exposures/hazards: No Questionnaire PHQ-9 Over the last 2 weeks, how often have you been bothered by any of the following problems? 1. Little interest or pleasure in doing things: not at all 2. Feeling down, depressed, or hopeless: not at all 3. Trouble falling or staying asleep, or sleeping too much: not at all 4. Feeling tired or having little energy: not at all 5. Poor appetite or overeating: not at all 6. Feeling bad about yourself - or that you are a failure or have let yourself or your family down: not at all 7. Trouble concentrating on things, such as reading the newspaper or watching television: not at all 8. Moving or speaking so slowly that other people could have noticed. Or the opposite - being so fidgety or restless that you have been moving around a lot more than usual: not at all 9. Thoughts that you would be better off or of hurting yourself in some way: not at all Total score: 0 Depression Screening Interpretation: Negative Depression Screening Done: Yes 73380 - PHQ-9 Billing: Patient declined-do not bill Source: Developed by Drs. Maury Smith, Parmjit Granger and colleagues, with an educational kristen from [employer]. Thrive Questionnaire Date Thrive assessed: 07/31/24 I am a: Patient What is your living situation today?: I have a steady place to live Within the past 12 months, did the food you bought not last and you didn't have the money to get more?: Never true Within the past 12 months, did you worry whether your food would run out before you got money to buy more?: Never true Do you have trouble paying for medicines?: No Do you have trouble getting transportation to medical appointments?: No Do you have trouble paying your heating and electricity bill?: No Do you have trouble taking care of your child, family member or friend?: No Do you have trouble with day-to-day activities such as bathing, preparing meals, shopping, managing finances, etc.?: No Are you currently unemployed and looking for a job?: No Are you interested in more education?: No Please select the resources that you would like help with: None Currently or been in a relationship where the following occur: No concerns reported THRIVE Score: 0 AUDIT C Alcohol Use Questionnaire (AUDIT-C) 1. How often do you have a drink containing alcohol?: Never Total Score: 0 Score Reviewed/Action Taken: No PIYUSH-7 AMB Questionnaire PIYUSH-7 Date PIYUSH - 7 assessed: 04/28/24 Source: Developed by Drs. Maury Smith, Parmjit Granger and colleagues, with an educational kristen from [employer]. Physical exam (Primary Care) Vital Signs: Last Vital Signs Temp 98.1 F 07/31/24 09:23 Pulse 92 07/31/24 09:23 BP 116/62 07/31/24 09:23 Pulse Ox 100 07/31/24 09:23 Oxygen Delivery Method Room Air 07/31/24 09:23 BMI result Body Mass Index 22.7 Tobacco/Smoking Status: Tobacco use Status Tobacco use date assessed 07/31/24 07/31/24 09:22 Patient Tobacco Use Status Former Tobacco user 07/31/24 09:22 e-Cigarette/Vaping Use Never Used 07/31/24 09:22 PHQ-9: PHQ-9 Score PHQ-9: Total score 0 07/31/24 09:32 Depression Screening Interpretation: Negative Thrive Assessment: Date of Thrive Assessment Date Thrive assessed 07/31/24 07/31/24 09:26 Currently or been in a relationship where the following occur: No concerns reported Results AMB Hemoglobin A1c AMB Hemoglobin A1c 6.3 % Last Edit by Nathalia Stone MA on 07/31/24 09:41 Results Reviewed Results Reviewed: Laboratory Last Values Hgb A1c (Clinic) 6.3 % (4.0-6.0) H 07/31/24 09:34 Coding Level of Care Code Est Pt Level 4 (61949) Complex EM visit Add On G2211 Diagnoses Osteoarthritis involving multiple joints on both sides of body M15.9 Sacroiliac joint dysfunction of both sides M53.3 Colon polyp K63.5 Pure hypercholesterolemia E78.00 Clear cell carcinoma of right kidney C64.1 Essential hypertension I10 Type 2 diabetes mellitus with cardiac complication E11.59 Coronary artery disease of [place] artery of [place] heart with stable angina pectoris I25.118 Associated angina: with stable angina Coronary Disease-Associated Artery/Lesion type: [place] artery [place] vs. transplanted heart: [place] heart Skin rash R21 Mild anemia D64.9 Assessment & Plan Assessment & Plan (1) Osteoarthritis involving multiple joints on both sides of body: Code(s): M15.9 - Polyosteoarthritis, unspecified Category: Medical (2) Sacroiliac joint dysfunction of both sides: Code(s): M53.3 - Sacrococcygeal disorders, not elsewhere classified Category: Medical (3) Colon polyp: Comment: 01/18/21 colonoscopy w/ Dr. Ceballos. Single sessile polyps, diverticula, internal hemorrhoids. Repeat colonoscopy recommended in 5 years. Code(s): K63.5 - Polyp of colon Category: Medical (4) Pure hypercholesterolemia: Code(s): E78.00 - Pure hypercholesterolemia, unspecified Category: Medical (5) Clear cell carcinoma of right kidney: Code(s): C64.1 - Malignant neoplasm of right kidney, except renal pelvis Category: Medical (6) Essential hypertension: Code(s): I10 - Essential (primary) hypertension Category: Medical (7) Type 2 diabetes mellitus with cardiac complication: Code(s): E11.59 - Type 2 diabetes mellitus with other circulatory complications Category: Medical (8) CAD (coronary artery disease): Code(s): I25.10 - Atherosclerotic heart disease of [place] coronary artery without angina pectoris Category: Medical Qualifiers: Associated angina: with stable angina Coronary Disease-Associated Artery/Lesion type: [place] artery [place] vs. transplanted heart: [place] heart Qualified Code(s): I25.118 - Atherosclerotic heart disease of [place] coronary artery with other forms of angina pectoris (9) Skin rash: Code(s): R21 - Rash and other nonspecific skin eruption Category: Medical (10) Mild anemia: Code(s): D64.9 - Anemia, unspecified Category: Medical Plan Lumbar spondylosis Patient seen by physiatry and Orthopedics. Continue gabapentin and tramadol as needed. Reminded not to drive, operate heavy machinery or drink alcohol with these medications. Reminded they can cause sedation and dizziness. Hyperlipidemia Continue current regimen. She is also eating a very high protein, high fiber and low carbohydrate diet and lost weight. Hypertension Controlled. Continue current regimen. History of right kidney cancer No known recurrence. Followed by Dr. Sutherland. Positive NADEEM No need for further evaluation per Rheumatology. Coronary artery disease Continue current management per Cardiology. Type 2 diabetes Continue metformin extended release 1000 mg twice daily. Continue Tresiba 8 units daily. Continue Mounjaro 2.5 mg weekly. Finger rash Apply Lotrisone twice daily. Call if symptoms do not resolve. Mild anemia This is not worsening. Colonoscopy is up-to-date. B12 is low normal. We will try supplementing B12 and then recheck labs. Follow up in four weeks for diabetes med check. Orders: Orders AMB Hemoglobin A1c 07/31/24 E11.59 - Type 2 diabetes mellitus with other circulatory complications Medications: New blood-glucose,ticket printer and tagger,cont (DealdriveStyle Alcides 3 [place]) Use daily to monitor blood glucose levels continuously. 1 ea 0RF blood-glucose sensor (FreeStyle Alcides 3 Plus Sensor device) Apply 1 new sensor every 15 days as directed to monitor blood glucose continuously. 2 ea 11RF E16.2 - Hypoglycemia, unspecified, R73.03 - Prediabetes clotrimazole-betamethasone 1-0.05 % 1 appl topical BID 10 days 15 grams 0RF Refilled tirzepatide (Mounjaro) for 4 weeks 2.5 mg (0.5 mL) subcut QWEEK 2 mL 11RF
[2024-07-31 09:23] VITALS: BP 116/62; PULSE 92; TEMP 36.7; O2SAT 100; BMI 22.7
--- OUTSIDE RECORDS SUMMARY | 2024-07-31 09:42 | XMS_ITS | Data Portability ---
Author Organization [place] - [facility], Allergy Address [address] [address] Care Team Providers Care Wellness Consultant Name Role Phone HOMA MARTINEZ Primary Care Provider [phone] Assessment No assessment recorded. Plan of Treatment [...] Recorded Time Postmast oidectom y complica tion 50984448 Active 2017 Other disorder s followin g mastoide ctomy, left ear; Note: Date Diagnose d: 8 4:59 PM (H95.192 ) Not Available [facility] 4 03:16:23 Conducti ve hearing loss 31812062 Active 2017 Conducti ve hearing loss, unilater al, left ear, with unrestri cted hearing on the contrala teral side; Note: Changed from H90.A12 to H90.12 ( 018 12:09 PM) , Date Diagnose d: 01/11/20 18 11:57 AM (H90.42) Not Available [facility] 4 03:16:24 Benign paroxysm al position al vertigo 662970274 Active 2022 Benign paroxysm al vertigo, left ear; Note: Date Diagnose d: 3 9:55 AM (H81.12) Not Available [facility] 4 03:16:23 Otorrhea of left ear 04279143157 71580 Completed 201710/26/2023 Otorrhea , left ear; Note: Date Diagnose d: 8 5:00 PM (H92.12) Not Available 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 Procedures Surgical History Date Name Laterality Status Provider Name and Address Organization Details Recorded Time 4 Debridement of Mastoid Cavity left completed RICHARDSON SAAB MD [address] [place] [address], [phone], [facility] 01/06/2024 20:17:46 Imaging Results None recorded. Procedure Notes None recorded. Medical Equipment None Reported. Allergies Allergen ID Allergen Name Allergen Category Reaction Reaction Severity Criticality Documentation Date Start Date Code Code System Note Provider Name and Address Organization Details Recorded Time 309286 erythromy elizabeth ethylsucc inate medicatio n nausea Not available Not available 08/07/2023 4056 RxNorm React ion: nause a;; Not Available [facility] 4 01:08:21 231722 oxycodone medicatio n nausea Not available Not available 08/07/2023 7804 RxNorm React ion: nause a;; Not Available [facility] 4 01:08:21 700160 penicilli n V potassium medicatio n other Not available Not available 08/07/202335649 5 RxNorm React ion: unkno wn, unspe cifie d;; Not Available [facility] 4 01:08:22 769157 egg yolk (chicken) allergeni c extract food,medi cation diarrhea Not available Not available 08/07/2023 72815 0 RxNorm React ion: other react ion, Diarr hea; Not Available [facility] 4 01:08:23 985404 Macrobid medicatio n Not available Not available Not available 08/07/2023 37964 1 RxNorm React ion: other react ion, fluli ke sympt oms; Not Available [facility] 4 01:08:24 Medications Name Sig Start Date Stop Date Status Note LastModified by Organization Details LastModified Time atorvasta tin 40 mg tablet 01/07 completed Medicati on ID: [id number] B rand Name: atorvast atin Sen d [...] mg capsule 2023 active Medicati on ID: [id number] B rand Name: loperami de Send Method: [...] mg tablet 05/14 completed Medicati on ID: [id number] D uration Value: 3 Reason: () Brand [...] left ear 01/07 completed Medicati on ID: [id number] D uration Value: 10 Prescri bed By [...] tablet 01/24 /2023 completed Medicati on ID: [id number] B rand Name: dicyclom ine Send Method: E-Prescr ibed Sub s Allowed: subs OK Speci al Instruct ion: TAKE 1 TABLET BY MOUTH EVERY 6 HOURS Me dication GenericN summer: dicyclom ine Not Available Not Available Not Available metformin 1,000 mg tablet 04/18 completed Medicati on ID: [id number] B rand Name: metformi n Send Method: E-Prescr ibed Sub s Allowed: subs OK Speci al Instruct ion: TAKE 1 TABLET BY MOUTH TWICE DAILY WITH MEALS Me dication GenericN summer: metformi n Not Available Not Available Not Available lisinopri l 10 mg tablet 04/18 completed Medicati on ID: [id number] B rand Name: lisinopr il Send Method: [...] 24 hr 09/15 completed Medicati on ID: [id number] D uration Value: 30 Brand Name: oxybutyn in chloride Send Method: E-Prescr ibed Sub s Allowed: subs OK Medic ationGen ericName : oxybutyn in chloride Not Available Not Available Not Available gabapenti n 300 mg capsule TAKE 1 CAPSULE BY MOUTH TWICE DAILY active Not Available Not Available No t Available lisinopri l 5 mg tablet 09/15 completed Medicati on ID: [id number] D uration Value: 90 Brand Name: lisinopr [...] mg tablet 05/14 completed Medicati on ID: [id number] D uration Value: 6 Reason: () Brand [...] ating tablet 09/15 completed Medicati on ID: [id number] D uration Value: 7 Brand Name: dalton [...] 4 drop 01/07 completed Medicati on ID: [id number] D uration Value: 14 Prescri bed By Name: Darby Irizarry nd Name: TobraDex Send Method: E-Prescr ibed Sub s Allowed: subs OK Specshauna al Instruct ion: apply to affected ear(s) Osiris Anderson Name: TobraDex Not Available Not Available Not Available Premarin 0.625 mg/gram vaginal cream 09/15 completed Medicati on ID: [id number] D uration Value: 30 Brand Name: Premarin Send Method: E-Prescr ibed Sub s Allowed: subs OK Medic ationGen ericName : Premarin Not Available Not Available Not Available BD Ultra-Fin e Mini Pen Needle 31 gauge x 3/16 04/18 completed Medicati on ID: [id number] B rand Name: BD Ultra-Fi ne Mini [...] subcutane ous 04/18 completed Medicati on ID: [id number] B rand Name: Basaglar KwikPen U-100 Insulin [...] Details Last Updated DateTime 01/08/2024 151.13 cm 16615.75 g Desiree Loredo [place] - [facility] 01/08/2024 08:36:15 Social History None recorded. [...] SNOMED-CT Code Diagnosis ICD10 Code Diagnosis Note [id number] RICHARDSON SAAB MD [facility] [address] [address] 01/08/2024 08:23:43 01/08/2024 08:45:28 Postmastoidectomy complication 12896734 H95.192 The left canal wall down mastoidect karen cavity was cleaned of accumulate d squamous debris. No signs of acute or chronic inflammati on. Recommend continuing yearly debridemen t. Conductive hearing loss 71642110 H90.12 Patient will continue to follow-up with the audiology group for hearing aid maintenanc e. Benign par oxysmal positional vertigo 842357738 H81.12 Currently asymptomat ic with regards to [...] Recorded Advance Directives Directive None Recorded Payers Insurance Date Sequence Insurance Name Policy Number Policy Chilel Covered Member ID Chilel Member ID Guarantor Name 01/08/2024 1 [facility] [id number] D Guillermo Car [id number] Cody Car Notes Date Note Type [...] to positionally induced vertigo. RICHARDSON SAAB MD [address] [place] [address], [phone], [facility] - [facility] 01/08/2024 08:45:14 OBGyn Episode No OBEpisode recorded.
== END 2024-07-31 09:52 | disposition home or self-care (01) ==
LOC: HO.HMCFM 09:11
PROVIDERS: PCP Physician Assistant Medical; Visit Provider Physician Assistant Medical
DX: E11.59 Type 2 diabetes mellitus with other circulatory complications (principal)

== ENCOUNTER → 2024-07-31 09:10 | Outpatient (BNVA) | payer OTHER, SELFPAY | PROVIDERS: PCP Physician Assistant Medical; Visit Provider Physician Assistant Medical | DX: E11.59 Type 2 diabetes mellitus with other circulatory complications (principal); I25.118 Atherosclerotic heart disease of native coronary artery with other forms of angina pectoris; M15.9 Polyosteoarthritis, unspecified; M53.3 Sacrococcygeal disorders, not elsewhere classified; E78.00 Pure hypercholesterolemia, unspecified; C64.1 Malignant neoplasm of right kidney, except renal pelvis; I10 Essential (primary) hypertension; R21 Rash and other nonspecific skin eruption; D64.9 Anemia, unspecified; Z79.4 Long term (current) use of insulin; Z79.84 Long term (current) use of oral hypoglycemic drugs; Z85.528 Personal history of other malignant neoplasm of kidney; Z86.0101 Personal history of adenomatous and serrated colon polyps | CPT/HCPCS: 83036; 96127 ==

== ENCOUNTER 2024-07-31 09:58 | Outpatient (REF) | payer OTHER, SELFPAY ==
--- OUTSIDE RECORDS SUMMARY | 2024-07-31 10:58 | XMS_ITS | Patient Health Record ---
Author Organization [facility] Address [address] [place] [address] Support Name Relationship Address Phone TRAVON EPSTEIN Guarantor Unknown [phone] Reason For Referral No Information Medications Medication SIG (Take, Route, Fr equency, Duration) Notes Start Date End Date Status Pravachol 20MG 1 ORAL daily for -3 [facility] 11/08/2011 Active Lisinopril 5MG 1 ORAL daily for 3 [facility] 11/08/2011 Active metFORMIN HCl 1GM 1 ORAL twice daily for -3 [facility] 2011 Active glyBURIDE 2.5MG 1 ORAL EVERY MORNING for -3 [facility] 2011 Active Immunizations Vaccine Route Administration Date Status Comme nts Influenza, live, intranasal Intramuscular 08/09/2011 Pendi ng Tdap Intramuscular 08/09/2011 Pending Tdap Unknown 08/23/2011 Pending Problems Problem Type SNOMED Code ICD Code Onset Dates Problem Status W/U Status Risk Notes Problem Type II diabetes mellitus without complication (623409178) Diabetes mellitus without mention of complication, type II or unspecified type, not stated as uncontrolled (250.00) Active confirmed Major Problem Hyperlipidemia (89405611) Other and unspecified hyperlipidemia (272.4) Active confirmed Major Problem Essential hypertension (69306609) Unspecified essential hypertension (401.9) Active confirmed Major Problem Postmenopausal bleeding (61385989) Postmenopausal bleeding (627.1) Active confirmed Diag Problem Menopausal symptom (90454354) Symptomatic menopausal or female climacteric states (627.2) Active confirmed Diag Problem Insomnia (009989585) Insomnia, unspecified (780.52) Active confirmed Diag Problem General examination of patient (201346845) Routine general medical examination at health care facility (V70.0) Active confirmed Diag Problem Gynecological examination normal (613619350281878) Routine gynecological examination (V72.31) Active confirmed Diag Problem Dietary management surveillance (594205861) Dietary surveillance and counseling (V65.3) Active confirmed Diag Problem Counseling (643713322) Counseling NOS (V65.40) Active confirmed Diag Problem Exercises teaching, guidance, and counseling (672403093) Exercise counseling (V65.41) Active confirmed Diag Plan Of Treatment No Information Insurance Providers Payer Name Payer Address Payer Phone Subscriber Number Group Number Insured Name Patient Relationship to Insured Coverage Start Date Coverage End Date [employer] [address] [place] [address] [id number] TRAVON EPSTEIN Self - patient is the insured
[2024-07-31 12:40] LABS: Folate 16.9 ng/mL (> or = 4.0); Vitamin B12 369 pg/mL (200-900)
== END 2024-07-31 09:59 | disposition home or self-care (01) ==
LOC: HO.WFDLDS 09:58
PROVIDERS: Visit Provider Physician Assistant Medical
DX: E11.59 Type 2 diabetes mellitus with other circulatory complications (principal); D64.9 Anemia, unspecified
CPT/HCPCS: 36415; 82607; 82746

== ENCOUNTER 2024-08-15 09:39 | Outpatient (REF) | payer OTHER, SELFPAY ==
--- OUTSIDE RECORDS SUMMARY | 2024-08-15 09:54 | XMS_ITS | Encounter Summary ---
[facility] Address [address] [place] [address] Care Team Providers Care Grinder Gear Name Role Phone Beverley Dillard MD Primary Care Provider Teena Dumont MD Primary Care Provider [phone] [facility], Pcp Primary Care Provider Unavailabl e Encounter Details Date Type Department Care Team Description 09/11/2017 Belt Sander Stone Report Medical Records [address] [place] [id number] Rehab, [facility] [address] [place] [address] Social History Tobacco Use Types Packs/Day Years [...] on filedocumented in this encounter Care Teams Grinder Gear Relationship Specialty Start Date End Date Beverley Dillard MD PCP - General Internal Medicine 04/16/15 05/27/20 Teena Stevens MD [address] [place] [id number] PCP - General Internal Medicine 05/28/20 09/06/22 [facility], Pcp [address] [place] [id number] PCP - General Internal Medicine 09/07/22 documented as of this encounter
[2024-08-15 11:19] LABS: MANUAL DIFF FLAG NO
[2024-08-15 11:29] LABS: MANUAL DIFF FLAG NO
[2024-08-15 11:36] LABS: Basophils Percent Auto 0.5 % (0-2); Eosinophils Absolute Auto 0.1 X10*3/uL (0.0-0.4); Eosinophils Percent Auto 0.8 % (0-4); Hematocrit 26.4 % (37.0-47.0); Hemoglobin 8.4 g/dl (12.0-16.0); Imm Gran Abs Auto 0.04 X10*3/uL (0.00-0.03); Imm Gran Pct Auto 0.5 % (0.0-0.4); Lymphocytes Absolute Auto 1.5 X10*3/uL (1.2-4.9); Lymphocytes Percent Auto 19.8 % (20-40); Mean Corpuscular HGB Conc 31.8 g/dl (31.0-35.0); Mean Corpuscular Hemoglobin 29.1 pg (27.0-33.0); Mean Corpuscular Volume 91.3 fL (80.0-98.0); Mean Platelet Volume 10.3 fL (9.4-12.3); Monocytes Absolute Auto 0.5 X10*3/uL (0.1-1.2); Monocytes Percent Auto 5.9 % (2-11); Neutrophils Absolute Auto 5.6 x10*3/uL (2.0-8.3); Neutrophils Percent Auto 72.5 % (45-73); Platelet Count 403 X10*3/uL (160-400); Red Blood Count 2.89 X10*6/uL (4.20-5.50); White Blood Count 7.7 X10*3/uL (4.8-10.8)
[2024-08-15 11:49] LABS: Basophils Absolute Auto 0.1 X10*3/uL (0.0-0.2); Basophils Percent Auto 0.6 % (0-2); Eosinophils Absolute Auto 0.1 X10*3/uL (0.0-0.4); Eosinophils Percent Auto 0.6 % (0-4); Hemoglobin 8.3 g/dl (12.0-16.0); Imm Gran Abs Auto 0.02 X10*3/uL (0.00-0.03); Imm Gran Pct Auto 0.3 % (0.0-0.4); Lymphocytes Absolute Auto 1.7 X10*3/uL (1.2-4.9); Lymphocytes Percent Auto 21.4 % (20-40); Mean Corpuscular HGB Conc 31.9 g/dl (31.0-35.0); Mean Corpuscular Volume 90.9 fL (80.0-98.0); Mean Platelet Volume 10.2 fL (9.4-12.3); Monocytes Absolute Auto 0.5 X10*3/uL (0.1-1.2); Monocytes Percent Auto 5.8 % (2-11); Neutrophils Absolute Auto 5.5 x10*3/uL (2.0-8.3); Neutrophils Percent Auto 71.3 % (45-73); Platelet Count 414 X10*3/uL (160-400); Red Blood Count 2.86 X10*6/uL (4.20-5.50); Red Cell Distribution Width 14.8 % (11.0-16.0); White Blood Count 7.7 X10*3/uL (4.8-10.8)
[2024-08-15 11:49] LABS: Estimated Average Glucose 126 mg/dL; Hemoglobin A1C 96.1112 umol/L; Total Hemoglobin (HGBA1C) 2270.3569 umol/L
[2024-08-15 11:53] LABS: Anion Gap 15 (12-20); Blood Urea Nitrogen 14 mg/dL (9-16); Calcium 9.3 mg/dL (8.4-10.2); Carbon Dioxide 25 mmol/L (22-29); Chloride 102 mmol/L (96-108); Estimated Glomerular Filt Rate > 60; Glucose Random 180 mg/dL (60-115); Iron 22 mcg/dL (30-160); Percent Iron Saturation 8 % (15-50); Potassium 4.4 mmol/L (3.3-5.1); Sodium 138 mmol/L (135-145); Total Iron Binding Capacity 271 mcg/dL (228-428); Unsaturated Iron Binding 249 ug/dL
[2024-08-15 12:08] LABS: Lactic Acid 3.9 mmol/L (0.5-2.0)
[2024-08-15 12:25] LABS: Ferritin 14 ng/mL (10-250)
[2024-08-15 12:45] LABS: Ferritin 19 ng/mL (10-250)
[2024-08-15 12:46] LABS: Vitamin B12 430 pg/mL (200-900)
[2024-08-15 12:54] LABS: Folate 18.2 ng/mL (> or = 4.0); Vitamin B12 421 pg/mL (200-900)
== END 2024-08-15 09:40 | disposition home or self-care (01) ==
LOC: HO.WFDLDS 09:39
PROVIDERS: PCP Physician Assistant Medical; Visit Provider Physician Assistant Medical
DX: E11.59 Type 2 diabetes mellitus with other circulatory complications (principal); Z91.89 Other specified personal risk factors, not elsewhere classified; D64.9 Anemia, unspecified
CPT/HCPCS: 36415; 80048; 82607; 82728; 82746; 83036; 83540; 83605; 85025

== ENCOUNTER 2024-08-21 08:35 | Outpatient (REF) | payer OTHER, SELFPAY ==
[2024-08-21 11:20] LABS: MANUAL DIFF FLAG NO
[2024-08-21 11:23] LABS: Basophils Absolute Auto 0.1 X10*3/uL (0.0-0.2); Basophils Percent Auto 0.5 % (0-2); Eosinophils Percent Auto 0.4 % (0-4); Hematocrit 29.3 % (37.0-47.0); Hemoglobin 9.4 g/dl (12.0-16.0); Imm Gran Abs Auto 0.02 X10*3/uL (0.00-0.03); Imm Gran Pct Auto 0.2 % (0.0-0.4); Lymphocytes Absolute Auto 1.6 X10*3/uL (1.2-4.9); Lymphocytes Percent Auto 16.5 % (20-40); Mean Corpuscular HGB Conc 32.1 g/dl (31.0-35.0); Mean Corpuscular Hemoglobin 29.1 pg (27.0-33.0); Mean Corpuscular Volume 90.7 fL (80.0-98.0); Mean Platelet Volume 9.4 fL (9.4-12.3); Monocytes Absolute Auto 0.9 X10*3/uL (0.1-1.2); Monocytes Percent Auto 9.7 % (2-11); Neutrophils Absolute Auto 6.9 x10*3/uL (2.0-8.3); Neutrophils Percent Auto 72.7 % (45-73); Platelet Count 338 X10*3/uL (160-400); Red Blood Count 3.23 X10*6/uL (4.20-5.50); Red Cell Distribution Width 14.5 % (11.0-16.0); White Blood Count 9.5 X10*3/uL (4.8-10.8)
[2024-08-21 11:43] LABS: Iron 26 mcg/dL (30-160); Percent Iron Saturation 9 % (15-50); Total Iron Binding Capacity 280 mcg/dL (228-428); Unsaturated Iron Binding 254 ug/dL
[2024-08-21 11:56] LABS: Ferritin 18 ng/mL (10-250)
[2024-08-21 12:16] LABS: Folate 16.4 ng/mL (> or = 4.0); Vitamin B12 492 pg/mL (200-900)
== END 2024-08-21 08:36 | disposition home or self-care (01) ==
LOC: HO.LAB 08:35
PROVIDERS: PCP Physician Assistant Medical; Visit Provider Physician Assistant Medical
DX: Z09 Encounter for follow-up examination after completed treatment for conditions other than malignant neoplasm (principal); E78.00 Pure hypercholesterolemia, unspecified; I10 Essential (primary) hypertension; E11.59 Type 2 diabetes mellitus with other circulatory complications; I25.118 Atherosclerotic heart disease of native coronary artery with other forms of angina pectoris; K92.2 Gastrointestinal hemorrhage, unspecified; R51.9 Headache, unspecified; R79.89 Other specified abnormal findings of blood chemistry; D64.9 Anemia, unspecified; Z85.528 Personal history of other malignant neoplasm of kidney
CPT/HCPCS: 36415; 82607; 82728; 82746; 83540; 83605; 85025; 96127

== ENCOUNTER 2024-08-21 08:35 | Outpatient (AMB) | payer OTHER, SELFPAY ==
--- NOTE | 2024-08-21 08:38 | A.OFFPC_ITS ---
Vital Signs 08/21/24 08:44 Height 4 ft 11 in Weight 109 lb BMI 22.0 BP 112/62 Blood Pressure Location Lt brachial Position Sitting Pulse 94 Pulse Source Pulse Oximeter Temp 98.6 F Temp Source Temporal Artery Scan Pulse Oximetry (%) 95 Oxygen Delivery Method Room Air Intake Visit Reasons: ED Follow-up /[facility] Intake Note: [place] presents in the office today for an ED Follow Up. Allergies nitrofurantoin [From Macrobid] Allergy (Mild, Verified 08/21/24 08:41) fever oxycodone [From Percocet] Allergy (Mild, Verified 08/21/24 08:41) Nausea sulfamethoxazole [From Bactrim] Allergy (Mild, Verified 08/21/24 08:41) face swelling trimethoprim [From Bactrim] Allergy (Mild, Verified 08/21/24 08:41) face swelling penicillin G Allergy (Verified 08/21/24 08:41) hives Medication List - Last Reconciled 08/21/24 by KELSIE Lundy amlodipine 5 mg PO DAILY aspirin (Adult Aspirin Regimen) 81 mg PO DAILY atorvastatin 80 mg PO BEDTIME blood-glucose sensor (IntaleStyle Alcides 3 Plus Sensor device) Apply 1 new sensor every 15 days as directed to monitor blood glucose continuously. blood-glucose,parks and recreation manager,cont (FreeStyle Alcides 3 [place]) Use daily to monitor blood glucose levels continuously. pkgsjpqyoz-lwyccxsnagfrl-iouu 50-325-40 mg 1 tab PO Q4H PRN carvedilol 6.25 mg PO BID clotrimazole-betamethasone 1-0.05 % 1 appl topical BID 10 days cranberry fruit 2,000 mg PO DAILY flash glucose sensor (FreeStyle Alcides 2 Sensor kit) As directed gabapentin 300 mg PO BID 90 days glucose (Dex4 Glucose Quick Dissolve) 16 grams (4 x 4 gram) PO Q15M PRN insulin degludec (Tresiba FlexTouch U-100 insulin) 8 units subcut DAILY lidocaine 5% (Lidoderm) 3 patches topical DAILY lisinopril 40 mg PO DAILY loperamide 2 mg PO Q4H PRN metformin ER 1,000 mg (2 x 500 mg) PO BID methenamine hippurate 1 g PO DAILY oxybutynin chloride ER 10 mg PO DAILY polysaccharide iron complex (Ferrex) 150 mg PO DAILY psyllium husk 1 tbsp PO DAILY tirzepatide (Mounjaro) 2.5 mg (0.5 mL) subcut QWEEK tizanidine 2 mg PO Q8H PRN tramadol 50 mg PO Q8H PRN 14 days vitamins A,C,Y-lpqg-uejjvo 4,296 mcg-226 mg-90 mg (PreserVision AREDS) 1 cap PO BID Tobacco use date assessed: 08/21/24 Fall risk assessment: 1 Fall in past year Last assessed Fall Risk: 08/21/24 Dental Screening Dental Screen Date: 08/21/24 Did you have a dental visit in the last 12 months?: Yes Did you have a dental problem in the last 6 months where you did not have access to dental care?: No Was dental information given to patient?: Patient has dentist HPI HPI Comments History of Present Illness Details This is a 68-year-old female with a past medical history of type 2 diabetes, 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 The patient was seen in the emergency department at [facility] initially on 08/07/2024. She reported bright red blood per rectum for the past 4 days and blood tinged stool. She was noted to take Plavix and aspirin. CBC demonstrated anemia (RBC 3.63, hemoglobin 10.4, hematocrit 32.5). Lactate was elevated at 2.8. She reported diarrhea began after starting B12 supplementation. Patient had CT angio of the abdomen and pelvis which showed no evidence of active GI bleeding and postsurgical changes to her right kidney. Patient was given IV hydration and says lactate was repeated however there is no result in the notes I have. Gastroenterology was consulted and recommended repeating her CBC and lactate the following week and outpatient follow up with Gastroenterology. She contacted the office, and I placed orders for her labs. She had blood work done at [facility] on 08/15/2024 which showed worsening anemia (RBC 2.86, hemoglobin 8.3, hematocrit 26, normal renal function, lactate 3.9, hemoglobin A1c 6%, iron 22 low, B12 430, folate 18.2). She was called by the office and sent back to the hospital as she reported weakness, and fatigue and dizziness with abnormal labs. Plavix was held and aspirin continued. She received 1 unit blood transfusion given history of coronary artery disease. She had no hematochezia while hospitalized. Gastroenterology was consulted and colonoscopy performed which showed moderate diverticulosis of the whole colon with internal hemorrhoids. Fiber intake was reviewed with the patient. Upon discharge red blood cell count 3.23, hemoglobin 9.3, hematocrit 28.3 and lactate normal at 0.8. Per colo report source of bleeding was likely hemorrhoids. She has not picked up Ferrex or fiber supplement yet because they were out of stock, but she is getting them tomorrow. Reprots no diarrhea. No further episodes of BRBPR or blood in stools. Still feels weak. Per Dr. Sams patient to remain off Plavix. Endorses head pain x 1 month. Comes and goes multiple times per day. Described as quick electric shock always on the top left side of the head. No vision changes. Feels weaker and dizziness recently attributed to anemia and hospitalization. Denies trauma. No other neuro symptoms. No rashes. Does not wake her up at night, and she takes Gabapentin at bedtime. Type 2 diabetes-taking metformin ER 1000 mg twice daily and Tresiba 8 units daily and Mounjaro 2.5 mg weekly. Her hemoglobin A1c is 6%. Cardiovascular-She had an ST elevation ID 12/08/2022. Status post cardiac catheterization with CANDELARIA placed to the RCA. There was 75% stenosis of the left circumflex. There were minimal luminal irregularities in the LAD. Medications include amlodipine, baby aspirin, atorvastatin, carvedilol, lisinopril. Brilinta changed to Plavix at her recent cardiology follow up due to bruising. She does still bruise easily. She had residual anginal symptoms. She had a cath on 11/19/23 which showed RCA stent wasn't working properly. She denies CP and SOB since it was revised. Right renal clear cell carcinoma-followed by Dr. Sutherland. Surgeon is Dr. Baldwin at [facility]. She underwent partial nephrectomy 12/16/2021. No known recurrence. ROS: Constitutional: No unexplained weight loss, fever, chills, fatigue or night sweats. Eyes: No vision changes, blurry vision, double vision, eye pain, eye redness, eye discharge. ENT: No hearing loss, sneezing, congestion, runny nose or sore throat. Respiratory: No shortness of breath, cough or sputum production. Cardiovascular: No chest pain, chest pressure or chest discomfort. No palpitations or pedal edema. Gastrointestinal: No anorexia, nausea, vomiting or diarrhea. No abdominal pain. Genitourinary: No dysuria, hematuria, urinary frequency. Neurologic: No syncope, unilateral weakness, ataxia, numbness or tingling in the extremities. No slurred speech or facial droop. Musculoskeletal: No neck pain Skin: No rash Endocrine: No cold or heat intolerance. No polyuria or polydipsia. Physical exam: Constitutional: Alert, in no distress. Head: Normocephalic. Palpation does not reproduce pain. No rashes. Eyes: Pupils are equal, round and reactive to light. Extraocular muscles intact. Neck: Supple, Full range of motion. No lymphadenopathy. Respiratory: Clear to auscultation. Cardiovascular: S1 S2 regular. No murmurs. Gastrointestinal: Abdomen soft, non-tender, non-distended. Normal bowel sounds. No palpable masses. Neurologic:?Alert and oriented x 3, no focal deficits observed, CN 2-12 intact, qacljf-ftub-rlhuob normal, sensation equal and symmetric, strength UE and LE 5/5 bilaterally, reflexes equal and symmetric.? Normal gait.?No pronator drift.? Negative Romberg. Cervical spine: FROM Extremities: Warm and well perfused. No clubbing, cyanosis or edema. Intact peripheral pulses. Psychiatric: Normal mood and affect [facility] Medical History (Updated 08/21/24 @ 21:57 by KELSIE Lundy) Lower GI bleed Dizziness Head pain Skin rash Osteoarthritis involving multiple joints on both sides of body Positive NADEEM (antinuclear antibody) Mild anemia Colon polyp Pure hypercholesterolemia Essential hypertension History of kidney cancer Clear cell carcinoma of right kidney Abnormal mammogram Osteopenia Bone spur Vertigo Urinary incontinence Recurrent UTI Osteoarthritis Obesity, Class I, BMI 30-34.9 Migraine Left hand pain Hypertensive disorder Hypercholesteremia Diarrhea COVID-19 Clear cell renal cell carcinoma Chronic headache Hyperlipidemia CAD (coronary artery disease) ST elevation myocardial infarction (STEMI) of inferior wall Surgical History (Updated 06/23/24 @ 11:40 by RICKEY Hurst) Hx of cardiac cath History of shoulder surgery History of carpal tunnel surgery of right wrist S/P foot surgery, right H/O partial nephrectomy H/O removal of cyst Finger joint replacement of right hand S/P cardiac catheterization Family History Brother Heart disease Alcohol abuse Cancer Mother Heart disease Hypercholesterolemia Hypertension Daughter Hypercholesterolemia Social History (Updated 08/21/24 @ 08:42 by Nathalia Stone MA) Alcohol intake: never Patient Tobacco Use Status: Former Tobacco user Cigarettes Per Day: 0.25 Years Smoked: Unknown Packs per year/per ci.00 e-Cigarette/Vaping Use: Never Used Second Hand Smoke Exposure: Yes Use of substances other than those prescribed or required for medical reasons: No service: No Current occupational status: employed and retired Current occupation: [employer] at [employer] Current occupational exposures/hazards: No Cognitive needs: No Hearing needs: No Vision needs: No Questionnaire PHQ-9 Over the last 2 weeks, how often have you been bothered by any of the following problems? 1. Little interest or pleasure in doing things: not at all 2. Feeling down, depressed, or hopeless: not at all 3. Trouble falling or staying asleep, or sleeping too much: not at all 4. Feeling tired or having little energy: more than half the days 5. Poor appetite or overeating: not at all 6. Feeling bad about yourself - or that you are a failure or have let yourself or your family down: not at all 7. Trouble concentrating on things, such as reading the newspaper or watching television: not at all 8. Moving or speaking so slowly that other people could have noticed. Or the opposite - being so fidgety or restless that you have been moving around a lot more than usual: not at all 9. Thoughts that you would be better off or of hurting yourself in some way: not at all Total score: 2 Depression Screening Interpretation: Negative Depression Screening Done: Yes 69779 - PHQ-9 Billing: Yes Source: Developed by Drs. Maury Smith, Samantha Ray, Parmjit Martinez and colleagues, with an educational kristne from [email or web address]. Thrive Questionnaire Date Thrive assessed: 08/21/24 I am a: Patient What is your living situation today?: I have a steady place to live Within the past 12 months, did the food you bought not last and you didn't have the money to get more?: Never true Within the past 12 months, did you worry whether your food would run out before you got money to buy more?: Never true Do you have trouble paying for medicines?: No Do you have trouble getting transportation to medical appointments?: No Do you have trouble paying your heating and electricity bill?: No Do you have trouble taking care of your child, family member or friend?: No Do you have trouble with day-to-day activities such as bathing, preparing meals, shopping, managing finances, etc.?: No Are you currently unemployed and looking for a job?: No Are you interested in more education?: No Please select the resources that you would like help with: None Currently or been in a relationship where the following occur: No concerns reported THRIVE Score: 0 AUDIT C Alcohol Use Questionnaire (AUDIT-C) 1. How often do you have a drink containing alcohol?: Never Total Score: 0 PIYUSH-7 AMB Questionnaire PIYUSH-7 Date PIYUSH - 7 assessed: 08/21/24 Feeling nervous, anxious, or on edge: 0 = Not at all Not being able to stop or control worryin = Not at all Worrying too much about different things: 0 = Not at all Trouble relaxin = Not at all Being so restless that it is hard to sit still: 0 = Not at all Becoming easily annoyed or irritable: 2 = More than half the days Feeling afraid as if something awful might happen: 0 = Not at all Total PIYUSH-7 score (0-4 normal; 5-9 mild; 10-14 moderate; 15-21 severe): 2 Source: Developed by Drs. Maury Smith, Samantha Ray, Parmjit Martinez and colleagues, with an educational kristen from [email or web address]. PIYUSH-7 Assessment Billing PIYUSH-7 Assessment Tool: PIYUSH-7 Assessment 45315 Physical exam (Primary Care) Vital Signs: Last Vital Signs Temp 98.6 F 08/21/24 08:44 Pulse 94 08/21/24 08:44 BP 112/62 08/21/24 08:44 Pulse Ox 95 08/21/24 08:44 Oxygen Delivery Method Room Air 08/21/24 08:44 BMI result Body Mass Index 22.0 Tobacco/Smoking Status: Tobacco use Status Tobacco use date assessed 08/21/24 08/21/24 08:45 Patient Tobacco Use Status Former Tobacco user 08/21/24 08:42 e-Cigarette/Vaping Use Never Used 08/21/24 08:42 PHQ-9: PHQ-9 Score PHQ-9: Total score 2 08/21/24 08:45 Depression Screening Interpretation: Negative Thrive Assessment: Date of Thrive Assessment Date Thrive assessed 08/21/24 08/21/24 08:45 Currently or been in a relationship where the following occur: No concerns reported Coding Level of Care Code Est Pt Level 5 (24846) Diagnoses Hospital discharge follow-up Z09 Pure hypercholesterolemia E78.00 Clear cell carcinoma of right kidney C64.1 Essential hypertension I10 Type 2 diabetes mellitus with cardiac complication E11.59 Coronary artery disease of [place] artery of [place] heart with stable angina pectoris I25.118 Coronary Disease-Associated Artery/Lesion type: [place] artery [place] vs. transplanted heart: [place] heart Associated angina: with stable angina Lower GI bleed K92.2 Head pain R51.9 Elevated lactic acid level R79.89 Additional Codes PIYUSH-7 Assessment Billing - PIYUSH-7 Assessment Tool: PIYUSH-7 Assessment 71213 ([id number]) PHQ-9 - 47993 - PHQ-9 Billing: Yes ([id number]) Time Spent (min) 50 Comment review data, direct care, documentation Assessment & Plan Assessment & Plan (1) Hospital discharge follow-up: Code(s): Z09 - Encounter for follow-up examination after completed treatment for conditions other than malignant neoplasm (2) Pure hypercholesterolemia: Code(s): E78.00 - Pure hypercholesterolemia, unspecified Category: Medical (3) Clear cell carcinoma of right kidney: Code(s): C64.1 - Malignant neoplasm of right kidney, except renal pelvis Category: Medical (4) Essential hypertension: Code(s): I10 - Essential (primary) hypertension Category: Medical (5) Type 2 diabetes mellitus with cardiac complication: Code(s): E11.59 - Type 2 diabetes mellitus with other circulatory complications Category: Medical (6) CAD (coronary artery disease): Code(s): I25.10 - Atherosclerotic heart disease of [place] coronary artery without angina pectoris Category: Medical Qualifiers: Coronary Disease-Associated Artery/Lesion type: [place] artery [place] vs. transplanted heart: [place] heart Associated angina: with stable angina Qualified Code(s): I25.118 - Atherosclerotic heart disease of [place] coronary artery with other forms of angina pectoris (7) Lower GI bleed: Code(s): K92.2 - Gastrointestinal hemorrhage, unspecified Category: Medical (8) Head pain: Code(s): R51.9 - Headache, unspecified Category: Medical (9) Elevated lactic acid level: Code(s): R79.89 - Other specified abnormal findings of blood chemistry Plan Hospital followup Lower GI bleed-no further episodes. Colonoscopy negative for malignancy. Recheck labs today. Start iron and fiber. If labs stable, repeat CBC and iron in 1 month. Advised to go to the ER if she has worsening weakness, dizziness or recurrent bleeding. Off plavix. Continue ASA. Head pain +Dizziness which may be related to anemia however given persistnet symptoms following transfusion proceed with CT head. Patient says she cannot have MRI unless she is put to sleep due to severe claustrophobia. No neuro deficits on exam. Advised to go to the ER for severe headache or neuro changes. Hyperlipidemia Continue current regimen. Hypertension Controlled. Continue current regimen. History of right kidney cancer No known recurrence. Followed by Dr. Sutherland. Coronary artery disease Continue current management per Cardiology. Type 2 diabetes Continue metformin extended release 1000 mg twice daily. Continue Tresiba 8 units daily. Continue Mounjaro 2.5 mg weekly. Orders: Orders Lactic Acid Today D64.9 - Anemia, unspecified Complete Blood Count Auto Diff Today D64.9 - Anemia, unspecified Vitamin B12 and Folate Today D64.9 - Anemia, unspecified IRON PROFILE Today D64.9 - Anemia, unspecified Ferritin Today D64.9 - Anemia, unspecified CT head/brain wo IV con Today R42 - Dizziness and giddiness, R51.9 - Headache, unspecified Medications: Discontinued clopidogrel (Plavix) On the First day ONLY - Take 4 tabs, then take 1 tablet daily Stop Brilinta Discontinued Reason: Doctor's Order 75 mg PO DAILY 90 tabs 3RF
[2024-08-21 08:44] VITALS: BP 112/62; PULSE 94; TEMP 37; O2SAT 95; BMI 22.0
--- OUTSIDE RECORDS SUMMARY | 2024-08-21 08:46 | XMS_ITS | Data Portability ---
Author Organization [place] - [facility], Allergy Address [address] [address] Care Team Providers Care Electrostatic Painter Name Role Phone HOMA MARTINEZ Primary Care Provider [phone] Assessment No assessment recorded. Plan of Treatment [...] Recorded Time Postmast oidectom y complica tion 90345914 Active 2017 Other disorder s followin g mastoide ctomy, left ear; Note: Date Diagnose d: 8 4:59 PM (H95.192 ) Not Available [facility] 4 03:16:23 Conducti ve hearing loss 89916566 Active 2017 Conducti ve hearing loss, unilater al, left ear, with unrestri cted hearing on the contrala teral side; Note: Changed from H90.A12 to H90.12 ( 018 12:09 PM) , Date Diagnose d: 01/11/20 18 11:57 AM (H90.42) Not Available [facility] 4 03:16:24 Benign paroxysm al position al vertigo 818953273 Active 2022 Benign paroxysm al vertigo, left ear; Note: Date Diagnose d: 3 9:55 AM (H81.12) Not Available [facility] 4 03:16:23 Otorrhea of left ear [id number] 73794 Completed 201710/26/2023 Otorrhea , left ear; Note: Date Diagnose d: 8 5:00 PM (H92.12) Not Available [facility] 4 03:16:24 Bleeding from nose 653503574 Active 2021 Epistaxi s; Note: Date Diagnose d: 05/04/2021 10:53 AM (R04.0) Not Available [facility] 4 03:16:23 Bilatera l disorder of Eustachi an tubes 04796601478 69301 Active 2021 Other specifie d disorder s of Eustachi an tube, bilatera l; Note: Date Diagnose d: 05/04/2021 10:53 AM (H69.83) Not Available [facility] 4 03:16:23 Problem Notes None recorded. Procedures Surgical History Date Name Laterality Status Provider Name and Address Organization Details Recorded Time 4 Debridement of Mastoid Cavity left completed RICHARDSON SAAB MD [address] [place] [address], [phone], [facility] 01/06/2024 20:17:46 Imaging Results None recorded. Procedure Notes None recorded. Medical Equipment None Reported. Allergies Allergen ID Allergen Name Allergen Category Reaction Reaction Severity Criticality Documentation Date Start Date Code Code System Note Provider Name and Address Organization Details Recorded Time 410557 erythromy elizabeth ethylsucc inate medicatio n nausea Not available Not available 08/07/2023 4056 RxNorm React ion: nause a;; Not Available [facility] 4 01:08:21 567727 oxycodone medicatio n nausea Not available Not available 08/07/2023 7804 RxNorm React ion: nause a;; Not Available [facility] 4 01:08:21 397311 penicilli n V potassium medicatio n other Not available Not available 08/07/202388356 5 RxNorm React ion: unkno wn, unspe cifie d;; Not Available [facility] 4 01:08:22 667749 egg yolk (chicken) allergeni c extract food,medi cation diarrhea Not available Not available 08/07/2023 49257 0 RxNorm React ion: other react ion, Diarr hea; Not Available [facility] 4 01:08:23 372024 Macrobid medicatio n Not available Not available Not available 08/07/2023 99441 1 RxNorm React ion: other react ion, fluli ke sympt oms; Not Available [facility] 4 01:08:24 Medications Name Sig Start Date Stop Date Status Note LastModified by Organization Details LastModified Time atorvasta tin 40 mg tablet 01/07 completed Medicati on ID: [id number] B rand Name: atorvast atin Sen d [...] mg capsule 2023 active Medicati on ID: [id number] B rand Name: loperami de Send Method: [...] mg tablet 05/14 completed Medicati on ID: [id number] D uration Value: 3 Reason: () Brand [...] left ear 01/07 completed Medicati on ID: [id number] D uration Value: 10 Prescri bed By [...] tablet 01/24 /2023 completed Medicati on ID: [id number] B rand Name: dicyclom ine Send Method: E-Prescr ibed Sub s Allowed: subs OK Speci al Instruct ion: TAKE 1 TABLET BY MOUTH EVERY 6 HOURS Me dication GenericN summer: dicyclom ine Not Available Not Available Not Available metformin 1,000 mg tablet 04/18 completed Medicati on ID: [id number] B rand Name: metformi n Send Method: E-Prescr ibed Sub s Allowed: subs OK Speci al Instruct ion: TAKE 1 TABLET BY MOUTH TWICE DAILY WITH MEALS Me dication GenericN summer: metformi n Not Available Not Available Not Available lisinopri l 10 mg tablet 04/18 completed Medicati on ID: [id number] B rand Name: lisinopr il Send Method: [...] 24 hr 09/15 completed Medicati on ID: [id number] D uration Value: 30 Brand Name: oxybutyn in chloride Send Method: E-Prescr ibed Sub s Allowed: subs OK Medic ationGen ericName : oxybutyn in chloride Not Available Not Available Not Available gabapenti n 300 mg capsule TAKE 1 CAPSULE BY MOUTH TWICE DAILY active Not Available Not Available No t Available lisinopri l 5 mg tablet 09/15 completed Medicati on ID: [id number] D uration Value: 90 Brand Name: lisinopr [...] mg tablet 05/14 completed Medicati on ID: [id number] D uration Value: 6 Reason: () Brand [...] ating tablet 09/15 completed Medicati on ID: [id number] D uration Value: 7 Brand Name: dalton [...] 4 drop 01/07 completed Medicati on ID: [id number] D uration Value: 14 Prescri bed By Name: Darby Irizarry nd Name: TobraDex Send Method: E-Prescr ibed Sub s Allowed: subs OK Specshauna al Instruct ion: apply to affected ear(s) Osiris Anderson Name: TobraDex Not Available Not Available Not Available Premarin 0.625 mg/gram vaginal cream 09/15 completed Medicati on ID: [id number] D uration Value: 30 Brand Name: Premarin Send Method: E-Prescr ibed Sub s Allowed: subs OK Medic ationGen ericName : Premarin Not Available Not Available Not Available BD Ultra-Fin e Mini Pen Needle 31 gauge x 3/16 04/18 completed Medicati on ID: [id number] B rand Name: BD Ultra-Fi ne Mini [...] subcutane ous 04/18 completed Medicati on ID: [id number] B rand Name: Basaglar KwikPen U-100 Insulin [...] Details Last Updated DateTime 01/08/2024 151.13 cm 41292.75 g Desiree Loredo [place] - [facility] 01/08/2024 08:36:15 Social History None recorded. [...] SNOMED-CT Code Diagnosis ICD10 Code Diagnosis Note [id number] RICHARDSON SAAB MD [facility] [address] [address] 01/08/2024 08:23:43 01/08/2024 08:45:28 Postmastoidectomy complication 00416979 H95.192 The left canal wall down mastoidect karen cavity was cleaned of accumulate d squamous debris. No signs of acute or chronic inflammati on. Recommend continuing yearly debridemen t. Conductive hearing loss 05804082 H90.12 Patient will continue to follow-up with the audiology group for hearing aid maintenanc e. Benign par oxysmal positional vertigo 147939251 H81.12 Currently asymptomat ic with regards to [...] Date Sequence Insurance Name Policy Number Policy Hcilel Covered Member ID Chilel Member ID Guarantor Name 01/08/2024 1 DARWIN [id number] D Guillermo Car [id number] 2 Cody Car Notes Date Note Type [...] to positionally induced vertigo. RICHARDSON SAAB MD [address] [place] [address], [phone], [facility] - [facility] 01/08/2024 08:45:14 OBGyn Episode No OBEpisode recorded.
== END 2024-08-21 09:54 | disposition home or self-care (01) ==
LOC: HO.HMCFM 08:35
PROVIDERS: PCP Physician Assistant Medical; Visit Provider Physician Assistant Medical
DX: I10 Essential (primary) hypertension (principal); C64.1 Malignant neoplasm of right kidney, except renal pelvis; E11.59 Type 2 diabetes mellitus with other circulatory complications; Z09 Encounter for follow-up examination after completed treatment for conditions other than malignant neoplasm; E78.00 Pure hypercholesterolemia, unspecified; I25.118 Atherosclerotic heart disease of native coronary artery with other forms of angina pectoris; K92.2 Gastrointestinal hemorrhage, unspecified; R51.9 Headache, unspecified; R79.89 Other specified abnormal findings of blood chemistry

== ENCOUNTER 2024-09-08 12:15 | Outpatient (AMB) | payer OTHER, SELFPAY ==
[2024-09-08 12:17] VITALS: BP 158/70; PULSE 80; RESP 16; O2SAT 99; BMI 22.0
--- NOTE | 2024-09-08 12:17 | A.OFFVIS_ITS ---
Vital Signs 09/08/24 12:17 Height 4 ft 11 in Weight 109 lb BMI 22.0 BP 158/70 H Blood Pressure Location Lt brachial Position Sitting Respiration 16 Pulse 80 Pulse Source Pulse Oximeter Pulse Oximetry (%) 99 Oxygen Delivery Method Room Air Intake Visit Reasons: FU for Si joint injection Consultant Internship Required: No Accompanied by: Daughter Allergies nitrofurantoin (From Macrobid) Allergy (Mild, Verified 09/08/24 12:21) fever oxycodone (From Percocet) Allergy (Mild, Verified 09/08/24 12:21) Nausea sulfamethoxazole (From Bactrim) Allergy (Mild, Verified 09/08/24 12:21) face swelling trimethoprim (From Bactrim) Allergy (Mild, Verified 09/08/24 12:21) face swelling penicillin G Allergy (Verified 09/08/24 12:21) hives HPI HPI FU for Si joint injection: Details: History of Present Illness The patient is a 68-year-old female presenting with sacroiliac joint pain. The onset of the pain is chronic, having persisted over six months with episodes of worsening intensity. The pain notably affects her mobility, inhibiting activities such as standing for long durations and taking stairs, indicating significant impact on her daily function. She was previously involved in comprehensive physical therapy and maintains a regular home exercise program. Despite these efforts, the pain persists. Routine stretching provides some relief, yet the pain remains prevalent, particularly due to her employment conditions involving prolonged standing. The patient reports previous challenges with an insurance rejection for a necessary sacroiliac joint injection, leading to significant frustration. Pain Description - Onset: Chronic, with exacerbation noted six months before - Quality: Achy, with radiating pain - Primary Location: Sacroiliac joint (left) - Radiation: Into right and left hips, left thigh during flares - Exacerbating Factors: Prolonged standing, uneven surfaces, lifting leg, ascending stairs - Relieving Factors: Stretching - Interference: Limits standing and mobility Physical Exam - Musculoskeletal- Positive provocative testing with sacroiliac compression indicative of pain, noted increase in tenderness upon palpation of the left sacroiliac region. Sacroiliac joint thrust?and?WINSOME also positive. Results - MRI: Prior results indicating osteoarthritis and possible involvement of the sacroiliac joints observed, but specific details were not discussed during this encounter. Pain Management - Affect: Patient expresses frustration and distress due to pain and insurance issues. - Analgesia: Currently using tramadol; goal is reduction to below 6/10 on the pain scale. - Adverse Effects: None reported specifically. - Activities of Daily Living: Pain limits prolonged standing, stair navigation; participates in stretching to manage symptoms. - Aberrant Drug Related Behaviors: None reported or suspected. PFS Medical History (Updated 08/21/24 @ 21:57 by KELSIE Lundy) Lower GI bleed Dizziness Head pain Skin rash Osteoarthritis involving multiple joints on both sides of body Positive NADEEM (antinuclear antibody) Mild anemia Colon polyp Pure hypercholesterolemia Essential hypertension History of kidney cancer Clear cell carcinoma of right kidney Abnormal mammogram Osteopenia Bone spur Vertigo Urinary incontinence Recurrent UTI Osteoarthritis Obesity, Class I, BMI 30-34.9 Migraine Left hand pain Hypertensive disorder Hypercholesteremia Diarrhea COVID-19 Clear cell renal cell carcinoma Chronic headache Hyperlipidemia CAD (coronary artery disease) ST elevation myocardial infarction (STEMI) of inferior wall Surgical History (Updated 06/23/24 @ 11:40 by Dora Hayes BURGLAR ALARM INSPECTOR-C) Hx of cardiac cath History of shoulder surgery History of carpal tunnel surgery of right wrist S/P foot surgery, right H/O partial nephrectomy H/O removal of cyst Finger joint replacement of right hand S/P cardiac catheterization Family History Brother Heart disease Alcohol abuse Cancer Mother Heart disease Hypercholesterolemia Hypertension Daughter Hypercholesterolemia Social History (Updated 08/21/24 @ 08:42 by Nathalia Stone MA) Alcohol intake: never Patient Tobacco Use Status: Former Tobacco user Cigarettes Per Day: 0.25 Years Smoked: Unknown e-Cigarette/Vaping Use: Never Used Second Hand Smoke Exposure: Yes service: No Current occupational status: employed and retired 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 [employer] Current occupational exposures/hazards: No Cognitive needs: No Hearing needs: No Vision needs: No Physical Exam Vital Signs: Last Vital Signs Pulse 80 09/08/24 12:17 Resp 16 09/08/24 12:17 BP 158/70 H 09/08/24 12:17 Pulse Ox 99 09/08/24 12:17 Oxygen Delivery Method Room Air 09/08/24 12:17 BMI result Body Mass Index 22.0 Assessment & Plan Assessment & Plan (1) Greater trochanteric bursitis of both hips: Code(s): M70.61 - Trochanteric bursitis, right hip; M70.62 - Trochanteric bursitis, left hip Category: Medical (2) Sacroiliac joint dysfunction of both sides: Code(s): M53.3 - Sacrococcygeal disorders, not elsewhere classified Category: Medical Plan Plan - Initiate new authorization request for sacroiliac joint injection. Patient has exhausted conservative management include HEP/PT, oral medications and has PE findings c/w SIJ pain. - Continue home exercise program, resume PT for interval symptomatic management until injections approved. - Continue pain medication regimen, specifically tramadol, as tolerated. Patient was informed and verbally consented to the use of an ambient scribe for clinic note documentation during this visit. Discussion Notes During this visit, I discussed the importance of obtaining an insurance authorization for a sacroiliac joint injection due to the patient's prolonged and poorly controlled pain. I explained that all previously requested documentation had already been provided, yet we encountered administrative challenges requiring redundant resubmission of that information. I recommended continuing her home exercise regimen and attending a physical therapy session to obtain new exercise materials to satisfy current insurance demands. We reviewed her current medication regimen, highlighting the benefits and potential side effects associated with tramadol, and I have asked her to monitor these closely. Follow-up was emphasized to ensure the successful acquisition of the necessary authorization and to manage her ongoing pain. Patient Instructions - Follow your home exercise program. - Attend session of physical therapy and get new exercise handouts. - Monitor your use of tramadol and any side effects. - Await follow-up for the status of your insurance authorization. - Report any significant changes in your pain level or symptoms. Coding Level of Care Code Est Pt Level 3 (08190) Diagnoses Greater trochanteric bursitis of both hips M70.61; M70.62 Sacroiliac joint dysfunction of both sides M53.3
== END 2024-09-08 12:59 | disposition home or self-care (01) ==
LOC: HO.PMC 12:16
PROVIDERS: PCP Physician Assistant Medical; Visit Provider Internal Medicine
DX: M70.61 Trochanteric bursitis, right hip (principal); M70.62 Trochanteric bursitis, left hip; M53.3 Sacrococcygeal disorders, not elsewhere classified
CPT/HCPCS: 99213

== ENCOUNTER 2024-09-11 09:53 | Outpatient (REF) | payer OTHER, SELFPAY ==
--- NOTE | ~2024-09-11 | CT_ITS ---
EXAMINATION: CT HEAD WITHOUT CONTRAST CLINICAL INFORMATION: Headache, unspecified. COMPARISON: None available. TECHNIQUE: Contiguous axial imaging was performed from the skull base to vertex without intravenous administration of contrast. This CT examination was performed using dose optimization techniques as appropriate, variously including the following: *Automated exposure control *Adjustment of mA and/or kV according to patient size (this includes techniques or standardized protocols for targeted exams where dose is matched to indication/reason for exam; i.e. extremities or head) *Use of iterative reconstruction technique FINDINGS: There is no evidence of intracranial hemorrhage or extra-axial fluid collection. There is no mass effect, or edema. No CT evidence of acute territorial infarct. Ventricles, sulci, and cisterns are normal in size and configuration for patient age. No hydrocephalus. No midline shift. Negative hyperdense MCA sign. Negative insular ribbon sign. No significant white matter abnormalities. Mild atheromatous calcification of the bilateral carotid siphons and V4 segments vertebral arteries bilaterally. Globes and orbital contents image normally. No extracranial soft tissue abnormalities. There is been a prior left mastoidectomy. Mastoid bowl is normal. The paranasal sinuses, right mastoid air cells, and bilateral tympanic cavities are normally aerated. No suspicious bony abnormalities. There are no acute fractures evident. Mild degenerative changes in the left greater than right TM joints. CT/CT head/brain wo IV con IMPRESSION: No acute intracranial abnormality. Electronically signed by: Leo Wallace MD 09/11/2024 10:34 AM EDT
--- OUTSIDE RECORDS SUMMARY | 2024-09-11 10:55 | XMS_ITS | Data Portability ---
Author Organization [place] - [facility], Allergy Address [address] [address] Care Team Providers Care International First Officer Name Role Phone HOMA MARTINEZ Primary Care [...] Recorded Time Postmast oidectom y complica tion 12573942 Active 2017 Other disorder s followin g mastoide ctomy, left ear; Note: Date Diagnose d: 8 4:59 PM (H95.192 ) Not Available [facility] 4 03:16:23 Conducti ve hearing loss 52912800 Active 2017 Conducti ve hearing loss, unilater al, left ear, with unrestri cted hearing on the contrala teral side; Note: Changed from H90.A12 to H90.12 ( 018 12:09 PM) , Date Diagnose d: 01/11/20 18 11:57 AM (H90.42) Not Available [facility] 4 03:16:24 Benign paroxysm al position al vertigo 905185218 Active 2022 Benign paroxysm al vertigo, left ear; Note: Date Diagnose d: 1/24/202 3 9:55 AM (H81.12) Not Available [facility] 4 03:16:23 Otorrhea of left ear [id number] 01161 Completed 201710/26/2023 Otorrhea , left ear; Note: Date Diagnose d: 8 5:00 PM (H92.12) Not Available [facility] 4 03:16:24 Bleeding from nose 862526264 Active 2021 Epistaxi s; Note: Date Diagnose d: 05/04/2021 10:53 AM (R04.0) Not Available [facility] 4 03:16:23 Bilatera l disorder of Eustachi an tubes 31166416247 45545 Active 2021 Other specifie d disorder s of Eustachi an tube, bilatera l; Note: Date Diagnose d: 05/04/2021 10:53 AM (H69.83) Not Available [facility] 4 03:16:23 Problem Notes None recorded. Procedures Surgical History Date Name Laterality Status Provider Name and Address Organization Details Recorded Time 4 Debridement of Mastoid Cavity left completed RICHARDSON SAAB MD [address] [place] [address], [address], [facility] 01/06/2024 20:17:46 Imaging Results None recorded. Procedure Notes None recorded. Medical Equipment None Reported. Allergies Allergen ID Allergen Name Allergen Category Reaction Reaction Severity Criticality Documentation Date Start Date Code Code System Note Provider Name and Address Organization Details Recorded Time 871375 erythromy elizabeth ethylsucc inate medicatio n nausea Not available Not available 08/07/2023 4056 RxNorm React ion: nause a;; Not Available [facility] 4 01:08:21 381754 oxycodone medicatio n nausea Not available Not available 08/07/2023 7804 RxNorm React ion: nause a;; Not Available [facility] 4 01:08:21 052801 penicilli n V potassium medicatio n other Not available Not available 08/07/202334891 5 RxNorm React ion: unkno wn, unspe cifie d;; Not Available [facility] 4 01:08:22 704349 egg yolk (chicken) allergeni c extract food,medi cation diarrhea Not available Not available 08/07/2023 48043 0 RxNorm React ion: other react ion, Diarr hea; Not Available [facility] 4 01:08:23 623472 Macrobid medicatio n Not available Not available Not available 08/07/2023 89891 1 RxNorm React ion: other react ion, fluli ke sympt oms; Not Available [facility] 4 01:08:24 Medications Name Sig Start Date Stop Date Status Note LastModified by Organization Details LastModified Time atorvasta tin 40 mg tablet 01/07 completed Medicati on ID: [id number] B rand Name: atorvast atin Sen d [...] mg capsule 2023 active Medicati on ID: [id number] B rand Name: loperami de Send Method: [...] mg tablet 05/14 completed Medicati on ID: [id number] D uration Value: 3 Reason: () Brand [...] left ear 01/07 completed Medicati on ID: [id number] D uration Value: 10 Prescri bed By [...] tablet 01/24 /2023 completed Medicati on ID: [id number] B rand Name: dicyclom ine Send Method: E-Prescr ibed Sub s Allowed: subs OK Speci al Instruct ion: TAKE 1 TABLET BY MOUTH EVERY 6 HOURS Me dication GenericN summer: dicyclom ine Not Available Not Available Not Available metformin 1,000 mg tablet 04/18 completed Medicati on ID: [id number] B rand Name: metformi n Send Method: E-Prescr ibed Sub s Allowed: subs OK Speci al Instruct ion: TAKE 1 TABLET BY MOUTH TWICE DAILY WITH MEALS Me dication GenericN summer: metformi n Not Available Not Available Not Available lisinopri l 10 mg tablet 04/18 completed Medicati on ID: [id number] B rand Name: lisinopr il Send Method: [...] 24 hr 09/15 completed Medicati on ID: [id number] D uration Value: 30 Brand Name: oxybutyn in chloride Send Method: E-Prescr ibed Sub s Allowed: subs OK Medic ationGen ericName : oxybutyn in chloride Not Available Not Available Not Available gabapenti n 300 mg capsule TAKE 1 CAPSULE BY MOUTH TWICE DAILY active Not Available Not Available No t Available lisinopri l 5 mg tablet 09/15 completed Medicati on ID: [id number] D uration Value: 90 Brand Name: lisinopr [...] mg tablet 05/14 completed Medicati on ID: [id number] D uration Value: 6 Reason: () Brand [...] ating tablet 09/15 completed Medicati on ID: [id number] D uration Value: 7 Brand Name: dalton [...] 4 drop 01/07 completed Medicati on ID: [id number] D uration Value: 14 Prescri bed By Name: Darby Irizarry nd Name: TobraDex Send Method: E-Prescr ibed Sub s Allowed: subs OK Specshauna al Instruct ion: apply to affected ear(s) Osiris Anderson Name: TobraDex Not Available Not Available Not Available Premarin 0.625 mg/gram vaginal cream 09/15 completed Medicati on ID: [id number] D uration Value: 30 Brand Name: Premarin Send Method: E-Prescr ibed Sub s Allowed: subs OK Medic ationGen ericName : Premarin Not Available Not Available Not Available BD Ultra-Fin e Mini Pen Needle 31 gauge x 3/16 04/18 completed Medicati on ID: [id number] B rand Name: BD Ultra-Fi ne Mini [...] subcutane ous 04/18 completed Medicati on ID: [id number] B rand Name: Basaglar KwikPen U-100 Insulin [...] Details Last Updated DateTime 01/08/2024 151.13 cm 17370.75 g Desiree Loredo [place] - [facility] 01/08/2024 08:36:15 Social History None recorded. [...] SNOMED-CT Code Diagnosis ICD10 Code Diagnosis Note [id number] RICHARDSON SAAB MD [facility] [address] [address] 01/08/2024 08:23:43 01/08/2024 08:45:28 Postmastoidectomy complication 40533117 H95.192 The left canal wall down mastoidect karen cavity was cleaned of accumulate d squamous debris. No signs of acute or chronic inflammati on. Recommend continuing yearly debridemen t. Conductive hearing loss 82996886 H90.12 Patient will continue to follow-up with the audiology group for hearing aid maintenanc e. Benign par oxysmal positional vertigo 093267793 H81.12 Currently asymptomat ic with regards to [...] Member ID Guarantor Name 01/08/2024 1 DARWIN [id number] D Guillermo Car [id number] Cody Car Notes Date Note Type [...] to positionally induced vertigo. RICHARDSON SAAB MD [address] [place] [address], [phone], [facility] - [facility] 01/08/2024 08:45:14 OBGyn Episode No OBEpisode recorded.
== END 2024-09-11 09:54 | disposition home or self-care (01) ==
LOC: HO.CT 09:53
PROVIDERS: PCP Physician Assistant Medical; Visit Provider Physician Assistant Medical
DX: R51.9 Headache, unspecified (principal); R42 Dizziness and giddiness
CPT/HCPCS: 70450

== ENCOUNTER → 2024-09-11 09:55 | Outpatient (BNV) | payer OTHER, SELFPAY | PROVIDERS: PCP Physician Assistant Medical; Visit Provider Radiology Diagnostic Radiology | DX: R51.9 Headache, unspecified (principal) | CPT/HCPCS: 70450 ==

== ENCOUNTER 2024-09-18 11:03 | Outpatient (REF) | payer OTHER, SELFPAY ==
--- OUTSIDE RECORDS SUMMARY | 2024-09-18 13:10 | XMS_ITS | Encounter Summary ---
Author Organization [facility] Address [address] [place] [address] Care Team Providers Care Sand Screener Name Role Phone Beverley Dillard MD Primary Care Provider Teena Dumont MD Primary Care Provider [phone] [facility], Pcp Primary Care Provider Unavailabl e Encounter Details Date Type Department Care Team Description 09/11/2017 Dyed Raw Stock Blower Feeder Report Medical Records [address] [place] [id number] Rehab, [facility] [address] [place] [address] Social History Tobacco Use Types Packs/Day Years [...] on filedocumented in this encounter Care Teams Sand Screener Relationship Specialty Start Date End Date Beverley Dillard MD PCP - General Internal Medicine 04/16/15 05/27/20 Teena Stevens MD [address] [place] [id number] PCP - General Internal Medicine 05/28/20 09/06/22 [facility], Pcp [address] [place] [id number] PCP - General Internal Medicine 09/07/22 documented as of this encounter
[2024-09-18 14:25] LABS: MANUAL DIFF FLAG NO
[2024-09-18 14:34] LABS: Basophils Absolute Auto 0.1 X10*3/uL (0.0-0.2); Basophils Percent Auto 0.9 % (0-2); Eosinophils Absolute Auto 0.1 X10*3/uL (0.0-0.4); Eosinophils Percent Auto 0.9 % (0-4); Hematocrit 32.3 % (37.0-47.0); Imm Gran Abs Auto 0.01 X10*3/uL (0.00-0.03); Imm Gran Pct Auto 0.1 % (0.0-0.4); Lymphocytes Absolute Auto 1.9 X10*3/uL (1.2-4.9); Lymphocytes Percent Auto 28.1 % (20-40); Mean Corpuscular Hemoglobin 27.4 pg (27.0-33.0); Mean Corpuscular Volume 88.5 fL (80.0-98.0); Mean Platelet Volume 10.7 fL (9.4-12.3); Monocytes Absolute Auto 0.5 X10*3/uL (0.1-1.2); Neutrophils Absolute Auto 4.2 x10*3/uL (2.0-8.3); Platelet Count 338 X10*3/uL (160-400); Red Blood Count 3.65 X10*6/uL (4.20-5.50); Red Cell Distribution Width 14.1 % (11.0-16.0); White Blood Count 6.8 X10*3/uL (4.8-10.8)
[2024-09-18 14:54] LABS: Iron 55 mcg/dL (30-160); Percent Iron Saturation 18 % (15-50); Total Iron Binding Capacity 304 mcg/dL (228-428); Unsaturated Iron Binding 249 ug/dL
[2024-09-18 15:27] LABS: Ferritin 15 ng/mL (10-250)
== END 2024-09-18 11:04 | disposition home or self-care (01) ==
LOC: HO.WFDLDS 11:03
PROVIDERS: Visit Provider Physician Assistant Medical
DX: D64.9 Anemia, unspecified (principal)
CPT/HCPCS: 36415; 82728; 83540; 85025

== ENCOUNTER 2024-10-22 12:31 | Outpatient (AMB) | payer OTHER, SELFPAY ==
--- NOTE | 2024-10-22 12:58 | A.OFFVIS_ITS ---
Vital Signs 10/22/24 12:59 Height 4 ft 11 in Weight 109 lb BMI 22.0 BP 110/62 Blood Pressure Location Lt brachial Position Sitting Pulse 82 Intake Visit Reasons: 4 mth f/up dc Intake Note: 4 month follow-up with ekg feeling good Accompanied by: Self / Same As Patient Allergies nitrofurantoin (From Macrobid) Allergy (Mild, Verified 10/22/24 13:01) fever oxycodone (From Percocet) Allergy (Mild, Verified 10/22/24 13:01) Nausea sulfamethoxazole (From Bactrim) Allergy (Mild, Verified 10/22/24 13:01) face swelling trimethoprim (From Bactrim) Allergy (Mild, Verified 10/22/24 13:01) face swelling penicillin G Allergy (Verified 10/22/24 13:01) hives Medication List - Last Reconciled 10/22/24 by Ruddy Sams MD amlodipine 5 mg PO DAILY aspirin (Adult Aspirin Regimen) 81 mg PO DAILY atorvastatin 80 mg PO BEDTIME blood-glucose sensor (Mark OneStyle Alcides 3 Plus Sensor device) Apply 1 new sensor every 15 days as directed to monitor blood glucose continuously. blood-glucose,practice advisor,cont (FreeStyle Alcides 3 [place]) Use daily to monitor blood glucose levels continuously. lrbqwkfegu-lypqiqhlwitto-yice 50-325-40 mg 1 tab PO Q4H PRN carvedilol 6.25 mg PO BID clotrimazole-betamethasone 1-0.05 % 1 appl topical BID 10 days cranberry fruit 2,000 mg PO DAILY flash glucose sensor (FreeStyle Alcides 2 Sensor kit) As directed gabapentin 300 mg PO BID 90 days glucose (Dex4 Glucose Quick Dissolve) 16 grams (4 x 4 gram) PO Q15M PRN insulin degludec (Tresiba FlexTouch U-100 insulin) 8 units subcut DAILY lidocaine 5% (Lidoderm) 3 patches topical DAILY lisinopril 40 mg PO DAILY loperamide 2 mg PO Q4H PRN metformin ER 1,000 mg (2 x 500 mg) PO BID methenamine hippurate 1 g PO DAILY oxybutynin chloride ER 10 mg PO DAILY polysaccharide iron complex (Ferrex) 150 mg PO DAILY polysaccharide iron complex (Ferrex) 150 mg PO DAILY psyllium husk 1 tbsp PO DAILY semaglutide (Ozempic) 0.5 mg subcut QWEEK tirzepatide (Mounjaro) 2.5 mg (0.5 mL) subcut QWEEK tizanidine 2 mg PO Q8H PRN tramadol 50 mg PO Q8H PRN 14 days vitamins A,C,H-dzyz-nypppj 4,296 mcg-226 mg-90 mg (PreserVision AREDS) 1 cap PO BID HPI Comments Details: 68 female with who had inferior STEMi in 11/2022 and underwent ostial RCA stent. She is here for f/u. Clinically stable. She had indigestion like feeling when she presented with inferior ST-elevation NH. She has been experiencing indigestion off and on. She is saying that she is taking omeprazole. The symptoms are random but quite similar to her presentation with STEMI. She is doing cardiac rehabilitation. 10/04/2023: On last visit she was complaining of chest discomfort with activities. She underwent stress testing where after exercising for 5 minutes 30 seconds on treadmill she developed chest discomfort. No dynamic EKG changes were noted but symptoms improved after she stopped exercising. She has been taking amlodipine 2.5 mg daily since then and her symptoms are somewhat better. She still gets some anginal episodes off and on and feels distressed by the symptoms. 12/10/23: She returns for follow-up. She was taken for cardiac catheterization because she was getting chest discomfort underwent stress testing during which she had exertional symptoms. One day before she presented to [facility] for diagnostic angiography she had rest discomfort and throat discomfort. Her angiography interestingly showed severe InStent restenosis in the ostial right coronary artery stent. Circumflex stenosis was in the 70% range and was stable. We treated the RCA with balloon angioplasty only. Intravascular ultrasound before angioplasty showed that the stent was somewhat oval in shape in the ostium and we felt maybe it was somewhat underexpanded. We did high-pressure inflation with 4 mm noncompliant balloon with good result. She is back in clinic and has no symptoms. She is walking and doing activities without any complaints. 03/12/2024: She is here for follow-up. She has no anginal symptoms. She is recovering from a viral illness currently. Taking medications regularly. She is on aspirin and Brilinta and has some bruising on her arms and legs. We discussed about change Plavix but she feels that she is okay continuing Brilinta. 10/22/2024: Here for follow-up. She has been doing well. No exertional symptoms. She had some GI blood loss and was at [facility]. She underwent colonoscopy without any obvious cause found. After discussion Plavix was stopped and she has been on baby aspirin. Further bleeding while taking baby aspirin only. [facility] Medical History Lower GI bleed Dizziness Head pain Skin rash Osteoarthritis involving multiple joints on both sides of body Positive NADEEM (antinuclear antibody) Mild anemia Colon polyp Pure hypercholesterolemia Essential hypertension History of kidney cancer Clear cell carcinoma of right kidney Abnormal mammogram Osteopenia Bone spur Vertigo Urinary incontinence Recurrent UTI Osteoarthritis Obesity, Class I, BMI 30-34.9 Migraine Left hand pain Hypertensive disorder Hypercholesteremia Diarrhea COVID-19 Clear cell renal cell carcinoma Chronic headache Hyperlipidemia CAD (coronary artery disease) ST elevation myocardial infarction (STEMI) of inferior wall Surgical History Hx of cardiac cath History of shoulder surgery History of carpal tunnel surgery of right wrist S/P foot surgery, right H/O partial nephrectomy H/O removal of cyst Finger joint replacement of right hand S/P cardiac catheterization Family History Brother Heart disease Alcohol abuse Cancer Mother Heart disease Hypercholesterolemia Hypertension Daughter Hypercholesterolemia Social History Alcohol intake: never Patient Tobacco Use Status: Former Tobacco user Cigarettes Per Day: 0.25 Years Smoked: Unknown e-Cigarette/Vaping Use: Never Used Second Hand Smoke Exposure: Yes service: No Current occupational status: employed and retired Current occupation: [employer] Current occupational exposures/hazards: No Cognitive needs: No Hearing needs: No Vision needs: No Review of Systems Const Denies chills, Denies fatigue, Denies fever(s), Denies frequent falls, Denies weakness, Denies weight gain and Denies weight loss ENT Denies dizziness Card Denies chest pain, Denies leg edema, Denies lightheadedness, Denies palpitations, Denies dyspnea, Denies dyspnea on exertion, Denies orthopnea and Denies other (loss of consciousness) Resp Denies cough, Denies dyspnea and Denies dyspnea on exertion GI Denies hematochezia and Denies change in stool character Musc Denies abnormal gait, Denies muscle weakness, Denies numbness, Denies radiating pain into limb and Denies tingling Neuro Denies abnormal gait, Denies dizziness, Denies frequent falls, Denies numbness, Denies tingling and Denies weakness Endo Denies fatigue and Denies palpitations Physical Exam Vital Signs: Last Vital Signs Pulse 82 10/22/24 12:59 BP 110/62 10/22/24 12:59 BMI result Body Mass Index 22.0 GENERAL APPEARANCE: in no acute distress, pleasant. NECK: no carotid bruit, no jugular venous distention. SKIN: no suspicious lesions, warm and dry. HEART: no murmurs, regular rate and rhythm. LUNGS: clear to auscultation bilaterally. ABDOMEN: soft, nontender. EXTREMITIES: no edema. PERIPHERAL PULSES: equal. NEUROLOGIC: No gross deficits, AAO X 3 Office Procedures EKG Details: NSR 82/min, normal ECG, QTc 420 msec. [id number], Complete Assessment & Plan Assessment & Plan (1) Essential hypertension: Code(s): I10 - Essential (primary) hypertension Category: Medical (2) Stable angina: Code(s): I20.89 - Other forms of angina pectoris Category: Medical Plan Pleasant 68 year female who is here for follow-up. She had inferior wall NH and had primary PCI done to the right coronary artery with ostial stenting. In October 2023 she underwent repeat angiography for exertional chest discomfort. She had residual disease in left circumflex artery and our intention was to treat that but we noticed severe ISR in the right coronary artery ostial stent. This was treated with balloon angioplasty only. She has done well for a year at this point. She had some GI blood loss and has been taken off the Plavix at this point. She is taking aspirin alone and has been stable. She is denying any exertional symptoms. She is doing well currently and she is clinically stable. Blood pressure is well controlled. She is active physically and has no complaints. She will see us back in 6 months. Thank you for allowing me to participate in the care of your patient. Please feel free to contact me if you have any questions. Coding Level of Care Code Est Pt Level 4 (44383) Diagnoses Essential hypertension I10 Stable angina I20.89 CPT Codes EKG - CPT: 40301-Bnekeysiidygxejao, Complete ([id number])
[2024-10-22 12:59] VITALS: BP 110/62; PULSE 82; BMI 22.0
--- OUTSIDE RECORDS SUMMARY | 2024-10-22 13:08 | XMS_ITS | Patient Health Record ---
Author Organization [facility] Address [address] [place] [address] Support Name Relationship Address Phone TRAVON EPSTEIN Guarantor Unknown [phone] Reason For Referral No Information Medications Medication SIG (Take, Route, Fr equency, Duration) Notes Start Date End Date Status Pravachol 20MG 1 ORAL daily; Duration: -3 Red- 11/08/19 12 Active Lisinopril 5MG 1 ORAL daily; Duration: -3 Red- 11/08/19 12 Active metFORMIN HCl 1GM 1 ORAL twice daily; Duration: -3 Red- 11/08/2011 Active glyBURIDE 2.5MG 1 ORAL EVERY MORNING ; Duration: -3 Red- 11/08/2011 Active Immunizations Vaccine Route Administration Date Status Comme nts Influenza, live, intranasal Intramuscular 08/09/2011 Pendi ng Tdap Intramuscular 08/09/2011 Pending Tdap Unknown 08/23/2011 Pending Problems Problem Type SNOMED Code ICD Code Onset Dates Problem Status W/U Status Risk Notes Problem Type II diabetes mellitus without complication (957397728) Diabetes mellitus without mention of complication, type II or unspecified type, not stated as uncontrolled (250.00) Active confirmed Major Problem Hyperlipidemia (85019155) Other and unspecified hyperlipidemia (272.4) Active confirmed Major Problem Essential hypertension (86584609) Unspecified essential hypertension (401.9) Active confirmed Major Problem Postmenopausal bleeding (13973807) Postmenopausal bleeding (627.1) Active confirmed Diag Problem Menopausal symptom (68994880) Symptomatic menopausal or female climacteric states (627.2) Active confirmed Diag Problem Insomnia (332936764) Insomnia, unspecified (780.52) Active confirmed Diag Problem General examination of patient (591276833) Routine general medical examination at health care facility (V70.0) Active confirmed Diag Problem Gynecological examination normal (440419858909571) Routine gynecological examination (V72.31) Active confirmed Diag Problem Dietary management surveillance (342484661) Dietary surveillance and counseling (V65.3) Active confirmed Diag Problem Counseling (571841255) Counseling NOS (V65.40) Active confirmed Diag Problem Exercises teaching, guidance, and counseling (866782726) Exercise counseling (V65.41) Active confirmed Diag Plan Of Treatment No Information Insurance Providers Payer Name Payer Address Payer Phone Subscriber Number Group Number Insured Name Patient Relationship to Insured Coverage Start Date Coverage End Date [employer] [address] [place] [address] [id number] TRAVON EPSTEIN Self - patient is the insured
--- OUTSIDE RECORDS SUMMARY | 2024-10-22 13:08 | XMS_ITS | Clinical Summary ---
Author Organization [facility] Address [address] [facility] [facility] [address] [place] [address] Phone Care Team Providers Care Forklift Picker Name Role Phone Gali Rodríguez Primary Care Provide r Allergies Active Allergy Reactions Criticality Noted Date Comments Erythromycin GI Upset 01/02/2023 Nitrofurantoin Monohyd/M-Cryst 04/23/2015 Other reaction(s): flu like symptoms High fever, chills, flu like symptoms on both exposures. The first exposure - symptoms in 2 days The second exposure - was within 2 doses. Oxycodone 04/23/2015 Other reaction(s): vomited continuously Persistent vomiting Penicillin Hives 01/02/2023 Sulfa (Sulfonamide Antibiotics) GI Upset 01/02/2023 Sulfamethoxazole-Trimethoprim Swelling 2022 Medications aspirin 81 MG EC tablet Take 81 mg by mouth. 3 Active atorvastatin (LIPITOR) 80 MG tablet Take 80 mg by mouth nightly at bedtime. 3 Active carvedilol (COREG) 6.25 MG tablet Take 1 tablet by mouth 2 (two) times a day. 3 Active clindamycin (CLEOCIN) 300 MG capsule TAKE 2 CAPSULES BY MOUTH 30 MINUTES BEFORE DENTIST APPOINTMENT 3 Active EPINEPHrine 0.3 mg/0.3 mL auto-injector INJECT CONTENTS OF 1 PEN IN CASE OF SEVERE ALLERGIC REACTION 3 Active estradioL (ESTRACE) 0.01 % (0.1 mg/gram) vaginal cream Place 1 g vaginally. 2 Active TRESIBA FLEXTOUCH U-100 injection pen INJECT 30 UNITS SUBCUTANEOUSLY ONCE DAILY 3 Active lisinopril (PRINIVIL,ZEST RIL) 40 MG tablet Take by mouth. 3 Active loperamide (IMODIUM) 2 mg capsule Take 2 mg by mouth. 3 Active metFORMIN (GLUCOPHAGE-XR ) 500 MG 24 hr tablet Take 2 tablets by mouth 2 (two) times a day. 3 Active omeprazole (PRILOSEC) 20 MG capsule Take 1 capsule by mouth every morning. 3 Active oxyBUTYnin (DITROPAN-XL) 5 MG 24 hr tablet Take 10 mg by mouth. 3 Active BD INSULIN PEN NEEDLE UF SHORT 31 gauge x 08/08 Ndle USE 1 PEN SUBCUTANEOUSLY TWICE DAILY DIRECTED 3 Active SUMAtriptan (IMITREX) 50 MG tablet TAKE ONE TABLET BY MOUTH AT ONSET OF MIGRAINE. IF SYMPTOMS PERSIST, A SECOND DOSE MAY BE TAKEN IN 2 HOURS. DO NOT EXCEED 2 DOSES IN A 24 HOUR PERIOD, UNLESS OTHERWISE INSTRUCTED BY YOUR PHYSICIAN 3 Active BRILINTA 90 mg Tab Take 1 tablet by mouth 2 (two) times a day. 3 Active ASCORBIC ACID, VITAMIN C, ORAL Take 250 mg by mouth. Active cinnamon bark (CINNAMON ORAL) Take 1,000 mg by mouth. Active CRANBERRY ORAL Take by mouth. Active methenamine (HIPREX) 1 gram tablet Take 1 g by mouth daily. Active Active Problems No known active problems Social History Tobacco Use Types Packs/Day Years Used Date Smoking Tobacco: Former Cigarettes Smokeless Tobacco: Never Tobacco Cessation:Counseling Given: Not Answered Education Answer Date Recorded Are you interested in more education? Not on blanco e 01/02/2023 Are you concerned about learning? Not on file 01/02/2023 No 01/02/2023 No 01/02/2023 Digital Access Answer Date Recorded No 01/02/2023 No 01/02/2023 Reliable internet access at home? Not on file 01/02/2023 Device with a working camera? Not on file Comments Unknown Sex and Gender Information Value Date Recorded Sex Assigned at Not on file Legal Sex Female 2:34 PM EDT Gender Identity Not on file Sexual Orientation Not on file Last Filed Vital Signs Vital Sign Reading Time Taken Comments Blood Pressure 154/71 01/02/2023 2:59 PM EDT Pulse 77 01/02/2023 2:59 PM EDT Temperature 36.6 C (97.8 F) 01/02/2023 2:59 PM EDT Respiratory Rate 16 01/02/2023 2:59 PM EDT Oxygen Saturation 96% 01/02/2023 2:59 PM EDT Inhaled Oxygen Concentration - - Weight - - Height - - Body Mass Index - - Plan of Treatment Health Maintenance Due Date Last Done Comments CREATININE LEVEL 1956 LIPID PANEL 1956 DEPRESSION SCREENING 1968 SMOKING Hx and SMOKELESS TOBACCO SCREENING 1969 HEPATITIS C SCREENING 1974 MAMMOGRAM 1996 COLOGUARD 2001 COLONOSCOPY 2001 COLORECTAL CANCER SCREENING 2001 FIT TEST 2001 FOBT 2001 SIGMOIDOSCOPY 2001 VIRTUAL COLONOSCOPY 2001 OSTEOPOROSIS SCREENING INITI AL (ONE-TIME) 2021 COVID-19 VACCINE (3 2023-2 5 season) 2023 07/13/2020, 06/21/2020 Adult Td,Tdap Booster 11/23/2026 11/23/2016 , 08/23/2011 RSV VACCINE (1 - 1-dose 75+ series) 11/30/2031 ZOSTER VACCINES Completed 10/14/2019, 05/20/2019 PNEUMOCOCCAL VACCINES (50+ years) Completed 06/02/2022, 12/23/2012 HEPATITIS A VACCINES Aged Out No long er eligible based on patient's age to complete this topic HIB VACCINES Aged Out No longer eligi ble based on patient's age to complete this topic MENINGOCOCCAL VACCINES (ACWY) Aged Out No longer eligible based on patient's age to complete this topic MENINGOCOCCAL VACCINES (B) Aged Out N o longer eligible based on patient's age to complete this topic Medical Devices Not on file [facility] CIGNA PPO CIGNA PPO CIGNA PPO CIGNA PPO Care Teams Forklift Picker Relationship Specialty Start Date End Date Gali Rodríguez PA PCP - General Physician Computer Scientist 01/02/23 Additional Source Comments The information contained in this document represents components of the legal health record. It is not the complete legal health record.[facility]
== END 2024-10-22 13:22 | disposition home or self-care (01) ==
LOC: HO.HCS 12:32
PROVIDERS: PCP Physician Assistant Medical; Visit Provider Internal Medicine Cardiovascular Disease
DX: I10 Essential (primary) hypertension (principal); I20.89 Other forms of angina pectoris
CPT/HCPCS: 93010; 99214

== ENCOUNTER → 2024-10-22 12:31 | Outpatient (BNVA) | payer OTHER, SELFPAY | PROVIDERS: PCP Physician Assistant Medical; Visit Provider Internal Medicine Cardiovascular Disease | DX: I10 Essential (primary) hypertension (principal) | CPT/HCPCS: 93005 ==

== ENCOUNTER 2024-10-23 06:19 | Outpatient (REF) | payer OTHER, SELFPAY ==
--- NOTE | ~2024-10-23 | FL_ITS ---
EXAMINATION: XR FLUOROSCOPY WITH IMAGES CLINICAL INFORMATION: Left SI joint pain management. COMPARISON: None available. TECHNIQUE: Fluoroscopy provided to: Dr. Wei Fluoroscopy time: 0.1 minutes DAP: 0.0329 mGycm2 Images: 4 FINDINGS: 4 fluoroscopic spot images obtained during left SI joint pain injection for pain management. Please refer to the full procedural report for details. FL/FL guidance in treatment room IMPRESSION: Fluoroscopic guidance. Electronically signed by: Leo Wallace MD 10/23/2024 01:54 PM EDT
--- OUTSIDE RECORDS SUMMARY | 2024-10-23 06:22 | XMS_ITS | Clinical Summary ---
Author Organization [facility] Address [address] [facility] [address] [place] [address] Phone Care Team Providers Care Actuarial Internship Name Role Phone Gali Rodríguez Primary Care [...] topic Medical Devices Not on file [facility] CIGNA PPO CIGNA PPO CIGNA PPO CIGNA PPO Care Teams Actuarial Internship Relationship Specialty Start Date End Date Gali Rodríguez PA PCP - General Physician Welding Machine Tender 01/02/23 Additional Source Comments The information contained in this document represents components of the legal health record. It is not the complete legal health record.[facility]
--- OUTSIDE RECORDS SUMMARY | 2024-10-23 06:23 | XMS_ITS | Patient Health Record ---
Author Organization [facility] Address [address] [place] [address] Support Name Relationship Address Phone TRAVON EPSTEIN Guarantor Unknown Reason For Referral No Information Medications Medication [...] Problem Type II diabetes mellitus without complication (163330481) Diabetes mellitus without mention of complication, type II or unspecified type, not stated as uncontrolled (250.00) Active confirmed Major Problem Hyperlipidemia (06102635) Other and unspecified hyperlipidemia (272.4) Active confirmed Major Problem Essential hypertension (02926052) Unspecified essential hypertension (401.9) Active confirmed Major Problem Postmenopausal bleeding (75134409) Postmenopausal bleeding (627.1) Active confirmed Diag Problem Menopausal symptom (94202638) Symptomatic menopausal or female climacteric states (627.2) Active confirmed Diag Problem Insomnia (715923095) Insomnia, unspecified (780.52) Active confirmed Diag Problem General examination of patient (326604929) Routine general medical examination at health care facility (V70.0) Active confirmed Diag Problem Gynecological examination normal (791303988155220) Routine gynecological examination (V72.31) Active confirmed Diag Problem Dietary management surveillance (169337009) Dietary surveillance and counseling (V65.3) Active confirmed Diag Problem Counseling (702078402) Counseling NOS (V65.40) Active confirmed Diag Problem Exercises teaching, guidance, and counseling (746670908) Exercise counseling (V65.41) Active confirmed Diag Plan Of Treatment No Information Insurance Providers Payer Name Payer Address Payer Phone Subscriber Number Group Number Insured Name Patient Relationship to Insured Coverage Start Date Coverage End Date DIV[employer] ADMIN[employer]RATION [address] [place] [address] [id number] TRAVON EPSTEIN Self - patient is the insured
== END 2024-10-23 06:20 | disposition home or self-care (01) ==
LOC: CF 06:19
PROVIDERS: Visit Provider Internal Medicine
DX: M53.3 Sacrococcygeal disorders, not elsewhere classified (principal)
CPT/HCPCS: 27096; J2003; J2795

== ENCOUNTER 2024-10-23 09:03 | Outpatient (AMB) | payer OTHER, SELFPAY ==
[2024-10-23 09:07] VITALS: BP 115/61; PULSE 91; RESP 16; O2SAT 100; BMI 22.0
--- NOTE | 2024-10-23 09:07 | A.OFFVIS_ITS ---
Vital Signs 10/23/24 09:07 Height 4 ft 11 in Weight 109 lb BMI 22.0 BP 115/61 Blood Pressure Location Lt brachial Position Sitting Respiration 16 Pulse 91 Pulse Source Pulse Oximeter Pulse Oximetry (%) 100 Oxygen Delivery Method Room Air Intake Visit Reasons: Left Dx SIJ Allergies nitrofurantoin (From Macrobid) Allergy (Mild, Verified 10/22/24 13:01) fever oxycodone (From Percocet) Allergy (Mild, Verified 10/22/24 13:01) Nausea sulfamethoxazole (From Bactrim) Allergy (Mild, Verified 10/22/24 13:01) face swelling trimethoprim (From Bactrim) Allergy (Mild, Verified 10/22/24 13:01) face swelling penicillin G Allergy (Verified 10/22/24 13:01) hives [facility] Medical History Lower GI bleed Dizziness Head pain Skin rash Osteoarthritis involving multiple joints on both sides of body Positive NADEEM (antinuclear antibody) Mild anemia Colon polyp Pure hypercholesterolemia Essential hypertension History of kidney cancer Clear cell carcinoma of right kidney Abnormal mammogram Osteopenia Bone spur Vertigo Urinary incontinence Recurrent UTI Osteoarthritis Obesity, Class I, BMI 30-34.9 Migraine Left hand pain Hypertensive disorder Hypercholesteremia Diarrhea COVID-19 Clear cell renal cell carcinoma Chronic headache Hyperlipidemia CAD (coronary artery disease) ST elevation myocardial infarction (STEMI) of inferior wall Surgical History Hx of cardiac cath History of shoulder surgery History of carpal tunnel surgery of right wrist S/P foot surgery, right H/O partial nephrectomy H/O removal of cyst Finger joint replacement of right hand S/P cardiac catheterization Family History Brother Heart disease Alcohol abuse Cancer Mother Heart disease Hypercholesterolemia Hypertension Daughter Hypercholesterolemia Social History Alcohol intake: never Patient Tobacco Use Status: Former Tobacco user Cigarettes Per Day: 0.25 Years Smoked: Unknown e-Cigarette/Vaping Use: Never Used Second Hand Smoke Exposure: Yes service: No Current occupational status: employed and retired Current occupation: [email or web address] at [employer] Current occupational exposures/hazards: No Cognitive needs: No Hearing needs: No Vision needs: No Assessment & Plan Assessment & Plan Orders: Orders FL guidance in treatment room Today M53.3 - Sacrococcygeal disorders, not elsewhere classified Coding
[2024-10-23 09:45] VITALS: BP 131/72; PULSE 90; RESP 16; O2SAT 100; BMI 22.0
--- NOTE | 2024-10-23 09:45 | A.OFFVIS_ITS ---
Vital Signs 10/23/24 09:07 10/23/24 09:45 Height 4 ft 11 in 4 ft 11 in Weight 109 lb 109 lb BMI 22.0 22.0 BP 115/61 131/72 Blood Pressure Location Lt brachial Lt brachial Position Sitting Sitting Respiration 16 16 Pulse 91 90 Pulse Source Pulse Oximeter Pulse Oximeter Pulse Oximetry (%) 100 100 Oxygen Delivery Method Room Air Room Air Intake Visit Reasons: Left Dx SIJ Allergies nitrofurantoin (From Macrobid) Allergy (Mild, Verified 10/22/24 13:01) fever oxycodone (From Percocet) Allergy (Mild, Verified 10/22/24 13:01) Nausea sulfamethoxazole (From Bactrim) Allergy (Mild, Verified 10/22/24 13:01) face swelling trimethoprim (From Bactrim) Allergy (Mild, Verified 10/22/24 13:01) face swelling penicillin G Allergy (Verified 10/22/24 13:01) hives HPI HPI Left Dx SIJ: Details: Patient presents for scheduled procedure. Denies any recent cough, cold, infection, fever or other significant changes in medical history since last office visit. [facility] Medical History Lower GI bleed Dizziness Head pain Skin rash Osteoarthritis involving multiple joints on both sides of body Positive NADEEM (antinuclear antibody) Mild anemia Colon polyp Pure hypercholesterolemia Essential hypertension History of kidney cancer Clear cell carcinoma of right kidney Abnormal mammogram Osteopenia Bone spur Vertigo Urinary incontinence Recurrent UTI Osteoarthritis Obesity, Class I, BMI 30-34.9 Migraine Left hand pain Hypertensive disorder Hypercholesteremia Diarrhea COVID-19 Clear cell renal cell carcinoma Chronic headache Hyperlipidemia CAD (coronary artery disease) ST elevation myocardial infarction (STEMI) of inferior wall Surgical History Hx of cardiac cath History of shoulder surgery History of carpal tunnel surgery of right wrist S/P foot surgery, right H/O partial nephrectomy H/O removal of cyst Finger joint replacement of right hand S/P cardiac catheterization Family History Brother Heart disease Alcohol abuse Cancer Mother Heart disease Hypercholesterolemia Hypertension Daughter Hypercholesterolemia Social History Alcohol intake: never Patient Tobacco Use Status: Former Tobacco user Cigarettes Per Day: 0.25 Years Smoked: Unknown e-Cigarette/Vaping Use: Never Used Second Hand Smoke Exposure: Yes service: No Current occupational status: employed and retired 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 Immediately prior to starting the procedure, a time-out safety check was conducted. The patient's identification, procedure name, procedure site, and procedure laterality were confirmed with the patient. ? Patient was placed prone on the fluoroscopy table and the lumbosacral area was prepped using ChloraPrep and draped with sterile draped in standard fashion. The C-arm was rotated in a contralateral oblique fashion until the medial border of the iliac crest no longer foreshadowed the posterior sacroiliac joint line. The skin and subcutaneous tissue was anesthetized using 1 mL of 0.75% plain lidocaine with 1.5-inch 25-gauge needle in the middle region of the joint line.? A 3.5-inch 22-gauge spinal needle with small bend on the tip was slowly advanced towards the joint line, coaxial to the x-ray beam. Once bony content was obtained, the needle was easily slid into the intra-articular space.? Intra- articular needle position was confirmed using lateral fluoroscopy.? A total volume of 2.5mL of solution containing 0.5% of ropivacaine was injected intra- articularly. The stylet was reinserted and needle was removed. The patient tolerated the procedure well. Patient denied any lower extremity weakness or numbness. Patient was observed for 30 min and was discharged after fulfilling the standard discharge criteria. Coding 74089 - Sacroiliac Procedure code (CPT) selection complete Assessment & Plan Assessment & Plan (1) Sacroiliac joint dysfunction of left side: Code(s): M53.3 - Sacrococcygeal disorders, not elsewhere classified Category: Medical Plan Patient is status post left diagnostic sacroiliac joint injection. Patient tolerated procedure well and was discharged home in stable condition with discharge instructions. All questions were answered. We will follow-up via telephone or in clinic to assess response to therapy. A follow-up appointment was made during today's visit. Orders: Orders FL guidance in treatment room Today Valorie Hong APRN, LOCKSTITCH CUP SETTER M53.3 - Sacrococcygeal disorders, not elsewhere classified AMB Joint Injection/Aspiration Today David Wei MD M53.3 - Sacrococcygeal disorders, not elsewhere classified Coding Level of Care Code Procedure Only Diagnoses Sacroiliac joint dysfunction of left side M53.3 CPT Codes Coding - Joint 9: 48445 - Sacroiliac ([id number])
== END 2024-10-23 09:51 | disposition home or self-care (01) ==
LOC: HO.PMCPRC 09:03
PROVIDERS: PCP Physician Assistant Medical; Visit Provider Internal Medicine
DX: M53.3 Sacrococcygeal disorders, not elsewhere classified (principal)
CPT/HCPCS: 27096

== ENCOUNTER 2024-10-27 09:20 | Outpatient (AMB) | payer OTHER, SELFPAY ==
--- NOTE | 2024-10-27 09:24 | MHC.OFFVIS ---
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 Drying Machine Operator Required: No Allergies nitrofurantoin (From Macrobid) Allergy (Mild, Verified 10/27/24 09:27) fever oxycodone (From Percocet) Allergy (Mild, Verified 10/27/24 09:27) Nausea sulfamethoxazole (From Bactrim) Allergy (Mild, Verified 10/27/24 09:27) face swelling trimethoprim (From Bactrim) Allergy (Mild, Verified 10/27/24 09:27) face swelling penicillin G Allergy (Verified 10/27/24 09:27) hives Medication List - Last Reconciled 10/27/24 by Andria Quiroga LPN amlodipine 5 mg PO DAILY aspirin (Adult Aspirin Regimen) 81 mg PO DAILY atorvastatin 80 mg PO BEDTIME blood-glucose sensor (FreeStyle Alcides 3 Plus Sensor device) Apply 1 new sensor every 15 days as directed to monitor blood glucose continuously. blood-glucose,freight receiver,cont (FreeStyle Alcides 3 [place]) Use daily to monitor blood glucose levels continuously. cwhogqhbmy-huzreqecuhmzu-sbzs 50-325-40 mg 1 tab PO Q4H PRN carvedilol 6.25 mg PO BID clotrimazole-betamethasone 1-0.05 % 1 appl topical BID 10 days cranberry fruit 2,000 mg PO DAILY flash glucose sensor (FreeStyle Alcides 2 Sensor kit) As directed gabapentin 300 mg PO BID 90 days glucose (Dex4 Glucose Quick Dissolve) 16 grams (4 x 4 gram) PO Q15M PRN insulin degludec (Tresiba FlexTouch U-100 insulin) 8 units subcut DAILY lidocaine 5% (Lidoderm) 3 patches topical DAILY lisinopril 40 mg PO DAILY loperamide 2 mg PO Q4H PRN metformin ER 1,000 mg (2 x 500 mg) PO BID methenamine hippurate 1 g PO DAILY oxybutynin chloride ER 10 mg PO DAILY polysaccharide iron complex (Ferrex) 150 mg PO DAILY tirzepatide (Mounjaro) 2.5 mg (0.5 mL) subcut QWEEK tizanidine 2 mg PO Q8H PRN tramadol 50 mg PO Q8H PRN 14 days vitamins A,C,A-pihw-ublbua 4,296 mcg-226 mg-90 mg (PreserVision AREDS) 1 cap PO BID HPI HPI s/p Left Dx SIJ inj: Details: History of Present Illness The patient is a 68-year-old female presenting with sacroiliac joint pain. She underwent a diagnostic left sacroiliac joint injection, which provided significant relief for a couple of days, indicating the appropriateness of the treatment. The patient reports that cortisone injections typically cause hyperglycemia, which she manages by monitoring her blood glucose levels more closely and adjusting her insulin dosage as needed. Pain Description - Location: Left sacroiliac joint - Quality: Constant ache - Relief: Significant relief for a couple of days post-diagnostic injection >80% - Exacerbating factors: None explicitly mentioned - Relieving factors: Diagnostic injection Physical Exam - Appears afebrile. - Alert and oriented. - Mood and affect appropriate. - Follows and participates in conversation appropriately. - Respiratory effort is unlabored. - Able to transition from sit to stand unassisted. - Ambulates with bilaterally normal heel strike and toe off. - Able to stand and walk on toes and heels. Results - Diagnostic left sacroiliac joint injection: Provided significant relief, indicating appropriateness of treatment Pain Management - Affect: Not explicitly discussed - Analgesia: Diagnostic injection provided relief; planning for cortisone injection for longer relief - Adverse Effects: Hyperglycemia from cortisone, managed by adjusting insulin - Activities of Daily Living: Not explicitly discussed - Aberrant Drug Related Behaviors: None reported [facility] Medical History Lower GI bleed Dizziness Head pain Skin rash Osteoarthritis involving multiple joints on both sides of body Positive NADEEM (antinuclear antibody) Mild anemia Colon polyp Pure hypercholesterolemia Essential hypertension History of kidney cancer Clear cell carcinoma of right kidney Abnormal mammogram Osteopenia Bone spur Vertigo Urinary incontinence Recurrent UTI Osteoarthritis Obesity, Class I, BMI 30-34.9 Migraine Left hand pain Hypertensive disorder Hypercholesteremia Diarrhea COVID-19 Clear cell renal cell carcinoma Chronic headache Hyperlipidemia CAD (coronary artery disease) ST elevation myocardial infarction (STEMI) of inferior wall Surgical History Hx of cardiac cath History of shoulder surgery History of carpal tunnel surgery of right wrist S/P foot surgery, right H/O partial nephrectomy H/O removal of cyst Finger joint replacement of right hand S/P cardiac catheterization Family History Brother Heart disease Alcohol abuse Cancer Mother Heart disease Hypercholesterolemia Hypertension Daughter Hypercholesterolemia Social History Alcohol intake: never Patient Tobacco Use Status: Former Tobacco user Cigarettes Per Day: 0.25 Years Smoked: Unknown e-Cigarette/Vaping Use: Never Used Second Hand Smoke Exposure: Yes service: No Current occupational status: employed and retired Current occupation: [employer] at [employer] Current occupational exposures/hazards: No Cognitive needs: No Hearing needs: No Vision needs: No Physical Exam Vital Signs: Last Vital Signs Pulse 79 10/27/24 09:26 Resp 16 10/27/24 09:26 BP 134/57 L 10/27/24 09:26 Pulse Ox 98 10/27/24 09:26 Oxygen Delivery Method Room Air 10/27/24 09:26 BMI result Body Mass Index 21.6 Assessment & Plan Assessment & Plan (1) Sacroiliac joint dysfunction of left side: Code(s): M53.3 - Sacrococcygeal disorders, not elsewhere classified Category: Medical Plan Plan - Plan for a therapeutic left sacroiliac joint injection with cortisone to provide longer relief. - Monitor blood glucose levels closely post-cortisone injection and adjust insulin as needed. - Consider similar treatment for the right side if the left side injection is successful. Patient was informed and verbally consented to the use of an ambient scribe for clinic note documentation during this visit. Discussion Notes I discussed with the patient that the diagnostic left sacroiliac joint injection provided significant relief, confirming the appropriateness of the treatment. We plan to proceed with a cortisone injection to provide longer-lasting relief, which should last weeks to months. The patient is aware that cortisone may affect her blood glucose levels, and she will monitor and adjust her insulin accordingly. We also discussed the possibility of treating the right side if the left side injection proves successful. Patient Instructions - Monitor blood glucose levels closely after the cortisone injection. - Adjust insulin dosage as needed based on blood glucose readings. - Follow up if the left side injection is successful to discuss treatment for the right side. Coding Level of Care Code Est Pt Level 3 (56499) Diagnoses Sacroiliac joint dysfunction of left side M53.3
[2024-10-27 09:26] VITALS: BP 134/57; PULSE 79; RESP 16; O2SAT 98; BMI 21.6
--- OUTSIDE RECORDS SUMMARY | 2024-10-27 09:48 | XMS_ITS | Clinical Summary ---
Author Organization [facility] Address [address] [facility] [address] [place] [address] Phone Care Team Providers Care Publications Distribution Clerk Name Role Phone Gali Rodríguez Primary Care [...] topic Medical Devices Not on file [facility] PPO CIGNA PPO CIGNA PPO CIGNA PPO CIGNA PPO Care Teams Publications Distribution Clerk Relationship Specialty Start Date End Date Gali Rodríguez PA PCP - General Physician Teaching Music Lessons 01/02/23 Additional Source Comments The information contained in this document represents components of the legal health record. It is not the complete legal health record.[facility]
--- OUTSIDE RECORDS SUMMARY | 2024-10-27 09:49 | XMS_ITS | Patient Health Record ---
Author Organization [facility] Address [address] [place] [address] Support Name Relationship Address Phone TRAVON EPSTEIN [...] Problem Type II diabetes mellitus without complication (060290100) Diabetes mellitus without mention of complication, type II or unspecified type, not stated as uncontrolled (250.00) Active confirmed Major Problem Hyperlipidemia (92264194) Other and unspecified hyperlipidemia (272.4) Active confirmed Major Problem Essential hypertension (65836457) Unspecified essential hypertension (401.9) Active confirmed Major Problem Postmenopausal bleeding (17539010) Postmenopausal bleeding (627.1) Active confirmed Diag Problem Menopausal symptom (48354158) Symptomatic menopausal or female climacteric states (627.2) Active confirmed Diag Problem Insomnia (454278103) Insomnia, unspecified (780.52) Active confirmed Diag Problem General examination of patient (577913316) Routine general medical examination at health care facility (V70.0) Active confirmed Diag Problem Gynecological examination normal (560213742380628) Routine gynecological examination (V72.31) Active confirmed Diag Problem Dietary management surveillance (255610610) Dietary surveillance and counseling (V65.3) Active confirmed Diag Problem Counseling (756757586) Counseling NOS (V65.40) Active confirmed Diag Problem Exercises teaching, guidance, and counseling (367936968) Exercise counseling (V65.41) Active confirmed Diag Plan Of Treatment No Information Insurance Providers Payer Name Payer Address Payer Phone Subscriber Number Group Number Insured Name Patient Relationship to Insured Coverage Start Date Coverage End Date [employer] [address] [place] [address] [id number] TRAVON EPSTEIN Self - patient is the insured
== END 2024-10-27 09:49 | disposition home or self-care (01) ==
LOC: HO.PMC 09:21
PROVIDERS: PCP Physician Assistant Medical; Visit Provider Internal Medicine
DX: M53.3 Sacrococcygeal disorders, not elsewhere classified (principal)
CPT/HCPCS: 99213

== ENCOUNTER 2024-11-11 12:52 | Outpatient (REF) | payer OTHER, SELFPAY ==
[2024-11-11 14:00] LABS: MANUAL DIFF FLAG NO
--- OUTSIDE RECORDS SUMMARY | 2024-11-11 14:02 | XMS_ITS | Clinical Summary ---
Author Organization [facility] Address [address] [facility] [address] [place] [address] Phone Care Team Providers Care Food Safety Field Specialist Name Role Phone Gali Rodríguez Primary Care [...] topic Medical Devices Not on file [facility] PPO CIGNA PPO CIGNA PPO CIGNA PPO CIGNA PPO Care Teams Food Safety Field Specialist Relationship Specialty Start Date End Date Gali Rodríguez PA PCP - General Physician Air Traffic Instructor 01/02/23 Additional Source Comments The information contained in this document represents components of the legal health record. It is not the complete legal health record.[facility]
--- OUTSIDE RECORDS SUMMARY | 2024-11-11 14:02 | XMS_ITS | Patient Health Record ---
Author Organization [facility] Address [address] [place] [address] Support Name Relationship Address Phone TRAVON EPSTEIN [...] Problem Type II diabetes mellitus without complication (629708063) Diabetes mellitus without mention of complication, type II or unspecified type, not stated as uncontrolled (250.00) Active confirmed Major Problem Hyperlipidemia (78317204) Other and unspecified hyperlipidemia (272.4) Active confirmed Major Problem Essential hypertension (58442175) Unspecified essential hypertension (401.9) Active confirmed Major Problem Postmenopausal bleeding (68239992) Postmenopausal bleeding (627.1) Active confirmed Diag Problem Menopausal symptom (73158565) Symptomatic menopausal or female climacteric states (627.2) Active confirmed Diag Problem Insomnia (352329712) Insomnia, unspecified (780.52) Active confirmed Diag Problem General examination of patient (291961105) Routine general medical examination at health care facility (V70.0) Active confirmed Diag Problem Gynecological examination normal (822495148760311) Routine gynecological examination (V72.31) Active confirmed Diag Problem Dietary management surveillance (509251139) Dietary surveillance and counseling (V65.3) Active confirmed Diag Problem Counseling (719293095) Counseling NOS (V65.40) Active confirmed Diag Problem Exercises teaching, guidance, and counseling (741939235) Exercise counseling (V65.41) Active confirmed Diag Plan Of Treatment No Information Insurance Providers Payer Name Payer Address Payer Phone Subscriber Number Group Number Insured Name Patient Relationship to Insured Coverage Start Date Coverage End Date [employer] [address] [place] [address] [id number] TRAVON EPSTEIN Self - patient is the insured
[2024-11-11 14:08] LABS: Hematocrit 34.4 % (37.0-47.0); Hemoglobin 10.8 g/dl (12.0-16.0); Imm Gran Abs Auto 0.01 X10*3/uL (0.00-0.03); Imm Gran Pct Auto 0.2 % (0.0-0.4); Lymphocytes Absolute Auto 2.4 X10*3/uL (1.2-4.9); Mean Corpuscular HGB Conc 31.4 g/dl (31.0-35.0); Mean Corpuscular Hemoglobin 26.9 pg (27.0-33.0); Mean Corpuscular Volume 85.6 fL (80.0-98.0); NRBC Abs Auto 0.000 X10*3/uL (0.0-0.012); NRBC Pct Auto 0.0 /100WBC (0.0-0.2); Platelet Count 315 X10*3/uL (160-400); Red Blood Count 4.02 X10*6/uL (4.20-5.50); White Blood Count 6.5 X10*3/uL (4.8-10.8)
[2024-11-11 14:16] LABS: Hemoglobin A1C 138.3987 umol/L; Total Hemoglobin (HGBA1C) 2852.2435 umol/L
[2024-11-11 14:32] LABS: Alanine Aminotransferase 24 U/L (0-31); Albumin Level 4.4 g/dL (3.5-5.0); Alkaline Phosphatase 66 U/L (39-117); Anion Gap 14 (12-20); Aspartate Amino Transferase 26 U/L (5-31); Blood Urea Nitrogen 12 mg/dL (9-16); Calcium 9.2 mg/dL (8.4-10.2); Carbon Dioxide 28 mmol/L (22-29); Chloride 104 mmol/L (96-108); Estimated Glomerular Filt Rate > 60; Iron 34 mcg/dL (30-160); Percent Iron Saturation 12 % (15-50); Potassium 3.7 mmol/L (3.3-5.1); Sodium 142 mmol/L (135-145); Total Iron Binding Capacity 283 mcg/dL (228-428); Total Protein 6.8 g/dL (6.5-8.0); Unsaturated Iron Binding 249 ug/dL
[2024-11-11 14:49] LABS: Ferritin 16 ng/mL (10-250)
[2024-11-11 15:04] LABS: Folate 16.6 ng/mL (> or = 4.0); Vitamin B12 471 pg/mL (200-900)
== END 2024-11-11 12:53 | disposition home or self-care (01) ==
LOC: HO.WFDLDS 12:52
PROVIDERS: Visit Provider Physician Assistant Medical
DX: I10 Essential (primary) hypertension (principal); I21.19 ST elevation (STEMI) myocardial infarction involving other coronary artery of inferior wall; E11.59 Type 2 diabetes mellitus with other circulatory complications; M85.80 Other specified disorders of bone density and structure, unspecified site; D64.9 Anemia, unspecified
CPT/HCPCS: 36415; 80053; 82607; 82728; 82746; 83036; 83540; 84443; 85025

== ENCOUNTER 2024-11-13 08:49 | Outpatient (AMB) | payer OTHER, SELFPAY ==
--- NOTE | 2024-11-13 08:52 | A.OFFPC_ITS ---
Vital Signs 11/13/24 08:56 Height 4 ft 11 in Weight 108 lb BMI 21.8 BP 120/68 Blood Pressure Location Lt brachial Position Sitting Respiration 16 Pulse 70 Pulse Source Pulse Oximeter Temp 98.4 F Temp Source Temporal Artery Scan Pulse Oximetry (%) 96 Oxygen Delivery Method Room Air Intake Visit Reasons: Type II Diabetes Intake Note: Georgia presents in the office today for a follow up to her diabetes. Allergies nitrofurantoin (From Macrobid) Allergy (Mild, Verified 11/13/24 08:54) fever oxycodone (From Percocet) Allergy (Mild, Verified 11/13/24 08:54) Nausea sulfamethoxazole (From Bactrim) Allergy (Mild, Verified 11/13/24 08:54) face swelling trimethoprim (From Bactrim) Allergy (Mild, Verified 11/13/24 08:54) face swelling penicillin G Allergy (Verified 11/13/24 08:54) hives Tobacco use date assessed: 11/13/24 Dental Screening Dental Screen Date: 11/13/24 Did you have a dental visit in the last 12 months?: Yes Did you have a dental problem in the last 6 months where you did not have access to dental care?: No Was dental information given to patient?: Patient has dentist HPI HPI Comments History of Present Illness Details This is a 68-year-old female with a past medical history of type 2 diabetes, CAD, 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 The patient was seen in the emergency department at [facility] initially on 08/07/2024. She reported bright red blood per rectum for the past 4 days and blood tinged stool. She was noted to take Plavix and aspirin. CBC demonstrated anemia (RBC 3.63, hemoglobin 10.4, hematocrit 32.5). Lactate was elevated at 2.8. She reported diarrhea began after starting B12 supplementation. Patient had CT angio of the abdomen and pelvis which showed no evidence of active GI bleeding and postsurgical changes to her right kidney. Patient was given IV hydration and says lactate was repeated however there is no result in the notes I have. Gastroenterology was consulted and recommended repeating her CBC and lactate the following week and outpatient follow up with Gastroenterology. Lower GI bleed-seen previously for hospital follow up. She remains off Plavix. Gastroenterology was consulted and colonoscopy performed which showed moderate d iverticulosis of the whole colon with internal hemorrhoids. Fiber intake was reviewed with the patient. Per colo report source of bleeding was likely hemorrhoids. Her CBC continues to improve. Fatigue is better. She continues iron supplementation. Type 2 diabetes-taking metformin ER 1000 mg twice daily and Tresiba 8 units daily and Mounjaro 2.5 mg weekly. Her hemoglobin A1c is 6.6%. 14 day GM data 0% very high 9% high 88% target range 3% low 0% very low Pattern of hypoglycemia midday and overnight. Eye exam-August and no complications. She just wears readers. Cardiovascular-She had an ST elevation [place] 12/08/2022. Status post cardiac catheterization with CANDELARIA placed to the RCA. There was 75% stenosis of the left circumflex. There were minimal luminal irregularities in the LAD. Medications include amlodipine, baby aspirin, atorvastatin, carvedilol, lisinopril. Brilinta changed to Plavix at her recent cardiology follow up due to bruising. She does still bruise easily. She had residual anginal symptoms. She had a cath on 11/19/23 which showed RCA stent wasn't working properly. She denies CP and SOB since it was revised. She is having an injection 11/27/24 for left sided sciatica. Right renal clear cell carcinoma-[facility]. Surgeon is Dr. Baldwin at [facility]. She underwent partial nephrectomy 12/16/2021. No known recurrence. She had a head CT for evaluation of head pain that is intermittent. It was negative. She suspects that it may be due to osteoarthritis in her neck. It is happening less frequently. No dizziness or neurologic deficits. ROS: Constitutional: No unexplained weight loss, fever, chills or night sweats. Eyes: No vision changes, blurry vision, double vision, eye pain, eye redness, eye discharge. ENT: No hearing loss, sneezing, congestion, runny nose or sore throat. Respiratory: No shortness of breath, cough or sputum production. Cardiovascular: No chest pain, chest pressure or chest discomfort. No palpit ations or pedal edema. Gastrointestinal: No anorexia, nausea, vomiting or diarrhea. No abdominal pain. Denies blood in stools. Genitourinary: No dysuria, hematuria, urinary frequency. Neurologic: No syncope, unilateral weakness, ataxia, numbness or tingling in the extremities. No slurred speech or facial droop. Musculoskeletal: No neck pain Skin: No rash Endocrine: No cold or heat intolerance. No polyuria or polydipsia. Physical exam: Constitutional: Alert, in no distress. Head: Normocephalic. Palpation does not reproduce pain. No rashes. Eyes: Pupils are equal, round and reactive to light. Extraocular muscles intact. Neck: Supple, Full range of motion. No lymphadenopathy. Respiratory: Clear to auscultation. Cardiovascular: S1 S2 regular. No murmurs. Gastrointestinal: Abdomen soft, non-tender, non-distended. Normal bowel sounds. No palpable masses. Extremities: Warm and well perfused. No clubbing, cyanosis or edema. Intact peripheral pulses. Psychiatric: Normal mood and affect [facility] Medical History Lower GI bleed Dizziness Head pain Skin rash Osteoarthritis involving multiple joints on both sides of body Positive NADEEM (antinuclear antibody) Mild anemia Colon polyp Pure hypercholesterolemia Essential hypertension History of kidney cancer Clear cell carcinoma of right kidney Abnormal mammogram Osteopenia Bone spur Vertigo Urinary incontinence Recurrent UTI Osteoarthritis Obesity, Class I, BMI 30-34.9 Migraine Left hand pain Hypertensive disorder Hypercholesteremia Diarrhea COVID-19 Clear cell renal cell carcinoma Chronic headache Hyperlipidemia CAD (coronary artery disease) ST elevation myocardial infarction (STEMI) of inferior wall Surgical History Hx of cardiac cath History of shoulder surgery History of carpal tunnel surgery of right wrist S/P foot surgery, right H/O partial nephrectomy H/O removal of cyst Finger joint replacement of right hand S/P cardiac catheterization Family History Brother Heart disease Alcohol abuse Cancer Mother Heart disease Hypercholesterolemia Hypertension Daughter Hypercholesterolemia Social History (Updated 11/13/24 @ 08:55 by Nathalia Stone MA) Alcohol intake: never Patient Tobacco Use Status: Former Tobacco user Cigarettes Per Day: 0.25 Years Smoked: Unknown e-Cigarette/Vaping Use: Never Used Second Hand Smoke Exposure: Yes service: No Current occupational status: employed and retired Current occupation: [employer] at [employer] Current occupational exposures/hazards: No Cognitive needs: No Hearing needs: No Vision needs: No Questionnaire Thrive Questionnaire Date Thrive assessed: 04/21/24 I am a: Patient What is your living situation today?: I have a steady place to live Within the past 12 months, did the food you bought not last and you didn't have the money to get more?: Never true Within the past 12 months, did you worry whether your food would run out before you got money to buy more?: Never true Do you have trouble paying for medicines?: No Do you have trouble getting transportation to medical appointments?: No Do you have trouble paying your heating and electricity bill?: No Do you have trouble taking care of your child, family member or friend?: No Do you have trouble with day-to-day activities such as bathing, preparing meals, shopping, managing finances, etc.?: No Are you currently unemployed and looking for a job?: No Are you interested in more education?: No Please select the resources that you would like help with: None Currently or been in a relationship where the following occur: No concerns reported THRIVE Score: 0 PIYUSH-7 AMB Questionnaire PIYUSH-7 Date PIYUSH - 7 assessed: 08/21/24 Source: Developed by Drs. Maury Smith, Samantha Ray, Parmjit Martinez and colleagues, with an educational kristen from [employer]. Physical exam (Primary Care) Vital Signs: Last Vital Signs Temp 98.4 F 11/13/24 08:56 Pulse 70 11/13/24 08:56 Resp 16 11/13/24 08:56 BP 120/68 11/13/24 08:56 Pulse Ox 96 11/13/24 08:56 Oxygen Delivery Method Room Air 11/13/24 08:56 BMI result Body Mass Index 21.8 Tobacco/Smoking Status: Tobacco use Status Tobacco use date assessed 11/13/24 11/13/24 08:59 Patient Tobacco Use Status Former Tobacco user 11/13/24 08:55 e-Cigarette/Vaping Use Never Used 11/13/24 08:55 Thrive Assessment: Date of Thrive Assessment Date Thrive assessed 04/21/24 11/13/24 08:54 Currently or been in a relationship where the following occur: No concerns reported Coding Level of Care Code Est Pt Level 4 (44353) Complex EM visit Add On G2211 Diagnoses Type 2 diabetes mellitus with cardiac complication E11.59 Pure hypercholesterolemia E78.00 Clear cell carcinoma of right kidney C64.1 Essential hypertension I10 Coronary artery disease of koi artery of koi heart with stable angina pectoris I25.118 Associated angina: with stable angina Coronary Disease-Associated Artery/Lesion type: koi artery [place] vs. transplanted heart: koi heart Lower GI bleed K92.2 Assessment & Plan Assessment & Plan (1) Type 2 diabetes mellitus with cardiac complication: Code(s): E11.59 - Type 2 diabetes mellitus with other circulatory complications Category: Medical (2) Pure hypercholesterolemia: Code(s): E78.00 - Pure hypercholesterolemia, unspecified Category: Medical (3) Clear cell carcinoma of right kidney: Code(s): C64.1 - Malignant neoplasm of right kidney, except renal pelvis Category: Medical (4) Essential hypertension: Code(s): I10 - Essential (primary) hypertension Category: Medical (5) CAD (coronary artery disease): Code(s): I25.10 - Atherosclerotic heart disease of koi coronary artery without angina pectoris Category: Medical Qualifiers: Associated angina: with stable angina Coronary Disease-Associated Artery/Lesion type: koi artery [place] vs. transplanted heart: koi heart Qualified Code(s): I25.118 - Atherosclerotic heart disease of koi coronary artery with other forms of angina pectoris (6) Lower GI bleed: Code(s): K92.2 - Gastrointestinal hemorrhage, unspecified Category: Medical Plan Lower GI bleed-no further episodes. Colonoscopy negative for malignancy. Monitor labs. Continue iron. She remains off Plavix. Hyperlipidemia Continue current regimen. Hypertension Controlled. Continue current regimen. History of right kidney cancer No known recurrence. Followed by Dr. Sutherland. Coronary artery disease Continue current management per Cardiology. Type 2 diabetes Continue metformin extended release 1000 mg twice daily. Stopped Tresiba as a trial due to hypoglycemia. Continue Mounjaro 2.5 mg weekly. Follow up in 3 months. Medications: New vitamins A,C,J-sfww-ngjoac 4,296 mcg-226 mg-90 mg (PreserVision AREDS) 1 cap PO BID 180 caps 3RF Refilled atorvastatin 80 mg PO BEDTIME 90 tabs 3RF oxybutynin chloride ER 10 mg PO DAILY 90 tabs 3RF Discontinued flash glucose sensor (FreeStyle Alcides 2 Sensor kit) Discontinued Reason: Doctor's Order As directed 2 ea 11RF
[2024-11-13 08:56] VITALS: BP 120/68; PULSE 70; RESP 16; TEMP 36.9; O2SAT 96; BMI 21.8
--- OUTSIDE RECORDS SUMMARY | 2024-11-13 09:48 | XMS_ITS | Patient Health Record ---
Author Organization [facility] Address [address] [place] [address] Support Name Relationship Address Phone TRAVON EPSTEIN [...] Problem Type II diabetes mellitus without complication (614660898) Diabetes mellitus without mention of complication, type II or unspecified type, not stated as uncontrolled (250.00) Active confirmed Major Problem Hyperlipidemia (40116845) Other and unspecified hyperlipidemia (272.4) Active confirmed Major Problem Essential hypertension (51367574) Unspecified essential hypertension (401.9) Active confirmed Major Problem Postmenopausal bleeding (15358297) Postmenopausal bleeding (627.1) Active confirmed Diag Problem Menopausal symptom (95570829) Symptomatic menopausal or female climacteric states (627.2) Active confirmed Diag Problem Insomnia (921406474) Insomnia, unspecified (780.52) Active confirmed Diag Problem General examination of patient (863458334) Routine general medical examination at health care facility (V70.0) Active confirmed Diag Problem Gynecological examination normal (515649161429247) Routine gynecological examination (V72.31) Active confirmed Diag Problem Dietary management surveillance (550141254) Dietary surveillance and counseling (V65.3) Active confirmed Diag Problem Counseling (270319476) Counseling NOS (V65.40) Active confirmed Diag Problem Exercises teaching, guidance, and counseling (905500403) Exercise counseling (V65.41) Active confirmed Diag Plan Of Treatment No Information Insurance Providers Payer Name Payer Address Payer Phone Subscriber Number Group Number Insured Name Patient Relationship to Insured Coverage Start Date Coverage End Date [employer] [address] [place] [address] [id number] TRAVON EPSTEIN Self - patient is the insured
== END 2024-11-13 09:38 | disposition home or self-care (01) ==
LOC: HO.HMCFM 08:50
PROVIDERS: PCP Physician Assistant Medical; Visit Provider Physician Assistant Medical
DX: E11.59 Type 2 diabetes mellitus with other circulatory complications (principal); E78.00 Pure hypercholesterolemia, unspecified; C64.1 Malignant neoplasm of right kidney, except renal pelvis; I10 Essential (primary) hypertension; I25.118 Atherosclerotic heart disease of native coronary artery with other forms of angina pectoris; K92.2 Gastrointestinal hemorrhage, unspecified

== ENCOUNTER 2024-11-27 06:28 | Outpatient (REF) | payer OTHER, SELFPAY ==
--- NOTE | ~2024-11-27 | FL_ITS ---
EXAMINATION: XR FLUOROSCOPY WITH IMAGES CLINICAL INFORMATION: SI joint pain management COMPARISON: None available. TECHNIQUE: Fluoroscopy provided to: Dr. Wei Fluoroscopy time: 0.1 minutes DAP: 0.23307 mGycm2 Images: 2 FINDINGS: 2 fluoroscopic spot images obtained during SI joint pain management injection. Please refer to the full operative report for details. FL/FL guidance in treatment room IMPRESSION: Fluoroscopic guidance. Electronically signed by: Leo Wallace MD 11/27/2024 02:03 PM EDT
--- OUTSIDE RECORDS SUMMARY | 2024-11-27 06:31 | XMS_ITS | Patient Health Record ---
Author Organization [facility] Address [address] [place] [address] Support Name Relationship Address Phone TRAVON EPSTEIN [...] Problem Type II diabetes mellitus without complication (159317887) Diabetes mellitus without mention of complication, type II or unspecified type, not stated as uncontrolled (250.00) Active confirmed Major Problem Hyperlipidemia (11373201) Other and unspecified hyperlipidemia (272.4) Active confirmed Major Problem Essential hypertension (73668514) Unspecified essential hypertension (401.9) Active confirmed Major Problem Postmenopausal bleeding (23333663) Postmenopausal bleeding (627.1) Active confirmed Diag Problem Menopausal symptom (61594639) Symptomatic menopausal or female climacteric states (627.2) Active confirmed Diag Problem Insomnia (912208209) Insomnia, unspecified (780.52) Active confirmed Diag Problem General examination of patient (756098181) Routine general medical examination at health care facility (V70.0) Active confirmed Diag Problem Gynecological examination normal (427023120793580) Routine gynecological examination (V72.31) Active confirmed Diag Problem Dietary management surveillance (759775226) Dietary surveillance and counseling (V65.3) Active confirmed Diag Problem Counseling (647880092) Counseling NOS (V65.40) Active confirmed Diag Problem Exercises teaching, guidance, and counseling (617128893) Exercise counseling (V65.41) Active confirmed Diag Plan Of Treatment No Information Insurance Providers Payer Name Payer Address Payer Phone Subscriber Number Group Number Insured Name Patient Relationship to Insured Coverage Start Date Coverage End Date [employer] [address] [place] [address] [id number] TRAVON EPSTEIN Self - patient is the insured
--- OUTSIDE RECORDS SUMMARY | 2024-11-27 06:31 | XMS_ITS | Clinical Summary ---
Author Organization [facility] Address [address] [place] [address] Phone Care Team Providers Care Publishing Specialist Name Role Phone Gali Rodríguez Primary [...] topic Medical Devices Not on file [facility] PPO CIGNA PPO CIGNA PPO CIGNA PPO CIGNA PPO Care Teams Publishing Specialist Relationship Specialty Start Date End Date Gali Rodríguez PA PCP - General Physician Perioperative Assistant 01/02/23 Additional Source Comments The information contained in this document represents components of the legal health record. It is not the complete legal health record.[facility]
== END 2024-11-27 06:29 | disposition home or self-care (01) ==
LOC: CF 06:28
PROVIDERS: Visit Provider Internal Medicine
DX: M53.3 Sacrococcygeal disorders, not elsewhere classified (principal); Z79.899 Other long term (current) drug therapy; Z79.82 Long term (current) use of aspirin
CPT/HCPCS: 27096; J2003; J2795; J3301

== ENCOUNTER 2024-11-27 10:43 | Outpatient (AMB) | payer OTHER, SELFPAY ==
[2024-11-27 11:12] VITALS: BP 142/66; PULSE 73; RESP 16; O2SAT 97
--- NOTE | 2024-11-27 11:12 | A.OFFVIS_ITS ---
Vital Signs 11/27/24 11:12 11/27/24 11:42 BP 142/66 H 136/62 Blood Pressure Location Lt brachial Rt brachial Position Sitting Sitting Respiration 16 16 Pulse 73 80 Pulse Source Pulse Oximeter Pulse Oximeter Pulse Oximetry (%) 97 98 Oxygen Delivery Method Room Air Room Air Intake Visit Reasons: Left Therapeutic SIJ Injection Diet Technician Registered Required: No Allergies nitrofurantoin (From Macrobid) Allergy (Mild, Verified 11/27/24 11:12) fever oxycodone (From Percocet) Allergy (Mild, Verified 11/27/24 11:12) Nausea sulfamethoxazole (From Bactrim) Allergy (Mild, Verified 11/27/24 11:12) face swelling trimethoprim (From Bactrim) Allergy (Mild, Verified 11/27/24 11:12) face swelling penicillin G Allergy (Verified 11/27/24 11:12) hives Medication List - Last Reconciled 11/27/24 by Andria Quiroga LPN amlodipine 5 mg PO DAILY aspirin (Adult Aspirin Regimen) 81 mg PO DAILY atorvastatin 80 mg PO BEDTIME blood-glucose sensor (BOLT SolutionsStyle Alcides 3 Plus Sensor device) Apply 1 new sensor every 15 days as directed to monitor blood glucose continuously. blood-glucose,civil service worker,cont (FreeStyle Alcides 3 [place]) Use daily to monitor blood glucose levels continuously. rcyqsymbjr-jxtshygyummma-fpsv 50-325-40 mg 1 tab PO Q4H PRN carvedilol 6.25 mg PO BID clotrimazole-betamethasone 1-0.05 % 1 appl topical BID 10 days cranberry fruit 2,000 mg PO DAILY gabapentin 300 mg PO BID 90 days glucose (Dex4 Glucose Quick Dissolve) 16 grams (4 x 4 gram) PO Q15M PRN lidocaine 5% (Lidoderm) 3 patches topical DAILY lisinopril 40 mg PO DAILY loperamide 2 mg PO Q4H PRN metformin ER 1,000 mg (2 x 500 mg) PO BID methenamine hippurate 1 g PO DAILY oxybutynin chloride ER 10 mg PO DAILY polysaccharide iron complex (Ferrex) 150 mg PO DAILY tirzepatide (Mounjaro) 2.5 mg (0.5 mL) subcut QWEEK tizanidine 2 mg PO Q8H PRN tramadol 50 mg PO Q8H PRN 14 days vitamins A,C,S-binp-kxmfik 4,296 mcg-226 mg-90 mg (PreserVision AREDS) 1 cap PO BID HPI HPI Left Therapeutic SIJ Injection: Details: Patient presents for scheduled procedure. Denies any recent cough, cold, infection, fever or other significant changes in medical history since last office visit. PFSH Medical History Lower GI bleed Dizziness Head pain Skin rash Osteoarthritis involving multiple joints on both sides of body Positive NADEEM (antinuclear antibody) Mild anemia Colon polyp Pure hypercholesterolemia Essential hypertension History of kidney cancer Clear cell carcinoma of right kidney Abnormal mammogram Osteopenia Bone spur Vertigo Urinary incontinence Recurrent UTI Osteoarthritis Obesity, Class I, BMI 30-34.9 Migraine Left hand pain Hypertensive disorder Hypercholesteremia Diarrhea COVID-19 Clear cell renal cell carcinoma Chronic headache Hyperlipidemia CAD (coronary artery disease) ST elevation myocardial infarction (STEMI) of inferior wall Surgical History Hx of cardiac cath History of shoulder surgery History of carpal tunnel surgery of right wrist S/P foot surgery, right H/O partial nephrectomy H/O removal of cyst Finger joint replacement of right hand S/P cardiac catheterization Family History Brother Heart disease Alcohol abuse Cancer Mother Heart disease Hypercholesterolemia Hypertension Daughter Hypercholesterolemia Social History (Updated 11/13/24 @ 08:55 by Nathalia Stone MA) Alcohol intake: never Patient Tobacco Use Status: Former Tobacco user Cigarettes Per Day: 0.25 Years Smoked: Unknown e-Cigarette/Vaping Use: Never Used Second Hand Smoke Exposure: Yes service: No Current occupational status: employed and retired Current occupation: [employer] at [employer] Current occupational exposures/hazards: No Cognitive needs: No Hearing needs: No Vision needs: No Physical Exam Vital Signs: Last Vital Signs Pulse 73 11/27/24 11:12 Resp 16 11/27/24 11:12 BP 142/66 H 11/27/24 11:12 Pulse Ox 97 11/27/24 11:12 Oxygen Delivery Method Room Air 11/27/24 11:12 Office Procedures AMB Joint Injection/Aspiration Joint Injection/Aspiration Details: Sacroiliac Joint Injection, Left The procedure, its benefits, and its risks were explained and written informed consent was obtained from the patient. Immediately prior to starting the procedure, a time-out safety check was conducted. The patient's identification, procedure name, procedure site, and procedure laterality were confirmed with the patient. ? Patient was placed prone on the fluoroscopy table and the lumbosacral area was prepped using ChloraPrep and draped with sterile draped in standard fashion. The C-arm was rotated in a contralateral oblique fashion until the medial border of the iliac crest no longer foreshadowed the posterior sacroiliac joint line. The skin and subcutaneous tissue was anesthetized using 1 mL of 0.75% plain lidocaine with 1.5-inch 25-gauge needle in the middle region of the joint line.? A 3.5-inch 22-gauge spinal needle with small bend on the tip was slowly advanced towards the joint line, coaxial to the x-ray beam. Once bony content was obtained, the needle was easily slid into the intra-articular space.? Intra- articular needle position was confirmed using lateral fluoroscopy.? A total volume of 2.5mL of solution containing 40 mg trimcinilone and rest 0.5% of ropivacaine was injected intra-articularly. The stylet was reinserted and needle was removed. The patient tolerated the procedure well. Patient denied any lower extremity weakness or numbness. Patient was observed for 30 min and was discharged after fulfilling the standard discharge criteria. Coding 47009 - Sacroiliac Procedure code (CPT) selection complete Assessment & Plan Assessment & Plan (1) Sacroiliac joint dysfunction of both sides: Code(s): M53.3 - Sacrococcygeal disorders, not elsewhere classified Category: Medical Plan Patient is status post left therapeutic sacroiliac joint injection. Patient tolerated procedure well and was discharged home in stable condition with discharge instructions. All questions were answered. We will follow-up via telephone or in clinic to assess response to therapy. A follow-up appointment was made during today's visit. Orders: Orders FL guidance in treatment room Today Valorie Hong APRN, AUTOMATIC LEHR OPERATOR M53.3 - Sacrococcygeal disorders, not elsewhere classified AMB Joint Injection/Aspiration Today David Wei MD M53.3 - Sacrococcygeal disorders, not elsewhere classified Coding Level of Care Code Procedure Only Diagnoses Sacroiliac joint dysfunction of both sides M53.3 CPT Codes Coding - Joint 9: 73281 - Sacroiliac ([id number])
[2024-11-27 11:42] VITALS: BP 136/62; PULSE 80; RESP 16; O2SAT 98
== END 2024-11-27 11:44 | disposition home or self-care (01) ==
LOC: HO.PMCPRC 10:43
PROVIDERS: PCP Physician Assistant Medical; Visit Provider Internal Medicine
DX: M53.3 Sacrococcygeal disorders, not elsewhere classified (principal)
CPT/HCPCS: 27096

== ENCOUNTER 2024-12-29 13:14 | Outpatient (AMB) | payer OTHER, SELFPAY ==
--- NOTE | 2024-12-29 13:17 | MHC.OFFVIS ---
Vital Signs 12/29/24 13:18 Height 4 ft 11 in Weight 107 lb BMI 21.6 BP 120/60 Blood Pressure Location Lt brachial Position Sitting Respiration 16 Pulse 70 Pulse Source Pulse Oximeter Pulse Oximetry (%) 98 Oxygen Delivery Method Room Air Intake Visit Reasons: S/P Left Therapeutic SIJ Injection Scalping Machine Operator Required: No Allergies nitrofurantoin (From Macrobid) Allergy (Mild, Verified 12/29/24 13:19) fever oxycodone (From Percocet) Allergy (Mild, Verified 12/29/24 13:19) Nausea sulfamethoxazole (From Bactrim) Allergy (Mild, Verified 12/29/24 13:19) face swelling trimethoprim (From Bactrim) Allergy (Mild, Verified 12/29/24 13:19) face swelling penicillin G Allergy (Verified 12/29/24 13:19) hives Medication List - Last Reconciled 12/29/24 by Andria Quiroga LPN amlodipine 5 mg PO DAILY aspirin (Adult Aspirin Regimen) 81 mg PO DAILY atorvastatin 80 mg PO BEDTIME blood-glucose sensor (damntheradioyle Alcides 3 Plus Sensor device) Apply 1 new sensor every 15 days as directed to monitor blood glucose continuously. blood-glucose,awning assembler,cont (FreeStyle Alcides 3 [place]) Use daily to monitor blood glucose levels continuously. jakjsybqjg-wrdfjjrotzmgu-vnog 50-325-40 mg 1 tab PO Q4H PRN carvedilol 6.25 mg PO BID clotrimazole-betamethasone 1-0.05 % 1 appl topical BID 10 days cranberry fruit 2,000 mg PO DAILY gabapentin 300 mg PO BID 90 days glucose (Dex4 Glucose Quick Dissolve) 16 grams (4 x 4 gram) PO Q15M PRN lidocaine 5% (Lidoderm) 3 patches topical DAILY lisinopril 40 mg PO DAILY loperamide 2 mg PO Q4H PRN metformin ER 1,000 mg (2 x 500 mg) PO BID methenamine hippurate 1 g PO DAILY oxybutynin chloride ER 10 mg PO DAILY polysaccharide iron complex (Ferrex) 150 mg PO DAILY tirzepatide (Mounjaro) 2.5 mg (0.5 mL) subcut QWEEK tizanidine 2 mg PO Q8H PRN tramadol 50 mg PO Q8H PRN 14 days vitamins A,C,S-xqyj-lafuql 4,296 mcg-226 mg-90 mg (PreserVision AREDS) 1 cap PO BID HPI HPI S/P Left Therapeutic SIJ Injection: Details: History of Present Illness The patient is a 69-year-old female presenting with follow-up after a therapeutic left sacroiliac joint injection. She reports a 60-70% improvement in her sacroiliac joint pain following the injection, with the pain no longer radiating and reduced to a normal ache across the lower back. The patient continues to experience chronic low back pain, which is described as an ache across the lower back, likely related to her facet joints, and exacerbated by prolonged standing. She has a history of arthritis, which contributes to her morning stiffness and soreness. The patient is unable to take anti-inflammatory medications, which limits her treatment options for arthritis. The patient has previously undergone physical therapy earlier this year, which did not result in significant improvement, although she continues to perform physical therapy exercises at home. She has a history of class 1 obesity, which was more pronounced five years ago, but she has since lost weight. Pain Description - Onset: Chronic, with recent therapeutic intervention - Quality: Ache across the lower back, with improvement post-injection - Location: Primarily lower back, more pronounced on the left side - Radiation: Previously radiating, now localized - Exacerbating factors: Prolonged standing - Relieving factors: Sacroiliac joint injection Physical Exam - Appears afebrile. - Alert and oriented. - Mood and affect appropriate. - Follows and participates in conversation appropriately. - Respiratory effort is unlabored. - Chronic low back pain across the axial and paraspinal muscles. - SIJ areas not painful at this time. Pain Management - Affect: Pain impacts daily activities, but improvement noted post-injection - Analgesia: Sacroiliac joint injection provided 60-70% relief - Adverse Effects: None reported from current pain management - Activities of Daily Living: Pain exacerbated by prolonged standing, limiting mobility - Aberrant Drug Related Behaviors: None reported [facility] Medical History Lower GI bleed Dizziness Head pain Skin rash Osteoarthritis involving multiple joints on both sides of body Positive NADEEM (antinuclear antibody) Mild anemia Colon polyp Pure hypercholesterolemia Essential hypertension History of kidney cancer Clear cell carcinoma of right kidney Abnormal mammogram Osteopenia Bone spur Vertigo Urinary incontinence Recurrent UTI Osteoarthritis Obesity, Class I, BMI 30-34.9 Migraine Left hand pain Hypertensive disorder Hypercholesteremia Diarrhea COVID-19 Clear cell renal cell carcinoma Chronic headache Hyperlipidemia CAD (coronary artery disease) ST elevation myocardial infarction (STEMI) of inferior wall Surgical History Hx of cardiac cath History of shoulder surgery History of carpal tunnel surgery of right wrist S/P foot surgery, right H/O partial nephrectomy H/O removal of cyst Finger joint replacement of right hand S/P cardiac catheterization Family History Brother Heart disease Alcohol abuse Cancer Mother Heart disease Hypercholesterolemia Hypertension Daughter Hypercholesterolemia Social History (Updated 11/13/24 @ 08:55 by Nathalia Stone MA) Alcohol intake: never Patient Tobacco Use Status: Former Tobacco user Cigarettes Per Day: 0.25 Years Smoked: Unknown e-Cigarette/Vaping Use: Never Used Second Hand Smoke Exposure: Yes service: No Current occupational status: employed and retired Current occupation: [employer] at [employer] Current occupational exposures/hazards: No Cognitive needs: No Hearing needs: No Vision needs: No Physical Exam Vital Signs: Last Vital Signs Pulse 70 12/29/24 13:18 Resp 16 12/29/24 13:18 BP 120/60 12/29/24 13:18 Pulse Ox 98 12/29/24 13:18 Oxygen Delivery Method Room Air 12/29/24 13:18 BMI result Body Mass Index 21.6 Assessment & Plan Assessment & Plan (1) Sacroiliac joint dysfunction of both sides: Code(s): M53.3 - Sacrococcygeal disorders, not elsewhere classified Category: Medical (2) Chronic pain: Code(s): G89.29 - Other chronic pain Category: Medical Plan Plan Patient was informed and verbally consented to the use of an ambient scribe for clinic note documentation during this visit. 1. Chronic Low Back Pain not responsive to conservative management including oral meds, PT and HEP. - Plan to request insurance authorization for temporary stimulation of the medial branch nerves targeting the left and right L3 medial branches in succession. - Continue with physical therapy exercises at home. 2. Sacroiliac Joint Pain - Repeat sacroiliac joint injection p.r.n. Currently well controlled. 3. Arthritis - Unable to take anti-inflammatory medications, limiting treatment options. Discussion Notes I discussed with the patient the option of temporary stimulation of the medial branch nerves for her chronic low back pain, explaining the procedure and its potential benefits, including a 70% success rate. We also reviewed the possibility of repeating the sacroiliac joint injection if her pain worsens. The patient was informed about the insurance authorization process and agreed to proceed with the plan if approved. Patient Instructions - Continue physical therapy exercises at home. - Monitor pain levels and report any worsening symptoms. - Await insurance authorization for the proposed nerve stimulation procedure. Coding Level of Care Code Est Pt Level 4 (68559) Diagnoses Sacroiliac joint dysfunction of both sides M53.3 Chronic pain G89.29
[2024-12-29 13:18] VITALS: BP 120/60; PULSE 70; RESP 16; O2SAT 98; BMI 21.6
--- OUTSIDE RECORDS SUMMARY | 2024-12-29 15:41 | XMS_ITS | Encounter Summary ---
Author Organization [employer] [facility] Address [address] [place] [address] Care Team Providers Care Senior Branch Manager Name Role Phone Beverley Dillard MD Primary Care Provider Teena Dumont MD Primary Care Provider [phone] [facility], Pcp Primary Care Provider [facility] Encounter Details Date Type Department Care Team Description 04/17/2016 Borematic Machine Operator Report Medical Records [address] [place] [address] Maury Wallace Social History Tobacco Use Types Packs/Day Years [...] on filedocumented in this encounter Care Teams Senior Branch Manager Relationship Specialty Start Date End Date Beverley Dillard MD PCP - General Internal Medicine 04/16/15 05/27/20 Teena Stevens MD [address] [place] [address] PCP - General Internal Medicine 05/28/20 09/06/22 [facility], Pcp [address] [place] [address] PCP - General Internal Medicine 09/07/22 documented as of this encounter
--- OUTSIDE RECORDS SUMMARY | 2024-12-29 15:41 | XMS_ITS | Encounter Summary ---
Author Organization [employer] [facility] Address [address] [place] [address] Care Team Providers Care Desulfurizer Hand Name Role Phone [place] Dillard MD Primary Care Provider Teena Dumont MD Primary Care Provider [phone] [facility], Pcp Primary Care Provider Unavailabl e Encounter Details Date Type Department Care Team Description 09/03/2015 Sea Air Land Officer Report Medical Records [address] [place] [address] Suzi Stone MD Social History Tobacco Use [...] on filedocumented in this encounter Care Teams Desulfurizer Hand Relationship Specialty Start Date End Date [place] Dillard MD PCP - General Internal Medicine 04/16/15 05/27/20 Teena Stevens MD [address] [place], [place] [phone] PCP - General Internal Medicine 05/28/20 09/06/22 [facility], Pcp [address] [place] [address] PCP - General Internal Medicine 09/07/22 documented as of this encounter
--- OUTSIDE RECORDS SUMMARY | 2024-12-29 15:41 | XMS_ITS | Encounter Summary ---
Author Organization [facility] Address [address] [place] [address] Care Team Providers Care Marketing Operations Intern Name Role Phone Teena Stevens MD Primary Care Provider [phone] [facility], Pcp Primary Care Provider Unavailabl e Reason for Visit * Reason Onset Date Comments Faxed Order 09/19/2021 [facility] Encounter Details Date Type Department Care Team Description 09/19/2021 Telephone Adult Medicine [address] [address] Teena Stevens MD [address] [place] [address] Faxed Order ([facility]) Social History Tobacco Use Types Packs/Day Years [...] on filedocumented in this encounter Care Teams Marketing Operations Intern Relationship Specialty Start Date End Date Teena Stevens MD [address] [place] [address] PCP - General Internal Medicine 05/28/20 09/06/22 [facility], [place] [phone] PCP - General Internal Medicine 09/07/22 documented as of this encounter
--- OUTSIDE RECORDS SUMMARY | 2024-12-29 15:41 | XMS_ITS | Encounter Summary ---
Author Organization [facility] Address [address] [place] [address] Care Team Providers Care Tours Captain Name Role Phone Bever[place] Dillard MD Primary Care Provider Teena Dumont MD Primary Care Provider [phone] [facility], Pcp Primary Care Provider Unavailabl e Reason for Visit * Reason Onset Date Comments Prior Authorization 12/01/2017 Encounter Details Date Type Department Care Team Description 12/01/2017 Telephone Radiology - [address] [address] Beverley Dillard MD Prior Authorization Social History [...] on filedocumented in this encounter Care Teams Tours Captain Relationship Specialty Start Date End Date Beverley Dillard MD PCP - General Internal Medicine 04/16/15 05/27/20 Teena Stevens MD [address] [place] [address] PCP - General Internal Medicine 05/28/20 09/06/22 [facility], [address] [address] PCP - General Internal Medicine 09/07/22 documented as of this encounter
--- OUTSIDE RECORDS SUMMARY | 2024-12-29 15:41 | XMS_ITS | Encounter Summary ---
Author Organization [facility] Address [address] [place] [address] Care Team Providers Care Child Welfare Worker Name Role Phone Teena Stevens MD Primary Care Provider [phone] [facility], Pcp Primary Care Provider Unavailabl e Encounter Details Date Type Department Care Team Description 10/06/2020 Heavy Coil Winder Report Medical Records [address] [place] [address] Suzi Stone MD Social History Tobacco Use [...] filedocumented in this encounter Care Teams Child Welfare Worker Relationship Specialty Start Date End Date Teena Stevens MD [address] [place], [place] [phone] PCP - General Internal Medicine 05/28/20 09/06/22 [facility], Pcp [address] [place] [address] PCP - General Internal Medicine 09/07/22 documented as of this encounter
--- OUTSIDE RECORDS SUMMARY | 2024-12-29 15:41 | XMS_ITS | Encounter Summary ---
Author Organization [facility] Address [address] [place] [address] Care Team Providers Care Silk Folder Name Role Phone Teena Stevens MD Primary Care Provider [phone] [facility], Pcp Primary Care Provider Unavailabl e Encounter Details Date Type Department Care Team Description 09/21/2021 Supervisor Harvesting Report Medical Records [address] [place] [address] [address] Social History Tobacco Use Types Packs/Day Years [...] on filedocumented in this encounter Care Teams Silk Folder Relationship Specialty Start Date End Date Teena Stevens MD [address] [place] [address] PCP - General Internal Medicine 05/28/20 09/06/22 [address], Pcp [address] [place] [address] PCP - General Internal Medicine 09/07/22 documented as of this encounter
--- OUTSIDE RECORDS SUMMARY | 2024-12-29 15:41 | XMS_ITS | Encounter Summary ---
Author Organization [facility] Address [address] [place] [address] Care Team Providers Care Supervisor Type Photography Name Role Phone Beverley Dillard MD Primary Care Provider Teena Dumont MD Primary Care Provider [phone] [facility], Pcp Primary Care Provider Unavailabl e Encounter Details Date Type Department Care Team Description 08/19/2015 Respiratory Coordinator Report Medical Records [address] [place] [address] Re[facility], [facility] [address] [place] [address] Social History Tobacco Use Types Packs/Day Years [...] filedocumented in this encounter Care Teams Supervisor Type Photography Relationship Specialty Start Date End Date Beverley Dillard MD PCP - General Internal Medicine 04/16/15 05/27/20 Teena Stevens MD [address] [place] [address] PCP - General Internal Medicine 05/28/20 09/06/22 [facility], Pcp [address] [place] [address] PCP - General Internal Medicine 09/07/22 documented as of this encounter
--- OUTSIDE RECORDS SUMMARY | 2024-12-29 15:41 | XMS_ITS | Patient Health Record ---
Author Organization [employer] [facility] Address [address] [place] [address] Support Name Relationship Address Phone TRAVON EPSTEIN [...] Problem Type II diabetes mellitus without complication (300944330) Diabetes mellitus without mention of complication, type II or unspecified type, not stated as uncontrolled (250.00) Active confirmed Major Problem Hyperlipidemia (49162016) Other and unspecified hyperlipidemia (272.4) Active confirmed Major Problem Essential hypertension (76818450) Unspecified essential hypertension (401.9) Active confirmed Major Problem Postmenopausal bleeding (75036647) Postmenopausal bleeding (627.1) Active confirmed Diag Problem Menopausal symptom (62117179) Symptomatic menopausal or female climacteric states (627.2) Active confirmed Diag Problem Insomnia (604641950) Insomnia, unspecified (780.52) Active confirmed Diag Problem General examination of patient (645175151) Routine general medical examination at health care facility (V70.0) Active confirmed Diag Problem Gynecological examination normal (839943264537192) Routine gynecological examination (V72.31) Active confirmed Diag Problem Dietary management surveillance (556696549) Dietary surveillance and counseling (V65.3) Active confirmed Diag Problem Counseling (257777278) Counseling NOS (V65.40) Active confirmed Diag Problem Exercises teaching, guidance, and counseling (315354867) Exercise counseling (V65.41) Active confirmed Diag Plan Of Treatment No Information Insurance Providers Payer Name Payer Address Payer Phone Subscriber Number Group Number Insured Name Patient Relationship to Insured Coverage Start Date Coverage End Date [employer] [address] [place] [address] [id number] TRAVON EPSTEIN Self - patient is the insured
--- OUTSIDE RECORDS SUMMARY | 2024-12-29 15:41 | XMS_ITS | Encounter Summary ---
Author Organization [facility] Address [address] [place] [address] Care Team Providers Care Sociology Instructor Name Role Phone [place] Dillard MD Primary Care Provider Teena Dumont MD Primary Care Provider [phone] [facility], Pcp Primary Care Provider Unavailabl e Encounter Details Date Type Department Care Team Description 04/26/2017 Seam Rubbing Machine Operator Report Medical Records [address] [place] [address] Jane Haro PA-C Social History Tobacco Use [...] on filedocumented in this encounter Care Teams Sociology Instructor Relationship Specialty Start Date End Date Beverley Dillard MD PCP - General Internal Medicine 04/16/15 05/27/20 Teena Stevens MD [address] [place] [address] [phone] PCP - General Internal Medicine 05/28/20 09/06/22 [facility], Pcp [address] [place] [address] PCP - General Internal Medicine 09/07/22 documented as of this encounter
--- OUTSIDE RECORDS SUMMARY | 2024-12-29 15:41 | XMS_ITS | Encounter Summary ---
Author Organization [facility] Address [address] [place] [address] Care Team Providers Care Partner Integration Planner Name Role Phone Teena Stevens MD Primary Care Provider [phone] [facility], Pcp Primary Care Provider Unavailabl e Encounter Details Date Type Department Care Team Description 01/20/2021 Orders Only Medical Records [address] [place] [address] Cyndi Ceballos MD [address] [place] [address] Social History Tobacco Use Types Packs/Day Years [...] MD - 01/31/2021 8:45 AM EST Dear Josep,The polyp(s) that were removed during your [...] Certified Gastroenterology and Internal Medicine Transplant Hepatology [facility] documented in this encounter Plan of Treatment Not on file documented as of this encounter Procedures Procedure Name Priority Date/Time Associated Diagnosis Comments OUTSIDE PATHOLOGY Routine 01/18/2021 documented in this encounter Results * OUTSIDE PATHOLOGY (01/18/2021) Cyndi Ceballos MD OUTSIDE LAB documented in this encounter Visit Diagnoses Not on filedocumented in this encounter Care Teams Partner Integration Planner Relationship Specialty Start Date End Date Teena Stevens MD [address] [place] [address] PCP - General Internal Medicine 05/28/20 09/06/22 [facility], [address] [address] PCP - General Internal Medicine 09/07/22 documented as of this encounter
--- OUTSIDE RECORDS SUMMARY | 2024-12-29 15:41 | XMS_ITS | Encounter Summary ---
Author Organization [employer] [facility] Address [address] [place] [address] Care Team Providers Care Wool Sacker Name Role Phone Teena Stevens MD Primary Care Provider [phone] [facility], Pcp Primary Care Provider Unavailabl e Encounter Details Date Type Department Care Team Description 09/16/2021 Property Underwriter Report Medical Records [address] [place] [address] [address] Social History Tobacco Use Types Packs/Day Years [...] on filedocumented in this encounter Care Teams Wool Sacker Relationship Specialty Start Date End Date Teena Stevens MD [address] [place] [address] PCP - General Internal Medicine 05/28/20 09/06/22 [address], Pcp [address] [place] [address] PCP - General Internal Medicine 09/07/22 documented as of this encounter
--- OUTSIDE RECORDS SUMMARY | 2024-12-29 15:41 | XMS_ITS | Encounter Summary ---
Author Organization [facility] Address [address] [place] [address] Care Team Providers Care Fly Winder Name Role Phone Beverley Dillard MD Primary Care Provider Teena Dumont MD Primary Care Provider [phone] [facility], Pcp [facility] Encounter Details Date Type Department Care Team Description 05/30/2017 Kitchen Steward/Stewardess Report Medical Records [address] [place] [address] Yvon Kowalski MD Social History Tobacco Use [...] on filedocumented in this encounter Care Teams Fly Winder Relationship Specialty Start Date End Date Beverley Dillard MD PCP - General Internal Medicine 04/16/15 05/27/20 Teena Stevens MD [address] [place], [place] [phone] PCP - General Internal Medicine 05/28/20 09/06/22 [facility], Pcp [address] [place] [address] PCP - General Internal Medicine 09/07/22 documented as of this encounter
--- OUTSIDE RECORDS SUMMARY | 2024-12-29 15:41 | XMS_ITS | Encounter Summary ---
Author Organization [facility] Address [address] [place] [address] Care Team Providers Care Skiing Teacher Name Role Phone Teena Stevens MD Primary Care Provider [facility], Pcp Primary Care Provider Unavailabl e Reason for Visit * Reason Onset Date Comments Faxed Order 08/29/2021 [facility] plan of care Encounter Details Date Type Department Care Team Description 08/29/2021 Telephone Adult Medicine [address] [address] Teena Stevens MD [address] [place] [phone] Faxed Order ([facility] plan of [...] on filedocumented in this encounter Care Teams Skiing Teacher Relationship Specialty Start Date End Date Teena Stevens MD [address] [place] [phone] PCP - General Internal Medicine 05/28/20 09/06/22 [facility], [address] [address] PCP - General Internal Medicine 09/07/22 documented as of this encounter
--- OUTSIDE RECORDS SUMMARY | 2024-12-29 15:41 | XMS_ITS | Encounter Summary ---
Author [facility] Address [address] [place] [address] Care Team Providers Care Trip Rider Name Role Phone [place] Dillard MD Primary Care Provider Teena Dumont MD Primary Care Provider [phone] [facility], Pcp Primary [facility] Encounter Details Date Type Department Care Team Description 02/08/2016 Transfer Records Medical Records [address] [place], [place] [phone] [facility] Social History Tobacco Use Types [...] on filedocumented in this encounter Care Teams Trip Rider Relationship Specialty Start Date End Date [place] Dillard MD PCP - General Internal Medicine 04/16/15 05/27/20 Teena Stevens MD [address] [place] [address] PCP - General Internal Medicine 05/28/20 09/06/22 [facility], [address] [address] PCP - General Internal Medicine 09/07/22 documented as of this encounter
--- OUTSIDE RECORDS SUMMARY | 2024-12-29 15:41 | XMS_ITS | Encounter Summary ---
Author Organization [facility] Address [address] [place] [address] Care Team Providers Care Expeditionary Fighting Vehicle Crewman Name Role Phone Beverley Dillard MD Primary Care Provider Teena Dumont MD Primary Care Provider [phone] [facility], Pcp Primary Care Provider Unavailabl e Reason for Visit * Reason Onset Date Comments medication problems 04/18/2019 Encounter Details Date Type Department Care Team Description 04/18/2019 Telephone Medicine/Pediatrics - [address] [address] Beverley Dillard MD medication problems Social History [...] on filedocumented in this encounter Care Teams Expeditionary Fighting Vehicle Crewman Relationship Specialty Start Date End Date Beverley Dillard MD PCP - General Internal Medicine 04/16/15 05/27/20 Teena Stevens MD [address] [place] [address] PCP - General Internal Medicine 05/28/20 09/06/22 [facility], [address] [address] PCP - General Internal Medicine 09/07/22 documented as of this encounter
--- OUTSIDE RECORDS SUMMARY | 2024-12-29 15:41 | XMS_ITS | Encounter Summary ---
Author Organization [employer] [facility] Address [address] [place] [address] Care Team Providers Care Survey Operations Director Name Role Phone Beverley Dillard MD Primary Care Provider Teena Dumont MD Primary Care Provider [phone] [facility], Pcp Primary Care Provider Unavailabl e Encounter Details Date Type Department Care Team Description 10/25/2018 Bridge Mechanic Report Medical Records [address] [place] [address] Suzi Stone MD Social History Tobacco Use [...] on filedocumented in this encounter Care Teams Survey Operations Director Relationship Specialty Start Date End Date Beverley Dillard MD PCP - General Internal Medicine 04/16/15 05/27/20 Teena Stevens MD [address] [place], [place] [id number] PCP - General Internal Medicine 05/28/20 09/06/22 [facility], Pcp [address] [place] [address] PCP - General Internal Medicine 09/07/22 documented as of this encounter
--- OUTSIDE RECORDS SUMMARY | 2024-12-29 15:41 | XMS_ITS | Encounter Summary ---
Author Organization [facility] Address [address] [place] [address] Care Team Providers Care Cellophane Press Operator Name Role Phone Teena Stevens MD Primary Care Provider [phone] [facility], Pcp Primary Care Provider Unavailabl e Reason for Visit * Reason Comments E-prescribe Rx Request Encounter Details Date Type Department Care Team Description 10/29/2020 Refill Medicine/Pediatrics - [address] [address] Dory Rosado PA-C E-prescribe Rx Request Social [...] Telephone Encounter - Jaycee Reyes M.A. - 11/02/2020 1:22 PM EDT Lab [...] Payor: DARWIN / Plan: PPO $0 ELDER [id number] / Product Type: PPO [id number] documented in this encounter Plan of Treatment Not on file documented as of this encounter Visit Diagnoses Not on filedocumented in this encounter Care Teams Cellophane Press Operator Relationship Specialty Start Date End Date Teena Stevens MD [address] [place] [address] PCP - General Internal Medicine 05/28/20 09/06/[address] [place] [address] PCP - General Internal Medicine 09/07/22 documented as of this encounter
--- OUTSIDE RECORDS SUMMARY | 2024-12-29 15:41 | XMS_ITS | Encounter Summary ---
Author Organization [facility] Address [address] [place] [address] Care Team Providers Care Customs Appraiser Name Role Phone [facility], Pcp Primary Care Provider Unavailabl e Encounter Details Date Type Department Care Team Description 01/03/2023 Chief Environmental Commitment Officer Report Medical Records [address] [place] [address] Ruddy Sams Social History Tobacco Use Types [...] on filedocumented in this encounter Care Teams Customs Appraiser Relationship Specialty Start Date End Date Community, Pcp PCP - General Internal Medicine 09/07/22 documented as of this encounter
--- OUTSIDE RECORDS SUMMARY | 2024-12-29 15:41 | XMS_ITS | Encounter Summary ---
Author Organization [facility] Address [address] [place] [address] Care Team Providers Care Options Trader Name Role Phone Teena Stevens MD Primary Care Provider [phone] [facility], Pcp Primary Care Provider Unavailabl e Reason for Visit * Reason Comments E-prescribe Rx Request Encounter Details Date Type Department Care Team Description 12/30/2021 Refill Adult Medicine [facility] [address] [place] [address] Mary Urban PA-C [address] [place] [address] E-prescribe Rx Request Social History Tobacco Use [...] Payor: DARWIN / Plan: PPO $0 ELDER [id number] / Product Type: PPO [id number] documented in this encounter Plan of Treatment Not on file documented as of this encounter Visit Diagnoses Diagnosis Type 2 diabetes mellitus without complication, without long-term current use of insulin (HCC)- Primary documented in this encounter Care Teams Options Trader Relationship Specialty Start Date End Date Teena Stevens MD [address] [place] [address] PCP - General Internal Medicine 05/28/20 09/06/[address] [address] PCP - General Internal Medicine 09/07/22 documented as of this encounter
--- OUTSIDE RECORDS SUMMARY | 2024-12-29 15:41 | XMS_ITS | Clinical Summary ---
Author Organization [facility] Address [address] [facility] [address] [place] [address] Phone Care Team Providers Care Metal Riveting Machine Operator Name Role Phone Gali Rodríguez Primary Care [...] SIGMOIDOSCOPY 2001 VIRTUAL COLONOSCOPY 2001 OSTEOPOROSIS SCREENING INITIAL (ONE-TIME) 2021 INFLUENZA VACCINE (#1) 2024 , 02/24/2022, 01/05/2021, Additional history exists COVID-19 VACCINE ( season) 2024 07/13/2020, 06/21/2020 Adult Td,Tdap Booster 11/23/2026 11/23/2016, 012 RSV VACCINE (1 - 1-dose 75+ series) [...] topic Medical Devices Not on file Insurance [facility] PPO CIGNA PPO CIGNA PPO CIGNA PPO CIGNA PPO CIGNA PPO Care Teams Metal Riveting Machine Operator Relationship Specialty Start Date End Date Gali Rodríguez PA PCP - General Physician Continuing Education Dean 01/02/23 Additional Source Comments The information contained in this document represents components of the legal health record. It is not the complete legal health record.[facility]
--- OUTSIDE RECORDS SUMMARY | 2024-12-29 15:42 | XMS_ITS | Clinical Summary ---
Author Organization [facility] Address [address] [place] [address] Care Team Providers Care Vending Machine Mechanic Name Role Phone Community, Pcp Primary Care [...] COPD Brother 1 CHF, alcohol ab use [place] Brother 2 kawasakis disea se Alcohol and [...] 86 03/17/2021 2:17 PM EST Temperature 37.1 C (98.7 F) 03/17/2021 2:17 PM EST Respiratory Rate 18 01/05/2021 9:07 AM EDT [...] - PCV) 2021 12/23/2012 DIABETES/HEART DISEASE: GABY AL CHOLESTEROL (LDL) 12/24/2021 12/24/2020, 01/30/2019, 05/21/2018, Additional history exists MAMMOGRAM 03/21/2022 03/21/2021, 10/25, 07/17/2018, Additional history exists BMI CHECK/ADVISE 03/26/2024 03/17/2021, , 01/05/2021, Additional history exists Covid-19 Vaccine ( - 2022- 4 season) 2024 07/13/2020, 06/21/2020 INFLUENZA (#1) 2024 01/05/2021, 01/07/2016 COLON CANCER SCREENING 01/18/2026 01/18/2021, 2007 DTAP/TDAP/TD (3 - Td or Tdap) 11/23/2026 11/23/2016, 08/23/2011 HEPATITIS C SCREENING Completed 06/28/2016 SHINGLES VACCINE Completed 10/14/2019, 05/20/2019 Care Teams Vending Machine Mechanic Relationship Specialty Start Date End Date Community, Pcp PCP - General Internal Medicine 09/07/22
--- OUTSIDE RECORDS SUMMARY | 2024-12-29 15:42 | XMS_ITS | Encounter Summary ---
Author Organization [facility] Address [address] [place] [address] Care Team Providers Care Special Service Representative Name Role Phone Beverley Dillard MD Primary Care Provider Teena Dumont MD Primary Care Provider [phone] [facility], Pcp Primary Care Provider [facility] e Encounter Details Date Type Department Care Team Description 01/02/2018 Clerical Coordinator Report Medical Records [address] [place] [address] Dennis Garcia Social History Tobacco Use Types [...] on filedocumented in this encounter Care Teams Special Service Representative Relationship Specialty Start Date End Date Beverley Dillard MD PCP - General Internal Medicine 04/16/15 05/27/20 Teena Stevens MD [address] [place] [address] PCP - General Internal Medicine 05/28/20 09/06/22 [facility], Pcp [address] [place] [address] PCP - General Internal Medicine 09/07/22 documented as of this encounter
--- OUTSIDE RECORDS SUMMARY | 2024-12-29 15:42 | XMS_ITS | Encounter Summary ---
Author Organization [employer] [facility] Address [address] [place] [address] Care Team Providers Care Waybill Clerk Name Role Phone Beverley Dillard MD Primary Care Provider Teena Dumont MD Primary Care Provider [phone] [facility] Pcp [facility] Encounter Details Date Type Department Care Team Description 07/12/2015 Transfer Records Medical Records [address] [place] [address] Abstract, Provider Social History Tobacco Use Types [...] on filedocumented in this encounter Care Teams Waybill Clerk Relationship Specialty Start Date End Date Beverley Dillard MD PCP - General Internal Medicine 04/16/15 05/27/20 Teena Stevens MD [address] [place] [address] PCP - General Internal Medicine 05/28/20 09/06/22 [facility], Pcp [address] [place] [address] PCP - General Internal Medicine 09/07/22 documented as of this encounter
--- OUTSIDE RECORDS SUMMARY | 2024-12-29 15:42 | XMS_ITS | Encounter Summary ---
Author Organization [facility] Address [address] [place] [address] Care Team Providers Care Chart Reader Name Role Phone Beverley Dillard MD Primary Care Provider Teena Dumont MD Primary Care Provider [phone] [facility], Pcp Primary Care Provider [facility] Encounter Details Date Type Department Care Team Description 01/11/2017 Pt. Non Urgent Medical Question Medicine/Pediatrics - [address] [address] Beverley Dillard MD Social History Tobacco Use [...] I haven't received a call back from [facility] about having a prescription ready for pickup. Thanks, Ania documented in this encounter Plan of Treatment Not on file documented as of this encounter Visit Diagnoses Not on filedocumented in this encounter Care Teams Chart Reader Relationship Specialty Start Date End Date Beverley Dillard MD PCP - General Internal Medicine 04/16/15 05/27/20 Teena Stevens MD [address] [place] [address] PCP - General Internal Medicine 05/28/20 09/06/[address] [address] PCP - General Internal Medicine 09/07/22 documented as of this encounter
--- OUTSIDE RECORDS SUMMARY | 2024-12-29 15:42 | XMS_ITS | Encounter Summary ---
Author Organization [facility] Address [address] [place] [address] Care Team Providers Care Medical Economics Consultant Name Role Phone Beverley Dillard MD Primary Care Provider Teena Dumont MD Primary Care Provider [phone] [facility], Pcp Primary Care Provider Unavailabl e Reason for Visit * Reason Onset Date Comments Faxed Refill 05/05/2020 Encounter Details Date Type Department Care Team Description 05/05/2020 Refill Medicine/Pediatrics - [address] [address] Beverley Dillard MD Faxed Refill Social History Tobacco Use Types [...] Telephone Encounter - Jaycee Reyes M.A. - 05/06/2020 10:50 AM EST Lab Results Component Value Date HGBA1C 7.7 11/13/2019 MALBUR 28.2 11/13/2019 MALBCR 25.4 11/13/2019 CHOL 147 01/30/2019 LDL 59 01/30/2019 HDL 73 01/30/2019 TRIG 76 01/30/2019 GLU 165 11/13/2019 CREAT 0.75 11/13/2019 Last appt with Dory garcía 12/18/19 * Telephone Encounter - Arelis Sharp - 05/05/2020 6:13 PM EST Patient would like script to be: E-PRESCRIBED/FAXED TO PHARMACY WHEN WAS THE PATIENT'S LAST APPOINTMENT IN ADULT MEDICINE? 12/18/19 WHEN WAS THE LAST TIME THE PATIENT SAW THEIR PCP? 09/18/19 Does patient have an upcoming appointment? No-unable to reach left [facility] to call for appointment due to refill request. Appt due (THE MEDICATION REQUESTED IS ON THE MED LIST ABOVE) All of the medications requested were on the CURRENT MEDS list Did you check the Pharmacy information above?: YES Patient wants: 30 -day supply Is this a mail order prescription request ? NO If the refill is from a FAXED refill request what is the RX # listed on the fax? N/A Patients current insurance carrier is: Payor: DARWIN / Plan: PPO $0 ELDER [id number] / Product Type: PPO [id number] documented in this encounter Plan of Treatment Not on file documented as of this encounter Visit Diagnoses Not on filedocumented in this encounter Care Teams Medical Economics Consultant Relationship Specialty Start Date End Date Beverley Dillard MD PCP - General Internal Medicine 04/16/15 05/27/20 Teena Stevens MD [address] [place] [address] PCP - General Internal Medicine 05/28/20 09/06/22 [place] [address] PCP - General Internal Medicine 09/07/22 documented as of this encounter
--- OUTSIDE RECORDS SUMMARY | 2024-12-29 15:42 | XMS_ITS | Encounter Summary ---
Author Organization [facility] Address [address] [place] [address] Care Team Providers Care Pulmonologist/Intensivist Name Role Phone Beverley Dillard MD Primary Care Provider Teena Dumont MD Primary Care Provider [phone] [facility], Pcp Primary Care Provider Unavailabl e Reason for Referral * EXTERNAL (Urgent) - Authorized/Booked Specialty Diagnoses / Procedures Referred By Marcia gonzalez Referred To Contact Physical Therapy Procedures REFERRAL TO PHYSICAL THERAPY Beverley Dillard MD [address] [place] [address] External Phys Thrpy Referral ID Status Reason Start Date Expiration Date V isits Requested Visits Authorized SEE NOTE Authorized/B ooked 09/11/2017 12/12/2017 1 1 Reason for Visit * Reason Onset Date Comments Commercial Journeyman Electrician Feedback 09/11/2017 [facility]- [id number] Encounter Details Date Type Department Care Team Description 09/11/2017 Telephone Medicine/Pediatrics - [address] [address] Beverley Dillard MD Commercial Journeyman Electrician Feedback ([facility]- [id number]) Social History Tobacco Use Types Packs/Day Years [...] Kamilah Calvert - 09/11/2017 12:06 PM EDT [facility] Outpatient Status [ Save Response to Batch ] Request: [id number] [facility] Trace #: [id number] Patient: TRAVON EPSTEIN Subscriber Submitter : BEVERLEY DILLARD Submitter Type: Provider Provider Role: Primary Care Physician : [id number] Provider Specialty: [id number] Health Care Event (#[id number]) Health Services Review Type: Initial Certification Status : Certified in total Emde Trace # : [id number] Service Type : Physical Medicine [facility] Visits : 16 Service Date : 09/11/2017-09/11/2018 Service Providers Provider Name ID Provider Type Specialty [facility] NPI : [id number] Performing Physical Therapist Diagnosis Code Description M79.671 PAIN IN RIGHT FOOT * Telephone Encounter - Anusha Geiger - 09/11/2017 10:58 AM EDT What insurance does the patient have today? Payor: [facility]/O FFS / Plan: HMO $25 RAVENSWOOD [id number] / Product Type: HMO [id number] Effective 12/24/08: [facility] will not retro referral requests over 90 [...] insurance must be obtained and registered in [facility] or their referral can not be [...] PATIENT is seeing: [facility]- [id number] What specialty is this? PT DIAGNOSIS Patient is being seen for (Not a body part or a procedure): rt foot Have you seen this SPECIALIST for this PROBLEM/DX before?NO If YES, when: Have you checked REVIEW or the APPT DESK to see if this referral has already been done or has visits left? YES Is this visit:Initial Visit Address of Specialist: [address] [place] [address] Phone # of Specialist:[phone] Fax #: (if applicable):[phone] Does patient have an appointment scheduled?: YES Date of appointment- (including a retro-request): [id number] requesting 16 visits Is this appointment related to: Not MVA, WC or Surgery related documented in this encounter Plan of Treatment Not on file documented as of this encounter Visit Diagnoses Not on filedocumented in this encounter Care Teams Pulmonologist/Intensivist Relationship Specialty Start Date End Date Beverley Dillard MD PCP - General Internal Medicine 04/16/15 05/27/20 Teena Stevens MD [address] [place] [address] PCP - General Internal Medicine 05/28/20 09/06/[address] [address] PCP - General Internal Medicine 09/07/22 documented as of this encounter
--- OUTSIDE RECORDS SUMMARY | 2024-12-29 15:42 | XMS_ITS | Encounter Summary ---
Author Organization [facility] Address [address] [place] [address] Care Team Providers Care Statistical Secretary Name Role Phone Beverley Dillard MD Primary Care Provider Teena Dumont MD Primary Care Provider [phone] [facility], Pcp Primary Care Provider Unavailabl e Encounter Details Date Type Department Care Team Description 11/02/2016 Laborer Poultry Hatchery Report Medical Records [address] [place] [address] Rehab, [facility] [address] [place] [address] Social History Tobacco Use Types Packs/Day Years [...] on filedocumented in this encounter Care Teams Statistical Secretary Relationship Specialty Start Date End Date Beverley Dillard MD PCP - General Internal Medicine 04/16/15 05/27/20 Teena Stevens MD [address] [place] [address] PCP - General Internal Medicine 05/28/20 09/06/22 [facility], Pcp [address] [place] [address] PCP - General Internal Medicine 09/07/22 documented as of this encounter
--- OUTSIDE RECORDS SUMMARY | 2024-12-29 15:42 | XMS_ITS | Encounter Summary ---
Author Organization [facility] Address [address] [place] [address] Care Team Providers Care Applied Computer Science Professor Name Role Phone Beverley Dillard MD Primary Care Provider Teena Dumont MD Primary Care Provider [phone] [facility], Pcp Primary Care Provider [facility] e Encounter Details Date Type Department Care Team Description 02/11/2019 Ultrasound Supervisor Report Medical Records [address] [place] [address] Malena Sutherland MD Social History Tobacco Use [...] on filedocumented in this encounter Care Teams Applied Computer Science Professor Relationship Specialty Start Date End Date Beverley Dillard MD PCP - General Internal Medicine 04/16/15 05/27/20 Teena Stevens MD [address] [place], [place] [phone] PCP - General Internal Medicine 05/28/20 09/06/22 [facility], Pcp [address] [place] [address] PCP - General Internal Medicine 09/07/22 documented as of this encounter
--- OUTSIDE RECORDS SUMMARY | 2024-12-29 15:42 | XMS_ITS | Encounter Summary ---
Author Organization [employer] [facility] Address [address] [place] [address] Care Team Providers Care Vice President Of Business Development Name Role Phone Beverley Dillard MD Primary Care Provider Teena Duomnt MD Primary Care Provider [phone] [facility], Pcp Primary Care Provider [facility] Encounter Details Date Type Department Care Team Description 03/06/2018 Hospital Medical Records [address] [place], [place] [id number] Delvin Hernandez MD Social History Tobacco Use Types Packs/Day [...] on filedocumented in this encounter Care Teams Vice President Of Business Development Relationship Specialty Start Date End Date Beverley Dillard MD PCP - General Internal Medicine 04/16/15 05/27/20 Teena Stevens MD [address] [place] [address] PCP - General Internal Medicine 05/28/20 09/06/22 [facility], Pcp [address] [place] [address] PCP - General Internal Medicine 09/07/22 documented as of this encounter
== END 2024-12-29 13:57 | disposition home or self-care (01) ==
LOC: HO.PMC 13:15
PROVIDERS: PCP Physician Assistant Medical; Visit Provider Internal Medicine
DX: G89.29 Other chronic pain (principal); M53.3 Sacrococcygeal disorders, not elsewhere classified
CPT/HCPCS: 99214

== ENCOUNTER 2025-02-16 09:19 | Outpatient (REF) | payer OTHER, SELFPAY ==
--- OUTSIDE RECORDS SUMMARY | 2025-02-16 12:43 | XMS_ITS | Data Portability ---
Author Organization [place] - [facility], Allergy Address [address] [place] [address] Care Team Providers Care Coat Maker Name Role Phone HOMA MARTINEZ Primary Care Provider Assessment No assessment recorded. Plan of Treatment Reminders Order Date Submit Date Provider Last Modified By Organization Details Last Modified Time Details Appointments Establish ed 10 2025 09:30A M RICHARDSON SAAB MD Not available Not available Not available Hearing Test Same Day (After) 2025 10:00A M Hearing Test Not available Not available Not available Lab None recorded. Referral None recorded. Procedures None recorded. Surgeries None recorded. Imaging None recorded. Medication Orders None recorded. Patient TargetsNo targets recorded. Patient InstructionsNo instructions recorded. Reason for Referral None Reported. 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 Active 2017 Other disorder s followin g mastoide ctomy, left ear; Note: Date Diagnose d: 8 4:59 PM (H95.192 ) RICHARDSON SAAB MD [address] [facility],[place] [address], [place], [address] , [place] - [facility] 5 14:48:33 Otorrhea of left ear [id number] 87223 Completed 201710/26/2023 Otorrhea , left ear; Note: Date Diagnose d: 8 5:00 PM (H92.12) Not Available [facility] 4 03:16:24 Conducti ve hearing loss 18885420 Active 2017 Conducti ve hearing loss, unilater al, left ear, with unrestri cted hearing on the contrala teral side; Note: Changed from H90.A12 to H90.12 ( 018 12:09 PM) , Date Diagnose d: 01/11/20 18 11:57 AM (H90.42) RICHARDSON SAAB MD [address] [facility],[place] [address], [place], [address] , [place] - [facility] 5 14:48:33 Bleeding from nose 262505828 Active 2021 Epistaxi s; Note: Date Diagnose d: 05/04/2021 10:53 AM (R04.0) Not Available [facility] 4 03:16:23 Bilatera l disorder of Eustachi an tubes 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 Procedures Surgical History Date Name Laterality Status Provider Name and Address Organization Details Recorded Time 5 Debridement of Mastoid Cavity left completed RICHARDSON SAAB MD [address] [place] [address],[address], [address], [facility] - [facility] 01/05/2025 14:48:32 4 Debridement of Mastoid Cavity left completed RICHARDSON SAAB MD [address] [place] [address],[address], [address], [place] - [facility] 01/06/2024 20:17:46 Imaging Results None recorded. Procedure Notes None recorded. Medical Equipment None Reported. Allergies Allergen ID Allergen Name Allergen Category Reaction Reaction Severity Criticality Documentation Date Start Date Code Code System Note Provider Name and Address Organization Details Recorded Time 032286 erythromy elizabeth ethylsucc inate medicatio n nausea Not available Not available 08/07/2023 4056 RxNorm React ion: nause a;; Not Available [facility] 4 01:08:21 270305 oxycodone medicatio n nausea Not available Not available 08/07/2023 7804 RxNorm React ion: nause a;; Not Available [facility] 4 01:08:21 265322 penicilli n V potassium medicatio n other Not available Not available 08/07/202350657 5 RxNorm React ion: unkno wn, unspe cifie d;; Not Available [facility] 4 01:08:22 716620 egg yolk (chicken) allergeni c extract food,medi cation diarrhea Not available Not available 08/07/2023 03910 0 RxNorm React ion: other react ion, Diarr hea; Not Available [facility] 4 01:08:23 129525 Macrobid medicatio n Not available Not available Not available 08/07/2023 43357 1 RxNorm React ion: other react ion, fluli ke sympt oms; Not Available [facility] 4 01:08:24 Medications Name Sig Start Date Stop Date Status Note LastModified by Organization Details LastModified Time multivita min tablet TAKE 1 TABLET BY MOUTH ONCE DAILY FOR 10 DAYS active Not Available Not Available No t Available atorvasta tin 40 mg tablet 01/07 completed Medicati on ID: [id number] B rand Name: atorvast atin Sen d Method: E-Prescr ibed Sub s Allowed: subs OK Speci al Instruct ion: TAKE 1 TABLET BY MOUTH ONCE DAILY Me dication GenericN summer: atorvast atin Not Available Not Available Not Available atorvasta tin 80 mg tablet TAKE 1 TABLET BY MOUTH AT BEDTIME active Not Available Not Available No t Available carvedilo l 6.25 mg tablet TAKE 1 TABLET BY MOUTH TWICE DAILY active Not Available Not Available No t Available doxycycli ne hyclate 100 mg capsule TAKE 1 CAPSULE BY MOUTH EVERY 12 HOURS FOR 7 DAYS 01/03 completed Not Available Not Available Not Available tizanidin e 2 mg tablet TAKE 1 TABLET BY MOUTH EVERY 8 HOURS NEEDED FOR MUSCLE SPASTICI TY active Not Available Not Available No t Available clindamyc in HCl 300 mg capsule TAKE 2 CAPSULES BY MOUTH 30 MINUTES PRIOR TO DENTAL VISIT 01/06 completed Not Available Not Available Not Available loperamid e 2 mg capsule TAKE 1 CAPSULE BY MOUTH EVERY 4 HOURS NEEDED FOR LOOSE STOOL 01/06 completed Not Available Not Available Not Available cefpodoxi me 200 mg tablet TAKE 1 TABLET BY MOUTH EVERY 12 HOURS FOR 10 DAYS 01/07 completed Not Available Not Available Not Available oxybutyni n chloride ER 10 mg tablet,ex tended release 24 hr TAKE 1 TABLET BY MOUTH ONCE DAILY active Not Available Not Available No t Available azithromy elizabeth 250 mg tablet TAKE 2 TABLETS BY MOUTH ON DAY 1, AND THEN TAKE 1 TABLET BY MOUTH ONCE A DAY ON DAY 2 THROUGH DAY 5 01/03 completed Not Available Not Available Not Available cefpodoxi me 100 mg tablet TAKE 1 TABLET BY MOUTH EVERY 12 HOURS FOR 7 DAYS 01/07 completed Not Available Not Available Not Available prednison e 20 mg tablet TAKE 2 TABLETS BY MOUTH ONCE DAILY FOR 5 DAYS 01/07 completed Not Available Not Available Not Available Ferrex 150 mg iron capsule TAKE 1 CAPSULE BY MOUTH ONCE DAILY FOR 30 DAYS active Not Available Not Available No t Available amlodipin e 2.5 mg tablet TAKE 1 TABLET BY MOUTH ONCE DAILY 01/07 completed Not Available Not Available Not Available clopidogr el 75 mg tablet TAKE 4 TABLETS BY MOUTH FOR 1 DAY, THEN 1 TABLET ONCE DAILY. STOP BRILINTA active Not Available Not Available No t Available amlodipin e 5 mg tablet TAKE 1 TABLET BY MOUTH ONCE DAILY active Not Available Not Available No t Available ciproflox acin 500 mg tablet TAKE 1 TABLET BY MOUTH EVERY 12 HOURS FOR 7 DAYS 01/07 completed Not Available Not Available Not Available sulfameth oxazole 800 mg-trimet hoprim 160 mg tablet 05/14 completed Medicati on ID: [id number] D uration Value: 3 Reason: () Brand [...] MOUTH EVERY 4 HOURS NEEDED FOR HEADACHE active Not Available Not Available No t Available ofloxacin 0.3 % ear drops 5 drop into left ear 01/07 completed Medicati on ID: [id number] D uration Value: 10 Prescri bed By Name: GABRIEL Conn nd Name: ofloxaci n Send Method: E-Prescr ibed Sub s Allowed: subs OK Medic ationGen ericName : ofloxaci n Not Available Not Available Not Available methenami ne hippurate 1 gram tablet TAKE 1 TABLET BY MOUTH ONCE DAILY active Not Available Not Available No t Available cyanocoba corie (vit B-12) 500 mcg tablet TAKE 1 TABLET BY MOUTH ONCE DAILY active Not Available Not Available No t Available dicyclomi ne 20 mg tablet 04/18 completed Medicati on ID: [id number] B rand Name: dicyclom ine Send Method: E-Prescr ibed Sub s Allowed: subs OK Speci al Instruct ion: TAKE 1 TABLET BY MOUTH EVERY 6 HOURS Me dication GenericN summer: dicyclom ine Not Available Not Available Not Available metformin 1,000 mg tablet 04/18 completed Medicati on ID: [id number] B rand Name: metformi n Send Method: E-Prescr ibed Sub s Allowed: subs OK Speci al Instruct ion: TAKE 1 TABLET BY MOUTH TWICE DAILY WITH MEALS Me dication GenericN summer: metformi n Not Available Not Available Not Available clotrimaz ole-betam ethasone 1 %-0.05 % topical cream APPLY CREAM TOPICALL Y TWICE DAILY FOR 10 DAYS 01/06 completed Not Available Not Available Not Available lisinopri l 10 mg tablet 04/18 completed Medicati on ID: [id number] B rand Name: lisinopr il Send Method: [...] 12 HOURS BEFORE APPLYING PATCH(ES ) AGAIN. 01/06 completed Not Available Not Available Not Available oxybutyni n chloride ER 5 mg tablet,ex tended release 24 hr 09/15 completed Medicati on ID: [id number] D uration Value: 30 Brand Name: oxybutyn in chloride Send Method: E-Prescr ibed Sub s Allowed: subs OK Medic ationGen ericName : oxybutyn in chloride Not Available Not Available Not Available gabapenti n 300 mg capsule TAKE 1 CAPSULE BY MOUTH TWICE DAILY active Not Available Not Available No t Available codeine 10 mg-guaife nesin 100 mg/5 mL oral liquid TAKE 5 ML BY MOUTH EVERY 4 TO 6 HOURS NEEDED FOR COUGH 01/06 completed Not Available Not Available Not Available lisinopri l 5 mg tablet 09/15 completed Medicati on ID: [id number] D uration Value: 90 Brand Name: lisinopr il Send Method: E-Prescr ibed Sub s Allowed: subs OK Medic ationGen ericName : lisinopr il Not Available Not Available Not Available lorazepam 1 mg tablet TAKE ONE TABLET BY MOUTH ONCE 30 TO 60 MINUTES PRIOR TO MRI 01/06 completed Not Available Not Available Not Available levofloxa elizabeth 500 mg tablet 05/14 completed Medicati on ID: [id number] D uration Value: 6 Reason: () Brand [...] ating tablet 09/15 completed Medicati on ID: [id number] D uration Value: 7 Brand Name: dalton neves Send Method: E-Prescr ibed Sub s Allowed: subs OK Medic nellyionGen ericName : dalton neves Not Available Not Available Not Available metformin ER 500 mg tablet,ex tended release 24 hr TAKE 2 TABLETS BY MOUTH TWICE DAILY active Not Available Not Available No t Available TobraDex 0.3 %-0.1 % eye drops,kan pension 4 drop 01/07 completed Medicati on ID: [id number] D uration Value: 14 Prescri bed By Name: Darby Irizarry nd Name: TobraDex Send Method: E-Prescr ibed Sub s Allowed: subs OK Speci al Instruct ion: apply to affected ear(s) M dayrono nGeneric Name: TobraDex Not Available Not Available Not Available Premarin 0.625 mg/gram vaginal cream 09/15 completed Medicati on ID: [id number] D uration Value: 30 Brand Name: Premarin Send Method: E-Prescr ibed Sub s Allowed: subs OK Medic ationGen ericName : Premarin Not Available Not Available Not Available BD Ultra-Fin e Mini Pen Needle 31 gauge x 3/16 04/18 completed Medicati on ID: [id number] B rand Name: BD Ultra-Fi ne Mini [...] PEN NEEDLE SUBCUTAN EOUSLY TWICE DAILY DIRECTED 01/06 completed Not Available Not Available Not Available Brilinta 90 mg tablet TAKE 1 TABLET BY MOUTH TWICE DAILY active Not Available Not Available No t Available OneTouch Verio test strips USE 1 STRIP TO CHECK GLUCOSE UP TO SIX TIMES DAILY DIRECTED 01/07 completed Not Available Not Available Not Available Tresiba FlexTouch U-100 insulin 100 unit/mL (3 mL) subcutane ous pen INJECT 20 UNITS SUBCUTAN EOUSLY ONCE DAILY active Not Available Not Available No t Available Basaglar KwikPen U-100 Insulin 100 unit/mL (3 mL) subcutane ous 04/18 completed Medicati on ID: [id number] B rand Name: Melvinaglsmita PadronikPen U-100 Insulin Send Method: E-Prescr ibed Sub s Allowed: subs OK Speci al Instruct ion: INJECT 35 UNITS SUBCUTAN EOUSLY IN THE EVENING Medicati onGeneri cName: Basaglar KwikPen U-100 Insulin Not Available Not Available Not Available FreeStyle Alcides 2 Sensor kit USE DIRECTED TO CHECK GLUCOSE DAILY CHANGE EVERY 14 DAYS active Not Available Not Available No t Available Mounjaro 2.5 mg/0.5 mL subcutane ous pen injector INJECT 1 PEN SUBCUTAN EOUSLY ONCE A WEEK active Not Available Not Available No t Available Ozempic 0.25 mg or 0.5 mg (2 mg/3 mL) subcutane ous pen injector INJECT 0.5MG SUBCUTAN EOUSLY ONCE A WEEK active Not Available Not Available No t Available FreeStyle Alcides 3 [place] USE DAILY TO MONITOR BLOOD GLUCOSE LEVELS CONTINUO USLY active Not Available Not Available No t Available FreeStyle Alcides 3 Plus Sensor device USE FOR CONTINUO US BLOOD GLUCOSE MONITORI NG. CHANGE OUT EVERY 15 DAYS active Not Available Not Available No t Available Magda-Muci l (aspartam e) 3 gram/5.8 gram oral powder DISSOLVE 3.4 GRAMS POWDER IN LIQUID AND TAKE BY MOUTH THREE TIMES DAILY NEEDED FOR CONSTIPA TION active Not Available Not Available No t Available Vitals Date Recorded Body height Provider Name an d Address Organization Details Last Updated DateTime 01/06/2025 151.13 cm Desiree Loredo [place] - [facility] 01/06/2025 08:27:01 Date Recorded Body height Body weight Provider Name and Address Organization Details Last Updated DateTime 01/08/2024 151.13 cm 87009.75 g Desiree [place]o [place] - [facility] 01/08/2024 08:36:15 Social History None recorded. [...] Diagnosis SNOMED-CT Code Diagnosis ICD10 Code Diagnosis IMO Codes Diagnosis Note [id number] RICHARDSON SAAB MD [facility] [address] [address] 01/08/2024 08:23:43 01/08/2024 08:45:28 Postmastoidectomy complication 70524259 H95.192 The left canal wall down mastoidect karen cavity was cleaned of accumulate d squamous debris. No signs of acute or chronic inflammati on. Recommend continuing yearly debridemen t. Conductive hearing loss 96985934 H90.12 Patient will continue to follow-up with the audiology group for hearing aid maintenanc e. Benign par oxysmal positional vertigo 432618855 H81.12 Currently asymptomat ic with regards to BPPV. We discussed that this can be a recurrent issue and that if she does have significan t recurrence , she can contact the office to get referral to [facility] for Guillermo maneuvers. [id number] RICHARDSON SAAB MD [facility] [address] [address] 01/06/2025 08:26:02 01/06/2025 09:05:44 Postmastoidectomy complication 94905254 H95.192 The left canal wall down mastoidect karen cavity was cleaned of accumulate d squamous debris. No signs of acute or chronic inflammati on. Recommend continuing yearly debridemen t. Conductive hearing loss 63819014 H90.12 Patient will continue to follow-up with the audiology group for hearing aid maintenanc e. Benign par oxysmal positional vertigo 914771944 H81.12 Currently asymptomat ic with regards to BPPV. We discussed that this can be a recurrent issue and that if she does have significan t recurrence , she can contact the office to get referral to [facility] for Guillermo maneuvers. Health Concerns Section Related Observation LastModified by Organization Greyson melendez LastModified Time None Recorded Concern Status LastModified by Organization Details LastModified Time None Recorded Advance Directives Directive None Recorded Payers Insurance Date Sequence Insurance Name Policy Number Policy Chilel Covered Member ID Chilel Member ID Guarantor Name 01/03/2025 1 DARWIN [id number] Noris Car [id number] 2 Cody Car Notes Date Note Type [...] asymptomatic with regards to positionally induced vertigo. IRCHARDSON SAAB MD [address] [place] [address], [phone], [facility] 01/08/2024 08:45:14 01/06/2025 text/html Patient who underwent left-sided canal wall [...] to positionally induced vertigo. RICHARDSON SAAB MD [address] [place] [address], [phone], [facility] 01/06/2025 09:04:54 OBGyn Episode No OBEpisode recorded.
--- OUTSIDE RECORDS SUMMARY | 2025-02-16 12:43 | XMS_ITS | Continuity of Care Document ---
Author Organization [place] - [facility], [facility] Address [address] [place] [address] Care Team Providers Care Salt Refiner Name Role Phone HOMA MARTINEZ Primary Care [...] Recorded Time Postmast oidectom y complica tion 81967271 Active 2017 Other disorder s followin g mastoide ctomy, left ear; Note: Date Diagnose d: 8 4:59 PM (H95.192 ) RICHARDSON SAAB MD [address] [place] [address] [place], [phone] , [place] - [facility] 5 14:48:33 Otorrhea of left ear [id number] 02086 Completed 201710/26/2023 Otorrhea , left ear; Note: Date Diagnose d: 8 5:00 PM (H92.12) Not Available [facility] 4 03:16:24 Conducti ve hearing loss 65142914 Active 2017 Conducti ve hearing loss, unilater al, left ear, with unrestri cted hearing on the contrala teral side; Note: Changed from H90.A12 to H90.12 ( 018 12:09 PM) , Date Diagnose d: 01/11/20 18 11:57 AM (H90.42) RICHARDSON SAAB MD [address] [place] [address],[place] [address], [place], [address] , [place] - [facility] 5 14:48:33 Bleeding from nose 176800233 Active 2021 Epistaxi s; Note: Date Diagnose d: 05/04/2021 10:53 AM (R04.0) Not Available [facility] 4 03:16:23 Bilatera l disorder of Eustachi an tubes 60369727549 35772 Active 2021 Other specifie d disorder s of Eustachi an tube, bilatera l; Note: Date Diagnose d: 05/04/2021 10:53 AM (H69.83) Not Available [facility] 4 03:16:23 Benign paroxysm al position al vertigo 758776658 Active 2022 Benign paroxysm al vertigo, left ear; Note: Date Diagnose d: 3 9:55 AM (H81.12) RICHARDSON SAAB MD [address] [place] [address],[place] [address], [place], [address] , [facility] 5 14:48:33 Problem Notes None recorded. Procedures Surgical History Date Name Laterality Status Provider Name and Address Organization Details Recorded Time 5 Debridement of Mastoid Cavity left completed RICHARDSON SAAB MD [address] [place] [address],[place] [address], [place], [address], [facility] - [facility] 01/05/2025 14:48:32 4 Debridement of Mastoid Cavity left completed RICHARDSON SAAB MD [address] [place] [address],[address], [address], [facility] - [facility] 01/06/2024 20:17:46 Imaging Results None recorded. Procedure Notes None recorded. Medical Equipment None Reported. Allergies Allergen ID Allergen Name Allergen Category Reaction Reaction Severity Criticality Documentation Date Start Date Code Code System Note Provider Name and Address Organization Details Recorded Time 054154 erythromy elizabeth ethylsucc inate medicatio n nausea Not available Not available 08/07/2023 4056 RxNorm React ion: nause a;; Not Available [facility] 4 01:08:21 853568 oxycodone medicatio n nausea Not available Not available 08/07/2023 7804 RxNorm React ion: nause a;; Not Available [facility] 4 01:08:21 506633 penicilli n V potassium medicatio n other Not available Not available 08/07/2023 33662 5 RxNorm React ion: unkno wn, unspe cifie d;; Not Available [facility] 4 01:08:22 636708 egg yolk (chicken) allergeni c extract food,medi cation diarrhea Not available Not available 08/07/2023 81482 0 RxNorm React ion: other react ion, Diarr hea; Not Available [facility] 4 01:08:23 835491 Macrobid medicatio n Not available Not available Not available 08/07/2023 31842 1 RxNorm React ion: other react ion, fluli ke sympt oms; Not Available [facility] 4 01:08:24 Medications Name Sig Start Date Stop Date Status Note LastModified by Organization Details LastModified Time multivita min tablet TAKE 1 TABLET BY MOUTH ONCE DAILY FOR 10 DAYS active Not Available Not Available No t Available atorvasta tin 40 mg tablet 01/07 completed Medicati on ID: [id number] B rand Name: atorvast atin Balaji love Method: E-Prescr ibed Sub s Allowed: subs [...] mg tablet 05/14 completed Medicati on ID: [id number] D uration Value: 3 Reason: () Brand [...] left ear 01/07 completed Medicati on ID: [id number] D uration Value: 10 Prescri bed By [...] mg tablet 04/18 completed Medicati on ID: [id number] B rand Name: dicyclom ine Send Method: E-Prescr ibed Sub s Allowed: subs OK Speci al Instruct ion: TAKE 1 TABLET BY MOUTH EVERY 6 HOURS Me dication GenericN summer: dicyclom ine Not Available Not Available Not Available metformin 1,000 mg tablet 04/18 completed Medicati on ID: [id number] B rand Name: metformi n Send Method: [...] mg tablet 04/18 completed Medicati on ID: [id number] B rand Name: lisinopr il Send Method: [...] 24 hr 09/15 completed Medicati on ID: [id number] D uration Value: 30 Brand Name: oxybutyn [...] mg tablet 09/15 completed Medicati on ID: [id number] D uration Value: 90 Brand Name: lisinopr [...] mg tablet 05/14 completed Medicati on ID: [id number] D uration Value: 6 Reason: () Brand [...] ating tablet 09/15 completed Medicati on ID: [id number] D uration Value: 7 Brand Name: dalton neves Send Method: E-Prescr ibed Sub s Allowed: subs OK Medic ationGen ericName : dalton neves Not Available Not Available Not Available metformin ER 500 mg tablet,ex tended release 24 hr TAKE 2 TABLETS BY MOUTH TWICE DAILY active Not Available Not Available No t Available TobraDex 0.3 %-0.1 % eye drops,kan pension 4 drop 01/07 completed Medicati on ID: [id number] D uration Value: 14 Prescri bed By Name: Darby Irizarry nd Name: TobraDex Send Method: E-Prescr ibed Sub s Allowed: subs OK Speci al Instruct ion: apply to affected ear(s) M charlene Gudinoeneric Name: TobraDex Not Available Not Available Not Available Premarin 0.625 mg/gram vaginal cream 09/15 completed Medicati on ID: [id number] D uration Value: 30 Brand Name: Premarin Send Method: E-Prescr ibed Sub s Allowed: subs OK Medic atnayeliGen ericName : Premarin Not Available Not Available Not Available BD Ultra-Fin e Mini Pen Needle 31 gauge x 3/16 04/18 completed Medicati on ID: [id number] B rand Name: BD Ultra-Fi ne Mini [...] subcutane ous 04/18 completed Medicati on ID: [id number] B rand Name: Melvinaglsmita PadronikPen U-100 Insulin [...] Available No t Available FreeStyle Alcides 3 [place] USE DAILY TO MONITOR BLOOD GLUCOSE LEVELS [...] [place] - [facility] 01/06/2025 08:27:01 Social History None recorded. Functional Status None [...] ICD10 Code Diagnosis IMO Codes Diagnosis Note [id number] RICHARDSON SAAB MD [facility] [address] [place] [address] 01/06/2025 08:26:02 01/06/2025 09:05:44 Postmastoidectomy complication 06968054 H95.192 The left canal wall down mastoidect karen cavity was cleaned of accumulate d squamous debris. No signs of acute or chronic inflammati on. Recommend continuing yearly debridemen t. Conductive hearing loss 05581188 H90.12 Patient will continue to follow-up with the audiology group for hearing aid maintenanc e. Benign par oxysmal positional vertigo 566882043 H81.12 Currently asymptomat ic with regards to [...] by Organization Details LastModified Time None Recorded Payers Encounter Date Sequence Insurance Name Policy Number Policy Chilel Covered Member ID Chilel Member ID Guarantor Name 01/06/2025 1 DARWIN [id number] D Guillermo Simon Josep [id number] Cody Car Notes Date Note Type Note Provider Name and Address Organization Details Recorded Time 01/06/2025 text/html Patient who underwent left-sided canal [...] to positionally induced vertigo. RICHARDSON SAAB MD [address] [place] [address], [phone], [facility] - [facility] 01/06/2025 09:04:54 OBGyn Episode No OBEpisode recorded.
[2025-02-16 14:27] LABS: MANUAL DIFF FLAG NO
[2025-02-16 14:37] LABS: Hematocrit 34.6 % (37.0-47.0); Hemoglobin 10.9 g/dl (12.0-16.0); Imm Gran Abs Auto 0.00 X10*3/uL (0.00-0.03); Imm Gran Pct Auto 0.0 % (0.0-0.4); Lymphocytes Absolute Auto 1.1 X10*3/uL (1.2-4.9); Mean Corpuscular HGB Conc 31.5 g/dl (31.0-35.0); Mean Corpuscular Hemoglobin 28.8 pg (27.0-33.0); Mean Corpuscular Volume 91.3 fL (80.0-98.0); NRBC Abs Auto 0.000 X10*3/uL (0.0-0.012); NRBC Pct Auto 0.0 /100WBC (0.0-0.2); Platelet Count 238 X10*3/uL (160-400); Red Blood Count 3.79 X10*6/uL (4.20-5.50); White Blood Count 3.7 X10*3/uL (4.8-10.8)
[2025-02-16 15:23] LABS: Vitamin B12 370 pg/mL (200-900)
[2025-02-16 15:52] LABS: Alanine Aminotransferase 21 U/L (0-31); Albumin Level 4.2 g/dL (3.5-5.0); Alkaline Phosphatase 72 U/L (39-117); Anion Gap 14 (12-20); Aspartate Amino Transferase 29 U/L (5-31); Blood Urea Nitrogen 11 mg/dL (9-16); Calcium 9.2 mg/dL (8.4-10.2); Carbon Dioxide 28 mmol/L (22-29); Chloride 104 mmol/L (96-108); Estimated Glomerular Filt Rate > 60; Ferritin 51 ng/mL (10-250); Iron 38 mcg/dL (30-160); Percent Iron Saturation 15 % (15-50); Potassium 3.8 mmol/L (3.3-5.1); Sodium 142 mmol/L (135-145); Total Iron Binding Capacity 246 mcg/dL (228-428); Total Protein 6.6 g/dL (6.5-8.0); Unsaturated Iron Binding 208 ug/dL
== END 2025-02-16 09:20 | disposition home or self-care (01) ==
LOC: HO.WFDLDS 09:19
PROVIDERS: PCP Physician Assistant Medical; Visit Provider Physician Assistant Medical
DX: E11.59 Type 2 diabetes mellitus with other circulatory complications (principal); E11.65 Type 2 diabetes mellitus with hyperglycemia; D64.9 Anemia, unspecified; E78.00 Pure hypercholesterolemia, unspecified; C64.1 Malignant neoplasm of right kidney, except renal pelvis; I10 Essential (primary) hypertension; I25.118 Atherosclerotic heart disease of native coronary artery with other forms of angina pectoris; K92.2 Gastrointestinal hemorrhage, unspecified; J06.9 Acute upper respiratory infection, unspecified; Z91.89 Other specified personal risk factors, not elsewhere classified
CPT/HCPCS: 36415; 80053; 82607; 82728; 83036; 83540; 85025

== ENCOUNTER 2025-02-16 09:19 | Outpatient (AMB) | payer OTHER, SELFPAY ==
--- NOTE | 2025-02-16 09:27 | MHC.PC.OV ---
Vital Signs 02/16/25 09:36 Height 4 ft 11 in Weight 107 lb 8 oz BMI 21.7 BP 118/62 Blood Pressure Location Lt brachial Position Sitting Respiration 15 Pulse 95 Pulse Source Pulse Oximeter Temp 98.4 F Temp Source Temporal Artery Scan Pulse Oximetry (%) 96 Oxygen Delivery Method Room Air Intake Visit Reasons: Type II diabetes Intake Note: Georgia presents in the office today for her diabetes. Allergies nitrofurantoin (From Macrobid) Allergy (Mild, Verified 02/16/25 09:33) fever oxycodone (From Percocet) Allergy (Mild, Verified 02/16/25 09:33) Nausea sulfamethoxazole (From Bactrim) Allergy (Mild, Verified 02/16/25 09:33) face swelling trimethoprim (From Bactrim) Allergy (Mild, Verified 02/16/25 09:33) face swelling penicillin G Allergy (Verified 02/16/25 09:33) hives Medication List - Last Reconciled 02/16/25 by KELSIE Lundy amlodipine 5 mg PO DAILY aspirin (Adult Aspirin Regimen) 81 mg PO DAILY atorvastatin 80 mg PO BEDTIME blood-glucose sensor (LightTableStyle Alcides 3 Plus Sensor device) Apply 1 new sensor every 15 days as directed to monitor blood glucose continuously. blood-glucose,still operator helper,cont (FreeStyle Alcides 3 [place]) Use daily to monitor blood glucose levels continuously. qeyfkanbvi-fnycmagxerznm-wcyu 50-325-40 mg 1 tab PO Q4H PRN carvedilol 6.25 mg PO BID clotrimazole-betamethasone 1-0.05 % 1 appl topical BID 10 days cranberry fruit 2,000 mg PO DAILY gabapentin 300 mg PO BID 90 days glucose (Dex4 Glucose Quick Dissolve) 16 grams (4 x 4 gram) PO Q15M PRN insulin degludec (Tresiba FlexTouch U-100 insulin) 6 units subcut DAILY lidocaine 5% (Lidoderm) 3 patches topical DAILY lisinopril 40 mg PO DAILY loperamide 2 mg PO Q4H PRN metformin ER 1,000 mg (2 x 500 mg) PO BID methenamine hippurate 1 g PO DAILY oxybutynin chloride ER 10 mg PO DAILY polysaccharide iron complex (Ferrex) 150 mg PO DAILY tirzepatide (Mounjaro) 2.5 mg (0.5 mL) subcut QWEEK tizanidine 2 mg PO Q8H PRN tramadol 50 mg PO Q8H PRN 14 days vitamins A,C,Y-qkvv-fktlzk 4,296 mcg-226 mg-90 mg (PreserVision AREDS) 1 cap PO BID Tobacco use date assessed: 02/16/25 Dental Screening Dental Screen Date: 02/16/25 Did you have a dental visit in the last 12 months?: Yes Did you have a dental problem in the last 6 months where you did not have access to dental care?: No Was dental information given to patient?: Patient has dentist HPI HPI Comments History of Present Illness Details This is a 68-year-old female with a past medical history of type 2 diabetes, CAD, 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 Lower GI bleed-July 2024. She remains off Plavix. Gastroenterology was consulted and colonoscopy performed which showed moderate diverticulosis of the whole colon with internal hemorrhoids. Fiber intake was reviewed with the patient. Per colonoscopy report source of bleeding was likely hemorrhoids. She takes an iron supplement. CBC trended positively. Denies blood in stools. Type 2 diabetes-taking metformin ER 1000 mg twice daily and Mounjaro 2.5 mg weekly, Tresiba 6 units. 14 day GM data 2% very high 13% high 84% target range 1% low 0% very low No retinopathy or nephropathy. Tresiba discontinued due to hypoglycemia. Cardiovascular-She had an ST elevation [place] 12/08/2022. Status post cardiac catheterization with CANDELARIA placed to the RCA. There was 75% stenosis of the left circumflex. There were minimal luminal irregularities in the LAD. Medications include amlodipine, ASA, atorvastatin, carvedilol, lisinopril. She had residual anginal symptoms. She had a cath on 11/19/23 which showed RCA stent wasn't working properly. She denies CP and SOB since it was revised. She had an injection 11/27/24 for left sided sciatica. She was offered a nerve block because she had continued pain, but she is not going to pursue it right now. She takes tramadol and Zanaflex as needed. She also takes gabapentin. Right renal clear cell carcinoma-[facility]. Surgeon is Dr. Baldwin at [facility]. She underwent partial nephrectomy 12/16/2021. No known recurrence. She had a head CT for evaluation of head pain that is intermittent. It was negative. She suspected the pain was due to osteoarthritis in her neck. She has not received the flu vaccine yet, but it was recommended. Last mammogram was May 2024. Last bone density exam in 11/23/22. This showed osteopenia. She will repeat this in May when she is due for the mammogram. She has had a cold for the past 4 days. She had a low-grade fever at the end of last week which resolved. She has sinus pressure and congestion and a mild cough. No shortness of breath or chest pain. ROS: Constitutional: No unexplained weight loss, fever, chills or night sweats. Eyes: No vision changes, blurry vision, double vision, eye pain, eye redness, eye discharge. ENT: No sore throat or hearing loss. Endorses ear pressure, sinus congestion. Respiratory: No shortness of breath or sputum production. Cardiovascular: No chest pain, chest pressure or chest discomfort. No palpitations or pedal edema. Gastrointestinal: No anorexia, nausea, vomiting or diarrhea. No abdominal pain. Denies blood in stools. Neurologic: No syncope, unilateral weakness, ataxia, numbness or tingling in the extremities. Musculoskeletal: See HPI Skin: No rash Endocrine: No cold or heat intolerance. No polyuria or polydipsia. Physical exam: Constitutional: Alert, in no distress. Head: Normocephalic. Ears: Canals clear. TMs pat and pearly. Nose: Sinuses nontender. No discharge. Throat/mouth: No erythema, exudates or edema. Neck: Supple, Full range of motion. No lymphadenopathy. Respiratory: Clear to auscultation. Cardiovascular: S1 S2 regular. No murmurs. Extremities: Warm and well perfused. No clubbing, cyanosis or edema. Psychiatric: Normal mood and affect [facility] Medical History Lower GI bleed Dizziness Head pain Skin rash Osteoarthritis involving multiple joints on both sides of body Positive NADEEM (antinuclear antibody) Mild anemia Colon polyp Pure hypercholesterolemia Essential hypertension History of kidney cancer Clear cell carcinoma of right kidney Abnormal mammogram Osteopenia Bone spur Vertigo Urinary incontinence Recurrent UTI Osteoarthritis Obesity, Class I, BMI 30-34.9 Migraine Left hand pain Hypertensive disorder Hypercholesteremia Diarrhea COVID-19 Clear cell renal cell carcinoma Chronic headache Hyperlipidemia CAD (coronary artery disease) ST elevation myocardial infarction (STEMI) of inferior wall Surgical History Hx of cardiac cath History of shoulder surgery History of carpal tunnel surgery of right wrist S/P foot surgery, right H/O partial nephrectomy H/O removal of cyst Finger joint replacement of right hand S/P cardiac catheterization Family History Brother Heart disease Alcohol abuse Cancer Mother Heart disease Hypercholesterolemia Hypertension Daughter Hypercholesterolemia Social History (Updated 11/13/24 @ 08:55 by Nathalia Stone MA) Alcohol intake: never Patient Tobacco Use Status: Former Tobacco user Cigarettes Per Day: 0.25 Years Smoked: Unknown e-Cigarette/Vaping Use: Never Used Second Hand Smoke Exposure: Yes service: No Current occupational status: employed and retired Current occupation: [employer] Current occupational exposures/hazards: No Cognitive needs: No Hearing needs: No Vision needs: No Questionnaire Thrive Questionnaire Date Thrive assessed: 04/21/24 I am a: Patient What is your living situation today?: I have a steady place to live Within the past 12 months, did the food you bought not last and you didn't have the money to get more?: Never true Within the past 12 months, did you worry whether your food would run out before you got money to buy more?: Never true Do you have trouble paying for medicines?: No Do you have trouble getting transportation to medical appointments?: No Do you have trouble paying your heating and electricity bill?: No Do you have trouble taking care of your child, family member or friend?: No Do you have trouble with day-to-day activities such as bathing, preparing meals, shopping, managing finances, etc.?: No Are you currently unemployed and looking for a job?: No Are you interested in more education?: No Please select the resources that you would like help with: None Currently or been in a relationship where the following occur: No concerns reported THRIVE Score: 0 PIYUSH-7 AMB Questionnaire PIYUSH-7 Date PIYUSH - 7 assessed: 08/21/24 Source: Developed by Drs. Maury Smith, Samantha Ray, Parmjit Martinez and colleagues, with an educational kristen from [employer]. Physical exam (Primary Care) Tobacco/Smoking Status: Tobacco use Status Tobacco use date assessed 11/13/24 02/16/25 09:29 Patient Tobacco Use Status Former Tobacco user 02/16/25 09:29 e-Cigarette/Vaping Use Never Used 02/16/25 09:29 Thrive Assessment: Date of Thrive Assessment Date Thrive assessed 04/21/24 02/16/25 09:29 Currently or been in a relationship where the following occur: No concerns reported Coding Level of Care Code Est Pt Level 4 (24198) Diagnoses Type 2 diabetes mellitus with cardiac complication E11.59 Pure hypercholesterolemia E78.00 Clear cell carcinoma of right kidney C64.1 Essential hypertension I10 Coronary artery disease of [place] artery of [place] heart with stable angina pectoris I25.118 Coronary Disease-Associated Artery/Lesion type: [place] artery [place] vs. transplanted heart: [place] heart Associated angina: with stable angina Lower GI bleed K92.2 URI, acute J06.9 Assessment & Plan Assessment & Plan (1) Type 2 diabetes mellitus with cardiac complication: Code(s): E11.59 - Type 2 diabetes mellitus with other circulatory complications Category: Medical (2) Pure hypercholesterolemia: Code(s): E78.00 - Pure hypercholesterolemia, unspecified Category: Medical (3) Clear cell carcinoma of right kidney: Code(s): C64.1 - Malignant neoplasm of right kidney, except renal pelvis Category: Medical (4) Essential hypertension: Code(s): I10 - Essential (primary) hypertension Category: Medical (5) CAD (coronary artery disease): Code(s): I25.10 - Atherosclerotic heart disease of [place] coronary artery without angina pectoris Category: Medical Qualifiers: Coronary Disease-Associated Artery/Lesion type: [place] artery [place] vs. transplanted heart: [place] heart Associated angina: with stable angina Qualified Code(s): I25.118 - Atherosclerotic heart disease of [place] coronary artery with other forms of angina pectoris (6) Lower GI bleed: Code(s): K92.2 - Gastrointestinal hemorrhage, unspecified Category: Medical (7) URI, acute: Code(s): J06.9 - Acute upper respiratory infection, unspecified Plan Lower GI bleed-no further episodes. Colonoscopy negative for malignancy. Monitor labs. Continue iron. She remains off Plavix. Hyperlipidemia Continue current regimen. Hypertension Controlled. Continue current regimen. History of right kidney cancer No known recurrence. Followed by Dr. Sutherland. Coronary artery disease Continue current management per Cardiology. Type 2 diabetes Continue metformin extended release 1000 mg twice daily and Tresiba 6 units daily. Continue Mounjaro 2.5 mg weekly. Acute URI Supportive care reviewed. Warning signs warranting re-evaluation discussed with the patient. She will have lab work completed today. Follow up in 3 months.
[2025-02-16 09:36] VITALS: BP 118/62; PULSE 95; RESP 15; TEMP 36.9; O2SAT 96; BMI 21.7
--- OUTSIDE RECORDS SUMMARY | 2025-02-16 10:28 | XMS_ITS | Patient Health Record ---
Author Organization [facility] Address [address] [place] [address] Support Name Relationship Address Phone TRAVON EPSTEIN Guarantor Unknown [phone] Reason For Referral No Information Medications [...] Problem Type II diabetes mellitus without complication (112752067) Diabetes mellitus without mention of complication, type II or unspecified type, not stated as uncontrolled (250.00) Active confirmed Major Problem Hyperlipidemia (75607286) Other and unspecified hyperlipidemia (272.4) Active confirmed Major Problem Essential hypertension (02030180) Unspecified essential hypertension (401.9) Active confirmed Major Problem Postmenopausal bleeding (94859112) Postmenopausal bleeding (627.1) Active confirmed Diag Problem Menopausal symptom (34699752) Symptomatic menopausal or female climacteric states (627.2) Active confirmed Diag Problem Insomnia (908805456) Insomnia, unspecified (780.52) Active confirmed Diag Problem General examination of patient (877507598) Routine general medical examination at health care facility (V70.0) Active confirmed Diag Problem Gynecological examination normal (593945204323447) Routine gynecological examination (V72.31) Active confirmed Diag Problem Dietary management surveillance (268010334) Dietary surveillance and counseling (V65.3) Active confirmed Diag Problem Counseling (202924458) Counseling NOS (V65.40) Active confirmed Diag Problem Exercises teaching, guidance, and counseling (668240314) Exercise counseling (V65.41) Active confirmed Diag Plan Of Treatment No Information Insurance Providers Payer Name Payer Address Payer Phone Subscriber Number Group Number Insured Name Patient Relationship to Insured Coverage Start Date Coverage End Date [employer] [address] [place] [address] [id number] TRAVON EPSTEIN Self - patient is the insured
--- OUTSIDE RECORDS SUMMARY | 2025-02-16 10:28 | XMS_ITS | Clinical Summary ---
Author Organization [facility] Address [address] [place] [id number] Phone Care Team Providers Care Colorist Photography Name Role Phone Gali Rodríguez Primary Care [...] topic Medical Devices Not on file Insurance [facility] PPO CIGNA PPO CIGNA PPO CIGNA PPO CIGNA PPO CIGNA PPO Care Teams Colorist Photography Relationship Specialty Start Date End Date Gali Rodríguez PA PCP - General Physician Hr Intern 01/02/23 Additional Source Comments The information contained in this document represents components of the legal health record. It is not the complete legal health record.[facility]
== END 2025-02-16 10:02 | disposition home or self-care (01) ==
LOC: HO.HMCFM 09:20
PROVIDERS: PCP Physician Assistant Medical; Visit Provider Physician Assistant Medical
DX: E11.59 Type 2 diabetes mellitus with other circulatory complications (principal); E78.00 Pure hypercholesterolemia, unspecified; C64.1 Malignant neoplasm of right kidney, except renal pelvis; I10 Essential (primary) hypertension; I25.118 Atherosclerotic heart disease of native coronary artery with other forms of angina pectoris; K92.2 Gastrointestinal hemorrhage, unspecified; J06.9 Acute upper respiratory infection, unspecified